=== PATIENT | female | born 1970 | race Two or more races ===

== ENCOUNTER 2020-04-11 15:16 | Outpatient (REF) | payer MEDICAID, SELFPAY | END 2020-04-11 15:17 | disposition home or self-care (01) | LOC: HO.LAB 15:16 | PROVIDERS: Visit Provider Internal Medicine | DX: Z20.822 Contact with and (suspected) exposure to COVID-19 (principal) | CPT/HCPCS: 36415; C9803; U0003 ==

== ENCOUNTER 2020-07-10 13:20 | Outpatient (REF) | payer MEDICAID, SELFPAY ==
[2020-07-10 13:38] LABS: COVID-19 Test Negative (Negative)
== END 2020-07-10 13:21 | disposition home or self-care (01) ==
LOC: HO.LAB 13:20
PROVIDERS: Visit Provider Internal Medicine
DX: Z20.822 Contact with and (suspected) exposure to COVID-19 (principal)
CPT/HCPCS: 36415; 87635; C9803

== ENCOUNTER 2020-08-14 08:37 | Outpatient (REF) | payer MEDICAID, SELFPAY ==
--- NOTE | ~2020-08-14 | MM_ITS ---
EXAMINATION: MM SCREENING DIGITAL BREAST TOMOSYNTHESIS, BILATERAL CLINICAL INFORMATION: Screening. Asymptomatic. The lifetime risk of breast cancer based on the Tyrer-Cuzick Model is 14%. COMPARISON: Mammography: 10/20/2016, 10/18/2015, 04/22/2014 TECHNIQUE: Digital breast tomosynthesis is performed in both the craniocaudal and mediolateral oblique views along with computer-aided detection (CAD). Synthesized 2D images are generated from the tomosynthesis. Additional right MLO view is provided. FINDINGS: The breasts are heterogeneously dense, which may obscure small masses (ACR BI-RADS breast composition Category c). There are no significant masses, abnormal calcifications, or other abnormalities. Parenchymal pattern is similar to prior studies. No significant changes. MM/MM tomosynthesis screening BI IMPRESSION: No mammographic evidence of malignancy. ASSESSMENT: BI-RADS 1: Negative RECOMMENDATION: Routine annual mammography screening. This patient's information was entered into a reminder system with a target due date for their next mammogram.
== END 2020-08-14 08:38 | disposition home or self-care (01) ==
LOC: HO.MAMMO 08:37
PROVIDERS: Visit Provider Family Medicine
DX: Z12.31 Encounter for screening mammogram for malignant neoplasm of breast (principal)
CPT/HCPCS: 77063; 77067

== ENCOUNTER 2020-08-24 18:54 | Emergency (ER) | payer MEDICAID, SELFPAY ==
[2020-08-24 19:16] VITALS: BP 117/87; PULSE 92; RESP 18; TEMP 36.6; O2SAT 97; BMI 36.9
[2020-08-24 20:24] LABS: Glucose Urine UA NEG (NEG); Leukocyte Esterase Urine TRACE (NEG); Nitrite Urine POS (NEG); PH 5.5 (5.0-8.0); Specific Gravity - Urine 1.025 (1.005-1.025); UACC Culture Trigger YES; Urine Blood 3+ (NEG); Urine Ketones 15 MG/DL (NEG); Urine Protein 2+ MG/DL (NEG-TRACE)
[2020-08-24 20:26] LABS: Appearance Urine TURBID; Color Urine AMBER
[2020-08-24 20:34] LABS: Bacteria Urine 1+ /LPF; Mucus Urine 2+ /LPF; Squamous Epithelial Cell Urine TRACE /LPF
[2020-08-24 20:43] LABS: Basophils Absolute Auto 0.1 X10*3/uL (0.0-0.2); Basophils Percent Auto 0.6 % (0-2); Eosinophils Absolute Auto 0.2 X10*3/uL (0.0-0.4); Eosinophils Percent Auto 2.6 % (0-4); Lymphocytes Percent Auto 24.4 % (20-40); MANUAL DIFF FLAG SCAN; PLT CLUMP 1; SCAN SMEAR FLAG 1
[2020-08-24 20:45] LABS: Hematocrit 35.5 % (37-47); Imm Gran Abs Auto 0.03 X10*3/uL (0.00-0.03); Imm Gran Pct Auto 0.4 % (0.0-0.4); Mean Corpuscular HGB Conc 33.8 g/dl (31.0-35.0); Mean Corpuscular Hemoglobin 29.5 pg (27.0-33.0); Mean Corpuscular Volume 87.2 fL (80-98); Mean Platelet Volume 10.5 fL (9.4-12.3); Monocytes Absolute Auto 0.6 X10*3/uL (0.1-1.2); Monocytes Percent Auto 6.8 % (2-11); Neutrophils Absolute Auto 5.3 X10*3/uL (2.0-8.3); Neutrophils Percent Auto 65.2 % (45-73); Red Blood Count 4.07 X10*6/uL (4.20-5.50); Red Cell Distribution Width 14.8 % (11.0-16.0); White Blood Count 8.1 X10*3/uL (4.8-10.8)
[2020-08-24 20:48] LABS: SLIDE REVIEW VERIFIED
[2020-08-24 20:50] LABS: Alanine Aminotransferase 14 U/L (0-31); Alkaline Phosphatase 111 U/L (39-117); Anion Gap 13 (12-20); Aspartate Amino Transferase 20 U/L (5-31); Bilirubin Total 0.3 mg/dL (0.0-1.0); Blood Urea Nitrogen 8 mg/dL (9-16); Calcium 8.6 mg/dL (8.4-10.2); Carbon Dioxide 22 mmol/L (22-29); Chloride 110 mmol/L (96-108); Creatinine Clr Calc Pharmacy 79.6; Estimated Glomerular Filt Rate > 60; Glucose Random 78 mg/dL (60-115); Potassium 3.9 mmol/L (3.3-5.1); Sodium 141 mmol/L (135-145); Total Protein 7.3 g/dL (6.5-8.0)
[2020-08-25 01:53] VITALS: BP 161/83; PULSE 79; RESP 18; TEMP 36.8; O2SAT 98
--- NOTE | 2020-08-25 02:06 | ED_ITS ---
HPI - Female Genitourinary General Chief complaint: Vaginal Bleeding Stated complaint: vaginal bleeding Time Seen by Provider: 08/25/20 01:44 History of Present Illness HPI Narrative: Patient is a 50-year-old female presents today with having vaginal bleeding. Patient claims of bleeding been ongoing for about 4 days. She is soaking 3 pads a day. There is no fever no chills no dizziness no nausea no vomiting. Definitely vaginal bleeding. No rectal bleeding noted. No cough no congestion or upper respiratory symptoms. No diaphoresis. Patient is from home. She had a Pap smear done few days prior. Related Data Previous Rx's Medication Instructions Recorded phenazopyridine [Pyridium] 100 mg PO TID PRN #10 tab 08/25/20 sulfamethoxazole-trimethoprim 1 tab PO BID #6 tab 08/25/20 [Bactrim DS] Allergies Allergy/AdvReac Type Severity Reaction Status Date / Time From Zantac Allergy Unknown RASH Uncoded 11/29/19 17:38 Review of Systems Review of Systems: Constitutional: No Weight loss, No Fever, No Chills, No Night Sweats, No Fatigue, No Malaise ENT/Mouth: No Hearing loss, No Ear Pain, No Nasal Congestion, No Sinus Pain, No Hoarseness, No sore throat, No Rhinorrhea, No Swallowing Difficulty Eyes: No Eye Pain, No Swelling, No Redness, No Foreign Body, No Discharge, No Vision Changes Cardiovascular: No Chest Pain, No SOB, No Dyspnea on Exertion, No Orthopnea, No Edema, No Palpitations Respiratory: No Cough, No Sputum, No Wheezing, No Smoke Exposure, No Dyspnea Gastrointestinal: No Nausea, No Vomiting, No Diarrhea, No Constipation, No abdominal Pain, No Hematochezia, No Melena Genitourinary: no irregular bleeding, No Dysuria, No Urinary Frequency, No Hematuria, No Urinary Incontinence, No Urgency, No Flank Pain, No Urinary Flow Changes, No Hesitancy Musculoskeletal: No joint pain, No Myalgias, No Joint Swelling Skin: No Skin Lesions, No rash Neuro: No Weakness, No Numbness, No Paresthesias, No Loss of Consciousness, No Dizziness, No Headache Psych: No Anxiety/Panic, No Depression, No SI/HI/AH/VH, No Social Issues, Heme/Lymph: No Bruising, No Bleeding,No Lymphadenopathy Endocrine: No Polyuria, No Polydipsia, No Temperature Intolerance Positive vaginal bleeding [facility] Past Medical History Attestation statement: The following information was validated with the patient. Medical History Carpal tunnel syndrome of left wrist delivery delivered HTN (hypertension) Social History Social History Advance Directives: No Patient : No Physical Exam Vital Signs: Vital Signs: Last Vital Signs Temp 98.2 F 08/25/20 01:53 Pulse 79 08/25/20 01:53 Resp 18 08/25/20 01:53 BP 161/83 H 08/25/20 01:53 Pulse Ox 98 08/25/20 01:53 Body Mass Index 36.9 Appearance: Alert. Oriented X3. No acute distress. Eyes: Pupils equal, round and reactive to light. ENT: Pharynx normal. Neck: Normal inspection. Neck supple. No lymph nodes noted. No crepitus CVS: Normal heart rate and rhythm. Pulses normal. Normal S1 and S2 Respiratory: No respiratory distress. Breath sounds normal. No Wheezing. No rales Abdomen: Soft and nontender. No rigidity. No distention. good BS x4 Skin: Skin warm and dry. Normal skin color. Normal skin turgor. Extremities: No lower extremity edema. Neurovascular intact to all extremities. No Lacerations. No Rash Neuro: Oriented X 3. No motor deficit. No sensory deficit. Moving all extermities. No slurred speech pelvic exam done with nurse Judy present. There is no external lesion noted. there is small amount of blood in the vaginal vault. Cervical os is closed. No adnexal tenderness elicited. MDM - Female Genitourinary MDM Narrative Medical decision making narrative: Patient's hemoglobin is baseline. She is well appearing no distress. Positive UTI. Will get ahead and give Bactrim. In stable condition with discharge home. Patient will require follow-up on an outpatient basis for her vaginal bleeding. Question uterine biopsy. Currently in stable condition. Patient told risk of cancer exists. Must follow-up. Lab Data Result diagrams: 08/24/20 20:16 08/24/20 20:16 Labs: Lab Results 08/24/20 08/24/20 08/24/20 Range/Units 20:16 20:16 20:16 WBC 8.1 (4.8-10.8) X10*3/uL RBC 4.07 L (4.20-5.50) X10*6/uL Hgb 12.0 (12.0-16.0) g/dl Hct 35.5 L (37-47) % MCV 87.2 (80-98) fL MCH 29.5 (27.0-33.0) pg MCHC 33.8 (31.0-35.0) g/dl RDW 14.8 (11.0-16.0) % Plt Count TNP MPV 10.5 (9.4-12.3) fL Immature Gran % (Auto) 0.4 (0.0-0.4) % Neut % (Auto) 65.2 (45-73) % Lymph % (Auto) 24.4 (20-40) % [place] % (Auto) 6.8 (2-11) % Eos % (Auto) 2.6 (0-4) % Baso % (Auto) 0.6 (0-2) % Lymph # (Auto) 2.0 (1.2-4.9) X10*3/uL [place] # (Auto) 0.6 (0.1-1.2) X10*3/uL Eos # (Auto) 0.2 (0.0-0.4) X10*3/uL Baso # (Auto) 0.1 (0.0-0.2) X10*3/uL Abs Immat Gran (auto) 0.03 (0.00-0.03) X10*3/uL Absolute Neuts (auto) 5.3 (2.0-8.3) X10*3/uL Absolute Nucleated RBC 0.000 (0.0-0.012) X10*3/uL Nucleated RBC % (auto) 0.0 (0.0-0.2) /100WBC Smear Tech's Comments VERIFIED Sodium 141 (135-145) mmol/L Potassium 3.9 (3.3-5.1) mmol/L Chloride 110 H (96-108) mmol/L Carbon Dioxide 22 (22-29) mmol/L Anion Gap 13 (12-20) BUN 8 L (9-16) mg/dL Creatinine 0.83 (0.5-1.4) mg/dL Estim Creat Clear Calc 79.6 Estimated GFR > 60 Random Glucose 78 (60-115) mg/dL Calcium 8.6 (8.4-10.2) mg/dL Total Bilirubin 0.3 (0.0-1.0) mg/dL AST 20 (5-31) U/L ALT 14 (0-31) U/L Alkaline Phosphatase 111 (39-117) U/L Total Protein 7.3 (6.5-8.0) g/dL Albumin 4.0 (3.5-5.0) g/dL Urine Color ROMY Urine Appearance TURBID Urine pH 5.5 (5.0-8.0) Ur Specific [place] 1.025 (1.005-1.025) Urine Protein 2+ H (NEG-TRACE) MG/DL Urine Glucose (UA) NEG (NEG) MG/DL Urine Ketones 15 (NEG) MG/DL Urine Blood 3+ H (NEG) Urine Nitrite POS H (NEG) Ur Leukocyte Esterase TRACE H (NEG) Urine RBC 76-150 H (0) /HPF Urine WBC 5-9 H (0-4) /HPF Ur Squamous Epith Cells TRACE /LPF Urine Bacteria 1+ /LPF Urine Mucus 2+ /LPF Discharge Plan Discharge Clinical Impression: Vaginal bleeding, UTI (urinary tract infection) Patient Disposition: Home, Self-Care Instructions: Dysfunctional Uterine Bleeding (ED), Urinary Tract Infection in Women (ED) Additional Instructions: Risk of uterine cancer exists. You must get a uterine biopsy done by OBGYN. Prescriptions: New sulfamethoxazole-trimethoprim [Bactrim DS] 800-160 mg tablet 1 tab PO BID Qty: 6 RF: 0 phenazopyridine [Pyridium] 100 mg tablet 100 mg PO TID PRN (Reason: pain) Qty: 10 RF: 0 Referrals: Keny Hair MD [Physician] - 2 days
== END 2020-08-25 02:39 | disposition home or self-care (01) ==
PROVIDERS: Emergency Provider Emergency Medicine Emergency Medical Services; PCP Family Medicine
DX: N93.9 Abnormal uterine and vaginal bleeding, unspecified (principal); N39.0 Urinary tract infection, site not specified; I10 Essential (primary) hypertension
CPT/HCPCS: 36415; 80053; 81001; 81003; 85025; 87086; 99283; 99284

== ENCOUNTER 2020-10-23 15:37 | Emergency (ER) | payer MEDICAID, SELFPAY ==
--- NOTE | ~2020-10-23 | XR_ITS ---
EXAMINATION: XR ELBOW, LEFT CLINICAL INFORMATION: Status post fall with swelling and pain COMPARISON: January 06, 2018 TECHNIQUE: AP, lateral, and oblique views of the left elbow. FINDINGS: There is no evidence of acute fracture or dislocation of the left elbow. No left elbow effusion. There is some mild soft tissue swelling seen just superior to the olecranon. XR/XR elbow LT 2V IMPRESSION: No bony abnormality of the left elbow identified. No left elbow effusion.
[2020-10-23 16:05] VITALS: BP 147/90; PULSE 86; RESP 16; TEMP 36.5; O2SAT 99; BMI 35.2
[2020-10-23 20:18] LABS: MANUAL DIFF FLAG NO
[2020-10-23 20:19] LABS: Basophils Percent Auto 0.4 % (0-2); Eosinophils Absolute Auto 0.2 X10*3/uL (0.0-0.4); Eosinophils Percent Auto 2.6 % (0-4); Hematocrit 38.3 % (37-47); Hemoglobin 12.6 g/dl (12.0-16.0); Imm Gran Abs Auto 0.01 X10*3/uL (0.00-0.03); Imm Gran Pct Auto 0.1 % (0.0-0.4); Lymphocytes Absolute Auto 2.5 X10*3/uL (1.2-4.9); Lymphocytes Percent Auto 27.7 % (20-40); Mean Corpuscular HGB Conc 32.9 g/dl (31.0-35.0); Mean Corpuscular Hemoglobin 28.9 pg (27.0-33.0); Mean Corpuscular Volume 87.8 fL (80-98); Mean Platelet Volume 9.5 fL (9.4-12.3); Monocytes Absolute Auto 0.6 X10*3/uL (0.1-1.2); Monocytes Percent Auto 6.9 % (2-11); Neutrophils Absolute Auto 5.7 X10*3/uL (2.0-8.3); Neutrophils Percent Auto 62.3 % (45-73); Platelet Count 312 X10*3/uL (160-400); Red Blood Count 4.36 X10*6/uL (4.20-5.50); Red Cell Distribution Width 14.2 % (11.0-16.0); White Blood Count 9.1 X10*3/uL (4.8-10.8)
[2020-10-23 20:46] LABS: Alanine Aminotransferase 18 U/L (0-31); Alkaline Phosphatase 99 U/L (39-117); Anion Gap 13 (12-20); Aspartate Amino Transferase 14 U/L (5-31); Bilirubin Total 0.2 mg/dL (0.0-1.0); Blood Urea Nitrogen 8 mg/dL (9-16); Calcium 9.1 mg/dL (8.4-10.2); Carbon Dioxide 21 mmol/L (22-29); Chloride 107 mmol/L (96-108); Estimated Glomerular Filt Rate 60; Glucose Random 109 mg/dL (60-115); Potassium 4.3 mmol/L (3.3-5.1); Sodium 137 mmol/L (135-145); Total Protein 7.2 g/dL (6.5-8.0)
--- NOTE | 2020-10-23 20:47 | PC.NURSE ---
Pts visitor at bedside asking this RN about Covid testing, states he is symptomatic. This RN advised pt to check in as a pt or go to an out patient clinic for testing. This RN discussing situation with Charge Nurse. Pt and visitor advised he is unable to remain at bedside as a visitor as he is symptomatic for Covid. Visitor agreeable to leaving bedside. Pt awaiting primary MD leal.
[2020-10-23 21:03] VITALS: BP 142/77; PULSE 72; RESP 18; TEMP 36.7; O2SAT 99
--- NOTE | 2020-10-23 21:54 | ED_ITS ---
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 She is unclear as to when she last received her tetanus vaccine. And denies any fevers, chills. Related Data Previous Rx's Medication Instructions Recorded phenazopyridine 100 mg tablet 100 mg PO TID PRN #10 tab 08/25/20 (Pyridium) sulfamethoxazole 800 1 tab PO BID #6 tab 08/25/20 mg-trimethoprim 160 mg tablet (Bactrim DS) Allergies Allergy/AdvReac Type Severity Reaction Status Date / Time From Zantac Allergy Unknown RASH Uncoded 11/29/19 17:38 Review of Systems Review of Systems: Pertinent positives and negatives as stated in HPI 10 point review of systems is otherwise negative. PMFSH Past Medical History Source: nursing notes reviewed Medical History Carpal tunnel syndrome of left wrist delivery delivered HTN (hypertension) Social History Social History Advance Directives: No Patient : No Physical Exam Vital Signs: Vital Signs: Last Vital Signs Temp 98.1 F 10/23/20 21:03 Pulse 72 10/23/20 21:03 Resp 18 10/23/20 21:03 BP 142/77 H 10/23/20 21:03 Pulse Ox 99 10/23/20 21:03 Body Mass Index 35.2 VITAL SIGNS: Reviewed. GENERAL: Well developed, well nourished, in no acute distress. HEAD: Normocephalic/atraumatic EYES: PERRLA, EOMI EARS: Ext canals without abnormality, TMs non-bulging and non-erythematous NOSE: Nares patent bilateral OROPHARYNX: no oral lesions noted, posterior pharynx clear and non-erythematous without noted tonsillar enlargement/erythema/exudates NECK: Supple, no adenopathy LUNGS: Normal breath sounds. No adventitious sounds or accessory muscle use. SpO2<99> CARDIOVASCULAR: Regular rate and rhythm without noted murmurs ABDOMEN: Soft, non-tender, non-distended with bowel sounds. LEFT ELBOW: Abrasions and mild swelling at the left elbow with mild tenderness to palpation but distally neurovascularly intact with palpable radial/ulnar pulses and capillary refill less than 3 seconds with intact sensation. SKIN: Inspection of the skin reveals no rashes NEUROLOGIC: Alert and oriented x 4. Course Course Course Narrative: 50-year-old female status post fall yesterday with unknown tetanus and review of all investigations negative for evidence of fracture, dislocation and noted abrasions to the left elbow. Patient received Tdap here in the emergency room as well as combination analgesics for her aches and pains and abrasions. MDM - Fall Lab Data Result diagrams: 10/23/20 20:14 10/23/20 20:14 Labs: Lab Results 10/23/20 10/23/20 Range/Units 20:14 20:14 WBC 9.1 (4.8-10.8) X10*3/uL RBC 4.36 (4.20-5.50) X10*6/uL Hgb 12.6 (12.0-16.0) g/dl Hct 38.3 (37-47) % MCV 87.8 (80-98) fL MCH 28.9 (27.0-33.0) pg MCHC 32.9 (31.0-35.0) g/dl RDW 14.2 (11.0-16.0) % Plt Count 312 (160-400) X10*3/uL MPV 9.5 (9.4-12.3) fL Immature Gran % (Auto) 0.1 (0.0-0.4) % Neut % (Auto) 62.3 (45-73) % Lymph % (Auto) 27.7 (20-40) % [place] % (Auto) 6.9 (2-11) % Eos % (Auto) 2.6 (0-4) % Baso % (Auto) 0.4 (0-2) % Lymph # (Auto) 2.5 (1.2-4.9) X10*3/uL [place] # (Auto) 0.6 (0.1-1.2) X10*3/uL Eos # (Auto) 0.2 (0.0-0.4) X10*3/uL Baso # (Auto) 0.0 (0.0-0.2) X10*3/uL Abs Immat Gran (auto) 0.01 (0.00-0.03) X10*3/uL Absolute Neuts (auto) 5.7 (2.0-8.3) X10*3/uL Absolute Nucleated RBC 0.000 (0.0-0.012) X10*3/uL Nucleated RBC % (auto) 0.0 (0.0-0.2) /100WBC Sodium 137 (135-145) mmol/L Potassium 4.3 (3.3-5.1) mmol/L Chloride 107 (96-108) mmol/L Carbon Dioxide 21 L (22-29) mmol/L Anion Gap 13 (12-20) BUN 8 L (9-16) mg/dL Creatinine 0.99 (0.5-1.4) mg/dL Estim Creat Clear Calc 65.0 Estimated GFR 60 Random Glucose 109 D (60-115) mg/dL Calcium 9.1 (8.4-10.2) mg/dL Total Bilirubin 0.2 (0.0-1.0) mg/dL AST 14 (5-31) U/L ALT 18 (0-31) U/L Alkaline Phosphatase 99 (39-117) U/L Total Protein 7.2 (6.5-8.0) g/dL Albumin 4.0 (3.5-5.0) g/dL Discharge Plan Discharge Clinical Impression: Abrasion, Muscle spasm of left shoulder area Patient Disposition: Home, Self-Care Instructions: Abrasion (ED), Diphtheria/Acellular Pertussis/Tetanus Booster Vaccine (Tdap) (By..., Muscle Spasm (ED) Additional Instructions: 1. Tylenol 1000 mg, por v?a oral, cada 6 horas seg?n sea necesario para controlar el dolor. No exceda los 4000 mg en 24 horas. 2. Ibuprofeno 400 mg, por v?a oral con leche o alimentos, cada 6 horas seg?n sea necesario para controlar el dolor. 3. Parche de lidoca?na, estos est?n disponibles sin receta y deben aplicarse en el ?manisha de m?xima sensibilidad en el hombro keli cassie se indica en el empaque exterior. 4. Aplique hielo en la piel no expuesta prashanth 5 a 10 minutos, de 3 a 4 veces al d?a, en el codo keli, marisa contin?e moviendo suavemente el codo. 5. Erika un seguimiento con levy proveedor de atenci?n primaria en los pr?ximos 2-3 d?as para henry reevaluaci?n y un tratamiento ambulatorio adicional. Regrese a la jorge de emergencias si jhonatan s?ntomas empeoran de manera aguda. Prescriptions: No Action sulfamethoxazole-trimethoprim [Bactrim DS] 800-160 mg tablet 1 tab PO BID Qty: 6 RF: 0 phenazopyridine [Pyridium] 100 mg tablet 100 mg PO TID PRN (Reason: pain) Qty: 10 RF: 0 Referrals: Chelle Cueto MD [Primary Care Provider] - 2 days Print Language: Greenlandic
[2020-10-23] MEDS: Diphth,Pertus(ACell),Tet Adult 0.5 ML SYRINGE IM (22:10)
[2020-10-23] MEDS: Acetaminophen 325 MG TABLET 975 MG PO (22:10)
[2020-10-23] MEDS: Ketorolac Tromethamine 15 MG/ML VIAL IM (22:11)
[2020-10-23] MEDS: Lidocaine 4 % Patch ADH..PATCH 1 PATCH TRANSDERMA (22:11)
[2020-10-23 22:17] VITALS: BP 153/100; PULSE 75; RESP 16
== END 2020-10-23 22:20 | disposition home or self-care (01) ==
PROVIDERS: Emergency Provider Student in an Organized Health Care Education/Training Program; PCP Family Medicine
DX: S50.312A Abrasion of left elbow, initial encounter (principal); W17.89XA Other fall from one level to another, initial encounter; M62.838 Other muscle spasm; Y93.89 Activity, other specified; Y92.096 Garden or yard of other non-institutional residence as the place of occurrence of the external cause; Y99.9 Unspecified external cause status
CPT/HCPCS: 36415; 73070; 80053; 85025; 90471; 90715; 96372; 99284; J1885

== ENCOUNTER 2021-03-26 20:07 | Emergency (ER) | payer MEDICAID, SELFPAY ==
--- NOTE | 2021-03-26 | ECG_ITS ---
Test Reason : cp Blood Pressure : / mmHG Vent. Rate : 074 BPM Atrial Rate : 074 BPM P-R Int : 150 ms QRS Dur : 078 ms QT Int : 390 ms P-R-T Axes : 044 016 019 degrees QTc Int : 432 ms Normal sinus rhythm Normal ECG No significant changes when compared with the previous EKG of 09 may 2014 Referred By: Generic ED Physician Electronically Signed By:MACKENZIE BURNETT
--- NOTE | ~2021-03-26 | XR_ITS ---
EXAMINATION: PORTABLE CHEST 1 VIEW CLINICAL INFORMATION: cough . COMPARISON: 05/09/2014. TECHNIQUE: Portable frontal view of the chest was obtained. FINDINGS: The lungs are well expanded. Minimal increased bibasilar markings more likely reflecting a component of atelectasis without superimposed additional focal infiltrate, effusion, edema, or pneumothorax. Cardiac and mediastinal silhouettes are within normal limits for technique. No acute bony abnormality seen. XR/XR chest 1V IMPRESSION: Minimal increased basilar markings more likely due to atelectasis when compared to the prior study.
[2021-03-26 21:38] VITALS: BP 141/59; PULSE 86; RESP 16; TEMP 37.2; O2SAT 99
[2021-03-26 21:57] LABS: MANUAL DIFF FLAG NO
[2021-03-26 21:58] LABS: Basophils Percent Auto 0.5 % (0-2); Eosinophils Absolute Auto 0.2 X10*3/uL (0.0-0.4); Eosinophils Percent Auto 2.4 % (0-4); Hematocrit 36.7 % (37.0-47.0); Hemoglobin 11.9 g/dl (12.0-16.0); Imm Gran Abs Auto 0.02 X10*3/uL (0.00-0.03); Imm Gran Pct Auto 0.3 % (0.0-0.4); Lymphocytes Absolute Auto 2.1 X10*3/uL (1.2-4.9); Lymphocytes Percent Auto 27.2 % (20-40); Mean Corpuscular HGB Conc 32.4 g/dl (31.0-35.0); Mean Corpuscular Hemoglobin 28.2 pg (27.0-33.0); Mean Platelet Volume 9.4 fL (9.4-12.3); Monocytes Absolute Auto 0.6 X10*3/uL (0.1-1.2); Neutrophils Absolute Auto 4.8 x10*3/uL (2.0-8.3); Neutrophils Percent Auto 61.6 % (45-73); Platelet Count 332 X10*3/uL (160-400); Red Blood Count 4.22 X10*6/uL (4.20-5.50); Red Cell Distribution Width 14.3 % (11.0-16.0); White Blood Count 7.8 X10*3/uL (4.8-10.8)
[2021-03-26 22:17] LABS: Alanine Aminotransferase 16 U/L (0-31); Alkaline Phosphatase 109 U/L (39-117); Anion Gap 9 (12-20); Aspartate Amino Transferase 16 U/L (5-31); Bilirubin Total 0.2 mg/dL (0.0-1.0); Blood Urea Nitrogen 11 mg/dL (9-16); Calcium 9.4 mg/dL (8.4-10.2); Carbon Dioxide 30 mmol/L (22-29); Chloride 105 mmol/L (96-108); Estimated Glomerular Filt Rate > 60; Glucose Random 110 mg/dL (60-115); Potassium 4.5 mmol/L (3.3-5.1); Sodium 139 mmol/L (135-145); Total Protein 7.6 g/dL (6.5-8.0)
[2021-03-27 04:51] VITALS: BP 138/79; PULSE 64; RESP 18; TEMP 36.8; O2SAT 98
--- NOTE | 2021-03-27 06:46 | ECG_ITS ---
Test Reason : cp Blood Pressure : / mmHG Vent. Rate : 074 BPM Atrial Rate : 074 BPM P-R Int : 150 ms QRS Dur : 078 ms QT Int : 390 ms P-R-T Axes : 044 016 019 degrees QTc Int : 432 ms Normal sinus rhythm Normal ECG Referred By: Katharine Avilez Electronically Signed By:
--- NOTE | 2021-03-27 06:46 | ED_ITS ---
HPI - Chest Pain General Chief Complaint: Chest Pain Stated Complaint: Chest pain Time Seen by Provider: 03/27/21 06:35 Source: patient Mode of arrival: ambulatory Limitations: no limitations History of Present Illness HPI narrative: Patient comes to the emergency room complaining of chest congestion. Patient states it started approximately 3 days ago. Patient states she does not have pain, no shortness of breath. Patient states that she does feel sinus pressure. Patient states that she thinks this is a cold, but because she had chest pressure and history of SD 10 years ago, she came to the hospital. Patient denies coughing, no fever chills. Related Data Previous Rx's Medication Instructions Recorded phenazopyridine 100 mg tablet 100 mg PO TID PRN #10 tab 08/25/20 (Pyridium) sulfamethoxazole 800 1 tab PO BID #6 tab 08/25/20 mg-trimethoprim 160 mg tablet (Bactrim DS) fexofenadine 180 mg tablet 180 mg PO DAILY #7 tab 03/27/21 (Fabiana Allergy) fluticasone propionate 50 1 spray INTRANASAL Q12H #16 g 03/27/21 mcg/actuation nasal spray,suspension (Flonase Allergy Relief) Allergies Allergy/AdvReac Type Severity Reaction Status Date / Time From Zantac Allergy Unknown RASH Uncoded 11/29/19 17:38 Review of Systems Review of Systems: Constitutional : No Weight loss, No Fever, No Chills, No Night Sweats, No Fatigue, No Malaise ENT/Mouth : No Hearing loss, No Ear Pain, complaining of Nasal Congestion and sinus pressure, no sore throat, mild rhinorrhea Eyes: No Eye Pain, No Swelling, No Redness, No Foreign Body, No Discharge, No Vision Changes Cardiovascular : No Chest Pain, only chest pressure/congestion. No SOB, No Dyspnea on Exertion, No Orthopnea, No Edema, No Palpitations Respiratory : No Cough, No Sputum, No Wheezing, No Smoke Exposure, No Dyspnea Gastrointestinal : No Nausea, No Vomiting, No Diarrhea, No Constipation, No abdominal Pain, No Hematochezia, No Melena Genitourinary : no irregular bleeding, No Dysuria, No Urinary Frequency, No Hematuria, No Urinary Incontinence, No Urgency, No Flank Pain, No Urinary Flow Changes, No Hesitancy Musculoskeletal : No joint pain, No Myalgias, No Joint Swelling Skin : No Skin Lesions, No rash Neuro : No Weakness, No Numbness, No Paresthesias, No Loss of Consciousness, No Dizziness, No Headache Psych : No Anxiety/Panic, No Depression, No SI/HI/AH/VH, No Social Issues, Heme/Lymph: No Bruising, No Bleeding,No Lymphadenopathy Endocrine : No Polyuria, No Polydipsia, No Temperature Intolerance PMF Past Medical History Medical History Carpal tunnel syndrome of left wrist delivery delivered HTN (hypertension) Social History Social History Alcohol intake: current Alcohol intake frequency: holidays/special occasions only Patient Tobacco Use Status: Never used Tobacco Use of substances other than those prescribed or required for medical reasons: No Advance Directives: No Advance Directives Information Provided: No Physical Exam Vital Signs: Vital Signs: Last Vital Signs Temp 98.2 F 03/27/21 04:51 Pulse 65 03/27/21 07:09 Resp 14 03/27/21 07:09 BP 125/76 03/27/21 07:09 Pulse Ox 98 03/27/21 07:09 BMI result Body Mass Index 0.7 Const: Other: Appearance: Alert. Oriented X3. No acute distress. Well- appearing Eyes: Pupils equal, round and reactive to light. ENT: Pharynx normal. Neck: Normal inspection. Neck supple. No lymph nodes noted. No crepitus CVS: Normal heart rate and rhythm. Pulses normal. Normal S1 and S2 Respiratory: No respiratory distress. Breath sounds normal. No Wheezing. No rales Abdomen: Soft and nontender. No rigidity. No distention. good BS x4 Skin: Skin warm and dry. Normal skin color. Normal skin turgor. Extremities: No lower extremity edema. No Lacerations. No Rash Neuro: Oriented X 3. No motor deficit. No sensory deficit. Moving all extermities. No slurred speech. Course Course Course Narrative: Patient likely having viral bronchitis. Patient's troponin negative despite having chest pressure/discomfort for 3 days. EKG within normal limits. Patient states it feels like there is a lot of phlegm in her lungs. No active chest pain. MDM - Chest Pain Lab Data Result diagrams: 03/26/21 21:52 03/26/21 21:52 Labs: Lab Results 03/26/21 03/26/21 03/27/21 Range/Units 21:52 21:52 07:17 WBC 7.8 (4.8-10.8) X10*3/uL RBC 4.22 (4.20-5.50) X10*6/uL Hgb 11.9 L (12.0-16.0) g/dl Hct 36.7 L (37.0-47.0) % MCV 87.0 (80.0-98.0) fL MCH 28.2 (27.0-33.0) pg MCHC 32.4 (31.0-35.0) g/dl RDW 14.3 (11.0-16.0) % Plt Count 332 (160-400) X10*3/uL MPV 9.4 (9.4-12.3) fL Immature Gran % (Auto) 0.3 (0.0-0.4) % Neut % (Auto) 61.6 (45-73) % Lymph % (Auto) 27.2 (20-40) % [place] % (Auto) 8.0 (2-11) % Eos % (Auto) 2.4 (0-4) % Baso % (Auto) 0.5 (0-2) % Lymph # (Auto) 2.1 (1.2-4.9) X10*3/uL [place] # (Auto) 0.6 (0.1-1.2) X10*3/uL Eos # (Auto) 0.2 (0.0-0.4) X10*3/uL Baso # (Auto) 0.0 (0.0-0.2) X10*3/uL Abs Immat Gran (auto) 0.02 (0.00-0.03) X10*3/uL Absolute Neuts (auto) 4.8 (2.0-8.3) x10*3/uL Absolute Nucleated RBC 0.000 (0.0-0.012) X10*3/uL Nucleated RBC % (auto) 0.0 (0.0-0.2) /100WBC Sodium 139 (135-145) mmol/L Potassium 4.5 (3.3-5.1) mmol/L Chloride 105 (96-108) mmol/L Carbon Dioxide 30 H (22-29) mmol/L Anion Gap 9 L (12-20) BUN 11 (9-16) mg/dL Creatinine 0.86 (0.5-1.4) mg/dL Estim Creat Clear Calc 210.0 Estimated GFR > 60 Random Glucose 110 (60-115) mg/dL Calcium 9.4 (8.4-10.2) mg/dL Total Bilirubin 0.2 (0.0-1.0) mg/dL AST 16 (5-31) U/L ALT 16 (0-31) U/L Alkaline Phosphatase 109 (39-117) U/L Troponin I High Sens < 3.5 (<3.5-17.0) ng/L Total Protein 7.6 (6.5-8.0) g/dL Albumin 4.0 (3.5-5.0) g/dL COVID-19 (KATRIN) (Negative) COVID-19 Clin Com 03/27/21 Range/Units 07:17 WBC (4.8-10.8) X10*3/uL RBC (4.20-5.50) X10*6/uL Hgb (12.0-16.0) g/dl Hct (37.0-47.0) % MCV (80.0-98.0) fL MCH (27.0-33.0) pg MCHC (31.0-35.0) g/dl RDW (11.0-16.0) % Plt Count (160-400) X10*3/uL MPV (9.4-12.3) fL Immature Gran % (Auto) (0.0-0.4) % Neut % (Auto) (45-73) % Lymph % (Auto) (20-40) % [place] % (Auto) (2-11) % Eos % (Auto) (0-4) % Baso % (Auto) (0-2) % Lymph # (Auto) (1.2-4.9) X10*3/uL [place] # (Auto) (0.1-1.2) X10*3/uL Eos # (Auto) (0.0-0.4) X10*3/uL Baso # (Auto) (0.0-0.2) X10*3/uL Abs Immat Gran (auto) (0.00-0.03) X10*3/uL Absolute Neuts (auto) (2.0-8.3) x10*3/uL Absolute Nucleated RBC (0.0-0.012) X10*3/uL Nucleated RBC % (auto) (0.0-0.2) /100WBC Sodium (135-145) mmol/L Potassium (3.3-5.1) mmol/L Chloride (96-108) mmol/L Carbon Dioxide (22-29) mmol/L Anion Gap (12-20) BUN (9-16) mg/dL Creatinine (0.5-1.4) mg/dL Estim Creat Clear Calc Estimated GFR Random Glucose (60-115) mg/dL Calcium (8.4-10.2) mg/dL Total Bilirubin (0.0-1.0) mg/dL AST (5-31) U/L ALT (0-31) U/L Alkaline Phosphatase (39-117) U/L Troponin I High Sens (<3.5-17.0) ng/L Total Protein (6.5-8.0) g/dL Albumin (3.5-5.0) g/dL COVID-19 (KATRIN) Negative (Negative) COVID-19 Clin Com See Note Imaging Data Chest x-ray: Radiologist's impression: The lungs are well expanded. Minimal increased bibasilar markings more likely reflecting a component of atelectasis without superimposed additional focal infiltrate, effusion, edema, or pneumothorax. Cardiac and mediastinal silhouettes are within normal limits for technique. No acute bony abnormality seen. XR/XR chest 1V IMPRESSION: Minimal increased basilar markings more likely due to atelectasis when compared to the prior study. Discharge Plan Discharge Clinical Impression: Acute bronchitis, viral Patient Disposition: Home, Self-Care Instructions: Acute Bronchitis (ED) Additional Instructions: Please follow-up with your primary care physician tomorrow. If you have any worsening or new symptoms, please return to the emergency room or call 911 Prescriptions: New fluticasone propionate [Flonase Allergy Relief] 50 mcg/actuation spray,suspension 1 spray intranasal Q12H Qty: 16 RF: 0 fexofenadine [Fabiana Allergy] 180 mg tablet 180 mg PO DAILY Qty: 7 RF: 0 No Action sulfamethoxazole-trimethoprim [Bactrim DS] 800-160 mg tablet 1 tab PO BID Qty: 6 RF: 0 phenazopyridine [Pyridium] 100 mg tablet 100 mg PO TID PRN (Reason: pain) Qty: 10 RF: 0
--- NOTE | 2021-03-27 06:46 | ECG_ITS ---
Test Reason : chest pain Blood Pressure : / mmHG Vent. Rate : 063 BPM Atrial Rate : 063 BPM P-R Int : 158 ms QRS Dur : 084 ms QT Int : 440 ms P-R-T Axes : 034 008 018 degrees QTc Int : 450 ms Normal sinus rhythm Nonspecific ST and T wave abnormality Borderline ECG When compared with ECG of 26-MAR-2021 21:46, No significant change was found Referred By: Katharine Avilez Electronically Signed By:MACKENZIE BURNETT
[2021-03-27 07:09] VITALS: BP 125/76; PULSE 65; RESP 14; O2SAT 98
[2021-03-27 07:38] LABS: COVID-19 Test Negative (Negative)
[2021-03-27 07:48] LABS: Troponin-I High Sensitivity < 3.5 ng/L (<3.5-17.0)
== END 2021-03-27 09:07 | disposition home or self-care (01) ==
PROVIDERS: Emergency Provider Emergency Medicine; PCP Family Medicine
DX: J20.8 Acute bronchitis due to other specified organisms (principal); Z20.822 Contact with and (suspected) exposure to COVID-19; I10 Essential (primary) hypertension
CPT/HCPCS: 36415; 71045; 80053; 84484; 85025; 87635; 93005; 99283; 99284

== ENCOUNTER 2021-08-17 15:27 | Outpatient (REF) | payer MEDICAID, SELFPAY ==
--- NOTE | ~2021-08-17 | MM_ITS ---
EXAMINATION: MM SCREENING DIGITAL BREAST TOMOSYNTHESIS, BILATERAL CLINICAL INFORMATION: Screening. Asymptomatic. The lifetime risk of breast cancer based on the Tyrer-Cuzick Model is 19.7%. COMPARISON: Mammography: 08/14/2020 and studies dating back to 03/12/2011. TECHNIQUE: Digital breast tomosynthesis is performed in both the craniocaudal and mediolateral oblique views along with computer-aided detection (CAD). Synthesized 2-D images are generated from the tomosynthesis. FINDINGS: The breasts are extremely dense, which lowers the sensitivity of mammography (ACR BI-RADS breast composition Category d). About the deep slightly lateral and slightly inferior aspect of the right breast, there is a density for which further evaluation with attempted spot compression views and possible ultrasound is recommended. Its margins are not all well circumscribed. It measures approximately 1.1 x 0.6 cm in size. About the deep medial aspect of the left breast, there is a well-circumscribed density not well seen on previous mediolateral oblique projections but which is noted on previous craniocaudal views and appears to represent an intramammary lymph node. MM/MM tomosynthesis screening BI IMPRESSION: Right breast density for further evaluation with spot compression views and possible ultrasound. ASSESSMENT: BI-RADS 0: Incomplete - Need Additional Imaging Evaluation. RECOMMENDATION: 1. Additional views of the right breast. 2. Targeted ultrasound if warranted after review of the additional views. 3. Radiology department staff will contact the patient for additional imaging. This patient's information was entered into a reminder system with a target due date for their next mammogram.
== END 2021-08-17 15:28 | disposition home or self-care (01) ==
LOC: HO.MAMMO 15:27
PROVIDERS: PCP Family Medicine; Visit Provider Family Medicine
DX: Z12.31 Encounter for screening mammogram for malignant neoplasm of breast (principal)
CPT/HCPCS: 77063; 77067

== ENCOUNTER 2021-08-24 09:02 | Outpatient (REF) | payer MEDICAID, SELFPAY ==
--- NOTE | ~2021-08-24 | MM_ITS ---
EXAMINATION: MM DIAGNOSTIC DIGITAL BREAST TOMOSYNTHESIS, RIGHT US DIAGNOSTIC ULTRASOUND BREAST, RIGHT CLINICAL INFORMATION: Recall from screening for nodular focal asymmetric density posterior central lower outer right breast. Family history breast cancer, mother. TC score 19.7%. COMPARISON: Mammography: 08/17/2021 and prior exams dating back to 03/01/2013. TECHNIQUE: Digital breast tomosynthesis is performed. 2D images are generated from the tomosynthesis. The following views are obtained: Spot CC with dermal marker x2, spot MLO with dermal marker, x2, standard CC and ML. Ultrasound right breast is targeted to the central lower and outer breast using grayscale imaging and color Doppler without and with harmonics. FINDINGS: The breasts are heterogeneously dense, which may obscure small masses (ACR BI-RADS breast composition Category c). There is a dermal lesion posterior 6:30 o'clock position which is separate from the finding for recall. The focal nodular asymmetric density is better appreciated on CC view. Margins are macrolobulated and smooth. There is no spiculation or associated calcification. Finding is likely beyond field of view on prior mammography, questionably present without change on remote exam 2012. Ultrasound right breast demonstrates 2 small cysts of similar size to the focal nodular asymmetric density posterior 8:00 position. The larger measures 0.5 x 0.4 cm and is anechoic, smooth, with increased through-transmission of sound. The smaller is 0.4 x 0.3 cm with similar ultrasound characteristics. There is no solid mass or architectural abnormality. Results are discussed with the patient at time of visit, using an manager inventory management. The focal nodular asymmetric density is of unknown chronicity, likely beyond field of view on prior mammography studies. Ultrasound demonstrates 2 small cysts one likely corresponding to the mammographic finding. As a precaution, patient will be reassessed again in 6 months with diagnostic right mammography, ultrasound if warranted. MM/MM tomosynthesis added views R IMPRESSION: -Oval focal nodular asymmetric density, likely beyond field of view on prior exams. -Two simple cysts in area of mammographic concern. No suspicious ultrasound finding. ASSESSMENT: BI-RADS 3: Probably Benign RECOMMENDATION: Diagnostic right mammography in 6 months. This patient's information was entered into a reminder system with a target due date for their next mammogram.
== END 2021-08-24 09:03 | disposition home or self-care (01) ==
LOC: HO.MAMMO 09:02
PROVIDERS: PCP Family Medicine; Visit Provider Family Medicine
DX: R92.2 Inconclusive mammogram (principal)
CPT/HCPCS: 76642; 77061; 77065

== ENCOUNTER 2021-08-26 13:40 | Outpatient (REF) | payer MEDICAID, SELFPAY ==
--- NOTE | ~2021-08-26 | US_ITS ---
EXAMINATION: US PELVIS CLINICAL INFORMATION: Abnormal uterine and vaginal bleeding. COMPARISON: None TECHNIQUE: Ultrasound of the pelvis was performed using both transabdominal and transvaginal transducers along with Doppler. Transvaginal imaging was performed due to inadequate visualization transabdominally. FINDINGS: Uterus: The uterus is anteverted and measures 9.8 cm in length, 5.8 cm in AP and 7.1 cm in transverse dimensions. The double wall endometrial thickness is 0.74 cm. The uterus is smooth in contour and has normal myometrial echogenicity. There are multiple hypoechoic lesions. 1. Lesion in the left lower uterine segment measures 4.2 x 3.5 x 2.7 cm. 2. Lesion in the right lower uterine segment measures 1.7 x 1.6 x 1.7 cm. 3. Lesion in the mid right uterine segment measures 2.6 x 2.2 x 2.5 cm. 4. Lesion in the left fundus measures 2.3 x 2.3 x 2.1 cm. 5. Lesion in the anterior upper body of the uterus measures 0.9 x 0.6 x 0.7 cm. Adnexa: Both ovaries are visualized. There is normal color flow to the adnexa. There is no ovarian torsion. There is no pelvic ascites or fluid collection. Right ovary measures 3.1 x 1.5 x 1.8 cm and volume 4.5 mL. Left ovary measures 3.4 x 1.6 x 1.7 cm and volume 5.0 mL. There is no free fluid in the cul-de-sac. US/US pelvic and transvaginal IMPRESSION: Multiple uterine fibroids in an anteverted uterus. The ovaries are unremarkable. There is no free fluid in the cul-de-sac.
== END 2021-08-26 13:41 | disposition home or self-care (01) ==
LOC: HO.HMGCX 13:40
PROVIDERS: Visit Provider Family Medicine
DX: N93.9 Abnormal uterine and vaginal bleeding, unspecified (principal)
CPT/HCPCS: 76830; 76856

== ENCOUNTER 2021-09-21 22:33 | Emergency (ER) | payer MEDICAID, SELFPAY ==
[2021-09-21 22:16] LABS: Strep A Nucleic Acid Negative (Negative)
[2021-09-21 22:32] LABS: COVID-19 Test Negative (Negative); IDNOW Serial# 9DB6401D
== END 2021-09-22 ==
PROVIDERS: Emergency Provider Emergency Medicine
DX: H92.03 Otalgia, bilateral (principal); R07.0 Pain in throat; Z20.822 Contact with and (suspected) exposure to COVID-19
CPT/HCPCS: 87635; 87651; 99283

== ENCOUNTER 2021-09-21 22:33 | Emergency (ER) | payer MEDICAID, SELFPAY ==
[2021-09-22 01:17] VITALS: BP 162/83; PULSE 87; RESP 18; TEMP 36.6; O2SAT 96; BMI 36.3
[2021-09-22 01:40] LABS: Strep A Nucleic Acid Negative (Negative)
[2021-09-22 01:44] LABS: COVID-19 Test Negative (Negative); IDNOW Serial# 16C4AD1C; Influenza A Negative (Negative); Influenza B2 Negative (Negative)
--- NOTE | 2021-09-22 02:01 | ED_ITS ---
HPI - URI/Sore Throat General Chief Complaint: Upper Respiratory Symptoms Stated Complaint: Throat and ear pain Time Seen by Provider: 09/22/21 02:01 History of Present Illness HPI Narrative: patient is a 51-year-old female presented with coughing upper respiratory symptoms for the last few days. Positive congestion positive generalized malaise patient is not vaccinated for COVID has a history of asthma is overweight. Related Data Previous Rx's Medication Instructions Recorded phenazopyridine 100 mg tablet 100 mg PO TID PRN pain 6 doses #10 08/25/20 (Pyridium) tabs sulfamethoxazole 800 1 tab PO BID #6 tabs 08/25/20 mg-trimethoprim 160 mg tablet (Bactrim DS) fexofenadine 180 mg tablet 180 mg PO DAILY #7 tabs 03/27/21 (Fabiana Allergy) fluticasone propionate 50 1 spray intranasal Q12H #16 grams 03/27/21 mcg/actuation nasal spray,suspension (Flonase Allergy Relief) Allergies Allergy/AdvReac Type Severity Reaction Status Date / Time From Zantac Allergy Unknown RASH Uncoded 11/29/19 17:38 Review of Systems Review of Systems: Positive coughing congestion upper respiratory symptoms Yes all other systems are reviewed and are negative PMFSH Past Medical History Attestation statement: The following information was validated with the patient. Medical History Carpal tunnel syndrome of left wrist delivery delivered HTN (hypertension) Social History Social History Alcohol intake: current Alcohol intake frequency: holidays/special occasions only Patient Tobacco Use Status: Never used Tobacco Advance Directives: No Physical Exam Vital Signs: Vital Signs: Last Vital Signs Temp 97.9 F 09/22/21 01:17 Pulse 87 09/22/21 01:17 Resp 18 09/22/21 01:17 BP 162/83 H 09/22/21 01:17 Pulse Ox 96 09/22/21 01:17 O2 Del Method 09/22/21 01:17 BMI result Body Mass Index 36.3 Appearance: Alert. Oriented X3. No acute distress. Eyes: Pupils equal, round and reactive to light. ENT: Pharynx normal. Neck: Normal inspection. Neck supple. No lymph nodes noted. No crepitus CVS: Normal heart rate and rhythm. Pulses normal. Normal S1 and S2 Respiratory: No respiratory distress. Breath sounds normal. No Wheezing. No rales Abdomen: Soft and nontender. No rigidity. No distention. good BS x4 Skin: Skin warm and dry. Normal skin color. Normal skin turgor. Extremities: No lower extremity edema. Neurovascular intact to all extremities. No Lacerations. No Rash Neuro: Oriented X 3. No motor deficit. No sensory deficit. Moving all extermities. No slurred speech MDM - URI/Sore Throat MDM Narrative Medical decision making narrative: well-appearing COVID test is negative. RSV flu negative. Patient in stable condition will discharge home. Lungs are clear. O2 sats 96% on room air. Likely viral syndrome. Lab Data Labs: Lab Results 09/22/21 09/22/21 09/22/21 Range/Units 01:23 01:23 01:23 COVID-19 (KATRIN) Negative (Negative) COVID-19 Clin Com See Note Influenza Type A (IVETT) Negative (Negative) Influenza Type B (IVETT) Negative (Negative) Influenza A & B Note See Note S. pyogenes GrpA IVETT Negative (Negative) Discharge Plan Discharge Clinical Impression: Upper respiratory infection Patient Disposition: Home, Self-Care Instructions: Upper Respiratory Infection (ED) Prescriptions: No Action sulfamethoxazole-trimethoprim [Bactrim DS] 800-160 mg tablet 1 tab PO BID Qty: 6 0RF phenazopyridine [Pyridium] 100 mg tablet 100 mg PO TID PRN (Reason: pain) Qty: 10 0RF fluticasone propionate [Flonase Allergy Relief] 50 mcg/actuation spray,suspension 1 spray intranasal Q12H Qty: 16 0RF Rx Instructions: administer into each nostril fexofenadine [Fabiana Allergy] 180 mg tablet 180 mg PO DAILY Qty: 7 0RF Referrals: Chelle Cueto MD [Primary Care Provider] - Print Language: Australian
== END 2021-09-22 02:12 | disposition home or self-care (01) ==
PROVIDERS: Emergency Provider Emergency Medicine Emergency Medical Services; PCP Family Medicine
DX: J06.9 Acute upper respiratory infection, unspecified (principal); R07.0 Pain in throat; R53.81 Other malaise; Z20.822 Contact with and (suspected) exposure to COVID-19
CPT/HCPCS: 87502; 87635; 87651; 99282; 99283

== ENCOUNTER 2022-02-26 14:50 | Outpatient (REF) | payer MEDICAID, SELFPAY ==
--- NOTE | ~2022-02-26 | MM_ITS ---
EXAMINATION: MM DIAGNOSTIC DIGITAL BREAST TOMOSYNTHESIS, RIGHT CLINICAL INFORMATION: Right breast density. COMPARISON: Mammography: 08/24/2021 and studies dating back to 03/01/2013. TECHNIQUE: Digital breast tomosynthesis is performed in both the craniocaudal and mediolateral oblique views along with computer-aided detection (CAD). Synthesized 2D images are generated from the tomosynthesis. Spot compression views of the right breast in mediolateral oblique and craniocaudal views performed. FINDINGS: The breasts are heterogeneously dense, which may obscure small masses (ACR BI-RADS breast composition Category c). There are no new significant masses, abnormal calcifications, or other abnormalities. The previously noted density about the deep inferior lateral aspect of the right breast is partially imaged but appears without significant change. Recommend 6 month follow-up bilateral mammography. Results are provided to the patient at time of visit by the technologist. MM/MM tomosynthesis diagnostic RT IMPRESSION: There are no significant changes from prior study. ASSESSMENT: BI-RADS 3: Probably Benign. RECOMMENDATION: Diagnostic mammography in 6 months. This patient's information was entered into a reminder system with a target due date for their next mammogram.
== END 2022-02-26 14:51 | disposition home or self-care (01) ==
LOC: HO.MAMMO 14:50
PROVIDERS: PCP Family Medicine; Visit Provider Family Medicine
DX: R92.2 Inconclusive mammogram (principal)
CPT/HCPCS: 77061; 77065

== ENCOUNTER 2022-03-02 12:31 | Outpatient (REF) | payer MEDICAID, SELFPAY ==
--- NOTE | ~2022-03-02 | XR_ITS ---
EXAMINATION: XR SHOULDER, LEFT CLINICAL INFORMATION: Chronic left shoulder pain COMPARISON: None TECHNIQUE: AP external rotation, Grashey, scapular Y, and axillary views of the left shoulder. FINDINGS: The bones and soft tissues are normal. No fracture. Glenohumeral and acromioclavicular alignment is anatomic with normal joint space. No abnormal soft tissue calcifications. XR/XR shoulder LT min 2V IMPRESSION: Normal left shoulder.
--- NOTE | ~2022-03-02 | XR_ITS ---
EXAMINATION: XR KNEE, LEFT CLINICAL INFORMATION: Pain in the left knee. COMPARISON: None TECHNIQUE: Four views of the left knee. FINDINGS: There are 2 adjacent foci of calcific or ossific density adjacent to the proximal medial femoral condyle measuring approximately 2 cm craniocaudal, 4 mm transverse, and 12 mm AP. The bones, joints and soft tissues are otherwise unremarkable. No effusion. XR/XR knee LT 4V IMPRESSION: 1. Calcific or ossific densities adjacent to the proximal medial femoral condyle. These are nonspecific but could reflect sequela of prior trauma/heterotopic ossification, calcific tendinitis, or calcific periarthritis. 2. No acute abnormality. No joint effusion.
== END 2022-03-02 12:32 | disposition home or self-care (01) ==
LOC: HO.XRAY 12:31
PROVIDERS: PCP Family Medicine; Visit Provider Family Medicine
DX: M25.512 Pain in left shoulder (principal); M25.562 Pain in left knee; G89.29 Other chronic pain
CPT/HCPCS: 73030; 73564

== ENCOUNTER → 2022-04-21 14:55 | Outpatient (BNVA) | payer MEDICAID, SELFPAY | PROVIDERS: PCP Family Medicine; Visit Provider Physician Assistant | DX: M25.812 Other specified joint disorders, left shoulder (principal); M17.12 Unilateral primary osteoarthritis, left knee | CPT/HCPCS: 20610; 99202; J1020 ==

== ENCOUNTER 2022-05-14 15:30 | Outpatient (REF) | payer MEDICAID, SELFPAY ==
--- NOTE | ~2022-05-14 | US_ITS ---
EXAMINATION: US VENOUS ULTRASOUND WITH DOPPLER LOWER EXTREMITY, LEFT CLINICAL INFORMATION: Painful varicosities. Rule out DVT. COMPARISON: None. TECHNIQUE: Ultrasound of the deep veins is performed from the hip to the calf with compression sonography and color and pulse Doppler assessment. Spectral analysis with color-flow imaging is performed. FINDINGS: There is normal venous compression and respiratory variation and augmented flow. The visualized common femoral vein, superficial femoral vein, profunda femoral vein, popliteal vein, and the trifurcation region shows no evidence of deep venous thrombosis. There is small anechoic fluid collection in the popliteal area measuring 1.3 x 0.7 cm suggestive of a small Martinez's cyst. If the patient's symptoms persist, followup ultrasound in 5 days 7 days might be of value to exclude proximal propagation from a non-visualized calf vein. US/US venous duplex LE IMPRESSION: 1. No DVT demonstrated in the left lower extremity. 2. Small Martinez's cyst.
== END 2022-05-14 15:31 | disposition home or self-care (01) ==
LOC: HO.US 15:30
PROVIDERS: Visit Provider Emergency Medicine
DX: I83.812 Varicose veins of left lower extremity with pain (principal)
CPT/HCPCS: 93971

== ENCOUNTER 2022-06-14 12:39 | Outpatient (REF) | payer MEDICAID, SELFPAY | END 2022-06-14 12:40 | disposition home or self-care (01) | LOC: HO.HOSX 12:39 | PROVIDERS: Visit Provider Physician Assistant | DX: Z13.89 Encounter for screening for other disorder (principal) ==

== ENCOUNTER 2022-08-02 17:25 | Emergency (ER) | payer MEDICAID, SELFPAY ==
--- NOTE | ~2022-08-02 | CT_ITS ---
EXAMINATION: CT ABDOMEN AND PELVIS WITHOUT CONTRAST CLINICAL INFORMATION: Left lower quadrant pain. COMPARISON: None available. TECHNIQUE: Multidetector volumetric imaging was performed from the superior aspect of the liver through the pubic symphysis. Sagittal and coronal reformatted images were obtained on the technologist's workstation. This CT examination was performed using dose optimization techniques as appropriate, variously including the following: *Automated exposure control *Adjustment of mA and/or kV according to patient size (this includes techniques or standardized protocols for targeted exams where dose is matched to indication/reason for exam; i.e. extremities or head) *Use of iterative reconstruction technique DLP: 666 mGy-cm FINDINGS: LUNG BASES: The visualized lung bases are unremarkable. LIVER, GALLBLADDER, AND BILIARY TREE: The liver is normal in size, shape, and attenuation. No focal hepatic lesion or biliary ductal dilatation is present. Status post cholecystectomy PANCREAS: Unremarkable. SPLEEN: Unremarkable. ADRENAL GLANDS: Unremarkable. KIDNEYS AND URETERS: The kidneys are normal in size, shape, and attenuation. No hydronephrosis, hydroureter, or calculi seen. No perinephric stranding. BLADDER: Unremarkable. GASTROINTESTINAL TRACT: The small and large bowel are unremarkable. The appendix is unremarkable. ABDOMINAL WALL: No significant hernia is appreciated. LYMPH NODES: Normal. VASCULAR: Unremarkable. PELVIC VISCERA: Unremarkable. OSSEOUS STRUCTURES: Unremarkable. CT/CT abdomen pelvis wo IV con IMPRESSION: No significant abnormality. Fleischner guidelines were followed.
--- NOTE | ~2022-08-02 | US_ITS ---
EXAMINATION: US PELVIS CLINICAL INFORMATION: Left lower quadrant pain COMPARISON: CT performed earlier same date, and pelvic ultrasound dated 08/26/2021 TECHNIQUE: Ultrasound of the pelvis is performed using both transabdominal and transvaginal transducers along with Doppler. Transvaginal imaging is performed due to inadequate visualization transabdominally. FINDINGS: Uterus: The uterus is anteverted and measures 8.2 x 5.0 x 5.8 cm. The double wall endometrial thickness is 4 mm. The uterus is smooth in contour and has normal myometrial echogenicity. Multiple (4) uterine fibroids are present, most of which demonstrate a small but definitive decrease in size from the prior examination ranging from 1.6-3.3 cm. The fibroids are intramural. No submucosal or subserosal fibroids. Adnexa: Both ovaries are visualized. There is normal color flow to the adnexa. There is no ovarian torsion. There is no pelvic ascites or fluid collection. Right ovary measures 2.1 x 1.6 x 1.5 cm. Doppler interrogation unable to be successfully performed due to the presence of adjacent blood vessel. Left ovary measures 1.8 x 1.7 x 1.6 cm. Normal arterial and venous waveforms detected within the left ovary. US/US pelvic and transvaginal IMPRESSION: * No evidence of ovarian torsion. * Multiple uterine fibroids are present, most of which demonstrate a small but definitive decrease in size from the prior examination.
--- NOTE | ~2022-08-02 | US_ITS ---
EXAMINATION: US PELVIS CLINICAL INFORMATION: Left lower quadrant pain COMPARISON: CT performed earlier same date, and pelvic ultrasound dated 08/26/2021 TECHNIQUE: Ultrasound of the pelvis is performed using both transabdominal and transvaginal transducers along with Doppler. Transvaginal imaging is performed due to inadequate visualization transabdominally. FINDINGS: Uterus: The uterus is anteverted and measures 8.2 x 5.0 x 5.8 cm. The double wall endometrial thickness is 4 mm. The uterus is smooth in contour and has normal myometrial echogenicity. Multiple (4) uterine fibroids are present, most of which demonstrate a small but definitive decrease in size from the prior examination ranging from 1.6-3.3 cm. The fibroids are intramural. No submucosal or subserosal fibroids. Adnexa: Both ovaries are visualized. There is normal color flow to the adnexa. There is no ovarian torsion. There is no pelvic ascites or fluid collection. Right ovary measures 2.1 x 1.6 x 1.5 cm. Doppler interrogation unable to be successfully performed due to the presence of adjacent blood vessel. Left ovary measures 1.8 x 1.7 x 1.6 cm. Normal arterial and venous waveforms detected within the left ovary. US/US pelvic ovarian doppler IMPRESSION: * No evidence of ovarian torsion. * Multiple uterine fibroids are present, most of which demonstrate a small but definitive decrease in size from the prior examination.
[2022-08-02 17:57] VITALS: BP 148/85; PULSE 86; RESP 18; TEMP 36.8; O2SAT 97; BMI 29.2
--- NOTE | 2022-08-02 17:57 | ED_ITS ---
HPI - Abdominal Pain General Chief Complaint: Abdominal Pain Stated Complaint: left lower quad pain Time Seen by Provider: 08/02/22 21:32 Source: patient Mode of arrival: ambulatory Limitations: no limitations History of Present Illness HPI narrative: 52-year-old female history of hypertension, arthritis presenting with complaints of nausea, left lower quadrant abdominal pain for the past 2 days worsening. Patient describes pain as constant, very uncomfortable, no history of diverticulitis. Patient unable to tell me what makes pain better or worse. Denies fevers, chills, chest pain, shortness of breath, diarrhea, headache, vision changes, hematemesis, melena, hematochezia, fevers, chills. No known sick contacts. Related Data Previous Rx's Medication Instructions Recorded phenazopyridine 100 mg tablet 100 mg PO TID PRN pain 6 doses #10 08/25/20 (Pyridium) tabs sulfamethoxazole 800 1 tab PO BID #6 tabs 08/25/20 mg-trimethoprim 160 mg tablet (Bactrim DS) fexofenadine 180 mg tablet 180 mg PO DAILY #7 tabs 03/27/21 (Fabiana Allergy) fluticasone propionate 50 1 spray intranasal Q12H #16 grams 03/27/21 mcg/actuation nasal spray,suspension (Flonase Allergy Relief) ketorolac 10 mg tablet 10 mg PO TID PRN pain 5 days #15 08/02/22 tabs ondansetron 4 mg disintegrating 4 mg PO Q6H PRN nausea and 08/02/22 tablet vomiting #14 tabs Allergies Allergy/AdvReac Type Severity Reaction Status Date / Time From Zantac Allergy Unknown RASH Uncoded 11/29/19 17:38 Review of Systems Review of Systems Constitutional : No Weight loss, No Fever, No Chills, No Fatigue, No Malaise ENT/Mouth : No sore throat, No Rhinorrhea Eyes: No Eye Pain, No Swelling, No Redness Cardiovascular : No Chest Pain, No SOB, No Dyspnea on Exertion, No Orthopnea, No Edema, No Palpitations Respiratory : No Cough, No Sputum, No Wheezing Gastrointestinal : No Nausea, No Vomiting, No Diarrhea, No Constipation, + abdominal Pain, No Hematochezia, No Melena Genitourinary : No Dysuria, No Urinary Frequency, No Hematuria, Musculoskeletal : No joint pain, No Myalgias, No Joint Swelling Skin : No Skin Lesions, No rash Neuro : No Weakness, No Numbness, No Dizziness, No Headache Psych : No Anxiety/Panic, No Depression All other systems reviewed and are negative Yes all other systems are reviewed and are negative [facility] Past Medical History Attestation statement: The following information was validated with the patient. Source: old records reviewed and nursing notes reviewed Medical History Carpal tunnel syndrome of left wrist delivery delivered HTN (hypertension) Social History Social History (Updated 04/21/22 @ 15:08 by Anant Harry) Alcohol intake: never Patient Tobacco Use Status: Never used Tobacco Smoked in Last 30 Days: No Use of substances other than those prescribed or required for medical reasons: No Advance Directives: No Advance Directives Information Provided: Yes Current occupational status: disabled Current occupation: right hand dominant Physical Exam ED Vital Signs: Vital Signs - 24 hr 08/02/22 17:57 08/02/22 21:59 Temperature 98.3 F 97.3 F Pulse Rate 86 66 Respiratory Rate 18 18 Blood Pressure 148/85 H 147/86 H Pulse Oximetry 97 98 Oxygen Delivery Method Room Air Room Air BMI result Body Mass Index 29.2 vss Appearance: Alert.? Oriented X3.? No acute distress.? Head: Normocephalic, atraumatic, no step-offs or deformities Eyes: Pupils equal, round and reactive to light.? CVS: Normal heart rate and rhythm.? Pulses normal.? Respiratory: No respiratory distress.? Breath sounds normal.? Abdomen: Soft and left lower quadrant pain on palpation.? Skin: Skin warm and dry.? Normal skin color.? Normal skin turgor.? Extremities: No lower extremity edema.? No calf ttp. 5/5 strength to bilateral upper and lower extremities Neuro: Oriented X 3.? No motor deficit.? No sensory deficit. CN 2-12 intact Course Course Course Narrative: This is a rapid medical exm. Deferred additional HPI, ROS, PE to primary provider. 52 yo female with history of depression, anxiety, dm, hypothyroidism here with complaints of left sided abdominal pain since yesterday. Will check labs, UA VSS Reevaluation(s) Reevaluation #1: CBC within normal limits. Chemistry no acute findings requiring intervention. Normal lipase. UA without infection. Pending urine and beta hCG o btain CT of the abdomen pelvis rule out intra-abdominal etiologies. Time: 21:37 Reevaluation #2: CT of the abdomen pelvis and no significant abnormalities. Ultrasound pelvic in ovarian Doppler/transvaginal with no evidence of torsion. Multiple uterine fibroids are present most of which are demonstrated a small but definitive decreased in size from prior examinations. Will have patient follow up with GI in OBGYN. Patient feeling slightly better however still reporting some discomfort. Time of discharge tolerating p.o. and fluids. Educated patient on diagnosis and treatment plan, answered all question, patient verbalizes understanding. At this time patient will be discharged home, advised to return with new or worsening symptoms. Educated on worrisome signs and symptoms and when to return. At this time I feel comfortable discharge home. Time: 00:08 Medical Decision Making Medical Decision Making [facility] Narrative: 2133 52-year-old female presents w/ LLQ pain X2 day PE- w/ LLQ TTP Concerns for viral illness versus diverticulitis versus kidney stones. Unlikely acute abdomen, acute pancreatitis, cholecystitis, appendicitis, perforated abdomen. Will rule out UTI and electrolyte abnormalities. Unlikely ectopic , ovarian torsion Plan labs, urine, imaging. Differential Diagnosis Differential Diagnoses: The differential diagnosis associated with the presentation includes Concerns for viral illness versus diverticulitis versus kidney stones. Unlikely acute abdomen, acute pancreatitis, cholecystitis, appendicitis, perforated abdomen. Will rule out UTI and electrolyte abnormalities.Unlikely ectopic , ovarian torsion Admission/Observation Consideration of admission/observation: Escalation of care including admission/observation considered Unlikely Lab Data [facility] Lab Attestation statement: I reviewed the patient's lab results. 08/02/22 18:19 08/02/22 18:19 Labs: Lab Results 08/02/22 08/02/22 08/02/22 Range/Units 18:19 18:19 18:19 WBC 7.7 (4.8-10.8) X10*3/uL RBC 4.26 (4.20-5.50) X10*6/uL Hgb 12.3 (12.0-16.0) g/dl Hct 37.5 (37.0-47.0) % MCV 88.0 (80.0-98.0) fL MCH 28.9 (27.0-33.0) pg MCHC 32.8 (31.0-35.0) g/dl RDW 14.5 (11.0-16.0) % Plt Count 310 (160-400) X10*3/uL MPV 9.8 (9.4-12.3) fL Immature Gran % (Auto) 0.1 (0.0-0.4) % Neut % (Auto) 61.7 (45-73) % Lymph % (Auto) 28.9 (20-40) % [place] % (Auto) 5.7 (2-11) % Eos % (Auto) 3.0 (0-4) % Baso % (Auto) 0.6 (0-2) % Lymph # (Auto) 2.2 (1.2-4.9) X10*3/uL [place] # (Auto) 0.4 (0.1-1.2) X10*3/uL Eos # (Auto) 0.2 (0.0-0.4) X10*3/uL Baso # (Auto) 0.1 (0.0-0.2) X10*3/uL Abs Immat Gran (auto) 0.01 (0.00-0.03) X10*3/uL Absolute Neuts (auto) 4.8 (2.0-8.3) x10*3/uL Absolute Nucleated RBC 0.000 (0.0-0.012) X10*3/uL Nucleated RBC % (auto) 0.0 (0.0-0.2) /100WBC Sodium 141 (135-145) mmol/L Potassium 3.6 (3.3-5.1) mmol/L Chloride 106 (96-108) mmol/L Carbon Dioxide 28 (22-29) mmol/L Anion Gap 11 L (12-20) BUN 8 L (9-16) mg/dL Creatinine 0.90 (0.5-1.4) mg/dL Estim Creat Clear Calc 74.3 Estimated GFR > 60 Random Glucose 125 H (60-115) mg/dL Calcium 9.2 (8.4-10.2) mg/dL Total Bilirubin 0.3 (0.0-1.0) mg/dL Direct Bilirubin 0.1 (0.0-0.5) mg/dL AST 13 (5-31) U/L ALT 17 (0-31) U/L Alkaline Phosphatase 112 (39-117) U/L Total Protein 7.3 (6.5-8.0) g/dL Albumin 4.2 (3.5-5.0) g/dL Lipase 30 (8-78) U/L Urine Color Yellow Urine Appearance Clear Urine pH 6.5 (5.0-9.0) Ur Specific [place] 1.010 (1.005-1.025) Urine Protein Negative (Neg-Trace) mg/dL Urine Glucose (UA) Negative (Negative) mg/dL Urine Ketones Negative (Negative) mg/dL Urine Blood Negative (Negative) Urine Nitrite Negative (Negative) Ur Leukocyte Esterase Trace H (Negative) Urine RBC 0-2 (0-2) /HPF Urine WBC 0-5 (0-5) /HPF Ur Squamous Epith Cells 0-2 (0-2) /HPF Urine Bacteria None Seen (None Seen) Hyaline Casts 0-2 (0-2) /LPF Urine Test (NEGATIVE) 08/02/22 Range/Units 18:19 WBC (4.8-10.8) X10*3/uL RBC (4.20-5.50) X10*6/uL Hgb (12.0-16.0) g/dl Hct (37.0-47.0) % MCV (80.0-98.0) fL MCH (27.0-33.0) pg MCHC (31.0-35.0) g/dl RDW (11.0-16.0) % Plt Count (160-400) X10*3/uL MPV (9.4-12.3) fL Immature Gran % (Auto) (0.0-0.4) % Neut % (Auto) (45-73) % Lymph % (Auto) (20-40) % [place] % (Auto) (2-11) % Eos % (Auto) (0-4) % Baso % (Auto) (0-2) % Lymph # (Auto) (1.2-4.9) X10*3/uL [place] # (Auto) (0.1-1.2) X10*3/uL Eos # (Auto) (0.0-0.4) X10*3/uL Baso # (Auto) (0.0-0.2) X10*3/uL Abs Immat Gran (auto) (0.00-0.03) X10*3/uL Absolute Neuts (auto) (2.0-8.3) x10*3/uL Absolute Nucleated RBC (0.0-0.012) X10*3/uL Nucleated RBC % (auto) (0.0-0.2) /100WBC Sodium (135-145) mmol/L Potassium (3.3-5.1) mmol/L Chloride (96-108) mmol/L Carbon Dioxide (22-29) mmol/L Anion Gap (12-20) BUN (9-16) mg/dL Creatinine (0.5-1.4) mg/dL Estim Creat Clear Calc Estimated GFR Random Glucose (60-115) mg/dL Calcium (8.4-10.2) mg/dL Total Bilirubin (0.0-1.0) mg/dL Direct Bilirubin (0.0-0.5) mg/dL AST (5-31) U/L ALT (0-31) U/L Alkaline Phosphatase (39-117) U/L Total Protein (6.5-8.0) g/dL Albumin (3.5-5.0) g/dL Lipase (8-78) U/L Urine Color Urine Appearance Urine pH (5.0-9.0) Ur Specific [place] (1.005-1.025) Urine Protein (Neg-Trace) mg/dL Urine Glucose (UA) (Negative) mg/dL Urine Ketones (Negative) mg/dL Urine Blood (Negative) Urine Nitrite (Negative) Ur Leukocyte Esterase (Negative) Urine RBC (0-2) /HPF Urine WBC (0-5) /HPF Ur Squamous Epith Cells (0-2) /HPF Urine Bacteria (None Seen) Hyaline Casts (0-2) /LPF Urine Test NEGATIVE (NEGATIVE) Independent Interpretation I performed an independent interpretation of an: CT Scan Radiology Impression Discussion of test interpretation with radiology: I have reviewed the radiologist's reading. Core Measures AMI core measures followed: Yes Measure exclusions: not indicated Medications Administered Discontinued Medications Generic Name Dose Route Start Last Admin Trade Name Freq PRN Reason Stop Dose Admin Ketorolac Tromethamine 30 mg 08/02/22 21:39 08/02/22 21:48 Ketorolac Tromethamine 15 Mg/Ml Vial IM 08/02/22 21:40 30 mg ONCE ONE Administration Critical Care Time Critical Care Time Critical Care Time: No Discharge Plan Discharge Clinical Impression: Abdominal pain, Nausea Patient Disposition: Home, Self-Care Instructions: Acute Nausea and Vomiting (ED), Abdominal Pain (ED) Additional Instructions: Take your medications as prescribed. If you were prescribed antibiotics today, it is important that you take your medication to their entirety, do not skip any doses, do not finish them early. Follow-up with your primary care provider this week. Return to the emergency department with new or worsening symptoms. Such as fevers, chills, chest pain, shortness of breath, nausea, vomiting, dizziness, headache, vision changes, lethargy In case of emergency call 911 Toradol has been sent to your pharmacy, you tolerated this well in the department. Please take this as prescribed do not take this with ibuprofen, or other NSAIDs, do not mix this with alcohol. Side effects of this medication including increased risk for bleeding and possible kidney injury. Rui has been sent to her pharmacy for nausea and vomiting. [place] jhonatan medicamentos seg?n lo prescrito. Si le recetaron antibi?ticos hoy, es importante que tome levy medicamento en levy totalidad, no se salte ninguna dosis, no los termine antes de tiempo. Seguimiento con levy proveedor de atenci?n primaria esta semana. Regrese al departamento de emergencias con s?ntomas nuevos o que empeoran. Titus fiebre, escalofr?os, dolor de pecho, dificultad para respirar, n?useas, v?mitos, mareos, dolor de zoë, cambios en la visi?n, letargo En varinder de emergencia llama al 911 Toradol garcia sido enviado a levy farmacia, lo cristobal? almaz en el departamento. T?gaitan seg?n lo recetado, no lo tome con ibuprofeno u otros IBAN, no lo mezcle con alcohol. Los efectos secundarios de richelle medicamento incluyen un mayor riesgo de sangrado y posible lesi?n renal. Zoffran garcia sido enviada a levy farmacia por n?useas y v?mitos. CT/CT abdomen pelvis wo IV con IMPRESSION: No significant abnormality.? ? Fleischner guidelines were followed. US/US pelvic ovarian doppler IMPRESSION: *? No evidence of ovarian torsion. *? Multiple uterine fibroids are present, most of which demonstrate a small but definitive decrease in size from the prior examination. Prescriptions: New ketorolac 10 mg tablet 10 mg PO TID PRN (Reason: pain) 5 Days Qty: 15 0RF ondansetron 4 mg tablet,disintegrating 4 mg PO Q6H PRN (Reason: nausea and vomiting) Qty: 14 0RF No Action sulfamethoxazole-trimethoprim [Bactrim DS] 800-160 mg tablet 1 tab PO BID Qty: 6 0RF phenazopyridine [Pyridium] 100 mg tablet 100 mg PO TID PRN (Reason: pain) Qty: 10 0RF fluticasone propionate [Flonase Allergy Relief] 50 mcg/actuation spray,suspension 1 spray intranasal Q12H Qty: 16 0RF Rx Instructions: administer into each nostril fexofenadine [Fabiana Allergy] 180 mg tablet 180 mg PO DAILY Qty: 7 0RF Referrals: [facility] [Provider Group] - 2 days Chelle Cueto MD [Primary Care Provider] - 2 days [facility] [Provider Group] - 2 weeks Stand Alone Forms: Work/School Release
[2022-08-02 18:25] LABS: MANUAL DIFF FLAG NO
[2022-08-02 18:27] LABS: Appearance Urine Clear; Color Urine Yellow; Glucose Urine UA Negative (Negative); Leukocyte Esterase Urine Trace (Negative); Nitrite Urine Negative (Negative); PH 6.5 (5.0-9.0); UMIC TRIGGER UACC YES; Urine Blood Negative (Negative); Urine Ketones Negative (Negative); Urine Protein Negative (Neg-Trace)
[2022-08-02 18:29] LABS: Bacteria Urine None Seen (None Seen); Hyaline Casts Urine 0-2 /LPF (0-2); RBC Urine 0-2 /HPF (0-2); Squamous Epithelial Cell Urine 0-2 /HPF (0-2); WBC Urine 0-5 /HPF (0-5)
[2022-08-02 18:37] LABS: Basophils Absolute Auto 0.1 X10*3/uL (0.0-0.2); Basophils Percent Auto 0.6 % (0-2); Eosinophils Absolute Auto 0.2 X10*3/uL (0.0-0.4); Hematocrit 37.5 % (37.0-47.0); Hemoglobin 12.3 g/dl (12.0-16.0); Imm Gran Abs Auto 0.01 X10*3/uL (0.00-0.03); Imm Gran Pct Auto 0.1 % (0.0-0.4); Lymphocytes Absolute Auto 2.2 X10*3/uL (1.2-4.9); Lymphocytes Percent Auto 28.9 % (20-40); Mean Corpuscular HGB Conc 32.8 g/dl (31.0-35.0); Mean Corpuscular Hemoglobin 28.9 pg (27.0-33.0); Mean Platelet Volume 9.8 fL (9.4-12.3); Monocytes Absolute Auto 0.4 X10*3/uL (0.1-1.2); Monocytes Percent Auto 5.7 % (2-11); Neutrophils Absolute Auto 4.8 x10*3/uL (2.0-8.3); Neutrophils Percent Auto 61.7 % (45-73); Platelet Count 310 X10*3/uL (160-400); Red Blood Count 4.26 X10*6/uL (4.20-5.50); Red Cell Distribution Width 14.5 % (11.0-16.0); White Blood Count 7.7 X10*3/uL (4.8-10.8)
[2022-08-02 18:40] LABS: Alanine Aminotransferase 17 U/L (0-31); Albumin Level 4.2 g/dL (3.5-5.0); Alkaline Phosphatase 112 U/L (39-117); Anion Gap 11 (12-20); Aspartate Amino Transferase 13 U/L (5-31); Bilirubin Direct 0.1 mg/dL (0.0-0.5); Bilirubin Total 0.3 mg/dL (0.0-1.0); Blood Urea Nitrogen 8 mg/dL (9-16); Calcium 9.2 mg/dL (8.4-10.2); Carbon Dioxide 28 mmol/L (22-29); Chloride 106 mmol/L (96-108); Creatinine Clr Calc Pharmacy 74.3; Estimated Glomerular Filt Rate > 60; Glucose Random 125 mg/dL (60-115); Lipase 30 U/L (8-78); Potassium 3.6 mmol/L (3.3-5.1); Sodium 141 mmol/L (135-145); Total Protein 7.3 g/dL (6.5-8.0)
[2022-08-02 21:47] LABS: UPreg QC Valid YES; Urine Pregnancy NEGATIVE (NEGATIVE)
[2022-08-02] MEDS: Ketorolac Tromethamine 15 MG/ML VIAL 30 MG IM (21:48)
[2022-08-02 21:59] VITALS: BP 147/86; PULSE 66; RESP 18; TEMP 36.3; O2SAT 98
--- NOTE | 2022-08-03 00:08 | PC.NURSE ---
Pt ca&ox3, no signs of distress. Pt requesting and given crackers and drink. Will continue to monitor.
== END 2022-08-03 00:26 | disposition home or self-care (01) ==
PROVIDERS: Nurse Practitioner Family; Physician Assistant; Emergency Provider Internal Medicine; PCP Family Medicine
DX: R10.32 Left lower quadrant pain (principal); R11.0 Nausea; I10 Essential (primary) hypertension; Z79.899 Other long term (current) drug therapy
CPT/HCPCS: 36415; 74176; 76830; 76856; 80048; 80076; 81001; 81025; 83690; 85025; 93975; 96372; 99284; J1885

== ENCOUNTER 2022-08-31 14:15 | Outpatient (REF) | payer MEDICAID, SELFPAY ==
--- NOTE | ~2022-08-31 | MM_ITS ---
EXAMINATION: MM DIAGNOSTIC DIGITAL BREAST TOMOSYNTHESIS, BILATERAL CLINICAL INFORMATION: Due for yearly. Also follow-up probable benign small parenchymal asymmetry posterior 7:30 right breast. The lifetime risk of breast cancer based on the Tyrer-Cuzick Model is 12%. COMPARISON: Multiple prior exams including most recent prior exam 02/26/2022. TECHNIQUE: Digital breast tomosynthesis is performed in both the craniocaudal and mediolateral oblique views along with computer-aided detection (CAD). Synthesized 2D images are generated from the tomosynthesis. Additional right CC view is provided. FINDINGS: The breasts are heterogeneously dense, which may obscure small masses (ACR BI-RADS breast composition Category c). The asymmetric density noted previously is not demonstrated. Right breast is imaged back to the chest wall on repeat CC view. There is no developing density or architectural abnormality. No abnormal calcifications the axilla and skin contours are unremarkable. Results are provided to the patient at time of visit by the technologist. MM/MM tomosynthesis diagnostic BI IMPRESSION: No mammographic evidence of malignancy. ASSESSMENT: BI-RADS 1: Negative RECOMMENDATION: Routine annual mammography screening. This patient's information was entered into a reminder system with a target due date for their next mammogram.
== END 2022-08-31 14:16 | disposition home or self-care (01) ==
LOC: HO.MAMMO 14:15
PROVIDERS: PCP Family Medicine; Visit Provider Family Medicine
DX: R92.2 Inconclusive mammogram (principal)
CPT/HCPCS: 77062; 77066

== ENCOUNTER 2022-09-06 15:36 | Outpatient (REF) | payer MEDICAID, SELFPAY ==
--- NOTE | ~2022-09-06 | XR_ITS ---
EXAMINATION: XR FOOT, RIGHT CLINICAL INFORMATION: Right foot pain fifth metatarsophalangeal joint COMPARISON: None available. TECHNIQUE: AP, lateral, and oblique views of the right foot. FINDINGS: The bone mineralization is normal. Minimal dorsal calcaneal spurring. Mild hypertrophic change at the lateral aspect of the first metatarsophalangeal joint. The joint spaces are preserved. XR/XR foot RT min 3V IMPRESSION: Mild degenerative changes first metatarsophalangeal joint. Recommend follow-up imaging in 10-14 days if fracture is suspected.
== END 2022-09-06 15:37 | disposition home or self-care (01) ==
LOC: HO.HHCX 15:36
PROVIDERS: Visit Provider Family Medicine
DX: M79.671 Pain in right foot (principal)
CPT/HCPCS: 73630

== ENCOUNTER 2022-10-14 11:11 | Outpatient (AMB) | payer MEDICAID, SELFPAY ==
--- NOTE | 2022-10-14 11:17 | A.OFFVIS_ITS ---
Intake Vital Signs 10/14/22 11:17 Height 5 ft 4 in Intake Visit Reasons: New Problem - Left Knee Pain Intake Note: Blessing 52 yr old mosotho speaking female presents today for her left knee pain. Pain started about 9 months ago (january 2022) no injury she can recall. Pain is all around her knee, no stability and worsens with prolong sitting, stairs and laying down. At times she feels like her knee berna lock up when walking. States she has seen her PCP who Rx'd her P.T but no one has reached out to schedule appt. Denies numbness or tingling in toes. Hx of DM, HBP and high cholesterol. Allergies From Zantac Allergy (Unknown, Uncoded 10/14/22 11:21) RASH HPI New Problem - Left Knee Pain 2 HPI Details 52-year-old Panamanian speaking female who presents to the office today for evaluation of left knee pain for about 9 months. She states she has pain located all around her left knee. Her pain is aggravated with prolonged sitting, stair use and laying down. She also c/o occasional locking of her knee with ambulation. She denies any numbness or tingling in her toes. She was seen by her PCP who prescribed her physical therapy but she has not yet started with it as no one has reached out to schedule an appointment. She has not had any injury in the past. She has a history of diabetes, hypertension and hyperlipidemia. [facility] Medical History Carpal tunnel syndrome of left wrist delivery delivered HTN (hypertension) Social History Alcohol intake: never Patient Tobacco Use Status: Never used Tobacco Current occupational status: disabled Current occupation: right hand dominant Review of Systems Const All systems reviewed & are unremarkable except as noted in HPI and below Physical Exam Const General: cooperative, healthy appearing, comfortable, no acute distress, well developed and alert Orientation/consciousness: patient oriented x3 HEENT Head: Yes normal to inspection, Yes normocephalic and Yes atraumatic Eyes General: appearance normal, both eyes and all related structures Resp Effort & Inspection: normal respiratory effort and able to speak in complete sentences Cardio Rate: regular rate Peripheral pulses: Peripheral pulses 2+ throughout GI Palpation (GI): Soft to palpation Skin Lesions: no lesions Rashes: no rashes Neuro General: patient oriented x3 Extrem Other: Left knee: Normal to inspection. Tenderness to palpation along the medial joint line and lateral retro-patella tenderness. No ligament laxity. Calf is supple and non-tender. NVI. Office Procedures Joint Injection/Drain Joint Injection/Drain Primary Site: left knee Prep: site was prepped using aseptic technique, ethochloride spray was applied and injection warnings given Injected: 40 mg of, DepoMedrol, with 8 mL of, 1% plain lidocaine and in the joint Approach Used: anterolateral Procedure: The patient tolerated the procedure well and there was some relief with the local anesthesia Coding 46016 - Glenohumeral/Tronchanteric Bursa/Intraarticular Procedure code (CPT) selection complete Results Reviewed Results Reviewed: 10/14/22 11:24 Lidocaine HCl 2 % MPF [Xylocaine 2 % MPF] 5 ml .ROUTE .STK-MED ONE methylPREDNISolone acetate [DEPO-MedroL] 40 mg .ROUTE .STK-MED ONE Assessment & Plan Assessment & Plan (1) Patellofemoral arthritis of left knee: Code(s): M17.12 - Unilateral primary osteoarthritis, left knee Plan We discussed options today which include steroid injection. They did consent to move forward with the left knee injection, which was tolerated well. I recommended rest, ice and elevation and OTC anti-inflammatories PRN for discomfort. If symptoms persist or worsens over the next 6-8 weeks, patient will contact the office, otherwise follow-up as needed. Patient Instructions: Scribed for Eva Hartmann PA-C, by George Stark medical administrative assistant, on 10/14/2022 at 10:00 AM [place]. Eva Villalpando PA-C, have personally reviewed and agree with the information entered by the scribe. Coding Level of Care Code Est Pt Level 3 (63957) Diagnoses Patellofemoral arthritis of left knee M17.12 CPT Codes Coding - Joint 7: 60671 - Glenohumeral/Tronchanteric Bursa/Intraarticular ([id number])
== END 2022-10-14 13:07 | disposition home or self-care (01) ==
LOC: HO.HOS 11:11
PROVIDERS: PCP Family Medicine; Visit Provider Physician Assistant
DX: M17.12 Unilateral primary osteoarthritis, left knee (principal)
CPT/HCPCS: 20610; 99213

== ENCOUNTER → 2022-10-14 11:11 | Outpatient (BNVA) | payer MEDICAID, SELFPAY | PROVIDERS: PCP Family Medicine; Visit Provider Physician Assistant | DX: M17.12 Unilateral primary osteoarthritis, left knee (principal) | CPT/HCPCS: 20610; 99213; J1020 ==

== ENCOUNTER 2023-03-02 13:09 | Outpatient (AMB) | payer MEDICAID, SELFPAY ==
--- NOTE | 2023-03-02 13:14 | A.OFFVIS_ITS ---
Intake Intake Visit Reasons: ov- Patellofemoral arthritis of left knee Intake Note: Blessing lopez 52 year old female presents today for a follow up of left knee, last injection 10/14/22. Patient reports last injection provided relief for about 2-3 months. Currently complains of swelling in her knee and limited ROM. She would like to discuss repeat injection vs other treatments. Allergies From Zantac Allergy (Unknown, Uncoded 03/02/23 13:22) RASH Medication List - Last Reconciled 03/02/23 by Eva Hartmann PA-C atorvastatin 10 mg PO BEDTIME cholecalciferol (vitamin D3) (Vitamin D3) 50 mcg PO QAM fexofenadine (Fabiana Allergy) 180 mg PO DAILY fluticasone propionate 50 mcg/actuation (Flonase Allergy Relief) 1 spray intranasal Q12H ketorolac 10 mg PO TID PRN 5 days levothyroxine 50 mcg PO QAM metformin ER 500 mg PO QPM omeprazole 20 mg PO DAILY ondansetron 4 mg PO Q6H PRN phenazopyridine (Pyridium) 100 mg PO TID PRN 6 doses sulfamethoxazole-trimethoprim 800-160 mg (Bactrim DS) 1 tab PO BID HPI ov- Patellofemoral arthritis of left knee HPI Details 52-year-old female who returns [facility] today with an amortization schedule clerk for a follow-up of left knee pain. She currently states she has swelling, pain and limited ROM in her knee which makes her unable to fully extend her knee. She had her last injection on 10/14/22 which provided her relief for more than 2 months. She states she was able to perform daily activities. She would like to discuss repeat injection and other treatments. [facility] Medical History Carpal tunnel syndrome of left wrist delivery delivered HTN (hypertension) Social History Alcohol intake: never Patient Tobacco Use Status: Never used Tobacco Current occupational status: disabled Current occupation: right hand dominant Review of Systems Const All systems reviewed & are unremarkable except as noted in HPI and below Physical Exam Const General: cooperative, healthy appearing, comfortable, no acute distress, well developed and alert Orientation/consciousness: patient oriented x3 HEENT Head: Yes normal to inspection, Yes normocephalic and Yes atraumatic Eyes General: appearance normal, both eyes and all related structures Resp Effort & Inspection: normal respiratory effort and able to speak in complete sentences Cardio Rate: regular rate Peripheral pulses: Peripheral pulses 2+ throughout GI Palpation (GI): Soft to palpation Skin Lesions: no lesions Rashes: no rashes Neuro General: patient oriented x3 Extrem Other: Left knee: Normal to inspection. She does have a moderate joint effusion. Tenderness to palpation along the medial joint line and lateral retro-patella tenderness. No ligament laxity. Calf is supple and non-tender. NVI. Office Procedures Joint Injection/Drain Joint Injection/Drain Details: asp 30cc yellow joint fluid Primary Site: left knee Prep: site was prepped using aseptic technique and injection warnings given Injected: 80 mg of, DepoMedrol, with 8 mL of, 1% plain lidocaine and in the joint Approach Used: lateral parapatellar Procedure: The patient tolerated the procedure well and there was some relief with the local anesthesia Coding 41140 - Glenohumeral/Tronchanteric Bursa/Intraarticular Procedure code (CPT) selection complete Assessment & Plan Assessment & Plan (1) Patellofemoral arthritis of left knee: Code(s): M17.12 - Unilateral primary osteoarthritis, left knee Plan We discussed options today which include aspiration of the knee with steroid injection. They did consent to move forward with the left knee aspiration and injection, which was tolerated well. I recommended rest, ice and elevation and OTC anti-inflammatories PRN for discomfort. If symptoms persist or worsens over the next 6-8 weeks, patient will contact the office, otherwise follow-up as needed. Patient Instructions: Scribed for Eva Hartmann PA-C, by George Stark certified medical transcriptionist, on 03/02/2023 at 1:15 PM EST. I, Eva Hartmann PA-C, have personally reviewed and agree with the information entered by the scribe. Coding Level of Care Code Est Pt Level 3 (01983) Diagnoses Patellofemoral arthritis of left knee M17.12 CPT Codes Coding - Joint 7: 40539 - Glenohumeral/Tronchanteric Bursa/Intraarticular ([id number])
== END 2023-03-02 13:53 | disposition home or self-care (01) ==
PROVIDERS: PCP Family Medicine; Visit Provider Physician Assistant
DX: M17.12 Unilateral primary osteoarthritis, left knee (principal)
CPT/HCPCS: 20610; 99213

== ENCOUNTER → 2023-03-02 13:09 | Outpatient (BNVA) | payer MEDICAID, SELFPAY | PROVIDERS: PCP Family Medicine; Visit Provider Physician Assistant | DX: M17.12 Unilateral primary osteoarthritis, left knee (principal) | CPT/HCPCS: 20610; 99212; J1040 ==

== ENCOUNTER 2023-03-09 15:39 | Emergency (ER) | payer MEDICAID, SELFPAY ==
[2023-03-09 15:45] VITALS: RESP 18; BMI 32.0
[2023-03-09 16:00] VITALS: BP 153/93; PULSE 88; RESP 18; TEMP 36.7; O2SAT 98
--- NOTE | 2023-03-09 16:02 | PC.NURSE ---
Provider and general surgery Doctor at bedside with pt.
--- NOTE | 2023-03-09 16:15 | ED.WOUNDLAC ---
HPI - Wound/Laceration General Chief Complaint: Wound/Laceration Stated Complaint: finger lac Time Seen by Provider: 03/09/23 16:10 Source: patient Mode of arrival: ambulatory Limitations: no limitations History of Present Illness HPI narrative: 53-year-old female presents with bleeding left pointer fingers, patient cut it with a knife, she was trying to cut a piece of a small [place] tree in her kitchen, accidentally cut herself large amount of bleeding, pulsing. Patient immediately brought back to Emergency minor care for treatment. No headache, vision changes, dizziness, weakness, numbness, tingling. Patient tells me she is able to move her fingers without difficulty Related Data Home Medications Medication Instructions Recorded Confirmed atorvastatin 10 mg tablet 10 mg PO BEDTIME 10/14/22 03/02/23 cholecalciferol (vitamin D3) 50 50 mcg PO QAM 10/14/22 03/02/23 mcg (2,000 unit) capsule (Vitamin D3) levothyroxine 50 mcg tablet 50 mcg PO QAM 10/14/22 03/02/23 metformin 500 mg tablet,extended 500 mg PO QPM 10/14/22 03/02/23 release 24 hr omeprazole 20 mg capsule,delayed 20 mg PO DAILY 10/14/22 03/02/23 release Previous Rx's Medication Instructions Recorded phenazopyridine 100 mg tablet 100 mg PO TID PRN pain 6 doses #10 08/25/20 (Pyridium) tabs sulfamethoxazole 800 1 tab PO BID #6 tabs 08/25/20 mg-trimethoprim 160 mg tablet (Bactrim DS) fexofenadine 180 mg tablet 180 mg PO DAILY #7 tabs 03/27/21 (Fabiana Allergy) fluticasone propionate 50 1 spray intranasal Q12H #16 grams 03/27/21 mcg/actuation nasal spray,suspension (Flonase Allergy Relief) ketorolac 10 mg tablet 10 mg PO TID PRN pain 5 days #15 08/02/22 tabs ondansetron 4 mg disintegrating 4 mg PO Q6H PRN nausea and 08/02/22 tablet vomiting #14 tabs cephalexin 500 mg tablet 500 mg PO Q6H 10 days #40 tabs 03/09/23 Allergies Allergy/AdvReac Type Severity Reaction Status Date / Time From Zantac Allergy Unknown RASH Uncoded 03/02/23 13:22 Review of Systems Review of Systems: Constitutional : No Fever, No Chills, Cardiovascular : No Chest Pain, No SOB Respiratory : No Dyspnea Gastrointestinal : No abdominal pain Musculoskeletal : No Joint Swelling Skin : No rash, positive skin laceration Neuro : No Weakness, No Numbness Psych : No SI/HI Yes all other systems are reviewed and are negative [facility] Past Medical History Attestation statement: The following information was validated with the patient. Source: old records reviewed and nursing notes reviewed Medical History Carpal tunnel syndrome of left wrist delivery delivered HTN (hypertension) Social History Social History Alcohol intake: never Patient Tobacco Use Status: Never used Tobacco Current occupational status: disabled Current occupation: right hand dominant Physical Exam Vital Signs: Vital Signs: Last Vital Signs Temp 98.0 F 03/09/23 16:00 Pulse 88 03/09/23 16:00 Resp 18 03/09/23 16:00 BP 153/93 H 03/09/23 16:00 Pulse Ox 98 03/09/23 16:00 O2 Del Method Room Air 03/09/23 16:00 BMI result Body Mass Index 32.0 Vital signs stable Appearance: Alert.? Oriented X3.? No acute distress.? Head: Normocephalic, atraumatic, no step-offs or deformities Eyes: Pupils equal, round and reactive to light.? ENT: Pharynx normal.? Neck: Normal inspection.? Neck supple.? CVS: ? Pulses normal.? Respiratory: No respiratory distress.? Skin: Skin warm and dry.? Normal skin color.? Normal skin turgor.? Extremities: No lower extremity edema.? No calf ttp. 5/5 strength to bilateral upper and lower extremities w/ active pulsing bleeding w/ 1 cm laceration no visualized fb. No visualized ligament or tendon. Full rom to all fingers b/l w/ normal cap refil b/l <2 seconds Neuro: Oriented X 3.? No motor deficit.? No sensory deficit. CN 2-12 intact Medical Decision Making Medical Decision Making [facility] Narrative: 1615 53 yo f presents w/ lac to left pointer finger [employer] PE w/ active pulsing bleeding w/ 1 cm laceration no visualized fb. No visualized ligament or tendon. Full rom to all fingers b/l w/ normal cap refil b/l <2 seconds History and physical exam consistent with laceration with arterial bleed Unlikely fracture, dislocation, neurovascular compromise. Immediately on palpation arrival pressure applied to area and area well irrigated. Attempted to suture using 2 simple interrupted sutures however unsuccessful. I tried doing running sutures again unsuccessful bleeding continued. General surgeon in the department Dr. Yao is at bedside and in addition to my simple interrupted x2 sutures he placed 3 [id number] stitches bleeding stopped. Patient able to wiggle her fingers afterwards. Capillary refill intact. He advised her to keep the dressing on for 24 hours dry dressing which was placed afterwards, advised to get sutures removed in 2 weeks. Patient feels better with sutures in place. He also advise antibiotics Plan at this time discharge patient home with prompt follow-up. Differential Diagnosis Differential Diagnoses: The differential diagnosis associated with the presentation includes History and physical exam consistent with laceration with arterial bleed Unlikely fracture, dislocation, neurovascular compromise. Admission/Observation Consideration of admission/observation: Escalation of care including admission/observation considered unlikely Consult Healthcare Provider Management of the patient was discussed with: Support Associate (general surgery ) Prescription Management I considered prescription management with: Antibiotic Critical Care Time Critical Care Time Critical Care Time: Yes Total Critical Care Time: 35 Attestation: I attest to this time spent taking care of the patient, obtaining history, physical, reviewing labs, imaging, speaking to my attending, speaking to specialist. Discharge Plan Discharge Clinical Impression: Laceration Patient Disposition: Home, Self-Care Additional Instructions: Take your medications as prescribed. If you were prescribed antibiotics today, it is important that you take your medication to their entirety, do not skip any doses, do not finish them early. Follow-up with your primary care provider this week. Return to the emergency department with new or worsening symptoms. Such as fevers, chills, chest pain, shortness of breath, nausea, vomiting, dizziness, headache, vision changes, lethargy In case of emergency call 911 Keep stitches clean dry and intact for 2 weeks. Return with any signs of infection. Please keep dressing on for 24 hours. [place] jhonatan medicamentos seg?n lo recetado. Si hoy te recetaron antibi?ticos, es importante que tomes tu medicaci?n en levy totalidad, no te saltes ninguna dosis, no las termines antes de tiempo. Erika un seguimiento con levy proveedor de atenci?n primaria esta semana. Regrese al departamento de emergencias si los s?ntomas son nuevos o empeoran. [place] fiebre, escalofr?os, dolor de pecho, dificultad para respirar, n?useas, v?mitos, mareos, dolor de zoë, cambios en la visi?n, letargo. En varinder de emergencia llame al 911. Mantenga los puntos limpios, secos e intactos prashanth 2 semanas. Regrese si presenta cualquier signo de infecci?n. Contin?e visti?ndose prashanth 24 horas. Prescriptions: New cephalexin 500 mg tablet 500 mg PO Q6H 10 Days Qty: 40 0RF No Action sulfamethoxazole-trimethoprim [Bactrim DS] 800-160 mg tablet 1 tab PO BID Qty: 6 0RF phenazopyridine [Pyridium] 100 mg tablet 100 mg PO TID PRN (Reason: pain) Qty: 10 0RF fluticasone propionate [Flonase Allergy Relief] 50 mcg/actuation spray,suspension 1 spray intranasal Q12H Qty: 16 0RF Rx Instructions: administer into each nostril fexofenadine [Fabiana Allergy] 180 mg tablet 180 mg PO DAILY Qty: 7 0RF ketorolac 10 mg tablet 10 mg PO TID PRN (Reason: pain) 5 Days Qty: 15 0RF ondansetron 4 mg tablet,disintegrating 4 mg PO Q6H PRN (Reason: nausea and vomiting) Qty: 14 0RF omeprazole 20 mg capsule,delayed release(DR/EC) 20 mg PO DAILY levothyroxine 50 mcg tablet 50 mcg PO QAM atorvastatin 10 mg tablet 10 mg PO BEDTIME cholecalciferol (vitamin D3) [Vitamin D3] 50 mcg (2,000 unit) capsule 50 mcg PO QAM metformin 500 mg tablet extended release 24 hr 500 mg PO QPM [place] [facility] [place]Provider Group] - 1 week Physician,Unknown J [Physician] - 2 days Stand Alone Forms: Work/School Release
--- NOTE | 2023-03-09 16:32 | P.CONGS_ITS ---
History of Present Illness Consult details Consult date: 03/09/23 Narrative: 53-year-old female referred for an arterial bleeder on a laceration. She had using a knife to trim a small [place] tree in her kitchen this afternoon when she cut herself on the left hand. She had a laceration at the base of the index finger on the radial side. Sutures had been placed by the emergency room staff. However, she had this arterial bleeder persisted so I was asked to evaluate her. She had good motion of her index finger. It did not appear that she had any tendon injury. Review of Systems Constitutional: Constitutional: Denies chills and Denies fever(s) Cardiovascular: Cardiovascular: Denies chest pain, Denies dyspnea and Denies dyspnea on exertion Respiratory: Respiratory: Denies cough, Denies dyspnea and Denies dyspnea on exertion Gastrointestinal: Gastrointestinal: Denies hematochezia and Denies change in bowel habits Genitourinary: Genitourinary: Denies hematuria Musculoskeletal: Musculoskeletal: Denies back pain and Denies limited range of motion Neurologic: Denies focal weakness and Denies convulsions Psychiatric: Psychiatric: Denies depression and Denies mood swings [facility] Past Medical History Medical History Carpal tunnel syndrome of left wrist delivery delivered HTN (hypertension) Social History Social History Alcohol intake: never Patient Tobacco Use Status: Never used Tobacco Smoked in Last 30 Days: No Use of substances other than those prescribed or required for medical reasons: No Advance Directives: No Advance Directives Information Provided: No Patient : No Current occupational status: disabled Current occupation: right hand dominant Meds Allergies Allergy/AdvReac Type Severity Reaction Status Date / Time From Zantac Allergy Unknown RASH Uncoded 03/02/23 13:22 Home Medications Medication Instructions Recorded Confirmed Last Taken Type atorvastatin 10 mg tablet 10 mg PO BEDTIME 10/14/22 03/02/23 Unknown History cholecalciferol (vitamin D3) 50 50 mcg PO QAM 10/14/22 03/02/23 Unknown History mcg (2,000 unit) capsule (Vitamin D3) levothyroxine 50 mcg tablet 50 mcg PO QAM 10/14/22 03/02/23 Unknown History metformin 500 mg tablet,extended 500 mg PO QPM 10/14/22 03/02/23 Unknown History release 24 hr omeprazole 20 mg capsule,delayed 20 mg PO DAILY 10/14/22 03/02/23 Unknown History release Physical Exam Vital Signs: Vital Signs: Last Vital Signs Temp 98.0 F 03/09/23 16:00 Pulse 88 03/09/23 16:00 Resp 18 03/09/23 16:00 BP 153/93 H 03/09/23 16:00 Pulse Ox 98 03/09/23 16:00 O2 Del Method Room Air 03/09/23 16:00 BMI result Body Mass Index 32.0 Const: General: comfortable and no acute distress Resp: Effort & Inspection: normal respiratory effort Cardio: Rate: regular rate GI: Palpation (GI): Soft to palpation Extrem: Other: On the radial side of the base of the index finger is note of a laceration with sutures. However, there were 2 areas with arterial bleeders. Results Labs Labs: All other labs normal. Assessment and Plan (1) Laceration: Status: Acute She had a deep laceration on the index finger at the base on the radial side as described above. Laceration repair had been done by the emergency room staff. However, she continued to have this persistent arterial bleeder on 2 areas which is they could not control I therefore evaluated and placed 3 separate rate sutures on this bleeding areas. This achieved good hemostasis. She had good vascular supply of the finger and there was no apparent tendon injury. I placed dressings and wrapped the hand with Maya roll She is to keep the area dry for at least 24 hours. She has to change her dressings daily after 24 hours. She can have her sutures removed in 2 weeks. Procedures Date of Service Date of Service: 03/09/23 Laceration Laceration 1: Additional comments: She had 2 areas of arterial bleeding on the repaired laceration. I therefore applied [id number] sutures using nylon 3-0 3 times to achieve a stasis. I then placed dressings. I gave her wound instructions. Initial repair of the laceration was done by the emergency room physician.
== END 2023-03-09 17:11 | disposition home or self-care (01) ==
PROVIDERS: Emergency Provider Emergency Medicine; PCP Family Medicine
DX: S61.211A Laceration without foreign body of left index finger without damage to nail, initial encounter (principal); I10 Essential (primary) hypertension; W26.0XXA Contact with knife, initial encounter; Y93.9 Activity, unspecified; Y92.9 Unspecified place or not applicable; Y99.9 Unspecified external cause status
CPT/HCPCS: 12001; 99283; 99284

== ENCOUNTER → 2023-03-09 16:18 | Outpatient (BNV) | payer MEDICAID, SELFPAY | PROVIDERS: Emergency Provider Emergency Medicine; PCP Family Medicine; Visit Provider Surgery | DX: S61.211A Laceration without foreign body of left index finger without damage to nail, initial encounter (principal) | CPT/HCPCS: 12001; 99283 ==

== ENCOUNTER 2023-10-24 16:03 | Outpatient (REF) | payer MEDICAID, SELFPAY ==
--- NOTE | ~2023-10-24 | MM_ITS ---
EXAMINATION: MM SCREENING DIGITAL BREAST TOMOSYNTHESIS, BILATERAL CLINICAL INFORMATION: Screening. Asymptomatic. COMPARISON: Mammography: This study is compared with prior exams dating back to 2017. TECHNIQUE: Digital breast tomosynthesis is performed in both the craniocaudal and mediolateral oblique views along with computer-aided detection (CAD). Synthesized 2D images are generated from the tomosynthesis. FINDINGS: The breasts are heterogeneously dense, which may obscure small masses (ACR BI-RADS breast composition Category c). There are no significant masses, abnormal calcifications, or other abnormalities. MM/MM tomosynthesis screening BI IMPRESSION: No mammographic evidence of malignancy. ASSESSMENT: BI-RADS BI-RADS 1 - Negative RECOMMENDATION: Routine annual mammography screening. 1 year F/U This examination should not preclude the clinical evaluation of a suspicious palpable abnormality. This patient's information was entered into a reminder system with a target due date for their next mammogram. Electronically signed by: Princess Obrien MD 11/17/2023 08:41 PM EDT
== END 2023-10-24 16:04 | disposition home or self-care (01) ==
LOC: HO.MAMMO 16:03
PROVIDERS: PCP Family Medicine; Visit Provider Family Medicine
DX: Z12.31 Encounter for screening mammogram for malignant neoplasm of breast (principal)
CPT/HCPCS: 77063; 77067

== ENCOUNTER → 2023-10-24 16:15 | Outpatient (BNV) | payer MEDICAID, SELFPAY | PROVIDERS: PCP Family Medicine; Visit Provider Radiology Diagnostic Radiology | DX: Z12.31 Encounter for screening mammogram for malignant neoplasm of breast (principal) | CPT/HCPCS: 77063; 77067 ==

== ENCOUNTER 2023-12-14 22:02 | Emergency (ER) | payer MEDICAID, SELFPAY ==
--- NOTE | 2023-12-14 | ECG_ITS ---
Test Reason : SOB Blood Pressure : / mmHG Vent. Rate : 082 BPM Atrial Rate : 082 BPM P-R Int : 136 ms QRS Dur : 076 ms QT Int : 376 ms P-R-T Axes : 028 009 048 degrees QTc Int : 439 ms Normal sinus rhythm Nonspecific T wave abnormality Abnormal ECG When compared with ECG of 27-MAR-2021 07:44, No significant change was found Referred By: Generic ED Physician Electronically Signed By:ROSELYN MCNULTY
--- NOTE | ~2023-12-14 | XR_ITS ---
EXAMINATION: XR CHEST CLINICAL INFORMATION: Cough COMPARISON: Chest x-ray March 27, 2021 TECHNIQUE: 2 views of the chest were obtained. FINDINGS: No significant abnormality is noted involving the heart, lungs, mediastinum, bony thorax or soft tissues. Surgical clip right upper quadrant of abdomen. XR/XR chest 2V IMPRESSION: Unremarkable examination. Electronically signed by: Quinton Power MD 12/14/2023 11:43 PM EDT RP
[2023-12-14 22:21] VITALS: BP 150/87; PULSE 94; RESP 20; TEMP 36.4; O2SAT 99; BMI 37.1
[2023-12-14 22:40] LABS: MANUAL DIFF FLAG NO
[2023-12-14 22:43] LABS: Basophils Absolute Auto 0.1 X10*3/uL (0.0-0.2); Basophils Percent Auto 0.6 % (0-2); Eosinophils Absolute Auto 0.3 X10*3/uL (0.0-0.4); Eosinophils Percent Auto 3.4 % (0-4); Hemoglobin 13.9 g/dl (12.0-16.0); Imm Gran Abs Auto 0.02 X10*3/uL (0.00-0.03); Imm Gran Pct Auto 0.2 % (0.0-0.4); Lymphocytes Absolute Auto 2.3 X10*3/uL (1.2-4.9); Lymphocytes Percent Auto 26.9 % (20-40); Mean Corpuscular HGB Conc 34.8 g/dl (31.0-35.0); Mean Corpuscular Volume 86.2 fL (80.0-98.0); Mean Platelet Volume 9.3 fL (9.4-12.3); Monocytes Absolute Auto 0.4 X10*3/uL (0.1-1.2); Monocytes Percent Auto 5.1 % (2-11); Neutrophils Absolute Auto 5.5 x10*3/uL (2.0-8.3); Neutrophils Percent Auto 63.8 % (45-73); Platelet Count 275 X10*3/uL (160-400); Red Blood Count 4.64 X10*6/uL (4.20-5.50); Red Cell Distribution Width 13.4 % (11.0-16.0); White Blood Count 8.6 X10*3/uL (4.8-10.8)
[2023-12-14 22:50] LABS: Prothrombin Time 11.7 SEC (10.9-12.4)
[2023-12-14 22:56] LABS: Anion Gap 14 (12-20); Blood Urea Nitrogen 10 mg/dL (9-16); Calcium 9.3 mg/dL (8.4-10.2); Carbon Dioxide 25 mmol/L (22-29); Chloride 106 mmol/L (96-108); Creatinine Clr Calc Pharmacy 61.1; Estimated Glomerular Filt Rate 55; Glucose Random 186 mg/dL (60-115); Potassium 3.5 mmol/L (3.3-5.1); Sodium 141 mmol/L (135-145)
[2023-12-14 23:04] LABS: Troponin-I High Sensitivity < 2.7 ng/L (<3.5-17.0)
--- NOTE | 2023-12-15 00:08 | ED_ITS ---
HPI - SOB/Dyspnea General Chief Complaint: Dyspnea Stated Complaint: difficulty breathing, cough Time Seen by Provider: 12/14/23 23:57 Source: patient Mode of arrival: ambulatory Limitations: no limitations History of Present Illness HPI Narrative: Patient is a 53-year-old female who presents emergency department for evaluation. She reports over the past 3 days she has been feeling unwell, endorses difficulty breathing during coughing episodes, discomfort to the diffusely across the anterior chest and lateral chest wall bilaterally with coughing. Cough has been productive with yellow phlegm. She has chronic sinusitis, she has been taking her medications as prescribed for this but has not noticed much help recently. Denies any known sick contacts. Denies fevers or chills. No associated headache, dizziness, neck stiffness vomiting, abdominal pain, numbness or tingling of the extremities, recent lower extremity redness swelling, history of VTE Related Data Home Medications ?Medication ?Instructions ?Recorded ?Confirmed atorvastatin 10 mg tablet 10 mg PO BEDTIME 10/14/22 03/02/23 cholecalciferol (vitamin D3) 50 50 mcg PO QAM 10/14/22 03/02/23 mcg (2,000 unit) capsule (Vitamin D3) levothyroxine 50 mcg tablet 50 mcg PO QAM 10/14/22 03/02/23 metformin 500 mg tablet,extended 500 mg PO QPM 10/14/22 03/02/23 release 24 hr omeprazole 20 mg capsule,delayed 20 mg PO DAILY 10/14/22 03/02/23 release Previous Rx's ?Medication ?Instructions ?Recorded phenazopyridine 100 mg tablet 100 mg PO TID PRN pain 6 doses #10 08/25/20 (Pyridium) tabs sulfamethoxazole 800 1 tab PO BID #6 tabs 08/25/20 mg-trimethoprim 160 mg tablet (Bactrim DS) fexofenadine 180 mg tablet 180 mg PO DAILY #7 tabs 03/27/21 (Fabiana Allergy) fluticasone propionate 50 1 spray intranasal Q12H #16 grams 03/27/21 mcg/actuation nasal spray,suspension (Flonase Allergy Relief) ketorolac 10 mg tablet 10 mg PO TID PRN pain 5 days #15 08/02/22 tabs ondansetron 4 mg disintegrating 4 mg PO Q6H PRN nausea and 05/22/23 tablet vomiting #14 tabs cephalexin 500 mg tablet 500 mg PO Q6H 10 days #40 tabs 03/09/23 albuterol sulfate 90 mcg/actuation 2 puff inhalation Q4-6H PRN 12/15/23 aerosol inhaler shortness of breath or wheezing #6.7 grams codeine 7.5 mg-guaifenesin 225 5 ml PO Q6H PRN cough #473 mL 12/15/23 mg/5 mL oral liquid ibuprofen 600 mg tablet 600 mg PO Q8H PRN fever or pain 12/15/23 #30 tabs prednisone 20 mg tablet 40 mg (2 x 20 mg) PO DAILY #8 tabs 12/15/23 Allergies Allergy/AdvReac Type Severity Reaction Status Date / Time From Zantac Allergy Intermediate RASH Uncoded 12/14/23 22:23 Review of Systems 2 Review of Systems: Yes all other systems are reviewed and are negative [facility] Past Medical History Attestation statement: The following information was validated with the patient. Source: old records reviewed Medical History Carpal tunnel syndrome of left wrist delivery delivered HTN (hypertension) Social History Social History Alcohol intake: never Patient Tobacco Use Status: Never used Tobacco Advance Directives: No Advance Directives Information Provided: Yes Current occupational status: disabled Current occupation: right hand dominant Physical Exam 2 Vital Signs: Vital Signs: Last Vital Signs Temp 98.5 F 12/15/23 00:18 Pulse 75 12/15/23 01:04 Resp 18 12/15/23 00:18 BP 136/76 12/15/23 00:18 Pulse Ox 97 12/15/23 00:18 O2 Del Method Room Air 12/15/23 00:18 BMI result Body Mass Index 37.1 Appearance: Alert.?Oriented to person, place and time. No acute distress.?Normal affect. Eyes: Pupils equal, round and reactive to light.? ENT: TM normal bilaterally. Pharynx normal.?? Neck: Normal inspection.? Neck supple.??No cervical adenopathy CVS: Heart sounds normal. Normal heart rate and rhythm.? Pulses normal.?? Respiratory: No respiratory distress.? Lung sounds clear to auscultation bilaterally?? Abdomen: Soft and non-tender. Normoactive bowel sounds. Skin: Skin warm and dry.? Normal skin color.? ? Extremities: No lower extremity edema.? Neuro: Moves all extremities spontaneously. Sensation intact bilaterally. No motor deficits. Ambulates with normal steady gait. Medications Administered Discontinued Medications Generic Name Dose Route Start Last Admin Trade Name Quintinq PRN Reason Stop Dose Admin Albuterol Sulfate 7.5 mg/ 10 mg 12/15/23 00:57 12/15/23 01:02 Albuterol Sulfate 2.5 mg INHALE 12/15/23 00:58 10 mg ONCE ONE Administration Prednisone 60 mg 12/15/23 00:19 12/15/23 00:45 Prednisone 20 Mg Tablet PO 12/15/23 00:20 60 mg ONCE ONE Administration Medical Decision Making Medical Decision Making [facility] Narrative: Patient is a 53-year-old female with reported past medical history of asthma, hypertension, presenting for evaluation of upper respiratory symptoms. COVID-19 testing _. Influenza testing _. Chest x-ray without evidence of pneumonia no consolidation or infiltrates, no pleural effusion or pulmonary vascular congestion. High sensitive troponin is below detectable limits, EKG nonischemic with ventricular rate of 82, normal sinus rhythm, QTC 439, no ST elevation, no ST depression, given duration of symptoms unlikely due to ACS. Perc negative unlikely pulmonary embolism. She is afebrile without tachycardia, No tachypnea or hypoxia. Patient received albuterol nebulizer addition to prednisone Discussed conservative treatment including rest, hydration, Tylenol/ibuprofen as needed for fever and body aches, saline nasal spray, humidifier, [id number] cold medication. Advised to follow-up with primary care provider as needed, discussed reasons to return back to the emergency department. All questions were answered. Patient discharged home in stable condition. Provided with a return to work/school note. Offered Tamiflu Offered monoclonal antibody Differential Diagnosis Differential Diagnoses: The differential diagnosis associated with the presentation includes ( See narrative above) Admission/Observation Consideration of admission/observation: Escalation of care including admission/observation considered ( see narrative above) Lab Data [facility] Lab Attestation statement: I reviewed the patient's lab results. ( see narrative above) CBC without leukocytosis anemia or thrombocytopenia. No electrolyte derangement. No CÉSAR. 12/14/23 22:33 12/14/23 22:33 Labs: Lab Results 12/14/23 12/14/23 12/15/23 Range/Units 22:33 23:55 00:17 WBC 8.6 (4.8-10.8) X10*3/uL RBC 4.64 (4.20-5.50) X10*6/uL Hgb 13.9 (12.0-16.0) g/dl Hct 40.0 (37.0-47.0) % MCV 86.2 (80.0-98.0) fL MCH 30.0 (27.0-33.0) pg MCHC 34.8 (31.0-35.0) g/dl RDW 13.4 (11.0-16.0) % Plt Count 275 (160-400) X10*3/uL MPV 9.3 L (9.4-12.3) fL Immature Gran % (Auto) 0.2 (0.0-0.4) % Neut % (Auto) 63.8 (45-73) % Lymph % (Auto) 26.9 (20-40) % [place] % (Auto) 5.1 (2-11) % Eos % (Auto) 3.4 (0-4) % Baso % (Auto) 0.6 (0-2) % Lymph # (Auto) 2.3 (1.2-4.9) X10*3/uL [place] # (Auto) 0.4 (0.1-1.2) X10*3/uL Eos # (Auto) 0.3 (0.0-0.4) X10*3/uL Baso # (Auto) 0.1 (0.0-0.2) X10*3/uL Abs Immat Gran (auto) 0.02 (0.00-0.03) X10*3/uL Absolute Neuts (auto) 5.5 (2.0-8.3) x10*3/uL Absolute Nucleated RBC 0.000 (0.0-0.012) X10*3/uL Nucleated RBC % (auto) 0.0 (0.0-0.2) /100WBC PT 11.7 (10.9-12.4) SEC INR 1.0 (0.9-1.1) Sodium 141 (135-145) mmol/L Potassium 3.5 (3.3-5.1) mmol/L Chloride 106 (96-108) mmol/L Carbon Dioxide 25 (22-29) mmol/L Anion Gap 14 (12-20) BUN 10 (9-16) mg/dL Creatinine 1.05 (0.5-1.4) mg/dL Estim Creat Clear Calc 61.1 Estimated GFR 55 Random Glucose 186 H (60-115) mg/dL Calcium 9.3 (8.4-10.2) mg/dL Troponin I High Sens < 2.7 (<3.5-17.0) ng/L COVID-19 (KATRIN) Negative (Negative) COVID-19 Clin Com See Note Influenza Type A (IVETT) Cancelled Negative Influenza Type B (IVETT) Cancelled Negative Influenza A & B Note Cancelled See Note Independent Interpretation I performed an independent interpretation of an: Plain X-Ray (See narrative above) Radiology Impression Discussion of test interpretation with radiology: I have reviewed the radiologist's reading. Radiologist Impression: XR/XR chest 2V IMPRESSION: Unremarkable examination. External Record Review External record reviewed: Outpatient record Prescription Management I considered prescription management with: Pain Medication ( acetaminophen/ibuprofen) Chronic Conditions Patient?s care impacted by: Other (Asthma) Discharge Plan Discharge Clinical Impression: Upper respiratory infection Patient Disposition: Home, Self-Care Instructions: Upper Respiratory Infection (ED) Additional Instructions: Medications were sent to your pharmacy including an albuterol inhaler, prednisone to take daily with food, cough medicine with codeine may make you sleepy. Be sure to rest, stay well hydrated drinking plenty of fluids, eat small frequent meals. You can take ibuprofen 200 mg, 3 tablets (600mg) every 6-8 hours as needed for pain, in addition to Tylenol 500 mg, 2 tablets (1,000mg) every 4-6 hours as needed for pain, but not to exceed 3 doses daily (3,000mg).? Duio-dqj-bttfhtl cold medications may be helpful as well for symptoms. Saline nasal spray, humidifier may be helpful for nasal congestion. You may return to the emergency department with any new or worsening symptoms or concerns. Follow-up with your primary care provider as needed. Should remain out of school/ work until symptoms have resolved and have been without a fever for 24 hours without the use of Tylenol or ibuprofen. Prescriptions: New albuterol sulfate 90 mcg/actuation HFA aerosol inhaler 2 puff inhalation Q4-6H PRN (Reason: shortness of breath or wheezing) Qty: 6.7 0RF prednisone 20 mg tablet 40 mg PO DAILY Qty: 8 0RF ibuprofen 600 mg tablet 600 mg PO Q8H PRN (Reason: fever or pain) Qty: 30 0RF codeine-guaifenesin 7.5-225 mg/5 mL liquid 5 ml PO Q6H PRN (Reason: cough) Qty: 473 0RF No Action sulfamethoxazole-trimethoprim [Bactrim DS] 800-160 mg tablet 1 tab PO BID Qty: 6 0RF phenazopyridine [Pyridium] 100 mg tablet 100 mg PO TID PRN (Reason: pain) Qty: 10 0RF fluticasone propionate [Flonase Allergy Relief] 50 mcg/actuation spray,suspension 1 spray intranasal Q12H Qty: 16 0RF Rx Instructions: administer into each nostril fexofenadine [Fabiana Allergy] 180 mg tablet 180 mg PO DAILY Qty: 7 0RF ketorolac 10 mg tablet 10 mg PO TID PRN (Reason: pain) 5 Days Qty: 15 0RF ondansetron 4 mg tablet,disintegrating 4 mg PO Q6H PRN (Reason: nausea and vomiting) Qty: 14 0RF cephalexin 500 mg tablet 500 mg PO Q6H 10 Days Qty: 40 0RF omeprazole 20 mg capsule,delayed release(DR/EC) 20 mg PO DAILY levothyroxine 50 mcg tablet 50 mcg PO QAM atorvastatin 10 mg tablet 10 mg PO BEDTIME cholecalciferol (vitamin D3) [Vitamin D3] 50 mcg (2,000 unit) capsule 50 mcg PO QAM metformin 500 mg tablet extended release 24 hr 500 mg PO QPM Referrals: Chelle Cueto MD [Primary Care Provider] - Print Language: Slovak
[2023-12-15 00:18] VITALS: BP 136/76; PULSE 84; RESP 18; TEMP 36.9; O2SAT 97
[2023-12-15 00:20] LABS: COVID-19 Test Negative (Negative); IDNOW Serial# 08D9AD1C
[2023-12-15] MEDS: predniSONE 20 MG TABLET 60 MG PO (00:45)
[2023-12-15 00:49] LABS: IDNOW Serial# 08D9AD1C; Influenza A Negative (Negative); Influenza B2 Negative (Negative)
[2023-12-15] MEDS: Albuterol Sulfate 7.5 MG, Albuterol Sulfate (0.083%) 2.5 MG 10 MG INHALE (01:02)
[2023-12-15 01:04] VITALS: PULSE 75; O2SAT 97
[2023-12-15 01:46] VITALS: BP 136/76; PULSE 75; RESP 18; TEMP 36.9; O2SAT 97
== END 2023-12-15 01:47 | disposition home or self-care (01) ==
PROVIDERS: Emergency Provider Internal Medicine; PCP Family Medicine
DX: J06.9 Acute upper respiratory infection, unspecified (principal); R06.00 Dyspnea, unspecified; R05.9 Cough, unspecified; R07.89 Other chest pain; Z11.52 Encounter for screening for COVID-19; Z79.899 Other long term (current) drug therapy
CPT/HCPCS: 36415; 71046; 80048; 84484; 85025; 85610; 87502; 87635; 93005; 94640; 99284

== ENCOUNTER 2023-12-29 12:34 | Outpatient (REF) | payer MEDICAID, SELFPAY ==
[2023-12-29 14:02] LABS: Parathyroid Hormone Intact 75.6 pg/mL (8.7-77.1)
[2023-12-29 14:05] LABS: Creatinine Urine 147.95 mg/dL; Microalbum/Creatinine Ratio Ur 20.2 ug/mg cr (<30)
[2023-12-29 14:08] LABS: Alanine Aminotransferase 22 U/L (0-31); Albumin Level 4.4 g/dL (3.5-5.0); Alkaline Phosphatase 127 U/L (39-117); Anion Gap 11 (12-20); Aspartate Amino Transferase 11 U/L (5-31); Bilirubin Total 0.3 mg/dL (0.0-1.0); Blood Urea Nitrogen 13 mg/dL (9-16); Calcium 9.8 mg/dL (8.4-10.2); Carbon Dioxide 25 mmol/L (22-29); Chloride 104 mmol/L (96-108); Cholesterol 202 mg/dL (<200); Estimated Glomerular Filt Rate 54; Glucose Random 279 mg/dL (60-115); HDL Cholesterol 40 mg/dL (>40); LDL Cholesterol Calculated 128 mg/dL (<100); Potassium 3.6 mmol/L (3.3-5.1); Sodium 136 mmol/L (135-145); Total Protein 7.7 g/dL (6.5-8.0); Triglycerides 172 mg/dL (<150)
[2023-12-29 14:17] LABS: TSH reflex Free T4 6.74 uIU/mL (0.32-4.0)
[2023-12-29 14:29] LABS: Folate > 20.0 ng/mL (> or = 4.0); Vitamin B12 373 pg/mL (200-900)
[2023-12-29 14:40] LABS: Reflex LDLD? No
[2023-12-29 15:00] LABS: Free T4 (Free Thyroxine) 0.81 ng/dL (0.71-1.85)
[2023-12-30 07:55] LABS: Hepatitis A Antibody IgG REACTIVE (Nonreactive); ~Hepatitis A Antibody IgG 11.49 S/CO (0.00-0.99)
[2023-12-30 08:02] LABS: HBsAGNum1 1.19 S/CO (0.00-0.99); HIV Num 1 1.22 S/CO (0.00-0.99); ~HepC Num1 0.12 S/CO (0.00-0.79); ~Hepatitis C Antibody Nonreactive (Nonreactive)
[2023-12-30 10:05] LABS: HIV AB/AG Nonreactive (Nonreactive); HIV Num 2 0.04 S/CO; HIV Num 3 0.05 S/CO
[2023-12-30 13:59] LABS: HBsAGNum2 Nonreactive; HBsAGNum3 Nonreactive; Hepatitis B Surface Antigen NEGATIVE (Negative)
== END 2023-12-29 12:35 | disposition home or self-care (01) ==
LOC: HO.HHCL 12:34
PROVIDERS: Visit Provider Family Medicine
DX: E11.65 Type 2 diabetes mellitus with hyperglycemia (principal); E03.9 Hypothyroidism, unspecified; Z11.3 Encounter for screening for infections with a predominantly sexual mode of transmission; Z01.84 Encounter for antibody response examination; E55.9 Vitamin D deficiency, unspecified
CPT/HCPCS: 36415; 80053; 80061; 82043; 82306; 82570; 82607; 82746; 83970; 84439; 84443; 86708; 86803; 87340; 87389

== ENCOUNTER 2024-05-22 15:22 | Outpatient (REF) | payer MEDICAID, SELFPAY ==
[2024-05-22 17:25] LABS: Anion Gap 12 (12-20); Blood Urea Nitrogen 16 mg/dL (9-16); Calcium 9.8 mg/dL (8.4-10.2); Carbon Dioxide 28 mmol/L (22-29); Chloride 105 mmol/L (96-108); Estimated Glomerular Filt Rate > 60; Glucose Random 109 mg/dL (60-115); Potassium 3.5 mmol/L (3.3-5.1); Sodium 141 mmol/L (135-145)
[2024-05-22 17:34] LABS: TSH reflex Free T4 3.95 uIU/mL (0.32-4.0)
--- OUTSIDE RECORDS SUMMARY | 2024-05-22 18:39 | XMS_ITS | Encounter Summary ---
Author Organization [employer] Address [address] [facility] [place], [place] [address] Care Team Providers Care Asphalt Mixing Machine Operator Name Role Phone Chelle Cueto MD Primary Care Provider [phone] Reason for Visit * Reason Onset Date Comments Referral 03/19/2022 Encounter Details Date Type Department Care Team ([facility] st Contact Info) Description 03/19/2022 Telephone [facility] MEDICINE [address] [place] [address] [phone] Chelle Cueto MD [address] [place], [place] [phone] Referral Social History Tobacco Use Types Packs/Day Years Used Date Smoking Tobacco: Never Assessed Depression Answer Date Recorded Patient Health Questionnaire-2 Score 1 02/24/2022 Comments Unknown Sex and Gender Information Value Date Recorded Sex Assigned at Female 01/11/2022 10:20 AM EDT Legal Sex Female 10:20 AM EDT Gender Identity Female 01/11/2022 10:20 AM EDT Sexual Orientation Straight 01/11/2022 10 :20 AM EDT COVID-19 Exposure Response Date Recorded In the last 10 days, have yo u been in contact with someone who was confirmed or suspected to have Coronavirus/COVID-19? No / Unsure 02/24/2022 9:06 AM EST documented as of this encounter Miscellaneous Notes * Telephone Encounter - Rhiannon Collins - 03/19/2022 12:58 PM EST Tc from pt requesting a referral to the eye clinic here . documented in this encounter Plan of Treatment Upcoming Encounters Date Type Department Care Team (Late st Contact Info) Description 05/25/2024 2:00 PM EDT Clinical Support [facility] MEDICINE [address] [place] [address] 06/08/2024 2:00 PM EDT Medication Management [facility] MEDICINE [address] [place] [address] Glenn Fofana, PharmD [address] [place] [address] 06/25/2024 2:30 PM EDT Office Visit [facility] OPTOMETRY [address] [place] [address] Valerie Howe, OD [address] [place] [address] 06/26/2024 2:30 PM EDT Medication Management [facility] [address] [place] [address] documented as of this encounter Visit Diagnoses Not on filedocumented in this encounter Care Teams Asphalt Mixing Machine Operator Relationship Specialty Start Date End Date Chelle Cueto MD [address] [place] [address] PCP - General Family Medicine 03/14/18 Caro Lee Loans ConsultantEngineer Sergeant 12/01/23 documented as of this encounter
--- OUTSIDE RECORDS SUMMARY | 2024-05-22 18:39 | XMS_ITS | Encounter Summary ---
Author Organization [employer] Address [address] [facility] [address], [place] [address] Care Team Providers Care Bar Catcher Name Role Phone Chelle Cueto MD Primary Care Provider [phone] Reason for Visit * Reason Onset Date Comments Results 03/19/2022 Encounter Details Date Type Department Care Team ([facility] st Contact Info) Description 03/19/2022 Telephone [facility] MEDICINE [address] [place] [phone] Chelle Cueto MD [address] [place], [place] [phone] Results Social History Tobacco Use Types Packs/Day Years [...] encounter Miscellaneous Notes * Telephone Encounter - Charisma Stevenson RN - 03/19/2022 4:23 PM EST Provider reviewing document, will call pt when pcp is done. * Telephone Encounter - Rhiannon Collins - 03/19/2022 12:55 PM EST Tc from pt requesting xray results of shoulder and knee, xrays were done on 02/24/22 at [facility] [place] documented in this encounter Plan of Treatment Upcoming Encounters Date Type Department Care Team (Late st Contact Info) Description 05/25/2024 2:00 PM EDT Clinical Support [facility] MEDICINE [address] [place] [address] 06/08/2024 2:00 PM EDT Medication Management [facility] MEDICINE [address] [place] [address] Glenn Fofana, PharmD [address] [place] [address] 06/25/2024 2:30 PM EDT Office Visit [facility] OPTOMETRY [address] [place] [address] Shyam, Valerie, OD [address] [place] [address] 06/26/2024 2:30 PM EDT Medication Management [facility] MEDICINE [address] [place] [address] documented as of this encounter Visit Diagnoses Not on filedocumented in this encounter Care Teams Bar Catcher Relationship Specialty Start Date End Date Chelle Cueto MD [address] [place] [address] PCP - General Family Medicine 03/14/18 Caro Lee Solutions ManagerAssistant Site Manager 12/01/23 documented as of this encounter
--- OUTSIDE RECORDS SUMMARY | 2024-05-22 18:39 | XMS_ITS | Encounter Summary ---
Author Organization [employer] [facility] Address [address] [facility] 7 [place] [address] Care Team Providers Care Machine Scallop Cutter Name Role Phone Chelle Cueto MD Primary Care Provider [phone] Encounter Details Date Type Department Care Team (Late Contact Info) Description 03/23/2022 Orders Only [facility] MEDICINE [address] [place] [address] [phone] Chelle Cueto MD [address] [place] [phone] Type 2 diabetes mellitus with hyperglycemia, without long-term current use of insulin ([facility]) (Primary Dx) Social History Tobacco Use Types Packs/Day Years [...] AM EST documented as of this encounter Plan of Treatment Upcoming Encounters Date Type Department Care Team (Late Contact Info) Description 05/25/2024 2:00 PM EDT Clinical Support [facility] MEDICINE [address] [place] [phone] 06/08/2024 2:00 PM EDT Medication Management [facility] MEDICINE [address] [place] [address] Glenn Fofana, PharmD [address] [place] [address] 06/25/2024 2:30 PM EDT Office Visit [facility] OPTOMETRY [address] [place] [address] Valerie Howe, OD [address] [place] [address] 06/26/2024 2:30 PM EDT Medication Management [facility] MEDICINE [address] [place] [address] documented as of this encounter Visit Diagnoses Diagnosis Type 2 diabetes mellitus with hyperglycemia, without long-term current use of insulin ([facility])- Primary documented in this encounter Care Teams Machine Scallop Cutter Relationship Specialty Start Date End Date Chelle Cueto MD [address] [place] [address] PCP - General Family Medicine 03/14/18 Caro Lee Alliance DirectorAssociate Store Leader 12/01/23 documented as of this encounter
--- OUTSIDE RECORDS SUMMARY | 2024-05-22 18:39 | XMS_ITS | Encounter Summary ---
Author Organization [employer] Address [address] [facility] 7t [place] [address] Care Team Providers Care District Wire Chief Name Role Phone Chelle Cueto MD Primary Care Provider [phone] Encounter Details Date Type Department Care Team ([facility] Contact Info) Description 05/09/2024 Telephone [facility] MEDICINE [address] [place], [place] [phone] Chelle Cueto MD [address] [place], [place] [phone] Social History Tobacco Use Types Packs/Day Years Used Date Smoking Tobacco: Never Passive Smoke Exposure: Never Smokeless Tobacco: Never Alcohol Use Standard Drinks/Week Comments Never 0 (1 standard drink = 0.6 oz pur e alcohol) Depression Answer Date Recorded Patient Health Questionnaire-9 Score 15 05/08/2024 Patient Health Questionnaire-9 Score 15 05/08/2024 Last PHQ-9: Questionnaire Data Not on file 0 05/08/2024 Housing Stability Answer Date Recorded What is your housing situation today? I have felipe camacho 05/08/[address] you li ve. Do you have problems with any of the following? None of the above 05/08/2024 Food Insecurity Answer Date Recorded Within the past 12 months, y ou worried that your food would run out before you got money to buy more: Never True 05/08/2024 Within the past 12 months,th e food you bought just didn't last and you didn't have enough money to get more: Never True Transportation Answer Date Recorded In the past 12 months, has l ack of transportation kept you from medical appts, meetings, work or from getting things needed for daily living? No 01/17/2023 Utilities Answer Date Recorded In the past 12 months, has t he electric, gas, oil or water company threatened to shut off services in your home? No 05/08/2024 Depression Answer Date Recorded Patient Health Questionnaire-2 Score 3 05/08/2024 Internet Access Answer Date Recorded Internet Access Q1 Yes 05/08/2024 Internet Access Q2 Not on file 05/08/2024 Comments Unknown Sex and Gender Information Value Date Recorded Sex Assigned at Female 01/11/2022 10:20 AM EDT Legal Sex Female 10:20 AM EDT Gender Identity Female 01/11/2022 10:20 AM EDT Sexual Orientation Straight 01/11/2022 10 :20 AM EDT documented as of this encounter Miscellaneous Notes * Telephone Encounter - Iesha Harry - 05/09/2024 11:05 AM EST A new referral is needed for this patient to enroll care in Medication Therapy Management (MTM) clinic. Please send at your earliest convenience. documented in this encounter Plan of Treatment Upcoming Encounters Date Type Department Care Team (Late st Contact Info) Description 05/25/2024 2:00 PM EDT Clinical Support [facility] MEDICINE [address] [place] [address] 06/08/2024 2:00 PM EDT Medication Management [facility] MEDICINE [address] [place] [address] Glenn Fofana, PharmD [address] [place] [address] 06/25/2024 2:30 PM EDT Office Visit [facility] OPTOMETRY [address] [place] [address] Valerie Howe, OD [address] [place] [address] 06/26/2024 2:30 PM EDT Medication Management [facility] MEDICINE [address] [place] [address] documented as of this encounter Visit Diagnoses Not on filedocumented in this encounter Additional Health Concerns Assessment Noted Time PHQ-9 Depression Total Score: 15 025 3:52 PM EST documented as of this encounter Care Teams District Wire Chief Relationship Specialty Start Date End Date Chelle Cueto MD [address] [place] [address] PCP - General Family Medicine 03/14/18 Caro Lee Restaurant CookNursery Hand 12/01/23 documented as of this encounter
--- OUTSIDE RECORDS SUMMARY | 2024-05-22 18:39 | XMS_ITS | Encounter Summary ---
Author Organization [employer] Address [address] [facility] 7t [place] [address] Care Team Providers Care Aerial Lineman Name Role Phone Chelle Cueto MD Primary Care Provider [phone] Encounter Details Date Type Department Care Team (Latest Contact Info) Description 05/08/2024 Travel Social History Tobacco Use Types Packs/Day Years [...] AM EDT documented as of this encounter Plan of Treatment Upcoming Encounters Date Type Department Care Team (Late st Contact Info) Description 05/25/2024 2:00 PM EDT Clinical Support [facility] MEDICINE [address] [place] [address] 06/08/2024 2:00 PM EDT Medication Management [facility] MEDICINE [address] [place] [address] Glenn Fofana, PharmD [address] [place] [address] 06/25/2024 2:30 PM EDT Office Visit [facility] OPTOMETRY [address] [place] [address] Valerie Howe, OD [address] [place] [address] 06/26/2024 2:30 PM EDT Medication Management [facility] MEDICINE [address] [place] [address] documented as of this encounter Visit Diagnoses Not on filedocumented in this encounter Additional Health Concerns Assessment Noted Time PHQ-9 Depression Total Score: 15 025 3:52 PM EST documented as of this encounter Care Teams Aerial Lineman Relationship Specialty Start Date End Date Chelle Cueto MD [address] [place] [address] PCP - General Family Medicine 03/14/18 aCro Lee Educational ParaprofessionalFinance Officer 12/01/23 documented as of this encounter
--- OUTSIDE RECORDS SUMMARY | 2024-05-22 18:39 | XMS_ITS | Encounter Summary ---
Author Organization [employer] [facility] Address [address] [facility] 7 [place] [address] Care Team Providers Care Pickle Pumper Name Role Phone Chelle Cueto MD Primary Care Provider [phone] Encounter Details Date Type Department Care Team (Late Contact Info) Description 09/07/2022 Orders Only [facility] MED[facility]INE [address] [place] [address] [phone] Chelle Cueto MD [address] [place] [phone] Elevated TSH (Primary Dx) Social History Tobacco Use Types Packs/Day Years Used Date Smoking Tobacco: Never Passive Smoke Exposure: Never Smokeless Tobacco: Never Depression Answer Date Recorded Patient Health Questionnaire-2 [...] suspected to have Coronavirus/COVID-19? No / Unsure 09/06/2022 12:52 PM EDT documented as of this encounter Plan of Treatment Upcoming Encounters Date Type Department Care Team (Late Contact Info) Description 05/25/2024 2:00 PM EDT Clinical Support [facility] MEDICINE [address] [place] [address] [phone] 06/08/2024 2:00 PM EDT Medication Management [facility]INE [address] [place] [address] Glenn Fofana, PharmD [address] [place] [address] 06/25/2024 2:30 PM EDT Office Visit [facility] OPTOMETRY [address] [place] [address] Shyam, Valerie, OD [address] [place] [address] 06/26/2024 2:30 PM EDT Medication Management [facility] [address] [place] [address] Scheduled Orders Name Type Priority Associated Diagnoses Orde r Schedule TSH W/Reflex to FT4 Lab Routine Elevated TSH Expected: 10/22/2022 (Approximate), Expires: 09/11/2023 documented as of this encounter Procedures Procedure Name Priority Date/Time Associated Diagnosis Comments THYROID PEROXIDASE AND THYROGLOBULIN ANTIBODIES Routine 09/07/2022 2:44 PM EDT Elevated TSH T3, FREE Routine 09/07/2022 2:44 PM EDT Elevated TSH TSH Routine 09/07/2022 2:44 PM EDT Elevated TSH T4, FREE Routine 09/07/2022 2:44 PM EDT Elevated TSH XR FOOT 3+ VIEWS RIGHT Routine 3 3:47 PM EDT documented in this encounter Results * (ABNORMAL) TSH (09/07/2022 2:44 PM EDT) [facility] Signature TSH 6.35(H) mIU/L [employer] Comment: ?Reference Range ?> or = 20 Years ??0.40-4.50 ? Ranges ?First trimester ?0.26-2.66 ?Second trimester ?? 0.55-2.73 ?Third trimester ?0.43-2.91 Blood Venous blood specimen / Unknown 09/07/2022 2:44 PM EDT 09/07/2022 2:44 PM EDT Chelle Cueto MD LAB BLOOD ORDERABLES Final Resul t Performing Organization Address [facility] de Phone Number [employer] [address] [place] [phone] [employer] [place] [employer] [address] [place] [phone] * (ABNORMAL) Thyroid Peroxidase And Thyroglobulin Antibodies (09/07/2022 2:44 PM EDT) Thyroglobulin Antibodies 24(H) < or = 1 IU/mL [facility] [place] [email or web address] [facility] Thyroid Peroxidase Antibodies 10(H) <9 IU/mL [facility] [email or web address] [facility] 09/07/2022 2:44 PM EDT 09/07/2022 2:44 PM EDT Chelle Cueto MD LAB BLOOD ORDERABLES Final Resul t Performing Organization Address [facility] de Phone Number [facility] [address] [place] [phone] [employer] [place] [facility] [address] [place] [phone] * (ABNORMAL) T4, Free (09/07/2022 2:44 PM EDT) T4, Free 0.7(L) 0.8 - 1.8 ng/dL [facility] [employer] [place] [facility] Blood Venous blood specimen / Unknown 09/07/2022 2:44 PM EDT 09/07/2022 2:44 PM EDT Chelle Cueto MD LAB BLOOD ORDERABLES Final Resul t Performing Organization Address [facility]/ZIP Co de Phone Number [facility] [address], [facility] [place] [phone] [employer] [place] [email or web address] [address] [place] [phone] * T3, Free (09/07/2022 2:44 PM EDT) T3, Free 3.1 2.3 - 4.2 pg/mL [employer] [place] [email or web address] Blood Venous blood specimen / Unknown 09/07/2022 2:44 PM EDT 09/07/2022 2:44 PM EDT Chelle Cueto MD LAB BLOOD ORDERABLES Final Resul t Performing Organization Address [facility] de Phone Number [facility] [address] [place] [address], [facility] [place] [phone] [employer] [place] [email or web address] [address] [place] [phone] * XR Foot 3+ Views Right (09/06/2022 3:47 PM EDT) Anatomical Region Laterality Modality Lower Extremities, Foot Right Radiogra phic Imaging 09/06/2022 3:47 PM EDT Narrative 09/22/2022 12:11 PM EDT ?[facility] ?[address] ?[place] [address] ?XRay Report ? Signed ? Patient: Sushant Lundy,Blessing ?MR#: M ?? [id number] ? : 1970 ?Acct:[id number] ? Age/Sex: 52 / F ?ADM Date: 06/26/23 ? Loc: HO.HHCX ? Attending : Chelle Cueto MD ? Ordering Physician: Chelle Cueto MD ?? Date of Service: 09/06/22 ?? Procedure(s): XR foot RT min 3V ?? Accession Number(s): [id number] ? cc: Chelle Cueto MD ? EXAMINATION: ?? XR FOOT, RIGHT ? CLINICAL INFORMATION: ?? Right foot pain fifth metatarsophalangeal joint ? COMPARISON: ?? None available. ? TECHNIQUE: ?? AP, lateral, and oblique views of the right foot. ? FINDINGS: ?? The bone mineralization is normal. Minimal dorsal calcaneal spurring. ?? Mild hypertrophic change at the lateral aspect of the first ?? metatarsophalangeal joint. The joint spaces are preserved. ? XR/XR foot RT min 3V ?? IMPRESSION: ? Mild degenerative changes first metatarsophalangeal joint. ? Recommend follow-up imaging in 10-14 days if fracture is suspected. ? Dictated By: ?Oly Martinez MD ? Signed By: ?<Electronically signed by Oly Martinez MD in OV> ? 09/22/22 1208 ? DD/ 1547 ? TD/TT: ? Aerologist: ? Procedure Note [facility], Image - 09/22/[address] [address] XRay Report Signed Patient: Barry CalderónnMR#: [id number] : 1970Acct:[id number] Age/Sex: 52 / FADM Date: 09/06/22 Loc: HO.HHCX Attending Dr: Chelle Cueto MD Ordering Physician: Chelle Cueto MD Date of Service: 09/06/22 Procedure(s): XR foot RT min 3V Accession Number(s): [id number] cc: Chelle Cueto MD EXAMINATION: XR FOOT, RIGHT CLINICAL INFORMATION: Right foot pain fifth metatarsophalangeal joint COMPARISON: None available. TECHNIQUE: AP, lateral, and oblique views of the right foot. FINDINGS: The bone mineralization is normal. Minimal dorsal calcaneal spurring. Mild hypertrophic change at the lateral aspect of the first metatarsophalangeal joint. The joint spaces are preserved. XR/XR foot RT min 3V IMPRESSION: Mild degenerative changes first metatarsophalangeal joint. Recommend follow-up imaging in 10-14 days if fracture is suspected. Dictated By: Manickas,Oly MD Signed By: <Electronically signed by Oly Martinez MD in OV> 09/22/22 1208 DD/ 1547 TD/TT: Aerologist: [facility] External Provider IMG XR PROCEDURES Final Result documented in this encounter Visit Diagnoses Diagnosis Elevated TSH- Primary Other abnormal blood chemistry documented in this encounter Care Teams Pickle Pumper Relationship Specialty Start Date End Date Chelle Cueto MD [address] [place] [phone] PCP - General Family Medicine 03/14/18 Caro Lee Dedicated Owner OperatorBand Maker 12/01/23 documented as of this encounter
--- OUTSIDE RECORDS SUMMARY | 2024-05-22 18:39 | XMS_ITS | Encounter Summary ---
Author Organization [employer] [facility] Address [address] [facility] 7[facility] [place] [address] Care Team Providers Care Carbon Setter Name Role Phone Chelle Cueto MD Primary Care Provider [phone] Reason for Referral * Consultation (Routine) - Authorized Specialty Diagnoses / Procedures Referred By Hayden clark Referred To Contact Pharmacy Diagnoses HTN (hypertension), benign Type 2 diabetes mellitus with hyperglycemia, without long-term current use of insulin ([facility]) Chelle Cueto MD [address] [place] [address] Phone: tel: fax: Referral ID Status Reason Start Date Expiration Date Visits Requested Visits Authorized [id number] Authorized Continuity of Care 05/14/2024 05/14/2025 6 6 * Consultation (Routine) - Authorized Specialty Diagnoses / Procedures Referred By Hayden clark Referred To Contact Pharmacy Diagnoses HTN (hypertension), benign Type 2 diabetes mellitus with hyperglycemia, without long-term current use of insulin ([facility]) Chelle Cueto MD [address] [place] [address] Phone: tel: fax: Referral ID Status Reason Start Date Expiration Date Visits Requested Visits Authorized [id number] Authorized Consult and Treat 05/14/2024 05/14/2025 6 6 Scheduling Instructions Mainly hypertension and asthma, then diabetes. Thank you Encounter Details Date Type Department Care Team (Late st Contact Info) Description 05/09/2024 Orders Only [facility] [address] [facility] [place] [address] Chelle Cueto MD [address] [facility] [place] [address] HTN (hypertension), benign (Primary Dx); Type 2 diabetes mellitus with hyperglycemia, without long-term current use of insulin ([facility]) Social History Tobacco Use Types Packs/Day Years [...] Description 05/25/2024 2:00 PM EDT Clinical Support [facility] MEDICINE [address] [place] [address] 06/08/2024 2:00 PM EDT Medication Management [facility] MEDICINE [address] [place] [address] Glenn Fofana, PharmD [address] [place] [address] 06/25/2024 2:30 PM EDT Office Visit [facility] OPTOMETRY [address] [place] [address] Shyam, Valerie, OD [address] [place] [address] 06/26/2024 2:30 PM EDT Medication Management [facility] [address] [place] [address] Scheduled Referrals Name Type Priority Associated Diagnoses Orde r Schedule Referral to Pharmacy CDTM Outpatient Referral Routine HTN (hypertension), benign Type 2 diabetes mellitus with hyperglycemia, without long-term current use of insulin (CMS/HCC) Ordered: 05/14/2024 Referral to Pharmacy [place] Outpatient Referral Routine HTN (hypertension), benign Type 2 diabetes mellitus with hyperglycemia, without long-term current use of insulin (CMS/HCC) Ordered: 05/14/2024 documented as of this encounter Visit Diagnoses Diagnosis HTN (hypertension), benign- Primary Essential hypertension, benign Type 2 diabetes mellitus with hyperglycemia, without long-term current use of insulin (CMS/HCC) documented in this encounter Additional Health Concerns Assessment Noted Time PHQ-9 Depression Total Score: 15 05/08/ 025 3:52 PM EST documented as of this encounter Care Teams Carbon Setter Relationship Specialty Start Date End Date Chelle Cueto MD [address] [place] [address] PCP - General Family Medicine 03/14/18 Caro Lee Assistant Production ManagerRecording Artist 12/01/23 documented as of this encounter
--- OUTSIDE RECORDS SUMMARY | 2024-05-22 18:39 | XMS_ITS | Encounter Summary ---
Author Organization [employer] Address [address] [facility] 7 [place] [address] Care Team Providers Care Director Operations Broadcast Name Role Phone Chelle Cueto MD Primary Care Provider [phone] Reason for Visit * Reason Onset Date Comments Appointment Request 04/26/2024 Encounter Details Date Type Department Care Team ([facility] st Contact Info) Description 04/26/2024 Telephone [facility] MEDICINE [address] [place], [place] [phone] Chelle Cueto MD [address] [place] [address] Appointment Request Social History Tobacco Use Types Packs/Day Years Used Date Smoking Tobacco: Never Passive Smoke Exposure: Never Smokeless Tobacco: Never Alcohol Use Standard Drinks/Week Comments Never 0 (1 standard drink = 0.6 oz pur e alcohol) Depression Answer Date Recorded Patient Health Questionnaire-9 Score 20 12/29/2023 Patient Health Questionnaire-9 Score 20 12/29/2023 Last PHQ-9: Questionnaire Data Not on file 1 Housing Stability Answer Date Recorded What is your housing situation today? I have felipe camacho 01/17/[address] you li ve. Do you have problems with any of the following? None of the above 01/17/2023 Food Insecurity Answer Date Recorded Within the past 12 months, y ou worried that your food would run out before you got money to buy more: Never True 01/17/2023 Within the past 12 months,th e food you bought just didn't last and you didn't have enough money to get more: Never True 08/2022 Transportation Answer Date Recorded In the past 12 months, has l ack of transportation kept you from medical appts, meetings, work or from getting things needed for daily living? No 01/17/2023 Utilities Answer Date Recorded In the past 12 months, has t he electric, gas, oil or water company threatened to shut off services in your home? No 01/17/2023 Depression Answer Date Recorded Patient Health Questionnaire-2 Score 6 12/29/2023 Comments Unknown Sex and Gender Information Value Date Recorded Sex Assigned at Female 01/11/2022 10:20 AM EDT Legal Sex Female 10:20 AM EDT Gender Identity Female 01/11/2022 10:20 AM EDT Sexual Orientation Straight 01/11/2022 10 :20 AM EDT documented as of this encounter Miscellaneous Notes * Telephone Encounter - Mai Heller RN - 04/26/2024 3:24 PM EST TC placed to pt to aid in rescheduling today's sick onsite appt with PCP Dr. Cueto. Pt agreeable to new appt date and time of 05/08/2024 at 3 PM. Pt advised that this is the third reschedule for this appt. Pt stated understanding of this and will do her best to make this appt * Telephone Encounter - Boyd Arredondo - 04/26/2024 2:15 PM EST Tc from pt requesting a callback to r/s sick on site appointment as pt inform she though it was fora later time. documented in this encounter Plan of Treatment Upcoming Encounters Date Type Department Care Team (Late st Contact Info) Description 05/25/2024 2:00 PM EDT Clinical Support [facility] MEDICINE [address] [place] [phone] 06/08/2024 2:00 PM EDT Medication Management [facility] MEDICINE [address] [place] [address] Glenn Fofana, PharmD [address] [place] [address] 06/25/2024 2:30 PM EDT Office Visit [facility] OPTOMETRY [address] [place] [address] Valerie Howe, OD [address] [place] [address] 06/26/2024 2:30 PM EDT Medication Management [facility] MEDICINE [address] [place] [address] documented as of this encounter Visit Diagnoses Not on filedocumented in this encounter Additional Health Concerns Assessment Noted Time PHQ-9 Depression Total Score: 20 024 1:45 PM EDT documented as of this encounter Care Teams Director Operations Broadcast Relationship Specialty Start Date End Date Chelle Cueto MD [address] [place], [place] [phone] PCP - General Family Medicine 03/14/18 Caro Lee Performance TesterWine Bottle Inspector 12/01/23 documented as of this encounter
--- OUTSIDE RECORDS SUMMARY | 2024-05-22 18:39 | XMS_ITS | Encounter Summary ---
Author Organization [employer] [facility] Address [address] [facility] [address] [place] [address] Care Team Providers Care Health And Safety Instructor Name Role Phone Chelle Cueto MD Primary Care Provider [phone] Reason for Referral * Consultation (Routine) - Closed Specialty Diagnoses / Procedures Referred By Contac t Referred To Contact Diagnoses HTN (hypertension), benign Type 2 diabetes mellitus with hyperglycemia, without long-term current use of insulin (CMS/HCC) Chelle Cueto MD [address] [place] [phone] Phone: tel: fax: [address] [address] Phone: tel: fax: Referral ID Status Reason Start Date Expiration Date V isits Requested Visits Authorized [id number] Closed Specialty Services Required 05/18/2024 05/18/2025 1 1 Encounter Details Date Type Department Care Team (Latest Contact Info) Description 05/08/2024 3:00 PM EST Office Visit [facility] [address] [place] [address] [phone] Chelle Cueto MD [address] [place] [address] [phone] HTN (hypertension), benign (Primary Dx); Type 2 diabetes mellitus with hyperglycemia, without long-term current use of insulin (CMS/HCC); Right foot pain; Otalgia of both ears; Dietary counseling; Exercise counseling; Class 2 severe obesity due to excess calories with serious comorbidity and body mass index (BMI) of 35.0 to 35.9 in adult (CMS/HCC); Dyslipidemia; Mixed anxiety and depressive disorder; Mood disorder (CMS/HCC); Acquired hypothyroidism Social History Tobacco Use Types Packs/Day Years [...] AM EDT documented as of this encounter Last Filed Vital Signs Vital Sign Reading Time Taken Comments Blood Pressure 146/92 05/08/2024 2:45 PM EST Pulse 88 05/08/2024 2:45 PM EST Temperature 37.5 ??C (99.5 ??F) 05/08/2024 2:45 PM ES T Respiratory Rate 18 05/08/2024 2:45 PM EST Oxygen Saturation - - Inhaled Oxygen Concentration - - Weight 81.6 kg (180 lb) 05/08/2024 2:45 PM EST Height 152.4 cm (5') 05/08/2024 2:45 PM EST Body Mass Index 35.15 05/08/2024 2:45 PM EST documented in this encounter Progress Notes * Chelle Cueto MD - 05/08/2024 3:00 PM EST Subjective Blessing Lundy is a 54 y.o. female who has diabetes mellitus type 2, hypertension, asthma, and anxiety/depression, and patient presents for follow up of chronic conditions. Background: Our last encounter was 12/29/2023. Productive cough and asthma exacerbation. Requested a nebulizer machine Advised to pharmacy picking technician fluticasone inhaler. Not adherent to diabetes mellitus management. Requested [employer] organization assistance by our pharmacy. Referred to colonoscopy. Seen by [facility] clinician for high PHQ9 and GAD7 score. Interval history: Seen in [facility] ED on 01/03/24 for abdominal pain. Seen in [facility] ED on 04/05/24 for right chest wall pain and pleurisy. CXR showed small pleural effusion. Rx diclofenac and oxycodone. Today: Pt reports she went to the ER in March because of stomach pain, and her right side back has been in pain for a few days as well. Pt explains she has not had the time to get her colonoscopy done because she had to go visit her mother in [place] in December when her aunt passed, and afterwards she dealt with the severe back & stomach pain. She notes she also has to get her pap smear done as well. Pt denies exercising because she has been experiencing severe foot pain. Pt confirms she is taking her Olmesartan for her BP, but is not taking Chlorthalidone. Pt agreed tobring in all her medication to the next visit and to do her blood work then as well. She states sheis trying to not eat salty snacks including chips. Pt reports her asthma is doing well. Pt also notes she has been experiencing right ear pain and an itch in left ear. She has agreed to stop using q tips and will use baby oil to clean her ears instead. Pt notes she has an appointment with her Compliance Tester on June 25. Pt declines the Flu vaccine but agrees to the Pneumonia vaccine. Review of Systems Constitutional: Negative for activity change, appetite change and fever. Respiratory: Negative for shortness of breath. Cardiovascular: Negative for chest pain. Objective Vitals: 05/08/24 1445 BP: (!) 146/92 Pulse: 88 Resp: 18 Temp: 99.5 ??F (37.5 ??C) TempSrc: Oral Weight: 180 lb (81.6 kg) Height: 5' (1.524 m) Physical Exam Constitutional: General: She is not in acute distress. Appearance: Normal appearance. She is not ill-appearing. HENT: Head: Normocephalic and atraumatic. Mouth/Throat: Mouth: Mucous membranes are moist. Eyes: Extraocular Movements: Extraocular movements intact. Pupils: Pupils are equal, round, and reactive to light. Cardiovascular: Rate and Rhythm: Normal rate and regular rhythm. Heart sounds: No murmur heard. Pulmonary: Effort: Pulmonary effort is normal. No respiratory distress. Breath sounds: Normal breath sounds. No wheezing or rhonchi. Feet: Comments: Pt has plantar warts on the bottom of both feet. Skin: General: Skin is warm. Neurological: Mental Status: She is alert. Mental status is at baseline. Psychiatric: Mood and Affect: Mood normal. Results: Lab Results Component Value Date NA 136 12/29/2023 K 3.6 12/29/2023 CL 104 12/29/2023 CO2 25 12/29/2023 BUN 13 12/29/2023 CREATININE 1.07 12/29/2023 CRCLCALCPH 61.1 12/14/2023 EGFR 54 12/29/2023 GLUCOSE 279 (H) 12/29/2023 TOTALBILIRUB 0.3 12/29/2023 AST 11 12/29/2023 ALT 22 12/29/2023 TOTPROTEIN 7.7 12/29/2023 ALB 4.4 12/29/2023 ALP 127 (H) 12/29/2023 Lab Results Component Value Date TRIG 172 (H) 12/29/2023 CHOL 202 (H) 12/29/2023 LDLCHOLCAL 128 (H) 12/29/2023 HDL 40 (L) 12/29/2023 Lab Results Component Value Date HGBA1C 7.4 (A) 05/08/2024 MICROALBUR 30.0 12/29/2023 CREATUR 147.95 12/29/2023 MICROALBCREU 20.2 12/29/2023 ALBCREATUR 6 09/06/2022 Lab Results Component Value Date WBC 8.6 12/14/2023 HGB 13.9 12/14/2023 HCT 40.0 12/14/2023 PLT 275 12/14/2023 MCV 86.2 12/14/2023 The 10-year ASCVD risk score (Dimas WILSON, et al., 2019) is: 7.7% Values used to calculate the score: Age: 54 years Sex: Female Is Non- : No Diabetic: Yes Tobacco smoker: No Systolic Blood Pressure: 146 mmHg Is BP treated: Yes HDL Cholesterol: 40 mg/dL Total Cholesterol: 202 mg/dL Lab Results Component Value Date TSH 6.74 (H) 12/29/2023 TSH 6.35 (H) 09/07/2022 TSH 8.11 (H) 09/06/2022 FREET4 0.81 12/29/2023 Screening and Health Care Maintenance: PHQ-2/9 Score: Patient Health Questionnaire-9 Score: 15 (05/08/2024 3:52 PM) Patient Health Questionnaire-2 Score: 3 (05/08/2024 3:52 PM) PHQ-A Score Total: 24 (12/29/2023 10:38 AM) Thoughts that you would be better off or hurting yourself in some way: Not at all (05/08/2024 3:52 PM) ISHA-7 Score: ISHA-7 Total Score: 13 (05/08/2024 3:52 PM) Health Maintenance Due Topic Date Due Colorectal Cancer Screening Never done Cervical Cancer Screening Never done Zoster Vaccines (1 of 2) Never done SDOH Screening 09/07/2023 COVID-19 Vaccine ( - 2023- season) Never done Hepatitis B Vaccines (3 of 3 - 19+ 3-dose series) 02/23/2024 Eye Exam 04/02/2024 Diabetes: Hemoglobin A1C 08/05/2024 Assessment/Plan Problem List Items Addressed This Visit Dyslipidemia - currently prescribed medication: atorvastatin 10 mg at bedtime, patient had not been adherent - lipid profile: 12/29/23 - improve adherence Mixed anxiety and depressive disorder - see mood disorder Obesity Dietary Recommendations: Fruits, vegetables, whole grains, protein foods, and fat-free or low-fat dairy products are healthychoices. Eat different types of protein foods in your diet. This can include seafood, lean meats, poultry, beans, peas, lentils, nuts, seeds, soy products, and eggs. Limit foods and beverages higher in added sugars, saturated fat, and sodium. Exercise Recommendations: At least 150 minutes of moderate-intensity physical activity per week, or an equivalent combinationof moderate- and vigorous-intensity activity HTN (hypertension), benign - Primary -Goal BP < 140/90 per JNC-8, < 130/80 per ACC/AHA (treatment threshold 140/90) -BP not at goal today -pt has BP monitor; advised to check BP at home -continue working on lifestyle modifications -continue chlorthalidone 25 mg at bedtime (patient had not been taking it lately) -continue olmesartan 5 mg daily (added in Apr 2024) -improve medication adherence -check lab -Return for BP check with our team nurse in 2-3 weeks. Advised to bring all her medications. If persistently elevated (SBT > 135) at home and in the clinic (> 145), will increase olmesartan in 10 or 20 mg daily, depending on the degree of elevated BP. -consider sleep study evaluation for high BP Relevant Orders Basic Metabolic Panel Referral to Care Management Type 2 diabetes mellitus ([facility]) - Dx 02/23/22 A1C 7.4% - A1C 7.4% on 05/08/24 - Continue working on lifestyle modifications - Continue checking BG - Continue metformin ER 500 mg twice daily - Add semaglutide 0.25 mg weekly, keep at the lowest dose until next visit - Microalbumin test: 12/29/23 - Lipid profile: 12/29/23 - Diabetic eye exam: Referred - Foot exam: 05/08/24 Relevant Orders POCT glucose manually resulted (Completed) POCT glycosylated hemoglobin (Hgb A1c) (Completed) XR Foot 1-2 Views Right Referral to Care Management Right foot pain - at 5th MTP - evaluate with X-ray - refer to bindery library technical assistant - continue wearing comfortable shoes - daily foot check and care - Ordered XR Foot 1-2 Views Right 05/08/24 Relevant Orders XR Foot 1-2 Views Right Hypothyroidism - last TSH subtherapeutic, questionable adherence - mildly elevated thyroid peroxidase antibody, likely Ezra's - current replacement 50 mcg daily - recheck TSH Relevant Orders TSH with Reflex to Free T4 Mood disorder (CMS/HCC) - current Dx: MDD; ISHA - differential Dx: bipolar ; PTSD - PHQ9 score 20; GAD7 score 19 in Dec 2023 - PHQ9 score 15; GAD7 score 3 today, 05/08/24 - previously tried SSRI (poor adherence) citalopram, fluoxetine, sertraline. Previously tried clonidine for sleep. - seen by integrated behavioral health service clinician today - patient has had a difficulty maintaining a long-term outpatient care. - patient informed integrated behavioral health service clinician that she wlwould sign up herself with outpatient behavioral health service. However, she has not done it yet. Seen by integrated behavioral health service today. Other Visit Diagnoses Otalgia of both ears Dietary counseling Exercise counseling Allergies Allergen Reactions Ranitidine Rash Current Outpatient Medications Medication Instructions acetaminophen (TYLENOL 8 HOUR) 650 mg, Oral, Every 8 hours albuterol 108 (90 Base) MCG/ACT inhaler 2 puffs, Inhalation, Every 4 hours albuterol 2.5 mg, Nebulization, Every 4 hours PRN Alcohol Swabs (Alcohol Prep) pads Check BG daily as instructed atorvastatin (LIPITOR) 10 mg, Oral, Nightly azithromycin (Zithromax) 250 MG tablet Take 2 tablets by mouth on Day 1, and 1 tablet daily from Day 2 to Day 5 Blood Glucose Monitoring Suppl (FreeStyle [place] Lite) w/Device kit TEST BLOOD SUGAR ONCE DAILY INTHE MORNING DIRECTED chlorthalidone (Hygroton) 25 MG tablet TAKE 1 TABLET BY MOUTH EVERY DAY D3 Super Strength 50 MCG (1999 UT) capsule TAKE 1 CAPSULE BY MOUTH DAILY IN THE MORNING fexofenadine (Fabiana Allergy) 180 MG tablet TAKE 1 TABLET BY MOUTH EVERY MORNING fluticasone (Flonase Allergy Relief) 50 MCG/ACT nasal spray 2 sprays, Each Nostril, Daily fluticasone furoate (Arnuity Ellipta) 100 MCG/ACT inhaler 1 puff, Inhalation, Daily, Rinse mouth with water after use to reduce aftertaste and incidence of candidiasis. Do not swallow. FREESTYLE LITE test strip TEST BLOOD SUGAR ONCE DAILY levothyroxine (SYNTHROID, LEVOXYL) 50 mcg, Oral, Daily before breakfast melatonin 3 MG tablet TAKE 1 TABLET BY MOUTH 3 HOURS BEFORE BEDTIME NEEDED metFORMIN XR (GLUCOPHAGE-XR) 500 mg, Oral, 2 times daily with meals, Do not crush, chew, or split. montelukast (Singulair) 10 MG tablet TAKE 1 TABLET BY MOUTH EVERY MORNING olmesartan (BENICAR) 5 mg, Oral, Daily omeprazole (PriLOSEC) [address] capsule TAKE 1 CAPSULE BY MOUTH EVERY DAY BEFORE A MEAL semaglutide (OZEMPIC) 0.25 mg, Subcutaneous, Weekly TRUEplus Lancets 33G misc TEST BLOOD SUGAR ONCE DAILY Follow-up: 3 months or sooner if any problem arises. Scribe Attestation: IMarsha, am serving as a scribe to document services personally performed by Chelle Cueto MD, based on the patient's response to questions by provider and provides statements to me. documented in this encounter Miscellaneous Notes * Assessment & Plan Note - Chelle Cueto MD - 05/18/2024 10:25 AM ESTAssociated Problem(s): Hypothyroidism - last TSH subtherapeutic, questionable adherence - mildly elevated thyroid peroxidase antibody, likely Ezra's - current replacement 50 mcg daily - recheck TSH * Assessment & Plan Note - Chelle Cueto MD - 05/18/2024 10:17 AM ESTAssociated Problem(s): Mood disorder (CMS/HCC) - current Dx: MDD; ISHA - differential Dx: bipolar ; PTSD - PHQ9 score 20; GAD7 score 19 in Dec 2023 - PHQ9 score 15; GAD7 score 3 today, 05/08/24 - previously tried SSRI (poor adherence) citalopram, fluoxetine, sertraline. Previously tried clonidine for sleep. - seen by integrated behavioral health service clinician today - patient has had a difficulty maintaining a long-term outpatient care. - patient informed integrated behavioral health service clinician that she wlwould sign up herself with outpatient behavioral health service. However, she has not done it yet. Seen by integrated behavioral health service today. * Assessment & Plan Note - Chelle Cueto MD - 05/18/2024 10:15 AM ESTAssociated Problem(s): Mixed anxiety and depressive disorder - see mood disorder * Assessment & Plan Note - Chelle Cueto MD - 05/18/2024 10:15 AM ESTAssociated Problem(s): Dyslipidemia - currently prescribed medication: atorvastatin 10 mg at bedtime, patient had not been adherent - lipid profile: 12/29/23 - improve adherence * Assessment & Plan Note - Chelle Cueto MD - 05/18/2024 10:10 AM ESTAssociated Problem(s): Obesity Dietary Recommendations: Fruits, vegetables, whole grains, protein foods, and fat-free or low-fat dairy products are healthychoices. Eat different types of protein foods in your diet. This can include seafood, lean meats, poultry, beans, peas, lentils, nuts, seeds, soy products, and eggs. Limit foods and beverages higher in added sugars, saturated fat, and sodium. Exercise Recommendations: At least 150 minutes of moderate-intensity physical activity per week, or an equivalent combinationof moderate- and vigorous-intensity activity * Assessment & Plan Note - Marsha Pinon MA - 05/09/2024 10:52 AM EST Associated Problem(s): Type 2 diabetes mellitus (CMS/[facility]) - Dx 02/23/22 A1C 7.4% - A1C 7.4% on 05/08/24 - Continue working on lifestyle modifications - Continue checking BG - Continue metformin ER 500 mg twice daily - Add semaglutide 0.25 mg weekly, keep at the lowest dose until next visit - Microalbumin test: 12/29/23 - Lipid profile: 12/29/23 - Diabetic eye exam: Referred - Foot exam: 05/08/24 * Assessment & Plan Note - Marsha Pinon MA - 05/09/2024 10:51 AM EST Associated Problem(s): Right foot pain - at 5th MTP - evaluate with X-ray - refer to bindery library technical assistant - continue wearing comfortable shoes - daily foot check and care - Ordered XR Foot 1-2 Views Right 05/08/24 * Assessment & Plan Note - Marsha Pinon MA - 05/09/2024 10:51 AM EST Associated Problem(s): HTN (hypertension), benign -Goal BP < 140/90 per JNC-8, < 130/80 per ACC/AHA (treatment threshold 140/90) -BP not at goal today -pt has BP monitor; advised to check BP at home -continue working on lifestyle modifications -continue chlorthalidone 25 mg at bedtime (patient had not been taking it lately) -continue olmesartan 5 mg daily (added in Apr 2024) -improve medication adherence -check lab -Return for BP check with our team nurse in 2-3 weeks. Advised to bring all her medications. If persistently elevated (SBT > 135) at home and in the clinic (> 145), will increase olmesartan in 10 or 20 mg daily, depending on the degree of elevated BP. -consider sleep study evaluation for high BP documented in this encounter Plan of Treatment Upcoming Encounters Date Type Department Care Team (Late st Contact Info) Description 05/25/2024 2:00 PM EDT Clinical Support [facility] [address] [place] [phone] 06/08/2024 2:00 PM EDT Medication Management [facility] [address] [place] [address] Glenn Fofana, PharmD [address] [place] [address] 06/25/2024 2:30 PM EDT Office Visit [facility] [address] [place] [address] Shyam, Valerie, OD [address] [place] [address] 06/26/2024 2:30 PM EDT Medication Management [facility] [address] [place] [address] Scheduled Orders Name Type Priority Associated Diagnoses Orde r Schedule XR Foot 1-2 Views Right Imaging Routine Type 2 diabetes mellitus with hyperglycemia, without long-term current use of insulin ([facility]) Right foot pain Expected: 05/08/2024, Expires: 05/08/2025 Scheduled Referrals Name Type Priority Associated Diagnoses Order Schedule Referral to Care Management Outpatient Referral Routine HTN (hypertension), benign Type 2 diabetes mellitus with hyperglycemia, without long-term current use of insulin (CMS/HCC) Expected: 05/18/2024 (Approximate), Expires: 05/18/2025 documented as of this encounter Procedures Procedure Name Priority Date/Time Associated Diagnosis Comments TSH W/REFLEX TO FT4 Routine 05/22/2024 3 :24 PM EDT Acquired hypothyroidism BASIC METABOLIC PANEL Routine 05/22/2024 3:24 PM EDT HTN (hypertension), benign POCT GLYCOSYLATED HEMOGLOBIN (HGB A1C) Routine 05/08/2024 2:47 PM EST Type 2 diabetes mellitus with hyperglycemia, without long-term current use of insulin ([facility]) POCT GLUCOSE Routine 05/08/2024 2:46 PM EST Type 2 diabetes mellitus with hyperglycemia, without long-term current use of insulin ([facility]) documented in this encounter Results * TSH with Reflex to Free T4 (05/22/2024 3:24 PM EDT) TSH reflex Free T4 3.95 0.32 - 4.0 uIU/mL [facility] Blood 05/22/2024 3:24 PM EDT 05/22/2024 4:42 PM EDT us Chelle Cueto MD LAB BLOOD ORDERABLES Final Resul t [facility] [address] [place] [address] [phone] * Basic Metabolic Panel (05/22/2024 3:24 PM EDT) Sodium 141 135 - 145 mmol/L [facility] Potassium 3.5 3.3 - 5.1 mmol/L [facility] Chloride 105 96 - 108 mmol/L [facility] Carbon Dioxide 28 22 - 29 mmol/L [facility] Anion Gap 12 12 - 20 [facility] Urea Nitrogen (BUN) 16 9 - 16 mg/dL [facility] Creatinine, Serum 0.95 0.5 - 1.4 mg/dL [facility] Estimated Glomerular Filt Rate >60 [facility] Comment:Chronic Kidney Disea se: Estimated GFR < 60 mL/min/[id number] Kidney Disease: Estimated GFR < 15 mL/min/1.73m2 Glucose 109 60 - 115 mg/dL [facility] Calcium 9.8 8.4 - 10.2 mg/dL [facility] Blood Venous blood specimen / Unknown 05/22/2024 3:24 PM EDT 05/22/2024 4:42 PM EDT Chelle Cueto MD LAB BLOOD ORDERABLES Final Resul t [facility] [address] [place] [phone] * (ABNORMAL) POCT glycosylated hemoglobin (Hgb A1c) (05/08/2024 2:47 PM EST) Hemoglobin A1C 7.4(A) 4.0 - 6.0 % QC Media Lot # [id number] Lot# Expiration Date Blood Capillary blood specimen / Unknown 05/08/2024 2:47 PM EST Chelle Cueto MD POINT OF CARE TEST ENTER/EDIT OR DERABLES Final Result * POCT glucose manually resulted (05/08/2024 2:46 PM EST) Glucose Blood, POC 164 60 - 200 mg/dL [employer] Media Lot # [id number] Lot# Expiration Date Blood Capillary blood specimen / Unknown 05/08/2024 2:46 PM EST Chelle Cueto MD POINT OF CARE TEST ENTER/EDIT OR DERABLES Final Result documented in this encounter Visit Diagnoses Diagnosis HTN (hypertension), benign- Primary Essential hypertension, benign Type 2 diabetes mellitus with hyperglycemia, without long-term current use of insulin (CMS/HCC) Right foot pain Pain in soft tissues of limb Otalgia of both ears Dietary counseling Dietary surveillance and counseling Exercise counseling Class 2 severe obesity due to excess calories with serious comorbidity and body mass index (BMI) of 35.0 to 35.9 in adult (CMS/HCC) Dyslipidemia Other and unspecified hyperlipidemia Mixed anxiety and depressive disorder Dysthymic disorder Mood disorder (CMS/HCC) Unspecified episodic mood disorder Acquired hypothyroidism Unspecified hypothyroidism documented in this encounter Additional Health Concerns Assessment Noted Time PHQ-9 Depression Total Score: 15 025 3:52 PM EST documented as of this encounter Care Teams Health And Safety Instructor Relationship Specialty Start Date End Date Chelle Cueto MD [address] [place] [address] PCP - General Family Medicine 03/14/18 Caro Lee Catering Sales ManagerChainstitch Elastic Attacher 12/01/23 documented as of this encounter
--- OUTSIDE RECORDS SUMMARY | 2024-05-22 18:39 | XMS_ITS | Encounter Summary ---
Author Organization [facility] Address [address] [facility] 7 [place] [address] Care Team Providers Care Chief Clerk Shelter Name Role Phone Chelle Cueto MD Primary Care Provider [phone] Reason for Visit * Reason Onset Date Comments Appointment Request 05/08/2024 Encounter Details Date Type Department Care Team ([facility] st Contact Info) Description 05/08/2024 Telephone [facility] [address] [place], [place] [phone] Chelle Cueto MD [address] [place] [address] Appointment Request Social History Tobacco Use Types [...] encounter Miscellaneous Notes * Telephone Encounter - Chanel Argueta - 05/08/2024 4:05 PM EST Called Patient, left vm. Advised to call back and schedule BP check with Prem QUILES in 2-3 weeks 30 min. Patient must bring BP log and all of her medication to appointment. Ok to schedule if Patient calls back. documented in this encounter Plan of Treatment Upcoming Encounters Date Type Department Care Team (Late st Contact Info) Description 05/25/2024 2:00 PM EDT Clinical Support [facility] [address] [place] [address] 06/08/2024 2:00 PM EDT Medication Management [facility] [address] [place] [address] Glenn Fofana, PharmD [address] [place] [address] 06/25/2024 2:30 PM EDT Office Visit [facility] [address] [place] [address] Valerie Howe, OD [address] [place] [address] 06/26/2024 2:30 PM EDT Medication Management [facility] [address] [place] [address] documented as of this encounter Visit Diagnoses Not on filedocumented in this encounter Additional Health Concerns Assessment Noted Time PHQ-9 Depression Total Score: 15 025 3:52 PM EST documented as of this encounter Care Teams Chief Clerk Shelter Relationship Specialty Start Date End Date Chelle Cueto MD [address] [place] [address] PCP - General Family Medicine 03/14/18 Caro Lee Sole CutterGrant Writer 12/01/23 documented as of this encounter
--- OUTSIDE RECORDS SUMMARY | 2024-05-22 18:39 | XMS_ITS | Encounter Summary ---
Author Organization [employer] Address [address] [facility] [address] [place] [address] Care Team Providers Care Writer Producer Name Role Phone Chelle Cueto MD Primary Care Provider [phone] Encounter Details Date Type Department Care Team (Latest Contact Info) Description 05/22/2024 Travel Social History Tobacco Use Types Packs/Day [...] Description 05/25/2024 2:00 PM EDT Clinical Support [facility] MED[facility] [address] [place] [id number] 06/08/2024 2:00 PM EDT Medication Management [facility] [address] [place] [address] Glenn Fofana, PharmD [address] [place] [address] 06/25/2024 2:30 PM EDT Office Visit [facility] OPT[facility] [address] [place] [address] Valerie Howe, OD [address] [place] [address] 06/26/2024 2:30 PM EDT Medication Management [facility] [address] [place] [address] documented as of this encounter Visit Diagnoses Not on filedocumented in this encounter Additional Health Concerns Assessment Noted Time PHQ-9 Depression Total Score: 15 025 3:52 PM EST documented as of this encounter Care Teams Writer Producer Relationship Specialty Start Date End Date Chelle Cueto MD [address] [place] [address] PCP - General Family Medicine 03/14/18 Caro Lee Bottom PresserImplementation Director 12/01/23 documented as of this encounter
--- OUTSIDE RECORDS SUMMARY | 2024-05-22 18:39 | XMS_ITS | Encounter Summary ---
Author Organization [employer] Address [address] [facility] [address] [place] [address] Care Team Providers Care Librarian Name Role Phone Chelle Cueto MD Primary Care Provider Reason for Visit * Reason Onset Date Comments Chart Prep 05/02/2024 Encounter Details Date Type Department Care Team ([facility] st Contact Info) Description 05/02/2024 Telephone [facility]INE [address] [place], [place] [phone] Chelle Cueto MD [address] [place] [address] Chart Prep Social History Tobacco Use Types Packs/Day Years [...] encounter Miscellaneous Notes * Telephone Encounter - Kari Peñaloza [place] - 05/02/2024 1:26 PM EST Chart Prep Labs: done Images: not done Vaccines due: Covid Due, Hep B Due, and Shingles in pharmacy Due Referrals: Gastroenterology Pending appointment on n/a ; sent a fax request in case pt has been seen. Screenings: Colonoscopy , PAP, Eye Exam, and Foot Exam Overdue care gaps: A1C, Glucose, SDOH, PHQ-9, and Oral Health documented in this encounter Plan of Treatment Upcoming Encounters Date Type Department Care Team (Late st Contact Info) Description 05/25/2024 2:00 PM EDT Clinical Support [facility] MED[facility]INE [address] [place] [address] 06/08/2024 2:00 PM EDT Medication Management [facility] [address] [place] [address] Glenn Fofana, PharmD [address] [place] [address] 06/25/2024 2:30 PM EDT Office Visit [facility] OPTOMETRY [address] [place] [address] Valerie Howe, OD [address] [place] [address] 06/26/2024 2:30 PM EDT Medication Management [facility] [address] [place] [address] documented as of this encounter Visit Diagnoses Not on filedocumented in this encounter Additional Health Concerns Assessment Noted Time PHQ-9 Depression Total Score: 20 024 1:45 PM EDT documented as of this encounter Care Teams Librarian Relationship Specialty Start Date End Date Chelle Cueto MD [address] [place] [address] PCP - General Family Medicine 03/14/18 Caro Lee Log FeederUpholstery Tech 12/01/23 documented as of this encounter
--- OUTSIDE RECORDS SUMMARY | 2024-05-22 18:39 | XMS_ITS | Clinical Summary ---
Author Organization [employer] Address [address] [place] [address] Care Team Providers Care Candy Catcher Name Role Phone Chelle Cueto MD Primary Care Provider [phone] Allergies Active Allergy Reactions Criticality Noted Date Comments Ranitidine Rash Low 01/30/2014 Medications * This document contains information received from the source organization and may not represent a complete record from that organization. Alcohol Swabs (Alcohol Prep) padsIndications:T ype 2 diabetes mellitus with hyperglycemia, without long-term current use of insulin (CMS/[facility]) Check BG daily as instructed 50 each 11 022 Active fluticasone (Flonase Allergy Relief) 50 MCG/ACT nasal spray Administer 2 sprays into each nostril in the morning. 48 g 023 Active acetaminophen (Tylenol 8 Hour) 650 MG ER tablet TAKE 1 TABLET BY MOUTH EVERY 8 HOURS 30 tablet 1 024 Active chlorthalidone (Hygroton) 25 MG tablet TAKE 1 TABLET BY MOUTH EVERY DAY 90 tablet 1 024 Active albuterol 108 (90 Base) MCG/ACT inhalerIndication s:Cough in adult Inhale 2 puffs every 4 (four) hours. 18 g 024 Active metFORMIN XR (Glucophage-XR) 500 MG 24 hr tabletIndications :Type 2 diabetes mellitus with hyperglycemia, without long-term current use of insulin (CMS/HCC) Take 1 tablet (500 mg) by mouth with breakfast and with evening meal. Do not crush, chew, or split. 180 tablet 3 024 Active fexofenadine (Fabiana Allergy) 180 MG tablet TAKE 1 TABLET BY MOUTH EVERY MORNING 90 tablet 3 Active montelukast (Singulair) 10 MG tablet TAKE 1 TABLET BY MOUTH EVERY MORNING 90 tablet 3 Active atorvastatin (Lipitor) 10 MG tablet Take 1 tablet (10 mg) by mouth at bedtime. 90 tablet 3 024 2024 Active olmesartan (Benicar) 5 MG tablet Take 1 tablet (5 mg) by mouth Once per day. 90 tablet 3 024 2024 Active fluticasone furoate (Arnuity Ellipta) 100 MCG/ACT inhaler Inhale 1 puff Once per day. Rinse mouth with water after use to reduce aftertaste and incidence of candidiasis. Do not swallow. 1 each 2024 Active albuterol 1.25 MG/3ML nebulizer solution Take 6 mL (2.5 mg) by nebulization every 4 (four) hours if needed for wheezing. 75 mL 11 2024 Active D3 Super Strength 50 MCG (2000 UT) capsule TAKE 1 CAPSULE BY MOUTH DAILY IN THE MORNING 90 capsule 3 Active melatonin 3 MG tablet TAKE 1 TABLET BY MOUTH 3 HOURS BEFORE BEDTIME NEEDED 30 tablet 11 Active levothyroxine (Synthroid, Levoxyl) 50 MCG tabletIndications :Subclinical hypothyroidism TAKE 1 TABLET BY MOUTH DAILY BEFORE BREAKFAST 90 tablet 3 Active TRUEplus Lancets 33G miscIndications:T ype 2 diabetes mellitus with hyperglycemia, without long-term current use of insulin ([facility]) TEST BLOOD SUGAR ONCE DAILY 100 each 5 Active FREESTYLE LITE test stripIndications: Type 2 diabetes mellitus with hyperglycemia, without long-term current use of insulin ([facility]) TEST BLOOD SUGAR ONCE DAILY 50 strip 5 Active Blood Glucose Monitoring Suppl (FreeStyle Katy Lite) w/Device kitIndications:Ty pe 2 diabetes mellitus with hyperglycemia, without long-term current use of insulin ([facility]) TEST BLOOD SUGAR ONCE DAILY IN THE MORNING DIRECTED 1 kit Active semaglutide (Ozempic) 2 MG/1.5ML solution pen-injector Inject 0.25 mg under the skin 1 (one) time per week. 1 each 12 025 Active omeprazole (PriLOSEC) [address] capsule TAKE 1 CAPSULE BY MOUTH EVERY DAY BEFORE A MEAL 90 capsule 1 025 Active omeprazole (PriLOSEC) [address] capsule TAKE 1 CAPSULE BY MOUTH EVERY DAY BEFORE A MEAL 90 capsule 1 023 2024 Discontinued(R eorder (will not trigger notification to Pharmacy)) azithromycin (Zithromax) 250 MG tablet Take 2 tablets by mouth on Day 1, and 1 tablet daily from Day 2 to Day 5 6 tablet 024 2024 Discontinued(M ed list cleanup (will not trigger notification to Pharmacy)) Active Problems Problem Noted Date Diagnosed Date Mood disorder 01/03/2024 Assessment & Plan (05/18/2024 10:17 AM EST): - current Dx: MDD; ISHA - differential [...] Seen by integrated behavioral health service today. Assessment & Plan (01/03/2024 12:24 PM EDT): - current Dx: MDD; ISHA - differential Dx: bipolar ; PTSD - PHQ9 score 20; GAD7 score 19 - previously tried SSRI (poor adherence) citalopram, fluoxetine, sertraline. Previously tried clonidine for sleep. - seen by integrated behavioral health service clinician today - patient has had a difficulty maintaining a long-term outpatient care. - patient informed integrated behavioral health service clinician that she will sign up herself with outpatient behavioral health service. ISHA (generalized anxiety disorder) 12/29/2023 Assessment & Plan (05/09/2024 8:56 AM EST): During IBH Consult Blessing presenting with depressed mood, Tearful, crying spells , hopelessness, irritable mood, loss of interests/pleasure , sense of isolation/loneliness , isolating, change in appetite or weight reduce appetite, changes in sleep difficulty falling asleep and difficulty staying asleep , fatigue/loss of energy, worthlessness, inappropriate/excessive guilt , indecisiveness and excessive worry/anxiety, difficulty controlling worry, anxiety/worry associated to easily fatigued , difficulty concentrating and/or mind going blank , irritability, muscle tension , and sleep disturbance difficulty falling asleep and difficulty staying asleep , and Fear ; for a period of 18+ mo, for most or all symptoms in the context of chronic mental health problems and family issues. Blessing carries a diagnosis for mood disorder per her medical chart. Pt presented today with severe sxs of depression and hopelessness. Pt reports experiencing fear to the unknown and chronic negative feelings (rumination) with feelings of worthless. Triggers are associated to family dynamics and untreated mental illness. clinician engaged patient with active/reflective listening. Reviewed and assessed for risk, current stressors and protective factors using open-ended questions. Blessing explored coping mechanisms that she can incorporate into her daily routine. Pt was self-referred to [facility] and completed the intake session after today's appt. Pt will be referred to psychiatry services for medication management. Assessment & Plan (01/03/2024 12:23 PM EDT): - ISHA 7score 19 Assessment & Plan (12/29/2023 2:23 PM EDT): During IBH Consult Blessing presenting with depressed mood, Tearful, crying spells , hopelessness, irritable mood, loss of interests/pleasure , sense of isolation/loneliness , isolating, change in appetite or weight overeating, changes in sleep difficulty falling asleep, fatigue/loss of energy, difficulty concentrating and excessive worry/anxiety, difficulty controlling worry, anxiety/worry associated to restlessness and/or feeling keyed-up/On edge , easily fatigued , difficulty concentrating and/or mind going blank , irritability, and sleep disturbance difficulty falling asleep, Fear , and sense of dread ; for a period of 18+ mo, for some symptoms in the context of family issues and housing. Blessing endorsed severe anxiety and depressed mood associated with her housing situation. Pt reports she moved to an apartment in [place] but the place is infected with rodents which creates increase of sxs. Blessing reports living with anxiety for a long time. She avoids going out to places or socialize with others to avoid feeling anxious. Connected in the past with services but lost care. clinician engaged patient with active/reflective listening. Reviewed and assessed for risk, current stressors and protective factors using open-ended questions. Blessing explored coping mechanisms that she can incorporate into her daily routine. Provided information for [facility] with [facility] for OP services and psychopharmacology. Information for [employer] provided to seek out for legal support. Severe episode of recurrent major depressive disorder, without psychotic features 12/29/2023 Assessment & Plan (05/09/2024 8:56 AM EST): During IB Consult Blessing presenting with depressed mood, Tearful, crying spells , hopelessness, irritable mood, loss of interests/pleasure , sense of isolation/loneliness , isolating, change in appetite or weight reduce appetite, changes in sleep difficulty falling asleep and difficulty staying asleep , fatigue/loss of energy, worthlessness, inappropriate/excessive guilt , indecisiveness and excessive worry/anxiety, difficulty controlling worry, anxiety/worry associated to easily fatigued , difficulty concentrating and/or mind going blank , irritability, muscle tension , and sleep disturbance difficulty falling asleep and difficulty staying asleep , and Fear ; for a period of 18+ mo, for most or all symptoms in the context of chronic mental health problems and family issues. Blessing carries a diagnosis for mood disorder per her medical chart. Pt presented today with severe sxs of depression and hopelessness. Pt reports experiencing fear to the unknown and chronic negative feelings (rumination) with feelings of worthless. Triggers are associated to family dynamics and untreated mental illness. clinician engaged patient with active/reflective listening. Reviewed and assessed for risk, current stressors and protective factors using open-ended questions. Blessing explored coping mechanisms that she can incorporate into her daily routine. Pt was self-referred to [facility] and completed the intake session after today's appt. Pt will be referred to psychiatry services for medication management. Assessment & Plan (12/29/2023 2:23 PM EDT): During IBH Consult Blessing presenting with depressed mood, Tearful, crying spells , hopelessness, irritable mood, loss of interests/pleasure , sense of isolation/loneliness , isolating, change in appetite or weight overeating, changes in sleep difficulty falling asleep, fatigue/loss of energy, difficulty concentrating and excessive worry/anxiety, difficulty controlling worry, anxiety/worry associated to restlessness and/or feeling keyed-up/On edge , easily fatigued , difficulty concentrating and/or mind going blank , irritability, and sleep disturbance difficulty falling asleep, Fear , and sense of dread ; for a period of 18+ mo, for some symptoms in the context of family issues and housing. Blessing endorsed severe anxiety and depressed mood associated with her housing situation. Pt reports she moved to an apartment in [place] but the place is infected with rodents which creates increase of sxs. Blessing reports living with anxiety for a long time. She avoids going out to places or socialize with others to avoid feeling anxious. Connected in the past with services but lost care. clinician engaged patient with active/reflective listening. Reviewed and assessed for risk, current stressors and protective factors using open-ended questions. Blessing explored coping mechanisms that she can incorporate into her daily routine. Provided information for [facility] with [facility] for OP services and psychopharmacology. Information for [employer] provided to seek out for legal support. Acute otitis media 10/20/2023 Abdominal pain 10/17/2023 Impingement of left shoulder 10/17/2023 Nausea 10/17/2023 Osteoarthritis of left knee 10/17/2023 Patellofemoral arthritis of left knee 10/17/2023 Hypothyroidism 11/29/2022 Assessment & Plan (05/18/2024 10:25 AM EST): - last TSH subtherapeutic, questionable adherence - mildly elevated thyroid peroxidase antibody, likely Ezra's - current replacement 50 mcg daily - recheck TSH Chronic pain of left knee 09/08/2022 Assessment & Plan (01/03/2024 12:29 PM EDT): - seen by orthopedist, likely PF OA - she has tried PT still having pain and instability - will evaluate with MRI Assessment & Plan (09/08/2022 9:48 AM EDT): - seen by orthopedist, likely PF OA - refer to ortho and PT Chronic left shoulder pain 09/08/2022 Assessment & Plan (09/08/2022 9:49 AM EDT): - Seen by ortho in Apr 2022, impingement - received steroid injection and referred to PT - check the status of PT Right foot pain 09/06/2022 Assessment & Plan (05/09/2024 10:54 AM EST): - at 5th MTP - evaluate with X-ray - refer to trimmer climber - continue wearing comfortable shoes - daily foot check and care - Ordered XR Foot 1-2 Views Right 05/08/24 Assessment & Plan (09/08/2022 9:41 AM EDT): - at 5th MTP - evaluate with X-ray - refer to trimmer climber - continue wearing comfortable shoes - daily foot check and care Type 2 diabetes mellitus 02/28/2022 Assessment & Plan (05/18/2024 10:13 AM EST): - Dx 02/23/22 A1C 7.4% - A1C 7.4% on 05/08/24 - Continue working on lifestyle modifications - Continue checking BG - Continue metformin ER 500 mg twice daily - Add semaglutide 0.25 mg weekly, keep at the lowest dose until next visit - Microalbumin test: 12/29/23 - Lipid profile: 12/29/23 - Diabetic eye exam: Referred - Foot exam: 05/08/24 Assessment & Plan (12/29/2023 12:57 PM EDT): - Dx 02/23/22 A1C 7.4% - A1C 8.8% today - Continue working on lifestyle modifications - Continue checking BG - Restart metformin ER 500 mg twice daily - Microalbumin test: Ordered - Lipid profile: Ordered - Diabetic eye exam: Referred - Foot exam: 09/06/22 - Immunizations: Started Hep B series and PCV - Follow up in 3 mo or sooner prn Assessment & Plan (09/08/2022 9:44 AM EDT): - Dx 02/23/22 A1C 7.4% - A1C 7.0% today, improving - Continue working on lifestyle modifications - Continue checking BG - Continue metformin ER 500 mg daily - Referred to DM education - Microalbumin test: Ordered - Lipid profile: Ordered - Diabetic eye exam: Referred - Foot exam: 09/06/22 - Immunizations: Started Hep B series and PCV - Follow up in 3 mo or sooner prn Assessment & Plan (02/28/2022 9:44 AM EST): ?? Dx 02/23/22, today ?? Hgb A1C 7.4% ?? Continue working on lifestyle modifications ?? Continue checking BG ?? Start metformin ER 500 mg daily ?? Refer to DM education ?? Microalbumin test: Ordered ?? Lipid profile: Ordered ?? Diabetic eye exam: Referred ?? Foot exam: Next visit ?? Immunizations: Pt will need Hep B series at next visit and PPSV23 HTN (hypertension), benign 02/16/2022 Assessment & Plan (05/18/2024 10:28 AM EST): -Goal BP < 140/90 per JNC-8, < [...] -consider sleep study evaluation for high BP Assessment & Plan (12/29/2023 12:56 PM EDT): -Goal BP < 140/90 per JNC-8, < 130/80 per ACC/AHA (treatment threshold 140/90) -BP not at goal today -pt has BP monitor; advised to check BP at home -continue working on lifestyle modifications -continue chlorthalidone 25 mg at bedtime, add telmesartan -improve medication adherence -check lab -Refer to [facility] -consider sleep study evaluation for high BP -Follow-up with PCP in 3 mo. Assessment & Plan (09/08/2022 9:35 AM EDT): -Goal BP < 140/90 per JNC-8, < 130/80 per ACC/AHA (treatment threshold 140/90) -pt has BP monitor; advised to check BP at home -continue working on lifestyle modifications -continue chlorthalidone 25 mg at bedtime -pt is also prescribed clonidine 0.2mg bid, questionable adherence -improve medication adherence -check lab -BP check in 1 month with our team nurse -Refer to [facility] -consider sleep study evaluation for high BP -Follow-up with PCP in 3 mo. Assessment & Plan (02/28/2022 7:09 AM EST): -Goal BP < 140/90 per JNC-8, < 130/80 per ACC/AHA (treatment threshold 140/90) -pt has BP monitor; advised to check BP at home -continue working on lifestyle modifications -continue chlorthalidone 25 mg qhs -improve medication adherence -check lab -BP check in 1 month with our team nurse -consider sleep study evaluation for high BP -Follow-up with PCP in 3 mo. Assessment & Plan (02/16/2022 3:22 PM EST): Uncontrolled today, probably as a result of sinusitis/ acute infection + using OTC decongestants (Tylenol flu/Nyquil). Continue chlorthalidone and fu w PCP at upcoming appt. Carpal tunnel syndrome 02/02/2022 Assessment & Plan (09/08/2022 9:33 AM EDT): -s/p carpal tunnel release, left, by Dr. Falcon in 2019 -wrist brace at night, activity modification -follow-up with orthopedist Assessment & Plan (02/28/2022 6:48 AM EST): -s/p carpal tunnel release, left, by Dr. Falcon in 2019 -wrist brace at night, activity modification -follow-up with orthopedist Dyslipidemia 02/02/2022 Assessment & Plan (05/18/2024 10:15 AM EST): - currently prescribed medication: atorvastatin 10 mg at bedtime, patient had not been adherent - lipid profile: 12/29/23 - improve adherence Assessment & Plan (01/03/2024 12:25 PM EDT): - currently prescribed medication: atorvastatin 10 mg at bedtime (not adherent) - lipid profile overdue ; update - improve adherence History of COVID-19 02/02/2022 Vitamin D deficiency 02/02/2022 Tenosynovitis of wrist 10/11/2016 Asthma 09/11/2015 Assessment & Plan (01/03/2024 12:27 PM EDT): Recent asthma exacerbation in December 2023, received prednisone x2; often triggered by allergy symptoms and/or URI Start arnuity Continue montelukast Continue albuterol neb and HFA prn. Patient reports her symptoms improve faster and better with nebulizer. Consider LABA/ICS prn Assessment & Plan (09/08/2022 9:35 AM EDT): ?? Asthma exacerbation, often triggered by allergy symptoms and/or URI ?? recent exacerbation due to acute bronchitis s/p azithromycin Tx ?? Add Flovent ?? Continue montelukast ?? Continue albuterol prn ?? Consider LABA/ICS prn ?? Evaluate with PFT Assessment & Plan (02/28/2022 9:46 AM EST): ?? Asthma exacerbation, often triggered by allergy symptoms and/or URI ?? recent exacerbation due to acute bronchitis s/p azithromycin Tx ?? Add Flovent ?? Continue montelukast ?? Continue albuterol prn ?? Consider LABA/ICS prn ?? Evaluate with PFT Assessment & Plan (02/16/2022 3:20 PM EST): Not an acute exacerbation at this time Patient requested refill for albuterol inh to use prn. Counseled to use it tid x first 3d then prn. Counseled to get Influenza and Covid vax after this episode is resolved. Mixed anxiety and depressive disorder 09/11/2015 Assessment & Plan (05/18/2024 10:15 AM EST): - see mood disorder Assessment & Plan (01/03/2024 12:22 PM EDT): - see mood disorder Assessment & Plan (09/08/2022 9:45 AM EDT): - continue citalopram - continue clonidine (? Prescribed by previous PCP ) Varicose veins of left lower extremity with pain 04/19/2012 Assessment & Plan (09/08/2022 9:39 AM EDT): - Continue compression stocking, leg elevation - Evaluated by vascular specialist?; will check its status - Hx evaluation by vascular specialist in 2008, dx reticular veins Allergic rhinitis 12/03/2011 Assessment & Plan (01/03/2024 12:25 PM EDT): Continue antihistamine, currently fexofenadine Continue fluticasone nasal spray Continue montelukast Consider referral to allergy / cardiac nurse specialist for allergy testing and immunotherapy Assessment & Plan (09/08/2022 9:44 AM EDT): Continue antihistamine, currently fexofenadine Continue fluticasone nasal spray Continue montelukast Consider referral to allergy / cardiac nurse specialist for allergy testing and immunotherapy Assessment & Plan (02/28/2022 9:45 AM EST): ?? Continue antihistamine, currently fexofenadine ?? Continue fluticasone nasal spray ?? Continue montelukast ?? Consider referral to allergy / cardiac nurse specialist for allergy testing and immunotherapy Gastroesophageal reflux disease 12/03/2011 Assessment & Plan (09/08/2022 9:40 AM EDT): - continue omeprazole 20 mg daily - consider EGD at the time of colonoscopy if worsening symptoms Irritable bowel syndrome 12/03/2011 Obesity 12/03/2011 Assessment & Plan (05/18/2024 10:10 AM EST): Dietary Recommendations: Fruits, vegetables, whole grains, protein foods, and fat-free or low-fat dairy products are healthy choices. Eat different types of protein foods in your diet. This can include seafood, lean meats, poultry, beans, peas, lentils, nuts, seeds, soy products, and eggs. Limit foods and beverages higher in added sugars, saturated fat, and sodium. Exercise Recommendations: At least 150 minutes of moderate-intensity physical activity per week, or an equivalent combination of moderate- and vigorous-intensity activity Resolved Problems Problem Noted Date Diagnosed Date Resolved Date Subclinical hypothyroidism 02/02/2022 0 11/29/2022 Assessment & Plan (09/08/2022 9:41 AM EDT): - check thyroid function test Impaired fasting glucose 02/02/2022 Mass of lower limb 12/03/2011 2 Encounters * This document contains information received from the source organization and may not represent a complete record from that organization. Date Type Department Care Team Description 05/22/2024 Refill [facility] [address] [place] [address] Chelle Cueto MD 05/22/2024 Travel 05/09/2024 Orders Only [facility] [address] [place] [address] Chelle Cueto MD HTN (hypertension), benign (Primary Dx); Type 2 diabetes mellitus with hyperglycemia, without long-term current use of insulin ([facility]) 05/09/2024 Telephone [facility] [address] [place] [address] Chelle Cueto MD 05/08/2024 3:00 PM EST Office Visit [facility] [address] [facility] [place] [address] Chelle Cueto MD HTN (hypertension), benign (Primary Dx); Type 2 diabetes mellitus with hyperglycemia, without long-term current use of insulin ([facility]); Right foot pain; Otalgia of both ears; Dietary counseling; Exercise counseling; Class 2 severe obesity due to excess calories with serious comorbidity and body mass index (BMI) of 35.0 to 35.9 in adult ([facility]); Dyslipidemia; Mixed anxiety and depressive disorder; Mood disorder ([facility]); Acquired hypothyroidism 05/08/[address] [facility] [address] [facility] [place] [address] Chelle Cueto MD Appointment Request 05/08/2024 Travel 05/02/2024 [address] [place] [address] Chelle Cueto MD Chart Prep 04/26/2024 [address] [place] [address] Chelle Cueto MD Appointment Request 04/19/2024 [address] [place] [address] Chelle Cueto MD Nurse Triage 04/16/2024 [address] [place] [address] Chelle Cueto MD Reflex Sympathetic Dystrophy 04/12/2024 [address] [place] [address] Roula Gannon MA chart prep 04/11/2024 [address] [place] [address] Chelle Cueto MD telephone call 03/12/[address] [facility] [address] [facility] [place] [address] Chelle Bautista MD 03/08/2024 [address] [place] [address] Roula Gannon MA christian recall 02/28/20[address] [place] [address] Deb Boswell ANP No Show from Last 3 Months Immunizations Name Administration Dates Next Due Hep A, Adult 11/28/2018,12/29/2015 Hep B, adult 12/29/2023,09/06/2022 Influenza injectable quadriv alent IIV4 with preservative 02/24/2022,11/28/2018,12/27/2017,2015 Influenza, IIV3, injectable 01/30/2014,1 ,12/30/2008,2008 Influenza, Split (incl. angie fied surface antigen) 12/31/2011 Influenza, seasonal, injecta ble, preservative free 12/29/2023 Pneumococcal Conjugate PCV 20 09/06/2022 Tdap 10/23/2020,03/03/2011 Family History Medical History Relation Name Comments Asthma Mother Breast cancer Mother Diabetes Mother Hypertension Mother Stroke Mother Thyroid disease Sister Relation Name Status Comments Mother Sister Social History Tobacco Use Types Packs/Day Years Used Date Smoking Tobacco: Never Passive Smoke Exposure: Never Smokeless Tobacco: Never Tobacco Cessation:Counseling Given: Not Answered Alcohol Use Standard Drinks/Week Comments Never 0 (1 standard drink = 0.6 oz pur e alcohol) Depression Answer Date Recorded Patient Health Questionnaire-9 Score 15 05/08/2024 Patient Health Questionnaire-9 Score 15 05/08/2024 Last PHQ-9: Questionnaire Data Not on file 0 05/08/2024 Housing Stability Answer Date Recorded What is your housing situation today? I have feliperadha camacho 05/08/[address] you [...] Orientation Straight 01/11/2022 10 :20 AM EDT Last Filed Vital Signs Vital Sign Reading Time Taken Comments Blood Pressure 130/80 05/22/2024 3:38 PM EDT Pulse 84 05/22/2024 3:38 PM EDT Temperature 37.5 ??C (99.5 ??F) 05/08/2024 2:45 PM ES T Respiratory Rate 18 05/08/2024 2:45 PM EST Oxygen Saturation 98% 12/29/2023 10:37 AM EDT Inhaled Oxygen Concentration - - Weight 81.6 kg (180 lb) 05/08/2024 2:45 PM EST Height 152.4 cm (5') 05/08/2024 2:45 PM EST Body Mass Index 35.15 05/08/2024 2:45 PM EST Plan of Treatment Upcoming Encounters Date Type Department Care Team (Late st Contact Info) Description 05/25/2024 2:00 PM EDT Clinical Support [facility] MEDICINE [address] [place] [address] 06/08/2024 2:00 PM EDT Medication Management [facility] MEDICINE [address] [place] [address] Glenn Fofana, PharmD [address] [place] [address] 06/25/2024 2:30 PM EDT Office Visit [facility] OPTOMETRY [address] [place] [address] Valerie Howe, OD [address] [place] [address] 06/26/2024 2:30 PM EDT Medication Management [facility] MEDICINE [address] [place] [address] Health Maintenance Due Date Last Done Comments CT Colonography 1971 Colonoscopy 1971 Colorectal Cancer Screening 1971 FIT DNA/Cologuard 1971 FIT 1971 FOBT 1971 Sigmoidoscopy 1971 Pap Smear 1992 Cervical Cancer Screening 2001 HPV/Cotest 2001 Zoster Vaccines (1 of 2) 2021 SDOH Screening 09/07/2023 09/06/2022 COVID-19 Vaccine ( - season) 2023 Hepatitis B Vaccines (3 of 3 - 19+ 3-dose series) 02/23/2024 12/29/2023, 09/06/2022 Eye Exam 04/02/2024 04/02/2022, 03/15, 04/02/2022, Additional history exists Diabetes: Hemoglobin A1C 08/05/2024 025, 12/29/2023, 09/06/2022, Additional history exists Mammogram 10/23/2024 10/24/2023, 08/13, 08/31/2022, Additional history exists Depression Monitoring (PHQ-9) 11/05/2024 05/08/2024, 05/08/2024 Alcohol/Substance Use Screening 12/28/2024 12/29/2023 Diabetes: Urine Protein Screening 12/28/2024 12/29/2023, 09/06/2022 Lipid Panel 12/28/2024 12/29/2023, 08/13, 08/06/2021, Additional history exists Depression Screening 05/08/2025 05/08/2024, 12/29/19 Diabetes: Foot Exam 05/08/2025 05/08/2024, 09/06/2022, 09/06/2022, Additional history exists Tobacco Screening 05/18/2025 05/18/2024 DTaP/Tdap/Td Vaccines (3 - Td or Tdap) 10/23/2030 10/23/2020, 03/03/2011 RSV Patients and Patients Aged 60 years or older (1 - 1-dose 75+ series) 2046 Hepatitis A Vaccines Aged Out 11/28/2018, 12/29/19 16 No longer eligible based on patient's age to complete this topic Pneumococcal Vaccine: 50+ Years Completed 09/06/2022 HIV Screening Completed 12/29/2023, 07/13, 03/25/2020 Hepatitis C Screening Completed 12/29/2023 , 08/06/2021, 03/25/2020 Influenza Vaccine Completed 12/29/2023, , 11/28/2018, Additional history exists HIB Vaccines Aged Out No longer eligi ble based on patient's age to complete this topic HPV Vaccines Aged Out No longer eligi ble based on patient's age to complete this topic IPV Vaccines Aged Out No longer eligi ble based on patient's age to complete this topic Meningococcal Vaccine Aged Out No danielle chauncey eligible based on patient's age to complete this topic RSV under 20 months Aged Out No longe r eligible based on patient's age to complete this topic Rotavirus Vaccines Aged Out No longer eligible based on patient's age to complete this topic Procedures Procedure Name Priority Date/Time Associated Diagnosis Comments TSH W/REFLEX TO FT4 Routine 05/22/2024 3 :24 PM EDT Acquired hypothyroidism BASIC METABOLIC PANEL Routine 05/22/2024 3:24 PM EDT HTN (hypertension), benign POCT GLYCOSYLATED HEMOGLOBIN (HGB A1C) Routine 05/08/2024 2:47 PM EST Type 2 diabetes mellitus with hyperglycemia, without long-term current use of insulin (CMS/HCC) POCT GLUCOSE Routine 05/08/2024 2:46 PM EST Type 2 diabetes mellitus with hyperglycemia, without long-term current use of insulin (CMS/HCC) HEPATITIS C AB W/REFL TO HCV RNA, QN, PCR Routine 12/29/2023 12:40 PM EDT Routine screening for STI (sexually transmitted infection) HIV 1/2 ANTIGEN/ANTIBODY, FOURTH GENERATION W/RFL Routine 12/29/2023 12:40 PM EDT Routine screening for STI (sexually transmitted infection) ALBUMIN, RANDOM URINE W/CREATININE Routine 12/29/2023 12:40 PM EDT Type 2 diabetes mellitus with hyperglycemia, without long-term current use of insulin ([facility]/HCC) LIPID PANEL WITH REFLEX TO DIRECT LDL Routine 12/29/2023 12:40 PM EDT Type 2 diabetes mellitus with hyperglycemia, without long-term current use of insulin ([facility]) BI MAMMOGRAM SCREENING TOMOSYNTHESIS BILATERAL Routine 10/24/2023 4:15 PM EDT Breast cancer screening by mammogram from Last 3 Months or Most Recently Relevant to Health Maintenance Results * TSH with Reflex to Free T4 (05/22/2024 3:24 PM EDT) TSH reflex Free T4 3.95 0.32 - 4.0 uIU/mL [facility] Blood 05/22/2024 3:24 PM EDT 05/22/2024 4:42 PM EDT us Chelle Cueto MD LAB BLOOD ORDERABLES Final Resul t [facility] [address] [place] [phone] * Basic Metabolic Panel (05/22/2024 3:24 PM EDT) Sodium 141 135 - 145 mmol/L [facility] Potassium 3.5 3.3 - 5.1 mmol/L [facility] Chloride 105 96 - 108 mmol/L [facility] Carbon Dioxide 28 22 - 29 mmol/L [facility] Anion Gap 12 12 - 20 [facility] Urea Nitrogen (BUN) 16 9 - 16 mg/dL [facility] Creatinine, Serum 0.95 0.5 - 1.4 mg/dL [facility] Estimated Glomerular Filt Rate >60 [facility] Comment:Chronic Kidney Disea se: Estimated GFR < 60 mL/min/[id number] Kidney Disease: Estimated GFR < 15 mL/min/1.73m2 Glucose 109 60 - 115 mg/dL [facility] Calcium 9.8 8.4 - 10.2 mg/dL [facility] Blood Venous blood specimen / Unknown 05/22/2024 3:24 PM EDT 05/22/2024 4:42 PM EDT Chelle Cueto MD LAB BLOOD ORDERABLES Final Resul t [facility] [address] [place] [address] [phone] * (ABNORMAL) POCT glycosylated hemoglobin (Hgb [...] TEST ENTER/EDIT OR DERABLES Final Result * (ABNORMAL) Lipid Panel with Reflex to Direct LDL (12/29/2023 12:40 PM EDT) Triglycerides 172(H) <150 mg/dL [facility] Comment:Desirable Triglyceri de: less than 150 mg/dLBorderline High Triglyceride 150-199 mg/dLHigh Triglyceride: 200-499 mg/dLVery High Triglyceride: greater than or equal to 5OO mg/dL Cholesterol 202(H) <200 mg/dL [facility] Comment:Desirable Cholestero l: less than 200 mg/dLBorderline High Cholesterol: 200-239 mg/dLHigh Cholesterol: greater than 239 mg/dL LDL Cholesterol Calculated 128(H) <100 mg/dL [facility] Comment:Desirable LDL: less than 100 mg/dLNear Optimal/Above Optimal LDL: 110- 129 mg/dLBorderline High LDL: 130-159 mg/dLHigh LDL: 160-189 mg/dLVery High LDL: greater than or equal to 190 mg/dL HDL Cholesterol 40(L) >40 mg/dL [facility] Comment:Desirable HDL: great er than 40 mg/dL Note: This HDL assay may give artificially low results in patients with liver disease. Blood 12/29/2023 12:4 0 PM EDT 12/29/2023 1:21 PM EDT us Chelle Cueto MD LAB BLOOD ORDERABLES Final Resul t Performing Organization Address City/[facility] Co de Phone Number [facility] [address] [place], [place] [phone] * Albumin, Random Urine W/Creatinine (12/29/2023 12:40 PM EDT) Creatinine, Urine 147.95 mg/dL [facility] Microalbumin Urine 30.0 mg/L [facility] Microalbum Creatinine Ratio Ur 20.2 <30 ug/mg cr [facility] Comment:Albumin/Creatinine R atio Reference Ranges: Normal: < 30 ug/mg creatinine Microalbuminuria: 30 - 300 ug/mg creatinineClinical Albuminuria: > 300 ug/mg creatinine Urine 12/29/2023 12:4 0 PM EDT 12/29/2023 1:20 PM EDT us Chelle Cueto MD LAB URINE ORDERABLES Final Resul t [facility] [address] [place] [phone] * Hepatitis C Antibody with Reflex to HCV, RNA, Quantitative, Real-Time PCR (12/29/2023 12:40 PM EDT) Hepatitis C Antibody Nonreactive Nonreactive [facility] Comment:Antibodies to HCV no t detected; does not exclude early acuteHCV infection. Blood Venous blood specimen / Unknown 12/29/2023 12:40 PM EDT 12/29/2023 1:21 PM EDT us Chelle Cueto MD LAB BLOOD ORDERABLES Final Resul t Performing Organization Address [facility] de Phone Number [facility] [address] [place] [phone] * HIV-1/2 Antigen and Antibodies, Fourth Generation, with Reflexes (12/29/2023 12:40 PM EDT) HIV AB/AG Nonreactive Nonreactive [facility] Comment:HIV-1 p24 Ag and/or HIV-1/HIV-2 Ab not detected.A test result that is nonreactive does not exclude thepossibility of exposure to or infection with HIV-1 and/orHIV-2. Nonreactive results in this assay for individualswith prior exposure to HIV-1 and/or HIV-2 may be due toantigen and antibody levels that are below the limit ofdetection of this assay.The Calos[employer] Pharmanity HIV Ag/Ab Combo assay result andsupplemental assay results should be interpreted inconjunction with the patient's clinical presentation,history and other laboratory results. If the results areinconsistent with clinical evidence, additional testing issuggested to confirm the result. Blood Venous blood specimen / Unknown 12/29/2023 12:40 PM EDT 12/29/2023 1:21 PM EDT us Chelle Cueto MD LAB BLOOD ORDERABLES Final Resul t Performing Organization Address [facility] Co de Phone Number [facility] [address] [place] [phone] * BI Mammogram Screening Tomosynthesis Bilateral (10/24/2023 4:15 PM EDT) Anatomical Region Laterality Modality Breast Bilateral Mammography 10/24/2023 4:15 PM EDT Narrative 11/17/2023 8:43 PM EDT ? [facility] [place] ? [address] ?[place] [phone] ? Mammography Report ? Signed ? Patient: Blessing Calderón ?MR#: M ?? [id number] ? : 1970 ?Acct:[id number] ? Age/Sex: 53 / F ?ADM Date: 10/24/23 ? Loc: HO.MAMMO ? Attending Dr: Chelle Cueto MD ? Ordering Physician: Chelle Cueto MD ?Results: 1Negative ? Date of Service: 10/24/23 ?Follow Up: 1 Year From Orig ?? inal Mammogram ? Procedure(s): MM tomosynthesis screening BI ?? Accession Number(s): [id number] ? cc: Chelle Cueto MD ? EXAMINATION: ?? MM SCREENING DIGITAL BREAST TOMOSYNTHESIS, BILATERAL ? CLINICAL INFORMATION: ? Screening. Asymptomatic. ? COMPARISON: ?? Mammography: This study is compared with prior exams dating back to ? 2017. ? TECHNIQUE: ?? Digital breast tomosynthesis is performed in both the craniocaudal and ?? mediolateral oblique views along with computer-aided detection (CAD). ? Synthesized 2D images are generated from the tomosynthesis. ? FINDINGS: ?? The breasts are heterogeneously dense, which may obscure small masses ?? (ACR BI-RADS breast composition Category c). ? There are no significant masses, abnormal calcifications, or other ?? abnormalities. ? MM/MM tomosynthesis screening BI ?? IMPRESSION: ?? No mammographic evidence of malignancy. ? ASSESSMENT: ? BI-RADS BI-RADS 1 - Negative ? RECOMMENDATION: ?? Routine annual mammography screening. ? 1 year F/U ? This examination should not preclude the clinical evaluation of a ?? suspicious palpable abnormality. ? This patient's information was entered into a reminder system with a ?? target due date for their next mammogram. ? Electronically signed by: ??Princess Obrien MD ??11/17/2023 08:41 PM EDT RP ? Dictated By: ?Princess Obrien MD ? Signed By: ?<Electronically signed by Princess Obrien MD in OV> ? 11/17/232040 ? DD/ 1615 ? TD/TT: 10/24/23 162 ? Toy Department Manager: ? Procedure Note Jaylyn, Gisel - 11/17/2023 [facility] [address] [place] [address] [place] [address] Mammography Report Signed Patient: Barry CalderónSDR#: [id number] : 1970Acct:[id number] Age/Sex: 53 / FADM Date: 10/24/23 Loc: TE[facility] Attending Dr: Chelle Cueto MD Ordering Physician: Chelle Cuetoesults: 1Negative Date of Service: 10/24/23Follow Up: 1 Year From Orig inal Mammogram Procedure(s): MM tomosynthesis screening BI Accession Number(s): [id number] cc: Chelle Cueto MD EXAMINATION: MM SCREENING DIGITAL BREAST TOMOSYNTHESIS, BILATERAL CLINICAL INFORMATION: Screening. Asymptomatic. COMPARISON: Mammography: This study is compared with prior exams dating back to 2017. TECHNIQUE: Digital breast tomosynthesis is performed in both the craniocaudal and mediolateral oblique views along with computer-aided detection (CAD). Synthesized 2D images are generated from the tomosynthesis. FINDINGS: The breasts are heterogeneously dense, which may obscure small masses (ACR BI-RADS breast composition Category c). There are no significant masses, abnormal calcifications, or other abnormalities. MM/MM tomosynthesis screening BI IMPRESSION: No mammographic evidence of malignancy. ASSESSMENT: BI-RADS BI-RADS 1 - Negative RECOMMENDATION: Routine annual mammography screening. 1 year F/U This examination should not preclude the clinical evaluation of a suspicious palpable abnormality. This patient's information was entered into a reminder system with a target due date for their next mammogram. Electronically signed by: Princess Obrien MD 11/17/2023 08:41 PM EDT Dictated By: Princess Obrien MD Signed By: <Electronically signed by Princess Obrien MD in OV> 11/17/232040 DD/ 1615 TD/TT: 10/24/23 1627 Toy Department Manager: Chelle Cueto MD IMG BI PROCEDURES Edited Result - Final from Last 3 Months or Most Recently Relevant to Health Maintenance [place] [address] [place] [address] C3 Care Teams Candy Catcher Relationship Specialty Start Date End Date Chelle Cueto MD [address] [place] [phone] PCP - General Family Medicine 03/14/18 Caro Lee Catalytic Converter Operator HelperFormula Bottler 12/01/23
--- OUTSIDE RECORDS SUMMARY | 2024-05-22 18:39 | XMS_ITS | Encounter Summary ---
Author Organization [employer] Address [address] [facility] 7 [place] [address] Care Team Providers Care Social Media Specialist Name Role Phone Chelle Cueto MD Primary Care Provider [phone] Reason for Visit * Reason Onset Date Comments Med Refill 05/22/2024 Encounter Details Date Type Department Care Team (Late st Contact Info) Description 05/22/2024 Refill [facility] [address] [place], [place] [phone] Chelle Cueto MD [address] [place] [address] Social History Tobacco Use Types Packs/Day Years [...] 2:00 PM EDT Clinical Support [facility] MEDICINE [address] [place] [phone] 06/08/2024 2:00 PM EDT Medication Management [facility] MEDICINE [address] [place] [address] Glenn Fofana, PharmD [address] [place] [address] 06/25/2024 2:30 PM EDT Office Visit [facility] OPTOMETRY [address] [place] [address] Valerie Howe, OD [address] [place] [address] 06/26/2024 2:30 PM EDT Medication Management [facility] MEDICINE [address] [place] [address] documented as of this encounter Visit Diagnoses Not on filedocumented in this encounter Additional Health Concerns Assessment Noted Time PHQ-9 Depression Total Score: 15 025 3:52 PM EST documented as of this encounter Care Teams Social Media Specialist Relationship Specialty Start Date End Date Chelle Cueto MD [address] [facility] [place] [address] PCP - General Family Medicine 03/14/18 Caro Lee Internet ArchitectAutomation Software Engineer 12/01/23 documented as of this encounter
--- OUTSIDE RECORDS SUMMARY | 2024-05-22 18:39 | XMS_ITS | Encounter Summary ---
Author Organization [facility] Address [address] [facility] 7 [place] [address] Care Team Providers Care Director Of Medical Services Name Role Phone Chelle Cueto MD Primary Care Provider [phone] Encounter Details Date Type Department Care Team ([facility] Contact Info) Description 09/06/[address] [phone] Chelle Cueto MD [address] [place] [phone] Social History Tobacco Use Types Packs/Day Years [...] Upcoming Encounters Date Type Department Care Team ([facility] Contact Info) Description 05/25/2024 2:00 PM EDT Clinical Support [address] [address] 06/08/2024 2:00 PM EDT Medication Management [address] [place] [address] Glenn Fofana, PharmD [address] [place] [address] 06/25/2024 2:30 PM EDT Office Visit [facility] OPTOMETRY [address] [place] [address] Shyam, Valerie, OD [address] [place] [address] 06/26/2024 2:30 PM EDT Medication Management [facility] MEDICINE [address] [place] [address] documented as of this encounter Procedures Procedure Name Priority Date/Time Associated Diagnosis Comments MAMMOGRAPHY Routine 08/31/2022 9:39 AM EDT documented in this encounter Results * Mammography (08/31/2022 9:39 AM EDT) Mammogram Bi-rads 1 Anatomical Region Laterality Modality Other us Historical Provider HEALTH MAINTENANCE Final Result documented in this encounter Visit Diagnoses Not on filedocumented in this encounter Care Teams Director Of Medical Services Relationship Specialty Start Date End Date Chelle Cueto MD [address] [place] [address] PCP - General Family Medicine 03/14/18 Caro Lee Refractory Furnace DesignerSupplier Engineer 12/01/23 documented as of this encounter
== END 2024-05-22 15:23 | disposition home or self-care (01) ==
LOC: HO.HHCL 15:22
PROVIDERS: Visit Provider Family Medicine
DX: I10 Essential (primary) hypertension (principal); E03.9 Hypothyroidism, unspecified
CPT/HCPCS: 36415; 80048; 84443

== ENCOUNTER 2024-07-17 13:36 | Outpatient (REF) | payer MEDICAID, SELFPAY ==
--- NOTE | ~2024-07-17 | XR_ITS ---
EXAMINATION: XR SHOULDER 2 OR MORE VIEWS LEFT HISTORY: acute on chronic pain of left shoulder COMPARISON: Comparison is made with the prior examination dated 03/02/2022. FINDINGS: Four views of the left shoulder are submitted. Osseous mineralization is normal. There is no fracture or dislocation. The glenohumeral and acromioclavicular joint spaces are preserved. The soft tissues are unremarkable. XR/XR shoulder LT min 2V IMPRESSION: Unremarkable examination of the left shoulder. Electronically signed by: Joseph Sheth MD 07/17/2024 02:10 PM EDT
--- OUTSIDE RECORDS SUMMARY | 2024-07-17 14:56 | XMS_ITS | Encounter Summary ---
Author Organization [employer] Address 75 [facility] 7 [place] [address] Care Team Providers Care Cafeteria Cashier Name Role Phone Chelle Cueto MD Primary Care Provider [phone] Glenn Fofana PharmD Unavailable [phone] Reason for Referral * Consultation (Routine) - Pending Review Specialty Diagnoses / Procedures Referred By Hayden clark Referred To Contact Orthopaedic Surgery Diagnoses Left shoulder pain, unspecified chronicity Yris Billings MD [address] [place] [address] Phone: tel: fax: Referral ID Status Reason Start Date Expiration Date Visits Requested Visits Authorized [id number] Pending Review Specialty Services Required 07/17/2024 07/17/2025 1 1 Reason for Visit * Reason Comments left lbo injury Encounter Details Date Type Department Care Team (Late st Contact Info) Description 07/17/2024 1:20 PM EDT Office Visit [facility] [address] [place] [address] [phone] Yris Billings MD [address] [place] [phone] Left shoulder pain, unspecified chronicity (Primary Dx) Social History Tobacco Use Types [...] Sign Reading Time Taken Comments Blood Pressure 145/86 07/17/2024 1:13 PM EDT Pulse 78 07/17/2024 1:13 PM EDT Temperature 37.2 ??C (98.9 ??F) 07/17/2024 1:13 PM ED T Respiratory Rate 16 07/17/2024 1:13 PM EDT Oxygen Saturation 98% 07/17/2024 1:13 PM EDT Inhaled Oxygen Concentration - - Weight 79.2 kg (174 lb 9.6 oz) 07/17/2024 1:13 P M EDT Height - - Body Mass Index 34.1 07/10/2024 1:42 PM EDT documented in this encounter Progress Notes * Yris Billings MD - 07/17/2024 1:40 PM EDT Subjective Patient ID: Blessing Lundy is a 54 y.o. female with past medical history of diabetes mellitus type 2, hypertension, and chronic knee pain who presents to walk in clinic for left lbo injury. Referred to physical therapy 07/15/34, referred to pain medicine 07/15/24. Pt with a history pf chronic left shoulder pain, reports on Tuesday a door fell on her left shoulder and she has had constant pain that is exacerbated by movement since then. She denies taking any medication for the pain. Review of Systems Constitutional: Negative for fever and unexpected weight change. Respiratory: Negative for shortness of breath. Cardiovascular: Negative for chest pain. Gastrointestinal: Negative for abdominal pain. Genitourinary: Negative for difficulty urinating. Musculoskeletal: Injury Objective Visit Vitals BP (!) 145/86 (BP Location: Left arm, Patient Position: Sitting, BP Cuff Size: Adult) Pulse 78 Temp 98.9 ??F (37.2 ??C) (Oral) Resp 16 Body mass index is 34.1 kg/m??. Physical Exam Constitutional: Appearance: Normal appearance. Cardiovascular: Rate and Rhythm: Normal rate and regular rhythm. Heart sounds: Normal heart sounds. Pulmonary: Effort: Pulmonary effort is normal. Breath sounds: Normal breath sounds. Musculoskeletal: Right shoulder: Normal. Left shoulder: Tenderness (upper trapezius) present. Decreased range of motion (abduction not past 90 degrees). Cervical back: Normal range of motion and neck supple. Neurological: General: No focal deficit present. Mental Status: She is alert and oriented to person, place, and time. Motor: No weakness. Psychiatric: Behavior: Behavior normal. XR 07/17/24 IMPRESSION: Unremarkable examination of the left shoulder. Problem List Items Addressed This Visit Left shoulder pain - Primary Acute on chronic left shoulder pain. -ordered Left Shoulder XR 07/17/24 -prescribed ibuprofen 600 MG -referred to orthopedics 07/17/24 Relevant Medications ibuprofen 600 MG tablet Other Relevant Orders XR Shoulder 2+ Views Left Referral to Orthopaedic Surgery -No evidence of acute disease process. Suspect acute on chronic left shoulder muscle strain. Symptoms mild. -Will treat with anti-inflammatory/analgesic, ordered XR and referred to specialist. -ER precautions discussed. -Seek medical attention for worsening symptoms. I, Kay rPice, am serving as a scribe to document services personally performed by Dr. Gallardo, based on the patient's response to questions by provider and providers statements to me. documented in this encounter Miscellaneous Notes * Assessment & Plan Note - Kay Price - 07/17/2024 1:34 PM EDTAssociated Problem(s): Left shoulder pain Acute on chronic left shoulder pain. -ordered Left Shoulder XR 07/17/24 -prescribed ibuprofen 600 MG -referred to orthopedics 07/17/24 documented in this encounter Plan of Treatment Upcoming Encounters Date Type Department Care Team (Late st Contact Info) Description 07/25/2024 3:00 PM EDT Medication Management [facility] [address] [place] [address] Glenn Fofana, PharmD [address] [place] [address] 08/07/2024 3:45 PM EDT Office Visit [facility] [address] [place] [address] Chelle Cueto MD [address] [place] [address] 08/13/2024 11:00 AM EDT Clinical Support [facility] [address] [place] [address] [place] [address] Scheduled Referrals Name Type Priority Associated Diagnoses Orde r Schedule Referral to Orthopaedic Surgery Outpatient Referral Routine Left shoulder pain, unspecified chronicity Expected: 07/17/2024 (Approximate), Expires: 07/17/2025 documented as of this encounter Procedures Procedure Name Priority Date/Time Associated Diagnosis Comments XR SHOULDER 2+ VIEWS LEFT Routine 07/17/2024 1:37 PM EDT Left shoulder pain, unspecified chronicity documented in this encounter Results * XR Shoulder 2+ Views Left (07/17/2024 1:37 PM EDT) Anatomical Region Laterality Modality Upper Extremities, Shoulder Left Radi ographic Imaging 07/17/2024 1:37 PM EDT Narrative 07/17/2024 2:13 PM EDT ?[facility] ?[address] ?[place] [address] ?XRay Report ? Signed ? Patient: Blessing Calderón ?MR#: M ?? [id number] ? : 1970 ?Acct:[id number] ? Age/Sex: 54 / F ?ADM Date: 07/17/24 ? Loc: HO.HHCX ? Attending Dr: Yris Billings MD ? Ordering Physician: Yris Billings MD ?? Date of Service: 07/17/24 ?? Procedure(s): XR shoulder LT min 2V ?? Accession Number(s): [id number] ? cc: Yris Billings MD ? EXAMINATION: ??XR SHOULDER 2 OR MORE VIEWS LEFT ? HISTORY: acute on chronic pain of left shoulder ? COMPARISON: Comparison is made with the prior examination dated ?? 03/02/2022. ? FINDINGS: ? Four views of the left shoulder are submitted. ??Osseous mineralization ?? is normal. ??There is no fracture or dislocation. ??The glenohumeral and ?? acromioclavicular joint spaces are preserved. ??The soft tissues are ?? unremarkable. ? XR/XR shoulder LT min 2V ?? IMPRESSION: ? Unremarkable examination of the left shoulder. ? Electronically signed by: ??Joseph Sheth MD ??07/17/2024 02:10 PM EDT ?? RP ? Dictated By: ?Joseph Sheth MD ? Signed By: ?<Electronically signed by Joseph Sheth MD in OV> ?07/17/24 1410 ? DD/ 1337 ? TD/TT: 07/17/24 1400 ? Datapower Developer: ? Procedure Note Gisel De La O - 07/17/[address] [address] XRay Report Signed Patient: Barry CalderónnMR#: M [id number] : 1970Acct:[id number] Age/Sex: 54 / FADM Date: 07/17/24 Loc: HO.HHCX Attending Dr: Yris Billings MD Ordering Physician: Yris Billings MD Date of Service: 07/17/24 Procedure(s): XR shoulder LT min 2V Accession Number(s): [id number] cc: Yris Billings MD EXAMINATION: XR SHOULDER 2 OR MORE VIEWS LEFT HISTORY: acute on chronic pain of left shoulder COMPARISON: Comparison is made with the prior examination dated 03/02/2022. FINDINGS: Four views of the left shoulder are submitted. Osseous mineralization is normal. There is no fracture or dislocation. The glenohumeral and acromioclavicular joint spaces are preserved. The soft tissues are unremarkable. XR/XR shoulder LT min 2V IMPRESSION: Unremarkable examination of the left shoulder. Electronically signed by: Joseph Sheth MD 07/17/2024 02:10 PM EDT Dictated By: Joseph Sheth MD Signed By: <Electronically signed by Joseph Sheth MD in OV> 07/17/24 1410 DD/ 1337 TD/TT: 07/17/24 1400 Datapower Developer: Yris Billings MD IMG XR PROCEDURES Final Re sult documented in this encounter Visit Diagnoses Diagnosis Left shoulder pain, unspecified chronicity- Primary documented in this encounter Additional Health Concerns Assessment Noted Time PHQ-9 Depression Total Score: 15 05/08/2 025 3:52 PM EST documented as of this encounter Care Teams Cafeteria Cashier Relationship Specialty Start Date End Date Chelle Cueto MD [address] [place] [address] PCP - General Family Medicine 03/14/18 Glenn Fofana, SriD [address] [place] [address] Pharmacist Internal Medicine 06/12/24 Caro Lee Master Automotive Glass TechnicianCorporate Law Assistant 12/01/23 documented as of this encounter
--- OUTSIDE RECORDS SUMMARY | 2024-07-17 14:56 | XMS_ITS | Encounter Summary ---
Author Organization [employer] Address 75 [facility] 7t [place] [address] Care Team Providers Care Elastic Yarn Twister Helper Name Role Phone Chelle Cueto MD Primary Care Provider [phone] Glenn Fofana PharmD Unavailable [phone] Reason for Visit * Reason Onset Date Comments Letter Request 07/12/2024 I called the pat ient regarding a request for a letter for housing. She stated that she is requesting a first floor apartment. She has difficulty negotiating stairs, due to having arthritis of her left knee and left hip. She stated that she also has warts on the soles of her feet, which makes walking very painful. Encounter Details Date Type Department Care Team (Late st Contact Info) Description 07/12/2024 Telephone [facility] [address] [place] [address] Chelle Cueto MD [address] [place] [address] Letter Request (I called the patient regarding a request for a letter for housing. She stated that she is requesting a first floor apartment. She has difficulty negotiating stairs, due to having arthritis of her left knee and left hip. She stated that she also has warts on the soles of her feet, which makes walking very painful.) Social History Tobacco Use Types Packs/Day Years [...] encounter Miscellaneous Notes * Telephone Encounter - Jasmin Tejada [place] - 07/12/2024 4:19 PM EDT I called the patient regarding a request for a letter for housing. She stated that she is requesting a first floor apartment. She has difficulty negotiating stairs, due to having arthritis of her left knee and left hip. She stated that she also has warts on the soles of her feet, which makes walking very painful. documented in this encounter Plan of Treatment Upcoming Encounters Date Type Department Care Team (Late st Contact Info) Description 07/25/2024 3:00 PM EDT Medication Management [facility] [address] [place] [address] Glenn Fofana, PharmD [address] [place] [address] 08/07/2024 3:45 PM EDT Office Visit [facility] [address] [place] [address] Chelle Cueto MD [address] [place], [place] 08/13/2024 11:00 AM EDT Clinical Support [facility] [address] [place] [address] [place], [place] documented as of this encounter Visit Diagnoses Not on filedocumented in this encounter Additional Health Concerns Assessment Noted Time PHQ-9 Depression Total Score: 15 05/08/2 025 3:52 PM EST documented as of this encounter Care Teams Elastic Yarn Twister Helper Relationship Specialty Start Date End Date Chelle Cueto MD [address] [place] [address] PCP - General Family Medicine 03/14/18 Glenn Fofana, PharmD [address] [place] [address] Pharmacist Internal Medicine 06/12/24 Caro Lee Regulatory Services ConsultantTechnical Support Representative 12/01/23 documented as of this encounter
--- OUTSIDE RECORDS SUMMARY | 2024-07-17 14:56 | XMS_ITS | Encounter Summary ---
Author Organization [employer] Address 75 [facility] 7t [place] [address] Care Team Providers Care Deposit Clerk Name Role Phone Chelle Cueto MD Primary Care Provider Glenn Fofana PharmD Unavailable [phone] Encounter Details Date Type Department Care Team ([facility] Contact Info) Description 09/07/2022 Orders Only [facility] [address] [place] [address] Chelle Cueto MD [address] [place] [address] Elevated TSH (Primary Dx) Social History Tobacco [...] Upcoming Encounters Date Type Department Care Team ([facility] Contact Info) Description 07/25/2024 3:00 PM EDT Medication Management [facility] [address] [place] [address] Glenn Fofana, PharmD 230 [facility] [place] [address] 08/07/2024 3:45 PM EDT Office Visit [facility] 230 [facility] [place] [address] Chelle Cueto MD [address] [place], [place] [phone] 08/13/2024 11:00 AM EDT Clinical Support [facility] [address] [place], [place] [phone] S[address]o [address] [place] [address] Scheduled Orders Name Type Priority Associated Diagnoses [...] TSH XR FOOT 3+ VIEWS RIGHT Routine 3:47 PM EDT documented in this encounter Results * (ABNORMAL) TSH (09/07/2022 2:44 PM EDT) [facility] Signature TSH 6.35(H) mIU/L [facility] Comment: ?Reference Range ?> or = 20 Years ??0.40-4.50 ? Ranges ?First trimester ?0.26-2.66 ?Second trimester ?? 0.55-2.73 ?Third trimester ?0.43-2.91 Blood Venous blood specimen / Unknown 09/07/2022 2:44 PM EDT 09/07/2022 2:44 PM EDT Chelle Cueto MD LAB BLOOD ORDERABLES Final Resul t Performing Organization Address [facility] de Phone Number [facility] [address] [place] [address], [place] [address] [facility] [place] [facility] [address] [place] [phone] * (ABNORMAL) Thyroid Peroxidase And Thyroglobulin Antibodies (09/07/2022 2:44 PM EDT) Thyroglobulin Antibodies 24(H) < or = 1 IU/mL [facility] [place] [facility] Thyroid Peroxidase Antibodies 10(H) <9 IU/mL [facility] 09/07/2022 2:44 PM EDT 09/07/2022 2:44 PM EDT Chelle Cueto MD LAB BLOOD ORDERABLES Final Resul t Performing Organization Address [facility] de Phone Number [facility] [address] [place] [address], [facility] [place] [address] [facility] [place] [facility] [address] [place] [phone] * (ABNORMAL) T4, Free (09/07/2022 2:44 PM EDT) T4, Free 0.7(L) 0.8 - 1.8 ng/dL [facility] [place] [facility] Blood Venous blood specimen / Unknown 09/07/2022 2:44 PM EDT 09/07/2022 2:44 PM EDT Chelle Cueto MD LAB BLOOD ORDERABLES Final Resul t Performing Organization Address City/[facility]/ZIP Co de Phone Number [facility] [address], [facility] [place] [address] [facility] [place] [facility] [address] [place] [address] * T3, Free (09/07/2022 2:44 PM EDT) T3, Free 3.1 2.3 - 4.2 pg/mL [facility] Blood Venous blood specimen / Unknown 09/07/2022 2:44 PM EDT 09/07/2022 2:44 PM EDT Chelle Cueto MD LAB BLOOD ORDERABLES Final Resul t Performing Organization Address [facility] Co de Phone Number [facility] [address], [facility] [place] [address] [facility] [place] [facility] [address] [place] [address] * XR Foot 3+ Views Right (09/06/2022 3:47 PM EDT) Anatomical Region Laterality Modality Lower Extremities, Foot Right Radiogra phic Imaging 09/06/2022 3:47 PM EDT Narrative 09/22/2022 12:11 PM EDT ?[facility] ?[address] ?[place] [address] ?XRay Report ? Signed ? Patient: Blessing Calderón ?MR#: M ?? [id number] ? : 1970 ?Acct:[id number] ? Age/Sex: 52 / F ?ADM Date: 06/26/23 ? Loc: HO.HHCX ? Attending Dr: Chelle Cueto MD ? Ordering Physician: Chelle Cueto MD ?? Date of Service: 09/06/22 ?? Procedure(s): XR foot RT min 3V ?? Accession Number(s): [id number] ? cc: Chelle Cueto MD ? EXAMINATION: [...] 1208 ? DD/ 1547 ? TD/TT: ? Bed Worker: ? Procedure Note Gisel De La O - 09/22/[address] [address] XRay Report Signed Patient: Barry CalderónnMR#: M [id number] : 1970Acct:[id number] Age/Sex: 52 / FADM Date: 09/06/22 Loc: HO.HHCX Attending Dr: Chelle Cueto MD Ordering Physician: Chelle Cueto MD Date of Service: 09/06/22 Procedure(s): XR foot RT min 3V Accession Number(s): [id number] cc: Chelle Cueto MD EXAMINATION: XR FOOT, [...] days if fracture is suspected. Dictated By: Oly Martinez MD Signed By: <Electronically signed by Oly Martinez MD in OV> 09/22/22 1208 DD/ 1547 TD/TT: Bed Worker: [facility] External Provider IMG XR PROCEDURES Final Result documented in this encounter Visit Diagnoses Diagnosis Elevated TSH- Primary Other abnormal blood chemistry documented in this encounter Care Teams Deposit Clerk Relationship Specialty Start Date End Date Chelle Cueto MD [address] [place] [address] PCP - General Family Medicine 03/14/18 Glenn Fofana, SriD [address] [place] [address] Pharmacist Internal Medicine 06/12/24 Caro Lee Floral DesignerApplication Manager 12/01/23 documented as of this encounter
--- OUTSIDE RECORDS SUMMARY | 2024-07-17 14:56 | XMS_ITS | Encounter Summary ---
Author Organization [employer] Address 75 [facility] 7t [place] [address] Care Team Providers Care Aluminum Hydroxide Process Operator Name Role Phone Chelle Cueto MD Primary Care Provider [phone] Glenn Fofana PharmD Unavailable [phone] Encounter Details Date Type Department Care Team (Late st Contact Info) Description 07/17/2024 Telephone [facility] [address] [place], [place] [phone] Chelle Cueto MD [address] [place], [place] [phone] Social History Tobacco Use Types Packs/Day Years [...] encounter Miscellaneous Notes * Telephone Encounter - Kiara Ballesteros - 07/17/2024 10:51 AM EDT Pt walked in stating she needs a cane due to difficulty walking . documented in this encounter Plan of Treatment Upcoming Encounters Date Type Department Care Team (Late st Contact Info) Description 07/25/2024 3:00 PM EDT Medication Management [facility] [address] [place] [address] Glenn Fofana, SriD [address] [place] [address] 08/07/2024 3:45 PM EDT Office Visit [facility] [address] [place] [address] Chelle Cueto MD [address] [place] [address] 08/13/2024 11:00 AM EDT Clinical Support [facility] [address] [place] [address] [place] [address] documented as of this encounter Visit Diagnoses Not on filedocumented in this encounter Additional Health Concerns Assessment Noted Time PHQ-9 Depression Total Score: 15 05/08/2 025 3:52 PM EST documented as of this encounter Care Teams Aluminum Hydroxide Process Operator Relationship Specialty Start Date End Date Chelle Cueto MD [address] [place], [place] [phone] PCP - General Family Medicine 03/14/18 Glenn Fofana, SriD [address] [place] [address] Pharmacist Internal Medicine 06/12/24 Caro Lee Lehr OperatorEvent Coordinator Marketing And Sales 12/01/23 documented as of this encounter
--- OUTSIDE RECORDS SUMMARY | 2024-07-17 14:56 | XMS_ITS | Encounter Summary ---
Author Organization [employer] Address 75 [facility] 7 [place] [address] Care Team Providers Care Motor Vehicle Parts Interpreter Name Role Phone Chelle Cueto MD Primary Care Provider [phone] Glenn Fofana PharmD Unavailable [phone] Reason for Visit * Reason Onset Date Comments Referral 07/12/2024 Encounter Details Date Type Department Care Team (Late st Contact Info) Description 07/12/2024 Telephone [facility] [address] [place], [place] [phone] Chelle Cueto MD [address] [place], [place] [phone] Referral Social History Tobacco Use Types Packs/Day [...] encounter Miscellaneous Notes * Telephone Encounter - Chelle Cueto MD - 07/16/2024 6:06 PM EDT Referred to pain management and PT * Telephone Encounter - Mai Heller RN - 07/12/2024 4:09 PM EDT RN called [facility] Pain management who did confirm that the earliest they are scheduling new referrals right now is July 26. Per PCP is looks as if the pt was referred back to orthopedics due to lower backpain. Pt was also prescribed meloxicam, flexeril and diclofenac gel. Will forward this message to PCP to determine if pain management referral is appropriate for the pt * Telephone Encounter - Chanel Argueta - 07/12/2024 2:00 PM EDT Patient walked in requesting change of Ortho referral. Patient was referred to [facility] Ortho and they advised wait list was pushed out until February. Patient was advised for PCP to change referral to [facility] pain clinic instead. documented in this encounter Plan of Treatment Upcoming Encounters Date Type Department Care Team (Late st Contact Info) Description 07/25/2024 3:00 PM EDT Medication Management [facility] [address] [place] [address] Glenn Fofana, PharmD [address] [place] [address] 08/07/2024 3:45 PM EDT Office Visit [facility] [address] [place] [address] Chelle Cueto MD [address] [place] [address] 08/13/2024 11:00 AM EDT Clinical Support [facility]TRITION [address] [place], [place] [phone] [address] [place] [address] documented as of this encounter Visit Diagnoses Not on filedocumented in this encounter Additional Health Concerns Assessment Noted Time PHQ-9 Depression Total Score: 15 05/08/ 025 3:52 PM EST documented as of this encounter Care Teams Motor Vehicle Parts Interpreter Relationship Specialty Start Date End Date Chelle Cueto MD [address] [place] [address] PCP - General Family Medicine 03/14/18 Glenn Fofana, PharmD [address] [place] [address] Pharmacist Internal Medicine 06/12/24 Caro Lee PediatricianStructural Architect 12/01/23 documented as of this encounter
--- OUTSIDE RECORDS SUMMARY | 2024-07-17 14:56 | XMS_ITS | Clinical Summary ---
Author Organization [employer] Address [address] [place] [address] Care Team Providers Care Field Horticultural Specialty Grower Name Role Phone Chelle Cueto MD Primary Care Provider [phone] Glenn Fofana PharmD Unavailable [phone] Allergies Active Allergy Reactions Criticality Noted Date Comments Ranitidine Rash Low 01/30/2014 Medications * This document contains information received from the source organization and may not represent a complete record from that organization. Alcohol Swabs (Alcohol Prep) padsIndications:Ty pe 2 diabetes mellitus with hyperglycemia, without long-term current use of insulin (CMS/HCC) Check BG daily as instructed 50 each 11 02/29/20 22 Active fluticasone (Flonase Allergy Relief) 50 MCG/ACT nasal spray Administer 2 sprays into each nostril in the morning. 48 g 02/12/20 23 Active acetaminophen (Tylenol 8 Hour) 650 MG ER tablet TAKE 1 TABLET BY MOUTH EVERY 8 HOURS 30 tablet 1 03/29/19 24 Active chlorthalidone (Hygroton) 25 MG tablet TAKE 1 TABLET BY MOUTH EVERY DAY 90 tablet 1 06/14/19 24 Active albuterol 108 (90 Base) MCG/ACT inhalerIndications :Cough in adult Inhale 2 puffs every 4 (four) hours. 18 g 12/24/19 24 Active metFORMIN XR (Glucophage-XR) 500 MG 24 hr tabletIndications: Type 2 diabetes mellitus with hyperglycemia, without long-term current use of insulin (CMS/HCC) Take 1 tablet (500 mg) by mouth with breakfast and with evening meal. Do not crush, chew, or split. 180 tablet 3 12/29/19 Active fexofenadine (Fabiana Allergy) 180 MG tablet TAKE 1 TABLET BY MOUTH EVERY MORNING 90 tablet 3 12/29/19 Active montelukast (Singulair) 10 MG tablet TAKE 1 TABLET BY MOUTH EVERY MORNING 90 tablet 3 12/29/19 Active atorvastatin (Lipitor) 10 MG tablet Take 1 tablet (10 mg) by mouth at bedtime. 90 tablet 3 12/29/19 24 Active olmesartan (Benicar) 5 MG tablet Take 1 tablet (5 mg) by mouth Once per day. 90 tablet 3 12/29/19 24 Active fluticasone furoate (Arnuity Ellipta) 100 MCG/ACT inhaler Inhale 1 puff Once per day. Rinse mouth with water after use to reduce aftertaste and incidence of candidiasis. Do not swallow. 1 each 12/29/19 24 Active albuterol 1.25 MG/3ML nebulizer solution Take 6 mL (2.5 mg) by nebulization every 4 (four) hours if needed for wheezing. 75 mL 11 01/13/20 24 Active D3 Super Strength 50 MCG (2000 UT) capsule TAKE 1 CAPSULE BY MOUTH DAILY IN THE MORNING 90 capsule 3 01/26/20 Active levothyroxine (Synthroid, Levoxyl) 50 MCG tabletIndications: Subclinical hypothyroidism TAKE 1 TABLET BY MOUTH DAILY BEFORE BREAKFAST 90 tablet 3 01/26/20 Active TRUEplus Lancets 33G miscIndications:Ty pe 2 diabetes mellitus with hyperglycemia, without long-term current use of insulin (CMS/[facility]) TEST BLOOD SUGAR ONCE DAILY 100 each 5 02/14/20 Active FREESTYLE LITE test stripIndications:T ype 2 diabetes mellitus with hyperglycemia, without long-term current use of insulin (CMS/HCC) TEST BLOOD SUGAR ONCE DAILY 50 strip 5 02/14/20 Active Blood Glucose Monitoring Suppl (FreeStyle [place] Lite) w/Device kitIndications:Typ e 2 diabetes mellitus with hyperglycemia, without long-term current use of insulin (CMS/HCC) TEST BLOOD SUGAR ONCE DAILY IN THE MORNING DIRECTED 1 kit 02/14/20 Active omeprazole (PriLOSEC) [address] capsule TAKE 1 CAPSULE BY MOUTH EVERY DAY BEFORE A MEAL 90 capsule 1 05/23/19 25 Active Multiple Vitamin (multivitamin) tablet Take 1 tablet by mouth Once per day. 90 tablet 3 05/25/19 25 Active docusate sodium (Colace) 100 MG capsule Take 1 capsule (100 mg) by mouth if needed in the morning and at bedtime for constipation. 60 capsule 3 05/25/19 25 Active Dulaglutide (Trulicity) 0.75 MG/0.5ML solution auto-injector Inject 0.75 mg under the skin 1 (one) time per week. 2 mL 05/31/19 25 Active melatonin 5 MG tablet take 2 tablets by mouth every day at bedtime 05/25/19 25 Active meloxicam (Mobic) 7.5 MG tablet Take 1 or 2 tablets by mouth once daily as needed for severe pain 60 tablet 2 07/11/19 25 Active Diclofenac Sodium 1 % gel Apply to affected area once or twice daily 350 g 1 07/11/19 25 Active cyclobenzaprine (Flexeril) 10 MG tablet Take 1 tablet (10 mg) by mouth if needed at bedtime for muscle spasms. 30 tablet 2 07/11/19 25 Active ibuprofen 600 MG tabletIndications: Left shoulder pain, unspecified chronicity Take 1 tablet (600 mg) by mouth every 8 (eight) hours if needed for mild pain for up to 10 days. 30 tablet 07/18/19 25 025 Active Active Problems Problem Noted Date Diagnosed Date Left shoulder pain 07/17/2024 Overview (07/17/2024): Acute on chronic left shoulder pain. -ordered Left Shoulder XR 07/17/24 -prescribed ibuprofen 600 MG -referred to orthopedics 07/17/24 Assessment & Plan (07/17/2024 1:34 PM EDT): Acute on chronic left shoulder pain. -ordered Left Shoulder XR 07/17/24 -prescribed ibuprofen 600 MG -referred to orthopedics 07/17/24 Low back pain 07/10/2024 Assessment & Plan (07/10/2024 2:29 PM EDT): - Likely muscle spasm and degenerative disc disease, associated with radiculopathy - Will refer to Physical Therapy and refer back to orthopedist and will prescribed meloxicam, cyclobenzaprine (Flexeril) 10 MG tablet, Diclofenac Sodium 1 % gel Mood disorder 01/03/2024 Assessment & Plan (05/18/2024 [...] her daily routine. Pt was self-referred to [facility] and completed the intake session after today's [...] reports she moved to an apartment in [place] but the place is infected with rodents [...] daily routine. Provided information for [facility] with [facility] for OP services and psychopharmacology. Information for Community Doping Supervisor provided to seek out for legal support. [...] her daily routine. 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 Provided information for [facility] with [facility] for OP services and psychopharmacology. Information for Community Doping Supervisor provided to seek out for legal support. [...] - evaluate with X-ray - refer to meeting planner - continue wearing comfortable shoes - daily foot check and care - Ordered XR Foot 1-2 Views Right 05/08/24 Assessment & Plan (09/08/2022 9:41 AM EDT): - at 5th MTP - evaluate with X-ray - refer to meeting planner - continue wearing comfortable shoes - daily [...] -improve medication adherence -check lab -Refer to CDMP -consider sleep study evaluation for high BP [...] month with our team nurse -Refer to CDMP -consider sleep study evaluation for high BP [...] montelukast Consider referral to allergy / cardiac specialist for allergy testing and immunotherapy Assessment & Plan (09/08/2022 9:44 AM EDT): Continue antihistamine, currently fexofenadine Continue fluticasone nasal spray Continue montelukast Consider referral to allergy / cardiac specialist for allergy testing and immunotherapy Assessment & Plan (02/28/2022 9:45 AM EST): ?? Continue antihistamine, currently fexofenadine ?? Continue fluticasone nasal spray ?? Continue montelukast ?? Consider referral to allergy / cardiac specialist for allergy testing and immunotherapy Gastroesophageal [...] glucose 02/02/2022 Mass of lower limb 12/03/2011 Encounters * This document contains information received from the source organization and may not represent a complete record from that organization. Date Type Department Care Team Description 07/17/2024 1:20 PM EDT Office Visit [facility] [address] [place] [address] Yris Billings MD Left shoulder pain, unspecified chronicity (Primary Dx) 07/17/2024 Refill [facility] [address] [place] [address] Deb Boswell ANP 07/17/[address] [address] Chelle Cueto MD 07/12/[address] [address] Chelle Cueto MD Letter Request (I called the patient regarding a request for a letter for housing. She stated that she is requesting a first floor apartment. She has difficulty negotiating stairs, due to having arthritis of her left knee and left hip. She stated that she also has warts on the soles of her feet, which makes walking very painful.) 07/12/2024 Telephone [facility] [address] [place] [address] Chelle Cueto MD Referral 07/10/2024 1:45 PM EDT Office Visit [address] [address] Chelle Cueto MD Acute low back pain, unspecified back pain laterality, unspecified whether sciatica present (Primary Dx) 07/10/2024 Travel 06/29/2024 3:00 PM EDT Nutrition [facility] [address] [place] [address] HTN (hypertension), benign; Type 2 diabetes mellitus with hyperglycemia, without long-term current use of insulin (CMS/HCC); Dyslipidemia; Class 2 severe obesity due to excess calories with serious comorbidity and body mass index (BMI) of 35.0 to 35.9 in adult (CMS/HCC) 06/29/2024 Travel 06/29/2024 Telephone [facility] [address] [place] [address] Roula Gannon MA july06/25/2024 2:30 PM EDT Office Visit [facility] [address] [place] [address] Valerie Howe, OD Type 2 diabetes mellitus without ophthalmic manifestations ([facility]/HCC) (Primary Dx); Chorioretinal scar of both eyes; 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; Dry eye syndrome of both eyes; Presbyopia of both eyes 06/25/2024 Travel 06/08/2024 Travel 05/30/2024 Orders Only [facility] [address] [place] [address] Chelle Cueto MD 05/25/2024 Telephone [facility] [address] [place] [address] Chelle Cueto MD No Show 05/25/2024 Population Health Risk Score Community [facility] ([facility] Department [address] [place] [phone] Provider, Population Health Generic 05/24/2024 Orders Only [facility] [address] [place] [address] Chelle Cueto MD HTN (hypertension), benign (Primary Dx); Type 2 diabetes mellitus with hyperglycemia, without long-term current use of insulin (CMS/HCC); Dyslipidemia; Class 2 severe obesity due to excess calories with serious comorbidity and body mass index (BMI) of 35.0 to 35.9 in adult ([facility]/HCC) 05/23/2024 Telephone [facility] [place] [address] Chelle Cueto MD Prior Authorization 05/22/2024 Refill [facility] [address] [address] Chelle Cueto MD 05/22/2024 Travel 05/09/2024 Orders Only [facility] [place] [address] Chelle Cueto MD HTN (hypertension), benign (Primary Dx); Type 2 diabetes mellitus with hyperglycemia, without long-term current use of insulin ([facility]) 05/09/2024 Telephone [facility] [place] [address] Chelle Cueto MD 05/08/2024 3:00 PM EST Office Visit [facility] [place] [address] Chelle Cueto MD HTN (hypertension), benign (Primary Dx); Type 2 diabetes mellitus with hyperglycemia, without long-term current use of insulin ([facility]); Right foot pain; Otalgia of both ears; Dietary counseling; Exercise counseling; Class 2 severe obesity due to excess calories with serious comorbidity and body mass index (BMI) of 35.0 to 35.9 in adult ([facility]); Dyslipidemia; Mixed anxiety and depressive disorder; Mood disorder ([facility]); Acquired hypothyroidism 05/08/2024 Telephone [facility] [place] [address] Chelle Cueto MD Appointment Request 05/08/2024 Travel 05/02/2024 Telephone [facility] [place] [address] Chelle Cueto MD Chart Prep 04/26/2024 Telephone [facility] [place] [address] Chelle Cueto MD Appointment Request 04/19/[address] [address] Chelle Cueto MD Nurse Triage from Last 3 Months Immunizations Name Administration [...] oz) 07/17/2024 1:13 P M EDT Height 152.4 cm (5') 07/10/2024 1:42 PM EDT Body Mass Index 34.1 07/10/2024 1:42 PM EDT Plan of Treatment Upcoming Encounters Date Type Department Care Team (Late st Contact Info) Description 07/25/2024 3:00 PM EDT Medication Management [facility] [address] [place] [address] Glenn Fofana, SriD [address] [place] [phone] 08/07/2024 3:45 PM EDT Office Visit [facility] [address] [place] [address] Chelle Cueto MD [address] [place], [place] [phone] 08/13/2024 11:00 AM EDT Clinical Support [facility] [address] [place] [address] [place] [address] Health Maintenance Due Date Last Done Comments CT Colonography 1971 Colonoscopy 1971 Colorectal Cancer Screening 1971 FIT DNA/Cologuard 1971 FIT 1971 FOBT 1971 Sigmoidoscopy 1971 Pap Smear 1992 Cervical Cancer Screening 2001 HPV/Cotest 2001 Zoster Vaccines (1 of 2) 2021 SDOH Screening 09/07/2023 09/06/2022 COVID-19 Vaccine (1 - 2023- season) 2023 Hepatitis B Vaccines (3 of 3 - 19+ 3-dose series) 02/23/2024 12/29/2023, 09/06/2022 Diabetes: Hemoglobin A1C 08/05/2024 025, 12/29/2023, 09/06/2022, Additional history exists Mammogram 10/23/2024 10/24/2023, 08/13, 08/31/2022, Additional history exists Alcohol/Substance Use Screening 12/28/2024 12/29/2023 Diabetes: Urine Protein Screening 12/28/2024 12/29/2023, 09/06/2022 Lipid Panel 12/28/2024 12/29/2023, 08/13, 08/06/2021, Additional history exists Depression Screening 05/08/2025 05/08/2024, 12/29/19 24 Diabetes: Foot Exam 05/08/2025 05/08/2024, 09/06/2022, 09/06/2022, Additional history exists Tobacco Screening 07/10/2025 07/10/2024 Eye Exam 06/25/2026 06/25/2024, 04/06/2024, 06/25/2024, Additional history exists DTaP/Tdap/Td Vaccines (3 - Td or Tdap) [...] PM EDT Left shoulder pain, unspecified chronicity TSH W/REFLEX TO FT4 Routine 05/22/2024 3 [...] without long-term current use of insulin (CMS/HCC) LIPID PANEL WITH REFLEX TO DIRECT LDL Routine 12/29/2023 12:40 PM EDT Type 2 diabetes mellitus with hyperglycemia, without long-term current use of insulin (CMS/HCC) BI MAMMOGRAM SCREENING TOMOSYNTHESIS BILATERAL Routine 10/24/2023 4:15 PM EDT Breast cancer screening by mammogram from Last 3 Months or Most Recently Relevant to Health Maintenance Results * XR Shoulder 2+ Views Left (07/17/2024 1:37 PM EDT) Anatomical Region Laterality Modality Upper Extremities, Shoulder Left Radi ographic Imaging 07/17/2024 1:37 PM EDT Narrative 07/17/2024 2:13 PM EDT ?[facility] ?[address] ?[place] [address] ?XRay Report ? Signed ? Patient: Sushant LundyBlessing ?MR#: M ?? [id number] ? : 1970 ?Acct:[id number] ? Age/Sex: 54 / F ?ADM Date: 07/17/24 ? Loc: HO.HHCX ? Attending Dr: Yris Billings MD ? Ordering Physician: Yris Billings MD ?? Date of Service: 07/17/24 ?? Procedure(s): XR shoulder LT min 2V ?? Accession Number(s): [id number] ? cc: Yris Billings MD ? EXAMINATION: [...] DD/ 1337 ? TD/TT: 07/17/24 1400 ? Parachute Taper: ? Procedure Note Donotuseinterpreter, Image - 07/17/[address] [address] XRay Report Signed Patient: Marv Calderón#: M [id number] : 1970Acct:[id number] Age/Sex: 54 / FADM Date: 07/17/24 Loc: HO.HHCX Attending Dr: Yris Billings MD Ordering Physician: Yris Billings MD Date of Service: 07/17/24 Procedure(s): XR shoulder LT min 2V Accession Number(s): [id number] cc: Yris Billings MD EXAMINATION: XR SHOULDER [...] 07/17/24 1410 DD/ 1337 TD/TT: 07/17/24 1400 Parachute Taper: us Yris Billings MD IMG XR PROCEDURES Final Re sult * TSH with Reflex to Free T4 (05/22/2024 3:24 PM EDT) TSH reflex Free T4 3.95 0.32 - 4.0 uIU/mL [facility] Blood 05/22/2024 3:24 PM EDT 05/22/2024 4:42 PM EDT Chelle Cueto MD LAB BLOOD ORDERABLES Final Resul t Performing Organization Address [facility] Co de Phone Number [facility] [address] [place] [phone] * Basic Metabolic Panel (05/22/2024 3:24 [...] Kidney Disea se: Estimated GFR < 60 mL/min/[id number] Kidney Disease: Estimated GFR < 15 mL/min/1.73m2 Glucose 109 60 - 115 mg/dL [facility] Calcium 9.8 8.4 - 10.2 mg/dL [facility] Blood Venous blood specimen / Unknown 05/22/2024 3:24 PM EDT 05/22/2024 4:42 PM EDT Chelle Cueto MD LAB BLOOD ORDERABLES Final Resul t Performing Organization Address City/[facility]/ZIP Co de Phone Number [facility] [address] [place], [place] [phone] * (ABNORMAL) POCT glycosylated hemoglobin (Hgb A1c) (05/08/2024 2:47 PM EST) Pathologist [facility] Hemoglobin A1C 7.4(A) 4.0 - 6.0 % QC Media Lot # [id number] Lot# Expiration Date Blood Capillary blood specimen / Unknown 05/08/2024 2:47 PM EST Chelle Cueto MD POINT OF CARE TEST ENTER/EDIT OR DERABLES Final Result * POCT glucose manually resulted (05/08/2024 2:46 PM EST) Pathologist [facility] Glucose Blood, POC 164 60 - 200 mg/dL QC Media Lot # [id number] Lot# Expiration Date Blood Capillary blood specimen / Unknown 05/08/2024 2:46 PM EST Chelle Cueto MD POINT OF CARE TEST ENTER/EDIT OR DERABLES Final Result * (ABNORMAL) Lipid Panel with Reflex to Direct LDL (12/29/2023 12:40 PM EDT) Pathologist [facility] Triglycerides 172(H) <150 mg/dL [facility] Comment:Desirable Triglyceri de: less than 150 mg/dLBorderline High Triglyceride 150-199 mg/dLHigh Triglyceride: 200-499 mg/dLVery High Triglyceride: greater than or equal to 5OO mg/dL Cholesterol 202(H) <200 mg/dL [facility] Comment:Desirable Cholestero l: less than 200 mg/dLBorderline High Cholesterol: 200-239 mg/dLHigh Cholesterol: greater than 239 mg/dL LDL Cholesterol Calculated 128(H) <100 mg/dL [facility] Comment:Desirable LDL: less than 100 mg/dLNear Optimal/Above Optimal LDL: 110- 129 mg/dLBorderline High LDL: 130-159 mg/dLHigh LDL: 160-189 mg/dLVery High LDL: greater than or equal to 190 mg/dL HDL Cholesterol 40(L) >40 mg/dL [facility] Comment:Desirable HDL: great er than 40 mg/dL Note: This HDL assay may give artificially low results in patients with liver disease. Blood 12/29/2023 12:4 0 PM EDT 12/29/2023 1:21 PM EDT Chelle Cueto MD LAB BLOOD ORDERABLES Final Resul t Performing Organization Address [facility] Co de Phone Number [facility] [address] [place] [phone] * Albumin, Random Urine W/Creatinine (12/29/2023 12:40 PM EDT) Creatinine, Urine 147.95 mg/dL [facility] Microalbumin Urine 30.0 mg/L [facility] Microalbum Creatinine Ratio Ur 20.2 <30 ug/mg cr [facility] Comment:Albumin/Creatinine R atio Reference Ranges: Normal: < 30 ug/mg creatinine Microalbuminuria: 30 - 300 ug/mg creatinineClinical Albuminuria: > 300 ug/mg creatinine Urine 12/29/2023 12:4 0 PM EDT 12/29/2023 1:20 PM EDT Chelle Cueto MD LAB URINE ORDERABLES Final Resul t Performing Organization Address [facility] Co de Phone Number [facility] [address] [place] [phone] * Hepatitis C Antibody with Reflex to HCV, RNA, Quantitative, Real-Time PCR (12/29/2023 12:40 PM EDT) Hepatitis C Antibody Nonreactive Nonreactive [facility] Comment:Antibodies to HCV no t detected; does not exclude early acuteHCV infection. Blood Venous blood specimen / Unknown 12/29/2023 12:40 PM EDT 12/29/2023 1:21 PM EDT Chelle Cueto MD LAB BLOOD ORDERABLES Final Resul t Performing Organization Address [facility] Co de Phone Number [facility] [address] [place] [phone] * HIV-1/2 Antigen and Antibodies, Fourth Generation, with Reflexes (12/29/2023 12:40 PM EDT) HIV AB/AG Nonreactive Nonreactive [facility] Comment:HIV-1 p24 Ag and/or HIV-1/HIV-2 Ab not detected.A test result that is nonreactive does not exclude thepossibility of exposure to or infection with HIV-1 and/orHIV-2. Nonreactive results in this assay for individualswith prior exposure to HIV-1 and/or HIV-2 may be due toantigen and antibody levels that are below the limit ofdetection of this assay.The [employer] HIV Ag/Ab Combo assay result andsupplemental assay results should be interpreted inconjunction with the patient's clinical presentation,history and other laboratory results. If the results areinconsistent with clinical evidence, additional testing issuggested to confirm the result. Blood Venous blood specimen / Unknown 12/29/2023 12:40 PM EDT 12/29/2023 1:21 PM EDT Chelle Cueto MD LAB BLOOD ORDERABLES Final Resul t Performing Organization Address [facility] Co de Phone Number [facility] [address] [place] [phone] * BI Mammogram Screening Tomosynthesis Bilateral (10/24/2023 4:15 PM EDT) Anatomical Region Laterality Modality Breast Bilateral Mammography 10/24/2023 4:15 PM EDT Narrative 11/17/2023 8:43 PM EDT ? [facility] ? [address] ?[place] [address] ? Mammography Report ? Signed ? Patient: Sushant Lundy,Blessing ?MR#: M ?? [id number] ? : 1970 ?Acct:[id number] ? Age/Sex: 53 / F ?ADM Date: 08/12/24 ? Loc: HO.MAMMO ? Attending Dr: Chelle Cueto MD ? Ordering Physician: Chelle Cueto MD ?Results: 1Negative ? Date of Service: 10/24/23 ?Follow Up: 1 Year From Orig ?? inal Mammogram ? Procedure(s): MM tomosynthesis screening BI ?? Accession Number(s): [id number] ? cc: Chelle Cueto MD ? EXAMINATION: [...] 11/17/232040 ? DD/ 1615 ? TD/TT: 10/24/23 1627 ? Parachute Taper: ? Procedure Note Jaylyn, Image - 11/17/2023 [place] [facility] [address] [place] [address] Mammography Report Signed Patient: Barry CalderónnMR#: M [id number] : 1970Acct:[id number] Age/Sex: 53 / FADM Date: 10/24/23 Loc: TELLY Attending Dr: Chelle Cueto MD Ordering Physician: Chelle Cueto MDResults: 1Negative Date of Service: 10/24/23Follow Up: 1 Year From Orig inal Mammogram Procedure(s): MM tomosynthesis screening BI Accession Number(s): [id number] cc: Chelle Cueto MD EXAMINATION: MM SCREENING [...] Princess Obrien MD 11/17/2023 08:41 PM EDT RP Dictated By: Princess Obrien MD Signed By: <Electronically signed by Princess Obrien MD in OV> 11/17/232040 DD/ 161 TD/TT: 10/24/23 1627 Parachute Taper: Chelle Cueto MD IMG BI PROCEDURES Edited Result - Final from Last 3 Months or Most Recently Relevant to Health Maintenance Insurance C3 Care Teams Field Horticultural Specialty Grower Relationship Specialty Start Date End Date Chelle Cueto MD [address] [place], [place] [phone] PCP - General Family Medicine 03/14/18 Glenn Fofana, SriD [address] [place] [address] Pharmacist Internal Medicine 06/12/24 Caro Lee Screw RemoverLegal Operations Manager 12/01/23
--- OUTSIDE RECORDS SUMMARY | 2024-07-17 14:56 | XMS_ITS | Encounter Summary ---
Author Organization [employer] Address 75 [facility] 7t [place] [address] Care Team Providers Care Sociology Instructor Name Role Phone Chelle Cueto MD Primary Care Provider [phone] Glenn Fofana PharmD Unavailable [phone] Reason for Visit * Reason Comments Med Refill Encounter Details Date Type Department Care Team (Late st Contact Info) Description 07/17/[address] [facility] [address] [place], [place] [phone] Deb Boswell, ANP [address] [place], [place] [phone] Social History Tobacco Use Types Packs/Day Years [...] Description 07/25/2024 3:00 PM EDT Medication Management [facility] [address] [place] [address] Glenn Fofana, PharmD [address] [place] [address] 08/07/2024 3:45 PM EDT Office Visit [facility] [address] [place] [address] 20[address] Chelle Cueto MD [address] [place] [address] 08/13/2024 11:00 AM EDT Clinical Support [facility] DIABETES/NUTRITION [address] [place] [address] [place] [address] documented as of this encounter Visit Diagnoses Not on filedocumented in this encounter Additional Health Concerns Assessment Noted Time PHQ-9 Depression Total Score: 15 025 3:52 PM EST documented as of this encounter Care Teams Sociology Instructor Relationship Specialty Start Date End Date Chelle Cueto MD [address] [place] [address] PCP - General Family Medicine 03/14/18 Glenn Fofana, SriD [address] [place] [address] Pharmacist Internal Medicine 06/12/24 Caro Lee Silk HangerWaiter/Waitress Cocktail Lounge 12/01/23 documented as of this encounter
--- OUTSIDE RECORDS SUMMARY | 2024-07-17 14:57 | XMS_ITS | Encounter Summary ---
Author Organization [employer] Address 75 [facility] 7 [place] [address] Care Team Providers Care Import Export Agent Name Role Phone Chelle Cueto MD Primary Care Provider [phone] Glenn Fofana PharmD Unavailable [phone] Encounter Details Date Type Department Care Team (Late Contact Info) Description 03/23/[address] [facility] [address] [place] [address] [phone] Chelle Cueto MD [address] [place] [address] [phone] Type 2 diabetes mellitus with hyperglycemia, without long-term current use of insulin ([facility]) (Primary Dx) Social History Tobacco Use [...] Department Care Team (Late Contact Info) Description 07/25/2024 3:00 PM EDT Medication Management [facility] [address] [place] [address] Glenn Fofana, PharmD [address] [place] [place] [address] 08/07/2024 3:45 PM EDT Office Visit [facility] [address] [place] [address] Chelle Cueto MD 230 [place] [address] 08/13/2024 11:00 AM EDT Clinical Support [facility] DIABETES/NUTRITION [address] [place] [phone] 230 [place] [address] documented as of this encounter Visit Diagnoses Diagnosis Type 2 diabetes mellitus with hyperglycemia, without long-term current use of insulin ([facility])- Primary documented in this encounter Care Teams Import Export Agent Relationship Specialty Start Date End Date Chelle Cueto MD [place], [place] [phone] PCP - General Family Medicine 03/14/18 Glenn Fofana, PharmD [address] [place] [address] [phone] Pharmacist Internal Medicine 06/12/24 Caro Lee Customer Service AdministratorTesting Tech 12/01/23 documented as of this encounter
--- OUTSIDE RECORDS SUMMARY | 2024-07-17 14:57 | XMS_ITS | Encounter Summary ---
Author Organization [employer] Address 75 [facility] 7 [place] [address] Care Team Providers Care Air Turning Machine Feeder Name Role Phone Chelle Cueto MD Primary Care Provider [phone] Glenn Fofana PharmD Unavailable [phone] Encounter Details Date Type Department Care Team ([facility] Contact Info) Description 09/06/[address] [address] Chelle Cueto MD [address] [place] [address] Social History Tobacco Use Types Packs/Day Years [...] Upcoming Encounters Date Type Department Care Team ([facility] Contact Info) Description 07/25/2024 3:00 PM EDT Medication Management [address] [address] Glenn Fofana, PharmD [address] [place] [address] 08/07/2024 3:45 PM EDT Office Visit [facility] [address] [place] [address] Chelle Cueto MD 230 [facility] [place] [address] 08/13/2024 11:00 AM EDT Clinical Support [facility] DIABETES/[place] [address] [place] [address] documented as of this encounter Procedures Procedure Name Priority Date/Time Associated Diagnosis Comments MAMMOGRAPHY Routine 08/31/2022 9:39 AM EDT documented in this encounter Results * Mammography (08/31/2022 9:39 AM EDT) HM Mammogram Bi-rads 1 Anatomical Region Laterality Modality Other Historical Provider HEALTH MAINTENANCE Final Result documented in this encounter Visit Diagnoses Not on filedocumented in this encounter Care Teams Air Turning Machine Feeder Relationship Specialty Start Date End Date Chelle Cueto MD [address] [facility] [place] [address] PCP - General Family Medicine 03/14/18 Glenn F[place], [place] [address] Pharmacist Internal Medicine 06/12/24 Caro Lee Gluing Machine AdjusterStrategy Manager 12/01/23 documented as of this encounter
--- OUTSIDE RECORDS SUMMARY | 2024-07-17 14:57 | XMS_ITS | Encounter Summary ---
Author Organization [employer] Address 75 [facility] 7 [place] [address] Care Team Providers Care Clothing Manager Name Role Phone Chelle Cueto MD Primary Care Provider [phone] Glenn Fofana PharmD Unavailable [phone] Reason for Visit * Reason Onset Date Comments Referral 03/19/2022 Encounter Details Date Type Department Care Team (Late st Contact Info) Description 03/19/2022 Telephone [facility] 230 [place], [place] [phone] Chelle Cueto MD 230 [place], [place] [phone] Referral Social History Tobacco Use Types Packs/Day [...] Description 07/25/2024 3:00 PM EDT Medication Management [facility] [address] [place] [address] Glenn Fofana, PharmD 230 [place] [address] 08/07/2024 3:45 PM EDT Office Visit [facility] [address] [place] [address] Chelle Cueto MD 230 [place] [address] 08/13/2024 11:00 AM EDT Clinical Support [facility] DIABETES/NUTRITION 230 [place] [address] 230 [place] [address] documented as of this encounter Visit Diagnoses Not on filedocumented in this encounter Care Teams Clothing Manager Relationship Specialty Start Date End Date Chelle Cueto MD [address] [place] [address] PCP - General Family Medicine 03/14/18 Glenn Fofana, PharmD [address] [place] [address] Pharmacist Internal Medicine 06/12/24 Caro Lee Major AssemblerGun Barrel Finisher 12/01/23 documented as of this encounter
--- OUTSIDE RECORDS SUMMARY | 2024-07-17 14:57 | XMS_ITS | Encounter Summary ---
Author Organization [employer] Address 75 [facility] 7 [place] [address] Care Team Providers Care Loan And Credit Manager Name Role Phone Chelle Cueto MD Primary Care Provider [phone] Glenn Fofana PharmD Unavailable [phone] Reason for Referral * Consultation (Routine) - Authorized Specialty Diagnoses / Procedures Referred By Contac t Referred To Contact Nutrition Diagnoses HTN (hypertension), benign Type 2 diabetes mellitus with hyperglycemia, without long-term current use of insulin (CMS/HCC) Dyslipidemia Class 2 severe obesity due to excess calories with serious comorbidity and body mass index (BMI) of 35.0 to 35.9 in adult (CMS/HCC) Chelle Cueto MD [address] [place] [address] Phone: tel: fax: Referral ID Status Reason Start Date Expiration Date Visits Requested Visits Authorized [id number] Authorized Consult and Treat 05/24/2024 05/24/2025 1 1 Encounter Details Date Type Department Care Team (Late st Contact Info) Description 05/24/2024 Orders Only [facility] [address] [place] [address] [phone] Chelle Cueto MD 230 [place], [place] [phone] HTN (hypertension), benign (Primary Dx); Type 2 diabetes mellitus with hyperglycemia, without long-term current use of insulin (CMS/HCC); Dyslipidemia; Class 2 severe obesity due to excess calories with serious comorbidity and body mass index (BMI) of 35.0 to 35.9 in adult ([facility]) Social History Tobacco Use Types Packs/Day Years [...] Description 07/25/2024 3:00 PM EDT Medication Management [facility] [address] [place] [phone] Glenn Fofana, PharmD [address] [place] [address] 08/07/2024 3:45 PM EDT Office Visit [facility] [address] [place] [address] Chelle Cueto MD [address] [place] [address] 08/13/2024 11:00 AM EDT Clinical Support [facility] DIABETES/NUTRITION [address] [place] [address] [place] [address] Scheduled Referrals Name Type Priority Associated Diagnoses Orde r Schedule Referral to Nutrition Therapy Outpatient Referral Routine HTN (hypertension), benign Type 2 diabetes mellitus with hyperglycemia, without long-term current use of insulin ([facility]) Dyslipidemia Class 2 severe obesity due to excess calories with serious comorbidity and body mass index (BMI) of 35.0 to 35.9 in adult ([facility]/HCC) Expected: 05/24/2024 (Approximate), Expires: 05/24/2025 documented as of this encounter Visit Diagnoses Diagnosis HTN (hypertension), benign- Primary Essential hypertension, benign Type 2 diabetes mellitus with hyperglycemia, without long-term current use of insulin ([facility]) Dyslipidemia Other and unspecified hyperlipidemia Class 2 severe obesity due to excess calories with serious comorbidity and body mass index (BMI) of 35.0 to 35.9 in adult ([facility]) documented in this encounter Additional Health Concerns Assessment Noted Time PHQ-9 Depression Total Score: 15 025 3:52 PM EST documented as of this encounter Care Teams Loan And Credit Manager Relationship Specialty Start Date End Date Chelle Cueto MD [address] [place] [address] PCP - General Family Medicine 03/14/18 Glenn Fofana, PharmD [address] [place] [address] Pharmacist Internal Medicine 06/12/24 Caro Lee Licensed WeigherMedical Staff Physician 12/01/23 documented as of this encounter
--- OUTSIDE RECORDS SUMMARY | 2024-07-17 14:57 | XMS_ITS | Encounter Summary ---
Author Organization [employer] Address 75 [facility] 7t [place] [address] Care Team Providers Care Lobby Concierge Name Role Phone Chelle Cueto MD Primary Care Provider [phone] Glenn Fofana PharmD Unavailable [phone] Reason for Referral * Consultation (Routine) - Closed Specialty Diagnoses / Procedures Referred By Hayden clark Referred To Contact Pharmacy Diagnoses HTN (hypertension), benign Type 2 diabetes mellitus with hyperglycemia, without long-term current use of insulin (CMS/HCC) Chelle Cueto MD 230 [place] [address] Phone: tel: fax: Referral ID Status Reason Start Date Expiration Date V isits Requested Visits Authorized [id number] Closed Continuity of Care 05/14/2024 05/14/2025 6 6 * Consultation (Routine) - Authorized Specialty Diagnoses / Procedures Referred By Hayden clark Referred To Contact Pharmacy Diagnoses HTN (hypertension), benign Type 2 diabetes mellitus with hyperglycemia, without long-term current use of insulin (CMS/HCC) Chelle Cueto MD 230 [place] [address] Phone: tel: fax: Referral ID Status Reason Start Date Expiration Date Visits Requested Visits Authorized [id number] Authorized Consult and Treat 05/14/2024 05/14/2025 6 6 Scheduling Instructions Mainly hypertension and asthma, then diabetes. Thank you Encounter Details Date Type Department Care Team (Late st Contact Info) Description 05/09/2024 Orders Only [facility] 230 [place], [place] [phone] Chelle Cueto MD 230 [place] [address] HTN (hypertension), benign (Primary Dx); Type 2 diabetes mellitus with hyperglycemia, without long-term current use of insulin ([facility]) Social History Tobacco Use Types Packs/Day Years [...] Description 07/25/2024 3:00 PM EDT Medication Management [facility] MEDICINE [address] [place] [address] Glenn Fofana, SriD 230 [place] [address] 08/07/2024 3:45 PM EDT Office Visit [facility] MEDICINE [address] [place] [address] Chelle Cueto MD 230 [place] [address] 08/13/2024 11:00 AM EDT Clinical Support [facility] DIABETES/NUTRITION 230 [place] [address] [place] [address] Scheduled Referrals Name Type Priority Associated Diagnoses Orde r Schedule Referral to Pharmacy CD Outpatient Referral Routine HTN (hypertension), benign Type [...] documented as of this encounter Care Teams Lobby Concierge Relationship Specialty Start Date End Date Chelle Cueto MD [address] [place] [address] PCP - General Family Medicine 03/14/18 Glenn Fofana, PharmD 230 [place] [address] Pharmacist Internal Medicine 06/12/24 Caro Lee Program Coordinator For Residence LifeHvac Estimator 12/01/23 documented as of this encounter
--- OUTSIDE RECORDS SUMMARY | 2024-07-17 14:57 | XMS_ITS | Encounter Summary ---
Author Organization [employer] Address 75 [facility] 7 [place] [address] Care Team Providers Care Chopper Operator Name Role Phone Chelle Cueto MD Primary Care Provider [phone] Glenn Fofana PharmD Unavailable [phone] Reason for Visit * Reason Onset Date Comments Results 03/19/2022 Encounter Details Date Type Department Care Team (Late st Contact Info) Description 03/19/2022 Telephone [facility] 230 [place], [place] [phone] Chelle Cueto MD 230 [place], [place] [phone] Results Social History Tobacco Use Types Packs/Day [...] knee, xrays were done on 02/24/22 at [facility]. documented in this encounter Plan of Treatment Upcoming Encounters Date Type Department Care Team (Late st Contact Info) Description 07/25/2024 3:00 PM EDT Medication Management [facility] [address] [place] [address] Glenn Fofana, PharmElizabeth [address] [place] [address] 08/07/2024 3:45 PM EDT Office Visit [facility] [address] [place] [address] Chelle Cueto MD 230 [place] [address] 08/13/2024 11:00 AM EDT Clinical Support [facility] DIABETES/NUTRITION [address] [place] [address] Sultana Londono, RD [address] [place] [address] documented as of this encounter Visit Diagnoses Not on filedocumented in this encounter Care Teams Chopper Operator Relationship Specialty Start Date End Date Chelle Cueto MD [address] [place] [address] PCP - General Family Medicine 03/14/18 Glenn Fofana, PharmD [address] [place] [address] Pharmacist Internal Medicine 06/12/24 Caro Lee Manager User InterfaceCartoon Animator 12/01/23 documented as of this encounter
== END 2024-07-17 13:37 | disposition home or self-care (01) ==
LOC: HO.HHCX 13:36
PROVIDERS: Visit Provider Family Medicine
DX: M25.512 Pain in left shoulder (principal)
CPT/HCPCS: 73030

== ENCOUNTER → 2024-07-17 13:37 | Outpatient (BNV) | payer MEDICAID, SELFPAY | PROVIDERS: Visit Provider Radiology Diagnostic Radiology | DX: M25.512 Pain in left shoulder (principal) | CPT/HCPCS: 73030 ==

== ENCOUNTER 2024-07-27 14:00 | Outpatient (REF) | payer MEDICAID, SELFPAY ==
--- NOTE | ~2024-07-27 | XR_ITS ---
EXAMINATION: XR LUMBOSACRAL SPINE CLINICAL INFORMATION: M47.816 - Spondylosis without myelopathy or radiculopathy, lumbar region COMPARISON: None available. TECHNIQUE: 7 views of the lumbar spine, inclusive of flexion and extension views, and bilateral oblique views, were obtained. FINDINGS: There is a mild right convex scoliosis, apex at L3. There is a normal lordosis. There are no fractures, compression deformities, or suspicious bone lesions. There is normal alignment in the sagittal plane. No subluxations. There is normal facet alignment. There are mild degenerative facet changes spanning L3-S1. There are no pars defects. There is mild multilevel disc degeneration, most notable at L1-L2. Flexion view and extension view demonstrates no pathologic motion to suggest instability. XR/XR lumbar spine 6V w bending IMPRESSION: 1. Mild to moderate spondylosis of the lumbar spine with mild right convex scoliosis. 2. No evidence of instability on flexion and extension views. Electronically signed by: Brett Spann MD 07/27/2024 03:35 PM EDT
--- OUTSIDE RECORDS SUMMARY | 2024-07-27 14:49 | XMS_ITS | Encounter Summary ---
Author Organization [employer] Address [address] [facility] 7t [place] [address] Care Team Providers Care Director Video Name Role Phone Chelle Cueto MD Primary Care Provider [phone] Glenn Fofana PharmD Unavailable [phone] Encounter Details Date Type Department Care Team ([facility] Contact Info) Description 09/07/2022 Orders Only [facility] MEDICINE [address] [place] [address] Chelle Ceuto MD [address] [place] [phone] Elevated TSH (Primary Dx) Social History Tobacco [...] Upcoming Encounters Date Type Department Care Team ([facility] Contact Info) Description 08/07/2024 3:45 PM EDT Office Visit [facility] MEDICINE [address] [place] [address] [phone] Chelle Cueto MD [address] [place] [address] 08/13/2024 11:00 AM EDT Clinical Support [facility] DIABETES/NUTRITION [address] [place] [address] [place] [address] 08/20/2024 2:30 PM EDT Medication Management [facility] MEDICINE [address] [place], [place] [phone] Glenn Fofana, SriD [address] [place], [place] [phone] Scheduled Orders Name Type Priority Associated Diagnoses [...] * (ABNORMAL) TSH (09/07/2022 2:44 PM EDT) [facility] Signature TSH 6.35(H) mIU/L [employer] [facility] Comment: ?Reference Range ?> or = 20 Years ??0.40-4.50 ? Ranges ?First trimester ?0.26-2.66 ?Second trimester ?? 0.55-2.73 ?Third trimester ?0.43-2.91 Blood Venous blood specimen / Unknown 09/07/2022 2:44 PM EDT 09/07/2022 2:44 PM EDT Chelle Cueto MD LAB BLOOD ORDERABLES Final Resul t Performing Organization Address [facility] de Phone Number [facility] [address] [place] [address], [place] [address] [employer] [place] [employer] [address] [place] [phone] * (ABNORMAL) Thyroid Peroxidase And Thyroglobulin Antibodies (09/07/2022 2:44 PM EDT) Thyroglobulin Antibodies 24(H) < or = 1 IU/mL [facility] [place] [employer] [facility] Thyroid Peroxidase Antibodies 10(H) <9 IU/mL [facility] 09/07/2022 2:44 PM EDT 09/07/2022 2:44 PM EDT Chelle Cueto MD LAB BLOOD ORDERABLES Final Resul t Performing Organization Address [facility] de Phone Number [facility] [address] [place] [address], [facility] [place] [address] [employer] [place] [employer] [address] [place] [phone] * (ABNORMAL) T4, Free (09/07/2022 2:44 PM EDT) T4, Free 0.7(L) 0.8 - 1.8 ng/dL [facility] [place] [employer] [facility] Blood Venous blood specimen / Unknown 09/07/2022 2:44 PM EDT 09/07/2022 2:44 PM EDT Chelle Cueto MD LAB BLOOD ORDERABLES Final Resul t Performing Organization Address City/[facility]/ZIP Co de Phone Number [facility] [address], [facility] [place] [address] [employer] [place] [employer] [address] [place] [address] * T3, Free (09/07/2022 2:44 PM EDT) T3, Free 3.1 2.3 - 4.2 pg/mL [facility] [place] [facility] Blood Venous blood specimen / Unknown 09/07/2022 2:44 PM EDT 09/07/2022 2:44 PM EDT Chelle Cueto MD LAB BLOOD ORDERABLES Final Resul t Performing Organization Address [facility] Co de Phone Number [facility] [address], [facility] [place] [address] [employer] [place] [facility] [address] [place] [address] * XR Foot 3+ Views Right (09/06/2022 3:47 PM EDT) Anatomical Region Laterality Modality Lower Extremities, Foot Right Radiogra phic Imaging 09/06/2022 3:47 PM EDT Narrative 09/22/2022 12:11 PM EDT ?[facility] ?[address] ?[place] [address] ?XRay Report ? Signed ? Patient: Blessing Calderón ?MR#: [id number] ?? [id number] ? : 1970 ?Acct:[id number] ? Age/Sex: 52 / F ?ADM Date: 06/26/23 ? Loc: HO.HHCX ? Attending Dr: Chelle Cueto MD ? Ordering Physician: Chelle Cueto MD ?? Date of Service: 09/06/22 ?? Procedure(s): XR foot RT min 3V ?? Accession Number(s): [id number] ? cc: Chelle Cueto MD ? EXAMINATION: [...] 1208 ? DD/ 1547 ? TD/TT: ? Education Department Registrar: ? Procedure Note Gisel De La O - 09/22/[address] [address] XRay Report Signed Patient: Barry CalderónnMR#: [id number] : 1970Acct:[id number] Age/Sex: 52 / FADM Date: 09/06/22 Loc: HO.HHCX Attending Dr: Chelle Cueto MD Ordering Physician: Chelle Cueto MD Date of Service: 09/06/22 Procedure(s): XR foot RT min 3V Accession Number(s): [id number] cc: Chelle Cueto MD EXAMINATION: XR FOOT, [...] in OV> 09/22/22 1208 DD/ 1547 TD/TT: Education Department Registrar: [facility] External Provider IMG XR PROCEDURES Final Result documented in this encounter Visit Diagnoses Diagnosis Elevated TSH- Primary Other abnormal blood chemistry documented in this encounter Care Teams Director Video Relationship Specialty Start Date End Date Chelle Cueto MD [address] [place] [address] PCP - General Family Medicine 03/14/18 Glenn Fofana, SriD [address] [place] [address] Pharmacist Internal Medicine 06/12/24 Caro Lee Wildland Fire Fighter SpecialistElectronics Repair Technician 12/01/23 documented as of this encounter
--- OUTSIDE RECORDS SUMMARY | 2024-07-27 14:49 | XMS_ITS | Encounter Summary ---
Author Organization [employer] Address 75 [facility] 7t [place] [address] Care Team Providers Care Tugger Operator Name Role Phone Chelle Cueto MD Primary Care Provider [phone] Glenn Fofana PharmD Unavailable [phone] Reason for Referral * Consultation (Routine) - Closed Specialty Diagnoses / Procedures Referred By Hayden clark Referred To Contact Pharmacy Diagnoses HTN (hypertension), benign Type 2 diabetes mellitus with hyperglycemia, without long-term current use of insulin (CMS/HCC) Chelle Cueto MD [address] [place] [address] Phone: tel: fax: Referral ID Status Reason Start Date Expiration Date V isits Requested Visits Authorized [id number] Closed Continuity of Care 05/14/2024 05/14/2025 6 6 * Consultation (Routine) - Authorized Specialty Diagnoses / Procedures Referred By Hayden clark Referred To Contact Pharmacy Diagnoses HTN (hypertension), benign Type 2 diabetes mellitus with hyperglycemia, without long-term current use of insulin (CMS/HCC) Chelle Cueto MD [address] [place] [address] Phone: tel: fax: Referral ID Status Reason Start Date Expiration Date Visits Requested Visits Authorized [id number] Authorized Consult and Treat 05/14/2024 05/14/2025 6 6 Scheduling Instructions Mainly hypertension and asthma, then diabetes. Thank you Encounter Details Date Type Department Care Team (Late st Contact Info) Description 05/09/2024 Orders Only [facility] MEDICINE [address] [place], [place] [phone] Chelle Cueto MD [address] [place] [address] HTN (hypertension), benign (Primary Dx); Type 2 diabetes mellitus with hyperglycemia, without long-term current use of insulin ([facility]) Social History Tobacco Use Types Packs/Day Years [...] Description 08/07/2024 3:45 PM EDT Office Visit [facility] MEDICINE [address] [place] [address] Chelle Cueto MD [address] [place] [address] 08/13/2024 11:00 AM EDT Clinical Support [facility] DIABETES/NUTRITION [address] [place] [address] [place] [address] 08/20/2024 2:30 PM EDT Medication Management [facility] MEDICINE [address] [place] [address] Glenn Fofana, PharmD [address] [place] [address] Scheduled Referrals Name Type Priority Associated Diagnoses [...] documented as of this encounter Care Teams Tugger Operator Relationship Specialty Start Date End Date Chelle Cueto MD [address] [place] [address] PCP - General Family Medicine 03/14/18 Glenn Fofana, PharmD [address] [place] [address] Pharmacist Internal Medicine 06/12/24 Caro Lee Manager PlacementPain Management Specialist 12/01/23 documented as of this encounter
--- OUTSIDE RECORDS SUMMARY | 2024-07-27 14:49 | XMS_ITS | Encounter Summary ---
Author Organization [employer] Address 75 [facility] 7t [place] [address] Care Team Providers Care Unit Controller Name Role Phone Chelle Cueto MD Primary Care Provider [phone] Glenn Fofana PharmD Unavailable [phone] Reason for Visit * Reason Comments Care Coordination CHW outreach for SDO H housing search-referral completed Encounter Details Date Type Department Care Team (Latest Contact Info) Description 07/27/2024 Patient Outreach [facility] MEDICINE [address] [place], [place] [phone] Chelle Cueto MD [address] [place], [place] [phone] Care Coordination (CHW outreach for SDOH housing [...] Wednesdays, and Walk-In Urgent Care Located in [facility]. Patient provided with after-hours line for [facility], , which offer night time triage service and option to transfer to subcontract manager provider if needed. documented in this encounter Plan of Treatment Upcoming Encounters Date Type Department Care Team (Late st Contact Info) Description 08/07/2024 3:45 PM EDT Office Visit [facility] MEDICINE [address] [facility] [place] [address] Chelle Cueto MD [address] [place] [address] 08/13/2024 11:00 AM EDT Clinical Support [facility] DIABETES/NUTRITION [address] [facility] [place] [address] [facility] [place] [address] 08/20/2024 2:30 PM EDT Medication Management [facility] MEDICINE [address] [facility] [place] [address] Glenn Fofana, PharmD [facility] [place] [address] documented as of this encounter Visit Diagnoses Not on filedocumented in this encounter Additional Health Concerns Assessment Noted Time PHQ-9 Depression Total Score: 15 05/08/2 025 3:52 PM EST documented as of this encounter Care Teams Unit Controller Relationship Specialty Start Date End [place] [address] PCP - General Family Medicine 03/14/18 Glenn Fofana, PharmD [facility] [place] [address] Pharmacist Internal Medicine 06/12/24 Caro Lee Senior Marketing AssociateFish Farm Manager 12/01/23 documented as of this encounter
--- OUTSIDE RECORDS SUMMARY | 2024-07-27 14:49 | XMS_ITS | Encounter Summary ---
Author Organization [employer] Address 75 [facility] 7t [place] [address] Care Team Providers Care Vulnerability Researcher Name Role Phone Chelle Cueto MD Primary Care Provider [phone] Glenn Fofana PharmD Unavailable [phone] Reason for Visit * Reason Comments Pre-visit Planning SDOH screening posit benny and Tobacco screening negative Encounter Details Date Type Department Care Team ([facility] st Contact Info) Description 07/27/2024 Patient Outreach [facility] MEDICINE [address] [place], [place] [phone] Chelle Cueto MD [address] [place], [place] [phone] Pre-visit Planning (SDOH screening positive and Tobacco [...] Description 08/07/2024 3:45 PM EDT Office Visit [facility] MEDICINE [address] [place], [place] [phone] Chelle Cuteo MD [address] [place], [place] [phone] 08/13/2024 11:00 AM EDT Clinical Support [facility] DIABETES/NUTRITION [address] [place] [address] [place] [address] 08/20/2024 2:30 PM EDT Medication Management [facility] MEDICINE [address] [place] [address] Glenn Fofana, PharmD [address] [place] [address] documented as of this encounter Visit Diagnoses Not on filedocumented in this encounter Additional Health Concerns Assessment Noted Time PHQ-9 Depression Total Score: 15 025 3:52 PM EST documented as of this encounter Care Teams Vulnerability Researcher Relationship Specialty Start Date End Date Chelle Cueto MD [address] [place] [address] PCP - General Family Medicine 03/14/18 Glenn Fofana, PharmD [address] [place] [address] [phone] Pharmacist Internal Medicine 06/12/24 Caro Lee Supervisor MicrowaveUnhairing Machine Operator 12/01/23 documented as of this encounter
--- OUTSIDE RECORDS SUMMARY | 2024-07-27 14:49 | XMS_ITS | Encounter Summary ---
Author Organization [employer] Address 75 [facility] 7 [place] [address] Care Team Providers Care Surg Physician Asst Name Role Phone Chelle Cueto MD Primary Care Provider [phone] Glenn Fofana PharmD Unavailable [phone] Encounter Details Date Type Department Care Team ([facility] Contact Info) Description 09/06/2022 Abstract [facility] MEDICINE [address] [place] [address] [phone] Chelle Cueto MD [address] [place] [address] Social History Tobacco Use Types Packs/Day Years [...] Upcoming Encounters Date Type Department Care Team ([facility] Contact Info) Description 08/07/2024 3:45 PM EDT Office Visit [facility] MEDICINE [address] [place] [address] [phone] Chelle Cueto MD 230 [facility] [place] [address] 08/13/2024 11:00 AM EDT Clinical Support [facility] DIABETES/NUTRITION [address] [place] [address] Sultana Londono, GERMAN [address] [place] [address] 08/20/2024 2:30 PM EDT Medication Management [facility] MEDICINE [address] [place] [address] Glenn Fofana, PharmD [address] [place] [address] documented as of this encounter Procedures Procedure Name Priority Date/Time Associated Diagnosis Comments MAMMOGRAPHY Routine 08/31/2022 9:39 AM EDT documented in this encounter Results * Mammography (08/31/2022 9:39 AM EDT) Mammogram Bi-rads 1 Anatomical Region Laterality Modality Other Historical Provider HEALTH MAINTENANCE Final Result documented in this encounter Visit Diagnoses Not on filedocumented in this encounter Care Teams Surg Physician Asst Relationship Specialty Start Date End Date [place] [address] PCP - General Family Medicine 03/14/18 Glenn Fofana, PharmD [address] [place] [address] [phone] Pharmacist Internal Medicine 06/12/24 Caro Lee Pediatric RadiologistMacaroni Press Operator 12/01/23 documented as of this encounter
--- OUTSIDE RECORDS SUMMARY | 2024-07-27 14:49 | XMS_ITS | Encounter Summary ---
Author Organization [employer] Address [address] [facility] 7 [place] [address] Care Team Providers Care Gum Dipper Name Role Phone Chelle Cueto MD Primary Care Provider [phone] Glenn Fofana PharmD Unavailable [phone] Reason for Visit * Reason Onset Date Comments Referral 03/19/2022 Encounter Details Date Type Department Care Team (Late st Contact Info) Description 03/19/2022 Telephone [facility] MEDICINE [address] [place], [place] [phone] Chelle Cueto MD [address] [place], [place] [phone] Referral Social History Tobacco Use Types Packs/Day [...] 3:45 PM EDT Office Visit [facility] MEDICINE [address] [place] [address] Chelle Cueto MD [address] [place] [address] 08/13/2024 11:00 AM EDT Clinical Support [facility] DIABETES/NUTRITION [address] [place] [address] [place] [address] 08/20/2024 2:30 PM EDT Medication Management [facility] MEDICINE [address] [place] [address] Glenn Fofana, PharmElizabeth [address] [place] [address] documented as of this encounter Visit Diagnoses Not on filedocumented in this encounter Care Teams Gum Dipper Relationship Specialty Start Date End Date Chelle Cueto MD [address] [place] [address] PCP - General Family Medicine 03/14/18 Glenn Fofana, PharmD [address] [place] [address] Pharmacist Internal Medicine 06/12/24 Caro Lee Instructor FlyingSenior Research Manager 12/01/23 documented as of this encounter
--- OUTSIDE RECORDS SUMMARY | 2024-07-27 14:49 | XMS_ITS | Encounter Summary ---
Author Organization [employer] Address [address] [facility] 7 [place] [address] Care Team Providers Care Head Of Marketing Adometry Name Role Phone Chelle Cueto MD Primary Care Provider [phone] Glenn Fofana PharmD Unavailable [phone] Reason for Visit * Reason Onset Date Comments Results 03/19/2022 Encounter Details Date Type Department Care Team (Late st Contact Info) Description 03/19/2022 Telephone [facility] [address] [place], [place] [phone] Chelle Cueto MD [address] [place], [place] [phone] Results Social History Tobacco Use Types Packs/Day [...] knee, xrays were done on 02/24/22 at [place], [place]. documented in this encounter Plan of Treatment Upcoming Encounters Date Type Department Care Team (Late st Contact Info) Description 08/07/2024 3:45 PM EDT Office Visit [facility] [address] [place] [phone] Chelle Cueto MD [address] [place] [phone] 08/13/2024 11:00 AM EDT Clinical Support [facility] DIABETES/NUTRITION [address] [place] [address] Sultana Londono, GERMAN [address] [place] [address] 08/20/2024 2:30 PM EDT Medication Management [facility] [address] [place] [address] Glenn Fofana, PharmElizabeth [address] [place] [address] documented as of this encounter Visit Diagnoses Not on filedocumented in this encounter Care Teams Head Of Marketing Adometry Relationship Specialty Start Date End Date Chelle Cueto MD [address] [place] [address] PCP - General Family Medicine 03/14/18 Glenn Fofana, PharmD [address] [place] [address] Pharmacist Internal Medicine 06/12/24 Caro Lee Life Skills InstructorRib Matcher And Fitter 12/01/23 documented as of this encounter
--- OUTSIDE RECORDS SUMMARY | 2024-07-27 14:49 | XMS_ITS | Encounter Summary ---
Author Organization [employer] Address 75 [facility] 7 [place] [address] Care Team Providers Care Pershing Missile Crewmember Name Role Phone Chelle Cueto MD Primary Care Provider [phone] Glenn Fofana PharmD Unavailable [phone] Reason for Referral * Consultation (Routine) - [...] 35.9 in adult (CMS/HCC) Chelle Cueto MD [address] [place] [address] Phone: tel: fax: Referral ID Status Reason Start Date Expiration Date Visits Requested Visits Authorized [id number] Authorized Consult and Treat 05/24/2024 05/24/2025 1 1 Encounter Details Date Type Department Care Team (Late st Contact Info) Description 05/24/2024 Orders Only [facility] [address] [place] [address] [phone] Chelle Cueto MD [address] [place], [place] [phone] HTN (hypertension), benign (Primary Dx); Type 2 diabetes mellitus with hyperglycemia, without long-term current use of insulin (CMS/HCC); Dyslipidemia; Class 2 severe obesity due to excess calories with serious comorbidity and body mass index (BMI) of 35.0 to 35.9 in adult ([facility]) Social History Tobacco Use Types [...] Description 08/07/2024 3:45 PM EDT Office Visit [facility] [address] [place] [phone] Chelle Cueto MD [address] [place] [phone] 08/13/2024 11:00 AM EDT Clinical Support [facility] DIABETES/NUTRITION [address] [place] [address] Sultana Londono, GERMAN [address] [place], [place] 08/20/2024 2:30 PM EDT Medication Management [facility] [address] [place] [phone] Glenn Fofana, Raven [address] [place] [address] Scheduled Referrals Name Type Priority Associated Diagnoses Orde r Schedule Referral to Nutrition Therapy Outpatient Referral Routine HTN (hypertension), benign Type 2 diabetes mellitus with hyperglycemia, without long-term current use of insulin ([facility]) Dyslipidemia Class 2 severe obesity due to excess calories with serious comorbidity and body mass index (BMI) of 35.0 to 35.9 in adult ([facility]) Expected: 05/24/2024 (Approximate), Expires: 05/24/2025 documented as of this encounter Visit Diagnoses Diagnosis HTN (hypertension), benign- Primary Essential hypertension, benign Type 2 diabetes mellitus with hyperglycemia, without long-term current use of insulin ([facility]) Dyslipidemia Other and unspecified hyperlipidemia Class 2 severe obesity due to excess calories with serious comorbidity and body mass index (BMI) of 35.0 to 35.9 in adult ([facility]) documented in this encounter Additional Health Concerns Assessment Noted Time PHQ-9 Depression Total Score: 15 025 3:52 PM EST documented as of this encounter Care Teams Pershing Missile Crewmember Relationship Specialty Start Date End Date Chelle Cueto MD [address] [place] [address] PCP - General Family Medicine 03/14/18 Glenn Ffoana, PharmD [address] [place] [address] Pharmacist Internal Medicine 06/12/24 Caro Lee Textile Machine OperatorSupervisor Acoustical Tile Carpenters 12/01/23 documented as of this encounter
--- OUTSIDE RECORDS SUMMARY | 2024-07-27 14:49 | XMS_ITS | Clinical Summary ---
Author Organization [employer] Address 75 [facility] 7t [place] [address] Care Team Providers Care Gas Plumbing Inspector Name Role Phone Chelle Cueto MD Primary Care Provider [phone] Glenn Fofana PharmD Unavailable [phone] Allergies Active Allergy Reactions Criticality Noted Date Comments Ranitidine Rash Low 01/30/2014 Medications * This document contains information received from the source organization and may not represent a complete record from that organization. Alcohol Swabs (Alcohol Prep) padsIndications:T ype 2 diabetes mellitus with hyperglycemia, without long-term current use of insulin ([facility]) Check BG daily as instructed [...] hyperglycemia, without long-term current use of insulin ([facility]) Take 1 tablet (500 mg) by [...] hyperglycemia, without long-term current use of insulin ([facility]) TEST BLOOD SUGAR ONCE DAILY 100 each 5 Active FREESTYLE LITE test stripIndications: Type 2 diabetes mellitus with hyperglycemia, without long-term current use of insulin ([facility]) TEST BLOOD SUGAR ONCE DAILY 50 strip 5 Active Blood Glucose Monitoring Suppl (FreeStyle Rea Lite) w/Device kitIndications:Ty pe 2 diabetes mellitus with hyperglycemia, without long-term current use of insulin ([facility]) TEST BLOOD SUGAR ONCE DAILY [...] her daily routine. Pt was self-referred to [facility] and completed the intake session after [...] reports she moved to an apartment in [place] but the place is infected with rodents [...] daily routine. Provided information for [facility] with [facility] for OP services and psychopharmacology. Information for Community Durability Engineer provided to seek out for legal support. [...] her daily routine. Pt was self-referred to [facility] and completed the intake session [...] reports she moved to an apartment in [place] but the place is infected with rodents [...] OP services and psychopharmacology. Information for Community Durability Engineer provided to seek out for legal support. [...] - evaluate with X-ray - refer to helper/driver - continue wearing comfortable shoes - daily foot check and care - Ordered XR Foot 1-2 Views Right 05/08/24 Assessment & Plan (09/08/2022 9:41 AM EDT): - at 5th MTP - evaluate with X-ray - refer to helper/driver - continue wearing comfortable shoes - daily [...] Continue montelukast Consider referral to allergy / simulation specialist for allergy testing and immunotherapy Assessment & Plan (09/08/2022 9:44 AM EDT): Continue antihistamine, currently fexofenadine Continue fluticasone nasal spray Continue montelukast Consider referral to allergy / simulation specialist for allergy testing and immunotherapy Assessment & Plan (02/28/2022 9:45 AM EST): ?? Continue antihistamine, currently fexofenadine ?? Continue fluticasone nasal spray ?? Continue montelukast ?? Consider referral to allergy / simulation specialist for allergy testing and immunotherapy Gastroesophageal [...] Department Care Team Description 07/27/2024 Patient Outreach [facility] [address] [place] [address] Chelle Cueto MD Care Coordination (CHW outreach for SDOH housing search-referral completed ) 07/27/2024 Patient Outreach [facility] [address] [place] [address] Chelle Cueto MD Pre-visit Planning (SDOH screening positive and Tobacco screening negative) 07/20/2024 Telephone [facility] [address] [place], [place] [phone] Chelle Cueto MD Referral 07/18/2024 Refill [facility] [address] [place], [place] [phone] Chelle Cueto MD 07/17/2024 1:20 PM EDT Office Visit [facility] [address] [place] [address] Yris Billings MD Left shoulder pain, unspecified chronicity (Primary Dx) 07/17/2024 11:00 AM EDT Clinical Support [facility] [address] [place] [address] Essential hypertension, benign (Primary Dx); Type 2 diabetes mellitus with hyperglycemia, without long-term current use of insulin ([facility]); Dyslipidemia; Class 2 severe obesity due to excess calories with serious comorbidity and body mass index (BMI) of 35.0 to 35.9 in adult ([facility]) 07/17/2024 Telephone [facility] [address] [place] [phone] Yris Billings MD 07/17/2024 Refill [facility] [address] [place] [address] Deb Boswell ANP 07/17/[address] [address] Chelle Cueto MD 07/12/[address] [address] Chelle Cueto MD Letter Request (I called the patient regarding a request for a letter for housing. She stated that she is requesting a first floor apartment. She has difficulty negotiating stairs, due to having arthritis of her left knee and left hip. She stated that she also has warts on the soles of her feet, which makes walking very painful.) 07/12/[address] [address] Chelle Cueto MD Referral 07/10/2024 1:45 PM EDT Office Visit [address] [address] Chelle Cueto MD Acute low back pain, unspecified back pain laterality, unspecified whether sciatica present (Primary Dx) 07/10/2024 Travel 06/29/2024 3:00 PM EDT Nutrition [facility] [address] [place] [address] HTN (hypertension), benign; Type 2 diabetes mellitus with hyperglycemia, without long-term current use of insulin (CMS/HCC); Dyslipidemia; Class 2 severe obesity due to excess calories with serious comorbidity and body mass index (BMI) of 35.0 to 35.9 in adult ([facility]) 06/29/2024 Travel 06/29/2024 Telephone [facility] [address] [place] [address] Jagdeep Roula, [place] may recall 06/25/2024 2:30 PM EDT Office Visit [facility] [address] [place] [address] Shyam, Valerie, OD Type 2 diabetes mellitus without ophthalmic manifestations (CMS/HCC) (Primary Dx); Chorioretinal scar of both eyes; Dry eye syndrome of both eyes; Presbyopia of both eyes 06/25/2024 Travel 06/08/2024 Travel 05/30/2024 Orders Only [facility] [address] [place] [address] Chelle Cueto MD 05/25/2024 Telephone [facility] [address] [place] [address] Chelle Cueto MD No Show 05/25/2024 Population Health Risk Score [facility] () Department [address] [place] [phone] Provider, Population Health Generic 05/24/2024 Orders Only [facility] [address] [place] [address] Chelle Cueto MD HTN (hypertension), benign (Primary Dx); Type 2 diabetes mellitus with hyperglycemia, without long-term current use of insulin (CMS/HCC); Dyslipidemia; Class 2 severe obesity due to excess calories with serious comorbidity and body mass index (BMI) of 35.0 to 35.9 in adult ([facility]) 05/23/2024 Telephone [facility] [address] [place] [address] Chelle Cueto MD Prior Authorization 05/22/2024 Refill [facility] [address], [place] [phone] Chelle Cueto MD 05/22/2024 Travel 05/09/2024 Orders Only [address] [address] Chelle Cueto MD HTN (hypertension), benign (Primary Dx); Type 2 diabetes mellitus with hyperglycemia, without long-term current use of insulin ([facility]) 05/09/[address] [address] Chelle Cueto MD 05/08/2024 3:00 PM EST Office Visit [address] [address] Chelle Cueto MD HTN (hypertension), benign (Primary Dx); Type 2 diabetes mellitus with hyperglycemia, without long-term current use of insulin ([facility]); Right foot pain; Otalgia of both ears; Dietary counseling; Exercise counseling; Class 2 severe obesity due to excess calories with serious comorbidity and body mass index (BMI) of 35.0 to 35.9 in adult ([facility]); Dyslipidemia; Mixed anxiety and depressive disorder; Mood disorder ([facility]); Acquired hypothyroidism 05/08/[address] [address] Chelle Cueto MD Appointment Request 05/08/2024 Travel 05/02/[address] [address] Chelle Cueto MD Chart Prep from Last [...] Description 08/07/2024 3:45 PM EDT Office Visit [facility] [address] [place] [address] Chelle Cueto MD 230 [place] [address] 08/13/2024 11:00 AM EDT Clinical Support [facility] [address] [place] [address] Sultana Londono, GERMAN [address] [place] [address] 08/20/2024 2:30 PM EDT Medication Management [facility] [address] [place] [address] Glenn Fofana, PharmD [address] [place] [address] Health Maintenance Due Date Last Done Comments [...] PM EDT Narrative 07/17/2024 2:13 PM EDT ?[facility] ?[address] ?[place] [address] ?XRay Report ? Signed ? Patient: Blessing Calderón ?MR#: M ?? [id number] ? : 1970 ?Acct:[id number] ? Age/Sex: 54 / F ?ADM Date: 07/17/24 ? Loc: HO.HHCX ? Attending Dr: Yris Billings MD ? Ordering Physician: Yris Billings MD ?? Date of Service: 07/17/24 ?? Procedure(s): XR shoulder LT min 2V ?? Accession Number(s): [id number] ? cc: Yris Billings MD ? EXAMINATION: [...] DD/ 1337 ? TD/TT: 07/17/24 1400 ? [employer] Access[employer] Salesperson: ? Procedure Note Jaylyn, Image - 07/17/2024 [facility] [address] [place] [address] XRay Report Signed Patient: Marv Calderón#: M [id number] : 1970Acct:[id number] Age/Sex: 54 / FADM Date: 07/17/24 Loc: HO.HHCX Attending Dr: Yris Billings MD Ordering Physician: Yris Billings MD Date of Service: 07/17/24 Procedure(s): XR shoulder LT min 2V Accession Number(s): [id number] cc: Yris Billings MD EXAMINATION: XR SHOULDER [...] 07/17/24 1410 DD/ 1337 TD/TT: 07/17/24 1400 [employer] Salesperson: Yris Billings MD IMG XR PROCEDURES Final Re sult * TSH with Reflex to Free T4 (05/22/2024 3:24 PM EDT) TSH reflex Free T4 3.95 0.32 - 4.0 uIU/mL [facility] Blood 05/22/2024 3:24 PM EDT 05/22/2024 4:42 PM EDT Chelle Cueto MD LAB BLOOD ORDERABLES Final Resul t [facility] [address] [place] [address] [phone] * Basic Metabolic Panel (05/22/2024 3:24 PM EDT) Sodium 141 135 - 145 mmol/L [facility] Potassium 3.5 3.3 - 5.1 mmol/L [facility] Chloride 105 96 - 108 mmol/L [facility] Carbon Dioxide 28 22 - 29 mmol/L [facility] Anion Gap 12 12 - 20 [facility] Urea Nitrogen (BUN) 16 9 - 16 mg/dL [facility] Creatinine, Serum 0.95 0.5 - 1.4 mg/dL [facility] Estimated Glomerular Filt Rate >60 [facility] Comment:Chronic Kidney Disea se: Estimated GFR < 60 mL/min/1.92j7Akbsrb Kidney Disease: Estimated GFR < 15 mL/min/1.73m2 Glucose 109 60 - 115 mg/dL [facility] Calcium 9.8 8.4 - 10.2 mg/dL [facility] Blood Venous blood specimen / Unknown 05/22/2024 3:24 PM EDT 05/22/2024 4:42 PM EDT Chelle Cueto MD LAB BLOOD ORDERABLES Final Resul t Performing Organization Address [facility] Co de Phone Number [facility] [address] [place] [phone] * (ABNORMAL) POCT glycosylated hemoglobin (Hgb [...] Media Lot # [id number] Lot# Expiration Date [id number] Blood Capillary blood specimen / Unknown 05/08/2024 2:46 PM EST Chelle Cueto MD POINT OF CARE TEST ENTER/EDIT OR DERABLES Final Result * (ABNORMAL) Lipid Panel with Reflex to Direct LDL (12/29/2023 12:40 PM EDT) Triglycerides 172(H) <150 mg/dL [facility] Comment:Desirable Triglyceri de: less than 150 mg/dLBorderline High Triglyceride 150-199 mg/dLHigh Triglyceride: 200-499 mg/dLVery High Triglyceride: greater than or equal to 5OO mg/dL Cholesterol 202(H) <200 mg/dL [facility] Comment:Desirable Cholestero l: less than 200 mg/dLBorderline High Cholesterol: 200-239 mg/dLHigh Cholesterol: greater than 239 mg/dL LDL Cholesterol Calculated 128(H) <100 mg/dL [facility] Comment:Desirable LDL: less than 100 mg/dLNear Optimal/Above Optimal LDL: 110- 129 mg/dLBorderline High LDL: 130-159 mg/dLHigh LDL: 160-189 mg/dLVery High LDL: greater than or equal to 190 mg/dL HDL Cholesterol 40(L) >40 mg/dL [facility] Comment:Desirable HDL: great er than 40 mg/dL Note: This HDL assay may give artificially low results in patients with liver disease. Blood 12/29/2023 12:4 0 PM EDT 12/29/2023 1:21 PM EDT Chelle Cueto MD LAB BLOOD ORDERABLES Final Resul t [facility] [address] [place] [address] [phone] * Albumin, Random Urine W/Creatinine (12/29/2023 12:40 PM EDT) Creatinine, Urine 147.95 mg/dL [facility] Microalbumin Urine 30.0 mg/L [facility] Microalbum Creatinine Ratio Ur 20.2 <30 ug/mg cr [facility] Comment:Albumin/Creatinine R atio Reference Ranges: Normal: < 30 ug/mg creatinine Microalbuminuria: 30 - 300 ug/mg creatinineClinical Albuminuria: > 300 ug/mg creatinine Urine 12/29/2023 12:4 0 PM EDT 12/29/2023 1:20 PM EDT Chelle Cueto MD LAB URINE ORDERABLES Final Resul t Performing Organization Address [facility] Co de Phone Number [facility] [address] [place] [phone] * Hepatitis C Antibody with Reflex to HCV, RNA, Quantitative, Real-Time PCR (12/29/2023 12:40 PM EDT) Hepatitis C Antibody Nonreactive Nonreactive [facility] Comment:Antibodies to HCV no t detected; does not exclude early acuteHCV infection. Blood Venous blood specimen / Unknown 12/29/2023 12:40 PM EDT 12/29/2023 1:21 PM EDT Chelle Cueto MD LAB BLOOD ORDERABLES Final Resul t Performing Organization Address [facility] Co de Phone Number [facility] [address] [place] [address] [phone] * HIV-1/2 Antigen and Antibodies, Fourth Generation, with Reflexes (12/29/2023 12:40 PM EDT) HIV AB/AG Nonreactive Nonreactive [facility] Comment:HIV-1 p24 Ag and/or HIV-1/HIV-2 Ab not detected.A test result that is nonreactive does not exclude thepossibility of exposure to or infection with HIV-1 and/orHIV-2. Nonreactive results in this assay for individualswith prior exposure to HIV-1 and/or HIV-2 may be due toantigen and antibody levels that are below the limit ofdetection of this assay.The [employer] HIV Ag/Ab Combo assay result andsupplemental assay results should be interpreted inconjunction with the patient's clinical presentation,history and other laboratory results. If the results areinconsistent with clinical evidence, additional testing issuggested to confirm the result. Blood Venous blood specimen / Unknown 12/29/2023 12:40 PM EDT 12/29/2023 1:21 PM EDT us Chelle Cueto MD LAB BLOOD ORDERABLES Final Resul t [facility] [address] [place] [address] [phone] * BI Mammogram Screening Tomosynthesis Bilateral (10/24/2023 4:15 PM EDT) Anatomical Region Laterality Modality Breast Bilateral Mammography 10/24/2023 4:15 PM EDT Narrative 11/17/2023 8:43 PM EDT ? [facility] ? [address] ?[place] [address] ? Mammography Report ? Signed ? Patient: Blessing Calderón ?MR#: M ?? [id number] ? : 1970 ?Acct:[id number] ? Age/Sex: 53 / F ?ADM Date: 08/12/24 ? Loc: HO.MAMMO ? Attending Dr: Chelle Cueto MD ? Ordering Physician: Chelle Cueto MD ?Results: 1Negative ? Date of Service: 10/24/23 ?Follow Up: 1 Year From Orig ?? inal Mammogram ? Procedure(s): MM tomosynthesis screening BI ?? Accession Number(s): [id number] ? cc: Chelle Cueto MD ? EXAMINATION: [...] DD/ 1615 ? TD/TT: 10/24/23 1627 ? [employer] Salesperson: ? Procedure Note Donotuseinterpreter, Image - 11/17/2023 [facility] [address] [place], [place] [address] Mammography Report Signed Patient: Barry CalderónnMR#: M [id number] : 1970Acct:[id number] Age/Sex: 53 / FADM Date: 10/24/23 Loc: HO.MAMMO Attending Dr: Chelle Cueto MD Ordering Physician: Chelle Cuetoults: 1Negative Date of Service: 10/24/23Follow Up: 1 Year From Orig inal Mammogram Procedure(s): MM tomosynthesis screening BI Accession Number(s): [id number] cc: Chelle Cueto MD EXAMINATION: MM SCREENING [...] 11/17/232040 DD/ 1615 TD/TT: 10/24/23 1627 [employer] Salesperson: Chelle Cueto MD IM BI PROCEDURES Edited Result - Final from Last 3 Months or Most Recently Relevant to Health Maintenance Insurance Care Teams Gas Plumbing Inspector Relationship Specialty Start Date End Date Chelle Cueto MD [address] [place] [phone] PCP - General Family Medicine 03/14/18 Glenn Fofana, PharmD [address] [place] [phone] Pharmacist Internal Medicine 06/12/24 Caro Lee Database DeveloperIntellectual Property Lawyer 12/01/23
--- OUTSIDE RECORDS SUMMARY | 2024-07-27 14:49 | XMS_ITS | Encounter Summary ---
Author Organization [employer] Address [address] [facility] 7 [place] [address] Care Team Providers Care Senior Manufacturing Test Engineer Name Role Phone Chelle Cueto MD Primary Care Provider [phone] Glenn Fofana PharmD Unavailable [phone] Encounter Details Date Type Department Care Team (Late Contact Info) Description 03/23/2022 Orders Only [facility] MEDICINE [address] [place] [address] [phone] Chelle Cueto MD [address] [place] [address] [phone] Type 2 diabetes mellitus with hyperglycemia, without long-term current use of insulin ([facility]) (Primary Dx) Social History Tobacco Use Types [...] 3:45 PM EDT Office Visit [facility] MEDICINE [address] [place] [address] Chelle Cueto MD [address] [place] [address] 08/13/2024 11:00 AM EDT Clinical Support [facility] DIABETES/NUTRITION [address] [place] [address] Sultana Londono, GERMAN [address] [place] [address] 08/20/2024 2:30 PM EDT Medication Management [facility] MEDICINE [address] [place] [address] Glenn Fofana, PharmElizabeth [address] [place] [phone] documented as of this encounter Visit Diagnoses Diagnosis Type 2 diabetes mellitus with hyperglycemia, without long-term current use of insulin ([facility])- Primary documented in this encounter Care Teams Senior Manufacturing Test Engineer Relationship Specialty Start Date End Date Chelle Cueto MD [address] [place] [address] [phone] PCP - General Family Medicine 03/14/18 Glenn Fofana, PharmD [address] [place] [address] [phone] Pharmacist Internal Medicine 06/12/24 Caro Lee [facility] SupervisorSupervisor Remelt 12/01/23 documented as of this encounter
== END 2024-07-27 14:01 | disposition home or self-care (01) ==
LOC: HO.XRAY 14:00
PROVIDERS: PCP Family Medicine; Referring Provider Family Medicine; Visit Provider Registered Nurse Emergency
DX: M47.816 Spondylosis without myelopathy or radiculopathy, lumbar region (principal); M54.50 Low back pain, unspecified
CPT/HCPCS: 72114; 99212

== ENCOUNTER 2024-07-27 14:00 | Outpatient (AMB) | payer MEDICAID, SELFPAY ==
--- OUTSIDE RECORDS SUMMARY | 2024-07-27 14:03 | XMS_ITS | Encounter Summary ---
Author Organization [employer] Address 75 [facility] 7t [place] [address] Care Team Providers Care Manager Lpn Name Role Phone Chelle Cueto MD Primary Care Provider Glenn Fofana PharmD Unavailable [phone] Encounter Details Date Type Department Care Team ([facility] Contact Info) Description 09/07/2022 Orders Only [facility] [address] [place] [address] Chelle Cueto MD [address] [place] [address] Elevated TSH (Primary Dx) Social History Tobacco [...] Upcoming Encounters Date Type Department Care Team ([facility] Contact Info) Description 08/07/2024 3:45 PM EDT Office Visit [facility] [address] [place] [address] [phone] Chelle Cueto MD 230 [place] [address] 08/13/2024 11:00 AM EDT Clinical Support [facility] DIABETES/NUTRITION 230 [place] [address] [place] [address] 08/20/2024 2:30 PM EDT Medication Management [facility] MEDIC[facility] 230 [place], [place] [phone] Glenn Fofana, SriD [address] [place], [place] [phone] Scheduled Orders Name Type Priority Associated Diagnoses [...] * (ABNORMAL) TSH (09/07/2022 2:44 PM EDT) [facility] Signature TSH 6.35(H) mIU/L [employer] [facility] Comment: ?Reference Range ?> or = 20 Years ??0.40-4.50 ? Ranges ?First trimester ?0.26-2.66 ?Second trimester ?? 0.55-2.73 ?Third trimester ?0.43-2.91 Blood Venous blood specimen / Unknown 09/07/2022 2:44 PM EDT 09/07/2022 2:44 PM EDT Chelle Cueto MD LAB BLOOD ORDERABLES Final Resul t Performing Organization Address [facility] de Phone Number [facility] [address] [place] [address], [place] [address] [employer] [place] [facility] [address] [place] [phone] * (ABNORMAL) Thyroid Peroxidase And Thyroglobulin Antibodies (09/07/2022 2:44 PM EDT) Thyroglobulin Antibodies 24(H) < or = 1 IU/mL [facility] [place] [employer] [facility] Thyroid Peroxidase Antibodies 10(H) <9 IU/mL [facility] 09/07/2022 2:44 PM EDT 09/07/2022 2:44 PM EDT Chelle Cueto MD LAB BLOOD ORDERABLES Final Resul t Performing Organization Address [facility] de Phone Number [facility] [address] [place] [address], [facility] [place] [address] [employer] [place] [facility] [address] [place] [phone] * (ABNORMAL) T4, Free (09/07/2022 2:44 PM EDT) T4, Free 0.7(L) 0.8 - 1.8 ng/dL [facility] [place] [employer] [facility] Blood Venous blood specimen / Unknown 09/07/2022 2:44 PM EDT 09/07/2022 2:44 PM EDT Chelle Cueto MD LAB BLOOD ORDERABLES Final Resul t Performing Organization Address City/[facility]/ZIP Co de Phone Number [facility] [address], [facility] [place] [facility] [place] [address] [employer] [place] [facility] [address] [place] [address] * T3, Free (09/07/2022 2:44 PM EDT) T3, Free 3.1 2.3 - 4.2 pg/mL [facility] Blood Venous blood specimen / Unknown 09/07/2022 2:44 PM EDT 09/07/2022 2:44 PM EDT Chelle Cueto MD LAB BLOOD ORDERABLES Final Resul t Performing Organization Address [facility] Co de Phone Number [facility] [address], [facility] [place] [facility] [place] [address] [facility] [place] [facility] [address] [place] [address] * XR Foot 3+ Views Right (09/06/2022 3:47 PM EDT) Anatomical Region Laterality Modality Lower Extremities, Foot Right Radiogra phic Imaging 09/06/2022 3:47 PM EDT Narrative 09/22/2022 12:11 PM EDT ?[facility] ?[address] ?[place] [address] ?XRay Report ? Signed ? Patient: Blessing Calderón ?MR#: [id number] ?? [id number] ? : 1970 ?Acct:[id number] ? Age/Sex: 52 / F ?ADM Date: 06/26/23 ? Loc: HO.HHCX ? Attending Dr: Chelle Cueto MD ? Ordering Physician: Chelle Cueto MD ?? Date of Service: 09/06/22 ?? Procedure(s): XR foot RT min 3V ?? Accession Number(s): [id number] ? cc: Chelle Cueto MD ? EXAMINATION: [...] 1208 ? DD/ 1547 ? TD/TT: ? Early [employer] Teacher: ? Procedure Note Gisel De La O - 09/22/[address] [address] XRay Report Signed Patient: Barry CalderónnMR#: [id number] : 1970Acct:[id number] Age/Sex: 52 / FADM Date: 09/06/22 Loc: HO.HHCX Attending Dr: Chelle Cueto MD Ordering Physician: Chelle Cueto MD Date of Service: 09/06/22 Procedure(s): XR foot RT min 3V Accession Number(s): [id number] cc: Chelle Cueto MD EXAMINATION: XR FOOT, [...] in OV> 09/22/22 1208 DD/ 1547 TD/TT: Early Head Start Teacher: [facility] External Provider IMG XR PROCEDURES Final Result documented in this encounter Visit Diagnoses Diagnosis Elevated TSH- Primary Other abnormal blood chemistry documented in this encounter Care Teams Manager Lpn Relationship Specialty Start Date End Date Chelle Cueto MD [address] [place] [address] PCP - General Family Medicine 03/14/18 Glenn Fofana, SriD [address] [place] [address] Pharmacist Internal Medicine 06/12/24 Caro Lee Assembler InsulatorGarage Door Service Technician 12/01/23 documented as of this encounter
--- OUTSIDE RECORDS SUMMARY | 2024-07-27 14:03 | XMS_ITS | Clinical Summary ---
Author Organization [employer] Address [address] [facility] [address] [place] [address] Care Team Providers Care Fuel [place] Attendant Name Role Phone Chelle Cueto MD Primary Care Provider [phone] Glenn Fofana PharmD Unavailable [phone] Allergies Active Allergy Reactions Criticality Noted Date Comments Ranitidine Rash Low 01/30/2014 Medications * This document contains information received from the source organization and may not represent a complete record from that organization. Alcohol Swabs (Alcohol Prep) padsIndications:T ype 2 diabetes mellitus with hyperglycemia, without long-term current use of insulin ([facility]) Check BG daily as instructed 50 each 11 022 Active acetaminophen (Tylenol 8 Hour) 650 MG [...] hyperglycemia, without long-term current use of insulin ([facility]) Take 1 tablet (500 mg) by mouth with breakfast and with evening meal. Do not crush, chew, or split. 180 tablet 3 024 Active fexofenadine (Fabiana Allergy) 180 MG tablet TAKE 1 TABLET BY MOUTH EVERY MORNING 90 tablet 3 024 Active montelukast (Singulair) 10 MG tablet TAKE [...] of candidiasis. Do not swallow. 1 each 024 2024 Active D3 Super Strength 50 MCG (1999 UT) capsule TAKE 1 CAPSULE BY MOUTH DAILY IN THE MORNING 90 capsule 3 Active levothyroxine (Synthroid, Levoxyl) 50 MCG tabletIndications :Subclinical hypothyroidism TAKE 1 TABLET BY MOUTH DAILY BEFORE BREAKFAST 90 tablet 3 Active TRUEplus Lancets 33G miscIndications:T ype 2 diabetes mellitus with hyperglycemia, without long-term current use of insulin ([facility]) TEST BLOOD SUGAR ONCE DAILY 100 each 5 Active FREESTYLE LITE test stripIndications: Type 2 diabetes mellitus with hyperglycemia, without long-term current use of insulin ([facility]) TEST BLOOD SUGAR ONCE DAILY 50 strip 5 Active Blood Glucose Monitoring Suppl (FreeStyle Havana Lite) w/Device kitIndications:Ty pe 2 diabetes mellitus with hyperglycemia, without long-term current use of insulin ([facility]) TEST BLOOD SUGAR ONCE DAILY IN THE MORNING DIRECTED 1 kit Active omeprazole (PriLOSEC) [address] capsule TAKE 1 CAPSULE BY MOUTH EVERY DAY BEFORE A MEAL 90 capsule 1 Active Multiple Vitamin (multivitamin) tablet Take 1 tablet by mouth Once per day. 90 tablet 3 Active docusate sodium (Colace) 100 MG capsule Take 1 capsule (100 mg) by mouth if needed in the morning and at bedtime for constipation. 60 capsule 3 Active Dulaglutide (Trulicity) 0.75 MG/0.5ML solution auto-injector Inject 0.75 mg under the skin 1 (one) time per week. 2 mL 11 025 Active melatonin 5 MG tablet take 2 tablets by mouth every day at bedtime 025 Active meloxicam (Mobic) 7.5 MG tablet Take 1 or 2 tablets by mouth once daily as needed for severe pain 60 tablet 2 Active Diclofenac Sodium 1 % gel Apply to affected area once or twice daily 350 g 1 025 Active cyclobenzaprine (Flexeril) 10 MG tablet Take 1 tablet (10 mg) by mouth if needed at bedtime for muscle spasms. 30 tablet 2 Active fluticasone (Flonase) 50 MCG/ACT nasal spray INSTILL 2 SPRAYS IN EACH NOSTRIL ONCE DAILY IN THE MORNING 48 g 025 Active ibuprofen 600 MG tabletIndications :Left shoulder pain, unspecified chronicity Take 1 tablet (600 mg) by mouth every 8 (eight) hours if needed for mild pain for up to 10 days. 30 tablet 025 2024 Active albuterol (2.5 MG/3ML) 0.083% nebulizer solution INHALE 1 AMPULE USING A NEBULIZER EVERY 4 HOURS NEEDED FOR WHEEZING 025 Active fluticasone (Flonase Allergy Relief) 50 MCG/ACT nasal spray Administer 2 sprays into each nostril in the morning. 48 g 023 2024 Discontinued albuterol 1.25 MG/3ML nebulizer solution Take 6 mL (2.5 mg) by nebulization every 4 (four) hours if needed for wheezing. 75 mL 11 024 2024 Discontinued(T herapy completed) Active Problems Problem Noted Date Diagnosed Date [...] her daily routine. Pt was self-referred to [facility] and completed the intake session after [...] reports she moved to an apartment in [place] but the place is infected with rodents [...] daily routine. Provided information for [facility] with [facility] for OP services and psychopharmacology. Information for Community Conveyor Belt Installer provided to seek out for legal support. [...] her daily routine. Pt was self-referred to [facility] and completed the intake session after [...] reports she moved to an apartment in [place] but the place is infected with rodents [...] OP services and psychopharmacology. Information for Community Con[employer]or Belt Installer provided to seek out for legal support. [...] - evaluate with X-ray - refer to airdox fitter - continue wearing comfortable shoes - daily foot check and care - Ordered XR Foot 1-2 Views Right 05/08/24 Assessment & Plan (09/08/2022 9:41 AM EDT): - at 5th MTP - evaluate with X-ray - refer to airdox fitter - continue wearing comfortable shoes - daily [...] Continue montelukast Consider referral to allergy / regional extension service specialist for allergy testing and immunotherapy Assessment & Plan (09/08/2022 9:44 AM EDT): Continue antihistamine, currently fexofenadine Continue fluticasone nasal spray Continue montelukast Consider referral to allergy / regional extension service specialist for allergy testing and immunotherapy Assessment & Plan (02/28/2022 9:45 AM EST): ?? Continue antihistamine, currently fexofenadine ?? Continue fluticasone nasal spray ?? Continue montelukast ?? Consider referral to allergy / regional extension service specialist for allergy testing and immunotherapy Gastroesophageal [...] organization. Date Type Department Care Team Description 07/27/2024 Patient Outreach [facility] [address] [place] [phone] Chelle Cueto MD Care Coordination (CHW outreach for SDOH housing search-referral completed ) 07/27/2024 Patient Outreach [facility] [address] [place] [address] Chelle Cueto MD Pre-visit Planning (SDOH screening positive and Tobacco screening negative) 07/20/2024 Telephone [facility] [address] [place], [place] [phone] Chelle Cueto MD Referral 07/18/2024 Refill [facility] MED & PEDS [address] [place], [place] [phone] Chelle Cueto MD 07/17/2024 1:20 PM EDT Office Visit [facility] [address] [place] [address] Yris Billings MD Left shoulder pain, unspecified chronicity (Primary Dx) 07/17/2024 11:00 AM EDT Clinical Support [facility] DIABETES/NUTRITION [address] [place] [phone] Essential hypertension, benign (Primary Dx); Type 2 diabetes mellitus with hyperglycemia, without long-term current use of insulin ([facility]); Dyslipidemia; Class 2 severe obesity due to excess calories with serious comorbidity and body mass index (BMI) of 35.0 to 35.9 in adult ([facility]) 07/17/2024 Telephone [facility] [address] [place] [phone] Yris Billings MD 07/17/2024 Refill [facility] [address] [place] [phone] Deb Boswell ANP 07/17/[address] [address] Chelle Cueto MD 07/12/[address] [address] Chelle Cueto MD Letter Request (I called the patient regarding a request for a letter for housing. She stated that she is requesting a first floor apartment. She has difficulty negotiating stairs, due to having arthritis of her left knee and left hip. She stated that she also has warts on the soles of her feet, which makes walking very painful.) 07/12/[address] [address] Chelle Cueto MD Referral 07/10/2024 1:45 PM EDT Office Visit [address] [address] Chelle Cueto MD Acute low back pain, unspecified back pain laterality, unspecified whether sciatica present (Primary Dx) 07/10/2024 Travel 06/29/2024 3:00 PM EDT Nutrition [facility] DIABETES/NUTRITION [address] [place] [phone] HTN (hypertension), benign; Type 2 diabetes mellitus with hyperglycemia, without long-term current use of insulin (CMS/HCC); Dyslipidemia; Class 2 severe obesity due to excess calories with serious comorbidity and body mass index (BMI) of 35.0 to 35.9 in adult ([facility]) 06/29/2024 Travel 06/29/2024 Telephone [facility] [address] [place] [address] Jagdeep Roula, [place] may recall 06/25/2024 2:30 PM EDT Office Visit [facility] OPTOMETRY [address] [place] [address] Shyam, Valerie, OD Type 2 diabetes mellitus without ophthalmic manifestations (CMS/HCC) (Primary Dx); Chorioretinal scar of both eyes; Dry eye syndrome of both eyes; Presbyopia of both eyes 06/25/2024 Travel 06/08/2024 Travel 05/30/2024 Orders Only [facility] [address] [place] [address] Chelle Cueto MD 05/25/2024 Telephone [facility] [address] [place] [address] Chelle Cueto MD No Show 05/25/2024 Population Health Risk Score [facility] () Department [address] [place] [phone] Provider, Population Health Generic 05/24/2024 Orders Only [facility] [address] [place] [address] Chelle Cueto MD HTN (hypertension), benign (Primary Dx); Type 2 diabetes mellitus with hyperglycemia, without long-term current use of insulin (CMS/HCC); Dyslipidemia; Class 2 severe obesity due to excess calories with serious comorbidity and body mass index (BMI) of 35.0 to 35.9 in adult ([facility]) 05/23/2024 Telephone [facility] [address] [place] [address] Chelle Cueto MD Prior Authorization 05/22/2024 Refill [facility] CH[facility] MED & PEDS [address] [place], [place] [phone] Chelle Cueto MD 05/22/2024 Travel 05/09/2024 Orders Only [address] [address] Chelle Cueto MD HTN (hypertension), benign (Primary Dx); Type 2 diabetes mellitus with hyperglycemia, without long-term current use of insulin ([facility]) 05/09/[address] [address] Chelle Cueto MD 05/08/2024 3:00 PM EST Office Visit [address] [address] Chelle Cueto MD HTN (hypertension), benign (Primary Dx); Type 2 diabetes mellitus with hyperglycemia, without long-term current use of insulin ([facility]); Right foot pain; Otalgia of both ears; Dietary counseling; Exercise counseling; Class 2 severe obesity due to excess calories with serious comorbidity and body mass index (BMI) of 35.0 to 35.9 in adult ([facility]); Dyslipidemia; Mixed anxiety and depressive disorder; Mood disorder ([facility]); Acquired hypothyroidism 05/08/[address] [address] Chelle Cueto MD Appointment Request 05/08/2024 Travel 05/02/[address] [address] Chelle Cueto MD Chart Prep from Last 3 Months Immunizations Immunization Administration Dates Next Due Hep A, Adult [...] housing situation today? I have felipe camacho 07/27/[address] you li ve. Do you have problems with any of the following? Pests such as bugs, ants, or mice 07/27/2024 Food Insecurity Answer Date Recorded Within the [...] getting things needed for daily living? No 07/27/2024 Utilities Answer Date Recorded In the past [...] Care Team (Late st Contact Info) Description 08/07/2024 3:45 PM EDT Office Visit [facility] [address] [place] [phone] Chelle Cueto MD [address] [place] [address] 08/13/2024 11:00 AM EDT Clinical Support [facility] DIABETES/NUTRITION [address] [place] [address] Sultana Londono, GERMAN [address] [place] [address] 08/20/2024 2:30 PM EDT Medication Management [facility] [address] [place] [address] Glenn Fofana, PharmD [address] [place] [address] Health Maintenance Due Date Last Done Comments CT Colonography 1971 Colonoscopy 1971 Colorectal Cancer Screening 1971 FIT DNA/Cologuard 1971 FIT 1971 FOBT 1971 Sigmoidoscopy 1971 Pap Smear 1992 Cervical Cancer Screening 2001 HPV/Cotest 2001 Zoster Vaccines (1 of 2) 2021 COVID-19 Vaccine (1 - season) 2023 Hepatitis B Vaccines (3 [...] 09/06/2022, 09/06/2022, Additional history exists Tobacco Screening 07/17/2025 07/17/2024 SDOH Screening 07/27/2025 07/27/2024 Eye Exam 06/25/2026 06/25/2024, 06/12, 06/25/2024, Additional history exists DTaP/Tdap/Td Vaccines (3 [...] patient's age to complete this topic Meningococcal B Vaccine Aged Out No l onger eligible based on patient's age to complete [...] PM EDT Narrative 07/17/2024 2:13 PM EDT ?[facility] ?[address] ?[place] [address] ?XRay Report ? Signed ? Patient: Blessing Calderón ?MR#: M ?? [id number] ? : 1970 ?Acct:[id number] ? Age/Sex: 54 / F ?ADM Date: 07/17/24 ? Loc: HO.HHCX ? Attending Dr: Yris Billings MD ? Ordering Physician: Yris Billings MD ?? Date of Service: 07/17/24 ?? Procedure(s): XR shoulder LT min 2V ?? Accession Number(s): [id number] ? cc: Yris Billings MD ? EXAMINATION: [...] DD/ 1337 ? TD/TT: 07/17/24 1400 ? Hydro Plant Operator: ? Procedure Note Jaylyn, Image - 07/17/2024 [facility] [address] [facility] [place] [address] XRay Report Signed Patient: Marv Calderón#: M [id number] : 1970Acct:[id number] Age/Sex: 54 / FADM Date: 07/17/24 Loc: HO.HHCX Attending Dr: Yris Billings MD Ordering Physician: Yris Billings MD Date of Service: 07/17/24 Procedure(s): XR shoulder LT min 2V Accession Number(s): [id number] cc: Yris Billings MD EXAMINATION: XR SHOULDER [...] 07/17/24 1410 DD/ 1337 TD/TT: 07/17/24 1400 Hydro Plant Operator: Yris Billings MD IMG XR PROCEDURES Final Re sult * TSH with Reflex to Free T4 (05/22/2024 3:24 PM EDT) TSH reflex Free T4 3.95 0.32 - 4.0 uIU/mL [facility] Blood 05/22/2024 3:24 PM EDT 05/22/2024 4:42 PM EDT Chelle Cueto MD LAB BLOOD ORDERABLES Final Resul t [facility] [address] [place] [address] [phone] * Basic Metabolic Panel (05/22/2024 3:24 PM EDT) Sodium 141 135 - 145 mmol/L [facility] Potassium 3.5 3.3 - 5.1 mmol/L [facility] Chloride 105 96 - 108 mmol/L [facility] Carbon Dioxide 28 22 - 29 mmol/L [facility] Anion Gap 12 12 - 20 [facility] Urea Nitrogen (BUN) 16 9 - 16 mg/dL [facility] Creatinine, Serum 0.95 0.5 - 1.4 mg/dL [facility] Estimated Glomerular Filt Rate >60 [facility] Comment:Chronic Kidney Disea se: Estimated GFR < 60 mL/min/1.80b4Hbabxl Kidney Disease: Estimated GFR < 15 mL/min/1.73m2 Glucose 109 60 - 115 mg/dL [facility] Calcium 9.8 8.4 - 10.2 mg/dL [facility] Blood Venous blood specimen / Unknown 05/22/2024 3:24 PM EDT 05/22/2024 4:42 PM EDT Chelle Cueto MD LAB BLOOD ORDERABLES Final Resul t Performing Organization Address [facility] Co de Phone Number [facility] [address] [place] [phone] * (ABNORMAL) POCT glycosylated hemoglobin (Hgb [...] Media Lot # [id number] Lot# Expiration Date [id number] Blood Capillary blood specimen / Unknown 05/08/2024 2:46 PM EST Chelle Cueto MD POINT OF CARE TEST ENTER/EDIT OR DERABLES Final Result * (ABNORMAL) Lipid Panel with Reflex to Direct LDL (12/29/2023 12:40 PM EDT) Triglycerides 172(H) <150 mg/dL [facility] Comment:Desirable Triglyceri de: less than 150 mg/dLBorderline High Triglyceride 150-199 mg/dLHigh Triglyceride: 200-499 mg/dLVery High Triglyceride: greater than or equal to 5OO mg/dL Cholesterol 202(H) <200 mg/dL [facility] Comment:Desirable Cholestero l: less than 200 mg/dLBorderline High Cholesterol: 200-239 mg/dLHigh Cholesterol: greater than 239 mg/dL LDL Cholesterol Calculated 128(H) <100 mg/dL [facility] Comment:Desirable LDL: less than 100 mg/dLNear Optimal/Above Optimal LDL: 110- 129 mg/dLBorderline High LDL: 130-159 mg/dLHigh LDL: 160-189 mg/dLVery High LDL: greater than or equal to 190 mg/dL HDL Cholesterol 40(L) >40 mg/dL [facility] Comment:Desirable HDL: great er than 40 mg/dL Note: This HDL assay may give artificially low results in patients with liver disease. Blood 12/29/2023 12:4 0 PM EDT 12/29/2023 1:21 PM EDT Chelle Cueto MD LAB BLOOD ORDERABLES Final Resul t [facility] [address] [place] [address] [phone] * Albumin, Random Urine W/Creatinine (12/29/2023 12:40 PM EDT) Creatinine, Urine 147.95 mg/dL [facility] Microalbumin Urine 30.0 mg/L [facility] Microalbum Creatinine Ratio Ur 20.2 <30 ug/mg cr [facility] Comment:Albumin/Creatinine R atio Reference Ranges: Normal: < 30 ug/mg creatinine Microalbuminuria: 30 - 300 ug/mg creatinineClinical Albuminuria: > 300 ug/mg creatinine Urine 12/29/2023 12:4 0 PM EDT 12/29/2023 1:20 PM EDT Chelle Cueto MD LAB URINE ORDERABLES Final Resul t Performing Organization Address [facility] Co de Phone Number [facility] [address] [place] [phone] * Hepatitis C Antibody with Reflex to HCV, RNA, Quantitative, Real-Time PCR (12/29/2023 12:40 PM EDT) Hepatitis C Antibody Nonreactive Nonreactive [facility] Comment:Antibodies to HCV no t detected; does not exclude early acuteHCV infection. Blood Venous blood specimen / Unknown 12/29/2023 12:40 PM EDT 12/29/2023 1:21 PM EDT Chelle Cueto MD LAB BLOOD ORDERABLES Final Resul t Performing Organization Address [facility] Co de Phone Number [facility] [address] [place] [phone] * HIV-1/2 Antigen and Antibodies, Fourth Generation, with Reflexes (12/29/2023 12:40 PM EDT) HIV AB/AG Nonreactive Nonreactive [facility] Comment:HIV-1 p24 Ag and/or HIV-1/HIV-2 Ab not detected.A test result that is nonreactive does not exclude thepossibility of exposure to or infection with HIV-1 and/orHIV-2. Nonreactive results in this assay for individualswith prior exposure to HIV-1 and/or HIV-2 may be due toantigen and antibody levels that are below the limit ofdetection of this assay.[employer] HIV Ag/Ab Combo assay result andsupplemental assay results should be interpreted inconjunction with the patient's clinical presentation,history and other laboratory results. If the results areinconsistent with clinical evidence, additional testing issuggested to confirm the result. Blood Venous blood specimen / Unknown 12/29/2023 12:40 PM EDT 12/29/2023 1:21 PM EDT us Chelle Cueto MD LAB BLOOD ORDERABLES Final Resul t [facility] [address] [place] [phone] * BI Mammogram Screening Tomosynthesis Bilateral (10/24/2023 4:15 PM EDT) Anatomical Region Laterality Modality Breast Bilateral Mammography 10/24/2023 4:15 PM EDT Narrative 11/17/2023 8:43 PM EDT ? [facility] ? [address] ?[place] [address] ? Mammography Report ? Signed ? Patient: Blessing Calderón ?MR#: M ?? [id number] ? : 1970 ?Acct:[id number] ? Age/Sex: 53 / F ?ADM Date: 08/12/24 ? Loc: HO.MAMMO ? Attending Dr: Chelle Cueto MD ? Ordering Physician: Chelle Cueto MD ?Results: 1Negative ? Date of Service: 10/24/23 ?Follow Up: 1 Year From Orig ?? inal Mammogram ? Procedure(s): MM tomosynthesis screening BI ?? Accession Number(s): [id number] ? cc: Chelle Cueto MD ? EXAMINATION: [...] DD/ 1615 ? TD/TT: 10/24/23 1627 ? Hydro Plant Operator: ? Procedure Note Donotuseinterpreter, Image - 11/17/2023 [facility] [address] [place], [place] [address] Mammography Report Signed Patient: Barry CalderónnMR#: M [id number] : 1970Acct:[id number] Age/Sex: 53 / FADM Date: 10/24/23 Loc: HO.MAMMO Attending Dr: Chelle Cueto MD Ordering Physician: Chelle Cuetoults: 1Negative Date of Service: 10/24/23Follow Up: 1 Year From Orig inal Mammogram Procedure(s): MM tomosynthesis screening BI Accession Number(s): [id number] cc: Chelle Cueto MD EXAMINATION: MM SCREENING [...] OV> 11/17/232040 DD/ 1615 TD/TT: 10/24/23 1627 Hydro Plant Operator: Chelle Cueto MD IM BI PROCEDURES Edited Result - Final from Last 3 Months or Most Recently Relevant to Health Maintenance Insurance Care Teams [place] Attendant Relationship Specialty Start Date End Date Chelle Cueto MD [address] [place] [phone] PCP - General Family Medicine 03/14/18 Glenn Fofana, PharmD [address] [place] [phone] Pharmacist Internal Medicine 06/12/24 Caro Lee Supervisor Forming DepartmentCashier Supervisor 12/01/23
--- OUTSIDE RECORDS SUMMARY | 2024-07-27 14:03 | XMS_ITS | Encounter Summary ---
Author Organization [employer] Address 75 [facility] 7t [place] [address] Care Team Providers Care Bonding Agent Name Role Phone Chelle Cueto MD Primary Care Provider [phone] Glenn Fofana PharmD Unavailable [phone] Reason for Visit * Reason Comments Care Coordination CHW outreach for SDO H housing search-referral completed Encounter Details Date Type Department Care Team (Latest Contact Info) Description 07/27/2024 Patient Outreach [facility] [address] [place], [place] [phone] Chelle Cueto MD 230 [place], [place] [phone] Care Coordination (CHW outreach for SDOH housing search-referral completed ) Social History Tobacco Use Types Packs/Day Years [...] AM EDT documented as of this encounter Progress Notes * Jacobo Gentile - 07/27/2024 12:02 PM EDT CHW Jacobo Gentile, placed outbound call to patient for assistance with SDOH as a referral was received by the provider. Patient's name and were confirmed. Patient screened positive for the following SDOH pet's control & food insecurities. CHW referral patient to the local list of pantriesin the area for help and advice family to connect with [employer] and pet's control offices in [place] for more resources. Patient verbalizes understanding, and able to agree with plan to follow up. Patient educated on extended clinic hours on Mondays through Wednesdays, and Walk-In Urgent Care Located in [facility]. Patient provided with after-hours line for [facility], , which offer night time triage service and option to transfer to director of flight operations provider if needed. documented in this encounter Plan of Treatment Upcoming Encounters Date Type Department Care Team (Late st Contact Info) Description 08/07/2024 3:45 PM EDT Office Visit [facility] [place] [address] Chelle Cueto MD [address] [place] [address] 08/13/2024 11:00 AM EDT Clinical Support [facility] DIABETES/NUTRITION [address] [facility] [place] [address] [facility] [place] [address] 08/20/2024 2:30 PM EDT Medication Management [facility] [address] [facility] [place] [address] Glenn Fofana, PharmD [facility] [place] [place] [address] documented as of this encounter Visit Diagnoses Not on filedocumented in this encounter Additional Health Concerns Assessment Noted Time PHQ-9 Depression Total Score: 15 05/08/2 025 3:52 PM EST documented as of this encounter Care Teams Bonding Agent Relationship Specialty Start Date End [place] [address] PCP - General Family Medicine 03/14/18 Glenn Fofana, PharmD [facility] [place] [address] Pharmacist Internal Medicine 06/12/24 Caro Lee Inter Com InstallerMold Shifter 12/01/23 documented as of this encounter
--- OUTSIDE RECORDS SUMMARY | 2024-07-27 14:03 | XMS_ITS | Encounter Summary ---
Author Organization [employer] Address 75 [facility] 7t [place] [address] Care Team Providers Care Video Game Technician Name Role Phone Chelle Cueto MD Primary Care Provider [phone] Glenn Fofana PharmD Unavailable [phone] Reason for Referral * Consultation (Routine) - Closed Specialty Diagnoses / Procedures Referred By Hayden clark Referred To Contact Pharmacy Diagnoses HTN (hypertension), benign Type 2 diabetes mellitus with hyperglycemia, without long-term current use of insulin (CMS/HCC) Chelle Cueto MD 230 [place] [address] Phone: tel: fax: Referral ID Status Reason Start Date Expiration Date V isits Requested Visits Authorized [id number] Closed Continuity of Care 05/14/2024 05/14/2025 6 6 * Consultation (Routine) - Authorized Specialty Diagnoses / Procedures Referred By Hayden clark Referred To Contact Pharmacy Diagnoses HTN (hypertension), benign Type 2 diabetes mellitus with hyperglycemia, without long-term current use of insulin (CMS/HCC) Chelle Cueto MD 230 [place] [address] Phone: tel: fax: Referral ID Status Reason Start Date Expiration Date Visits Requested Visits Authorized [id number] Authorized Consult and Treat 05/14/2024 05/14/2025 6 6 Scheduling Instructions Mainly hypertension and asthma, then diabetes. Thank you Encounter Details Date Type Department Care Team (Late st Contact Info) Description 05/09/2024 Orders Only [facility] MEDICINE [address] [place], [place] [phone] Chelle Cueto MD 230 [place] [address] HTN (hypertension), benign (Primary Dx); Type 2 diabetes mellitus with hyperglycemia, without long-term current use of insulin ([facility]) Social History Tobacco Use Types Packs/Day Years [...] Description 08/07/2024 3:45 PM EDT Office Visit [facility] MEDICINE [address] [place] [address] Chelle Cueto MD [address] [place] [address] 08/13/2024 11:00 AM EDT Clinical Support [facility] DIABETES/NUTRITION [address] [place] [address] 230 [place] [address] 08/20/2024 2:30 PM EDT Medication Management [facility] MEDICINE [address] [place] [address] Glenn Fofnaa, PharmD [address] [place] [address] Scheduled Referrals Name Type Priority Associated Diagnoses [...] documented as of this encounter Care Teams Video Game Technician Relationship Specialty Start Date End Date Chelle Cueto MD [address] [place] [address] PCP - General Family Medicine 03/14/18 Glenn Fofana, PharmD 230 [place] [address] Pharmacist Internal Medicine 06/12/24 Caro Lee Cmm InspectorGarnishment Specialist 12/01/23 documented as of this encounter
--- OUTSIDE RECORDS SUMMARY | 2024-07-27 14:03 | XMS_ITS | Encounter Summary ---
Author Organization [employer] Address 75 [facility] 7 [place] [address] Care Team Providers Care Pasting Machine Operator Name Role Phone Chelle Cueto MD Primary Care Provider [phone] Glenn Fofana PharmD Unavailable [phone] Encounter Details Date Type Department Care Team ([facility] Contact Info) Description 09/06/2022 Abstract [facility] MEDICINE [address] [place] [address] [phone] Chelle Cueto MD [address] [place] [address] Social History Tobacco Use Types Packs/Day Years [...] Upcoming Encounters Date Type Department Care Team ([facility] Contact Info) Description 08/07/2024 3:45 PM EDT Office Visit [facility]INE [address] [place] [address] [phone] Chelle Cueto MD 230 [facility] [place] [address] 08/13/2024 11:00 AM EDT Clinical Support [facility] DIABETES/NUTRITION 230 [place] [address] Sultana Londono, GERMAN 230 [place] [address] 08/20/2024 2:30 PM EDT Medication Management [facility] 230 [place] [address] Glenn Fofana, PharmD 230 [place] [address] documented as of this encounter Procedures Procedure Name Priority Date/Time Associated Diagnosis Comments MAMMOGRAPHY Routine 08/31/2022 9:39 AM EDT documented in this encounter Results * Mammography (08/31/2022 9:39 AM EDT) Mammogram Bi-rads 1 Anatomical Region Laterality Modality Other Historical Provider HEALTH MAINTENANCE Final Result documented in this encounter Visit Diagnoses Not on filedocumented in this encounter Care Teams Pasting Machine Operator Relationship Specialty Start Date End Date [place] [address] PCP - General Family Medicine 03/14/18 Glenn Fofana, PharmD [address] [place] [address] [phone] Pharmacist Internal Medicine 06/12/24 Caro Lee Aids Social WorkerBehavior Therapist 12/01/23 documented as of this encounter
--- OUTSIDE RECORDS SUMMARY | 2024-07-27 14:03 | XMS_ITS | Encounter Summary ---
Author Organization [employer] Address 75 [facility] 7 [place] [address] Care Team Providers Care Assembler Finger Buffs Name Role Phone Chelle Cueto MD Primary Care Provider [phone] Glenn Fofana PharmD Unavailable [phone] Reason for Referral * Consultation (Routine) - [...] 35.9 in adult (CMS/HCC) Chelle Cueto MD [address] [place] [address] Phone: tel: fax: Referral ID Status Reason Start Date Expiration Date Visits Requested Visits Authorized [id number] Authorized Consult and Treat 05/24/2024 05/24/2025 1 1 Encounter Details Date Type Department Care Team (Late st Contact Info) Description 05/24/2024 Orders Only [facility] MEDICINE [address] [place] [address] [phone] Chelle Cueto MD 230 [place], [place] [phone] HTN (hypertension), benign (Primary Dx); Type 2 diabetes mellitus with hyperglycemia, without long-term current use of insulin (CMS/HCC); Dyslipidemia; Class 2 severe obesity due to excess calories with serious comorbidity and body mass index (BMI) of 35.0 to 35.9 in adult ([facility]) Social History Tobacco Use Types Packs/Day Years [...] Description 08/07/2024 3:45 PM EDT Office Visit [facility] MEDICINE [address] [place] [address] Chelle Cueto MD [address] [place] [address] 08/13/2024 11:00 AM EDT Clinical Support [facility] DIABETES/NUTRITION [address] [place] [address] Sultana Londono, GERMAN 230 [place], [place] 08/20/2024 2:30 PM EDT Medication Management [facility] MEDICINE [address] [place] [address] Glenn Fofana, Raven [address] [place] [address] Scheduled Referrals Name Type Priority Associated Diagnoses Orde r Schedule Referral to Nutrition Therapy Outpatient Referral Routine HTN (hypertension), benign Type 2 diabetes mellitus with hyperglycemia, without long-term current use of insulin ([facility]) Dyslipidemia Class 2 severe obesity due to excess calories with serious comorbidity and body mass index (BMI) of 35.0 to 35.9 in adult ([facility]) Expected: 05/24/2024 (Approximate), Expires: 05/24/2025 documented as of this encounter Visit Diagnoses Diagnosis HTN (hypertension), benign- Primary Essential hypertension, benign Type 2 diabetes mellitus with hyperglycemia, without long-term current use of insulin ([facility]) Dyslipidemia Other and unspecified hyperlipidemia Class 2 severe obesity due to excess calories with serious comorbidity and body mass index (BMI) of 35.0 to 35.9 in adult ([facility]) documented in this encounter Additional Health Concerns Assessment Noted Time PHQ-9 Depression Total Score: 15 025 3:52 PM EST documented as of this encounter Care Teams Assembler Finger Buffs Relationship Specialty Start Date End Date Chelle Cueto MD [address] [place] [address] PCP - General Family Medicine 03/14/18 Glenn Fofana, PharmD [address] [place] [address] Pharmacist Internal Medicine 06/12/24 Caro Lee Training Development DirectorNanotechnology Engineering Technician 12/01/23 documented as of this encounter
--- OUTSIDE RECORDS SUMMARY | 2024-07-27 14:03 | XMS_ITS | Encounter Summary ---
Author Organization [employer] Address 75 [facility] 7 [place] [address] Care Team Providers Care Public Service Administrator Name Role Phone Chelle Cueto MD Primary Care Provider [phone] Glenn Fofana PharmD Unavailable [phone] Reason for Visit * Reason Onset Date Comments Results 03/19/2022 Encounter Details Date Type Department Care Team (Late st Contact Info) Description 03/19/2022 Telephone [facility] MEDICINE 230 [place], [place] [phone] Chelle Cueto MD 230 [place], [place] [phone] Results Social History Tobacco Use Types Packs/Day [...] knee, [place] [facility] documented in this encounter Plan of Treatment Upcoming Encounters Date Type Department Care Team (Late st Contact Info) Description 08/07/2024 3:45 PM EDT Office Visit [facility] MEDICINE [address] [place] [address] Chelle Cueto MD [address] [place] [address] 08/13/2024 11:00 AM EDT Clinical Support [facility] DIABETES/NUTRITION 230 [place] [address] Sultana Londono, GERMAN 230 [place] [address] 08/20/2024 2:30 PM EDT Medication Management [facility] MEDICINE [address] [place] [address] Glenn Fofana, PharmElizabeth 230 [place] [address] documented as of this encounter Visit Diagnoses Not on filedocumented in this encounter Care Teams Public Service Administrator Relationship Specialty Start Date End Date Chelle Cueto MD [address] [place] [address] PCP - General Family Medicine 03/14/18 Glenn Fofana, PharmD [address] [place] [address] Pharmacist Internal Medicine 06/12/24 Caro Lee Chlorine Cells OperatorParquet Floor Layer 12/01/23 documented as of this encounter
--- OUTSIDE RECORDS SUMMARY | 2024-07-27 14:03 | XMS_ITS | Encounter Summary ---
Author Organization [employer] Address 75 [facility] 7 [place] [address] Care Team Providers Care Air Turning Machine Feeder Name Role Phone Chelle Cueto MD Primary Care Provider [phone] Glenn Fofana PharmD Unavailable [phone] Reason for Visit * Reason Onset Date Comments Referral 03/19/2022 Encounter Details Date Type Department Care Team (Late st Contact Info) Description 03/19/2022 Telephone [facility] MEDICINE 230 [place], [place] [phone] Chelle Cueto MD 230 [place], [place] [phone] Referral Social History Tobacco Use Types Packs/Day [...] Description 08/07/2024 3:45 PM EDT Office Visit [facility] MEDICINE [address] [place] [address] Chelle Cueto MD [address] [place] [address] 08/13/2024 11:00 AM EDT Clinical Support [facility] DIABETES/NUTRITION [address] [place] [address] 230 [place] [address] 08/20/2024 2:30 PM EDT Medication Management [facility] MEDICINE [address] [place] [address] Glenn Fofana, PharmElizabeth [address] [place] [address] documented as of this encounter Visit Diagnoses Not on filedocumented in this encounter Care Teams Air Turning Machine Feeder Relationship Specialty Start Date End Date Chelle Cueto MD [address] [place] [address] PCP - General Family Medicine 03/14/18 Glenn Fofana, PharmD [address] [place] [address] Pharmacist Internal Medicine 06/12/24 Caro Lee Driver Service TechnicianPressure Washer 12/01/23 documented as of this encounter
--- OUTSIDE RECORDS SUMMARY | 2024-07-27 14:03 | XMS_ITS | Encounter Summary ---
Author Organization [employer] Address 75 [facility] [address] [place] [address] Care Team Providers Care Job Putter Up And Ticket Preparer Name Role Phone Chelle Cueto MD Primary Care Provider [phone] Glenn Fofana PharmD Unavailable [phone] Reason for Visit * Reason Comments Pre-visit Planning SDOH screening posit benny and Tobacco screening negative Encounter Details Date Type Department Care Team ([facility] st Contact Info) Description 07/27/2024 Patient Outreach [facility] MEDICINE 230 [place], [place] [phone] Chelle Cueto MD 230 [place], [place] [phone] Pre-visit Planning (SDOH screening positive and Tobacco screening negative) Social History Tobacco Use Types Packs/Day Years [...] as of this encounter Progress Notes * Ishmael Patel - 07/27/2024 9:40 AM EDT CC Ishmael Ramos placed successful outbound call to patient for pre-visit planning. Patient name and confirmed. Patient confirms appt date and time, and has transportation arrangements. Biggest concern for appointment at this time is patient is requesting a letter for housing. Patient advised to bring to appointment a photo id and insurance card. Appropriate screenings completed in anticipation of appointment. SDOH positive. Patient looking for assistance with PESTS; Mice and roaches, and utilities. Referral will be placed. documented in this encounter Plan of Treatment Upcoming Encounters Date Type Department Care Team (Late st Contact Info) Description 08/07/2024 3:45 PM EDT Office Visit [facility] MEDICINE 230 [place], [place] [phone] Chelle Cueto MD 230 [place], [place] [phone] 08/13/2024 11:00 AM EDT Clinical Support [facility] DIABETES/NUTRITION 230 [place] [address] 230 [place] [address] 08/20/2024 2:30 PM EDT Medication Management [facility] MEDICINE 230 [place] [address] Glenn Fofana, PharmD 230 [place] [address] documented as of this encounter Visit Diagnoses Not on filedocumented in this encounter Additional Health Concerns Assessment Noted Time PHQ-9 Depression Total Score: 15 025 3:52 PM EST documented as of this encounter Care Teams Job Putter Up And Ticket Preparer Relationship Specialty Start Date End Date Chelle Cueto MD [address] [place] [address] PCP - General Family Medicine 03/14/18 Glenn Fofana, PharmD [address] [place] [address] [phone] Pharmacist Internal Medicine 06/12/24 Caro Lee Burling And Joining SupervisorRn Allergy 12/01/23 documented as of this encounter
--- OUTSIDE RECORDS SUMMARY | 2024-07-27 14:03 | XMS_ITS | Encounter Summary ---
Author Organization [employer] Address 75 [facility] 7 [place] [address] Care Team Providers Care Performance Improvement Coordinator Name Role Phone Chelle Cueto MD Primary Care Provider [phone] Glenn Fofana PharmD Unavailable [phone] Encounter Details Date Type Department Care Team (Late Contact Info) Description 03/23/2022 Orders Only [facility] MEDICINE [address] [place] [address] [phone] Chelle Cueto MD [address] [place] [address] [phone] Type 2 diabetes mellitus with hyperglycemia, without long-term current use of insulin ([facility]) (Primary Dx) Social History Tobacco Use [...] Department Care Team (Late Contact Info) Description 08/07/2024 3:45 PM EDT Office Visit [facility] MEDICINE [address] [place] [address] Chelle Cueto MD 230 [place] [address] 08/13/2024 11:00 AM EDT Clinical Support [facility] DIABETES/NUTRITION [address] [place] [address] Sultana Londono, GERMAN [address] [place] [address] 08/20/2024 2:30 PM EDT Medication Management [facility] MEDICINE [address] [place] [address] Glenn Fofana, PharmElizabeth [address] [place] [address] documented as of this encounter Visit Diagnoses Diagnosis Type 2 diabetes mellitus with hyperglycemia, without long-term current use of insulin ([facility])- Primary documented in this encounter Care Teams Performance Improvement Coordinator Relationship Specialty Start Date End Date Chelle Cueto MD [address] [place] [address] [phone] PCP - General Family Medicine 03/14/18 Glenn Fofana, PharmD [address] [place] [address] [phone] Pharmacist Internal Medicine 06/12/24 Caro Lee Enrober TenderTilt Wall Supervisor 12/01/23 documented as of this encounter
--- NOTE | 2024-07-27 14:04 | MHC.OFFVIS ---
Vital Signs 07/27/24 14:11 Height 5 ft Weight 172 lb 4 oz BMI 33.6 BP 119/73 Blood Pressure Location Lt brachial Position Sitting Pulse 94 Pulse Source Pulse Oximeter Pulse Oximetry (%) 97 Oxygen Delivery Method Room Air Intake Visit Reasons: Acute low back pain radiating to rt groin Intake Note: Pain today 10/21 Paving Crew Foreman Required: Yes Paving Crew Foreman Language: Director Of Labor And Delivery Name: Lesli Accompanied by: Self / Same As Patient Allergies ranitidine Allergy (Unknown, Verified 07/27/24 14:13) Rash From Zantac Allergy (Intermediate, Uncoded 12/14/23 22:23) RASH HPI Comments Details: The patient is a 54-year-old female presenting with exacerbation of back pain attributed to arthritis diagnosed in the past. Her back pain affects the left lumbar area and exhibits a progressive worsening pattern despite the use of pnab-tbh-zvolnba pain medications, which have not alleviated her symptoms. She denies any recent trauma or falls that could have precipitated this exacerbation. The pain primarily impacts her ability to perform activities involving twisting motions, such as sweeping or mopping, with increased discomfort noted on the left side of the lower back. She has not yet engaged in prescribed physical therapy or undergone x-ray imaging, previously recommended by her primary care physician. The patient's living situation on the third floor raises concerns regarding fall risk as her mobility becomes increasingly limited. - Onset and Timing: years with recent progressive worsening. - Quality and Character: Affects the entire back, with primary localization in the left lumbar, indicative of possibly muscular discomfort. - Primary Location: Entire back and especially left lumbar. - Radiation: No reports of distal radiation. - Exacerbating Factors: Twisting movements, specifically during activities like sweeping or mopping. - Relieving Factors: None identified, as OTC medications have been ineffective. - Interferes with Activities: Causes difficulty with twisting movements necessary for household tasks. - Affect: The pain has a significant impact on the patient?s daily life, potentially affecting her mood and psychological well-being as she fears falling. - Analgesia: Currently using OTC medications, including ibuprofen, naproxen, Aleve, and Tylenol, without relief. - Adverse Effects: No adverse effects from medications reported. 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 - Aberrant Drug Related Behaviors: None reported. COUNTS INCLUDE 234 BEDS AT THE [facility] Medical History Mood disorder Major depressive disorder, recurrent severe without psychotic features ISHA (generalized anxiety disorder) Hypothyroidism Chronic pain in left shoulder Chronic pain of left knee Right foot pain Diabetes mellitus Vitamin D deficiency Dyslipidemia Asthma IBS (irritable bowel syndrome) GERD (gastroesophageal reflux disease) Allergic rhinitis Carpal tunnel syndrome of left wrist delivery delivered HTN (hypertension) Social History Alcohol intake: never Patient Tobacco Use Status: Never used Tobacco Current occupational status: disabled Current occupation: right hand dominant Physical Exam Vital Signs: Last Vital Signs Pulse 94 07/27/24 14:11 BP 119/73 07/27/24 14:11 Pulse Ox 97 07/27/24 14:11 Oxygen Delivery Method Room Air 07/27/24 14:11 BMI result Body Mass Index 33.6 General: awake, alert, oriented. Answers questions appropriately. Fully engaged in examination. Skin: warm, dry, intact HEENT: Normocephalic. Hearing intact. Cardiac: External chest normal in appearance. Respiratory: No cough, audible wheezing or stridor. Abdomen: without gross distension. MS: No obvious swelling or deformities. Able to stand on bilateral tiptoes and bilateral heels.? Able to transition from sit to stand unassisted. Ambulates with bilaterally normal heel strike and toe off Tenderness over left lumbar vertebrae SLR negative bilaterally Bilateral lower extremity strength 5/5 Facet loading positive Neurological: Oriented to person, place, time and situation. Thought process intact. No gait abnormalities appreciated. Psychiatric: Appropriate mood and affect. Good judgment and insight. Assessment & Plan Assessment & Plan (1) Lumbar spondylosis: Code(s): M47.816 - Spondylosis without myelopathy or radiculopathy, lumbar region Category: Medical (2) Lower back pain: Code(s): M54.50 - Low back pain, unspecified Category: Medical Plan X-ray imaging for further assessment of degenerative changes in the back and initiation of physical therapy are recommended for pain management. The patient should continue current medications, meloxicam and cyclobenzaprine, for managing inflammation and muscular spasms. The requirements for any advanced interventions, such as injections, will be determined following imaging and therapy results. Continuous evaluation of pain and mobility progress, with appropriate follow-up, is necessary for effective management. I discussed with the patient the likely exacerbation of back pain secondary to arthritis and possible distal degeneration. We reviewed the rationales for imaging and therapy, emphasizing the importance of pursuing a structured physical therapy program. I explained the benefits of adherent use of prescribed medications for inflammation and muscle relaxation. The plan for potential future interventions, such as injections, was outlined contingent on the results of initial therapies and insurance approval. We agreed on the importance of follow-up appointments to monitor progress and adjust treatment accordingly. Order placed for physical therapy. Copy of the order given to the patient so she can take to physical therapy office nearest to home. She does not remember the name of this [employer] at this time. Patient was informed and verbally consented to the use of an ambient scribe for clinic note documentation during this visit. Orders: Orders PT Evaluation and Treatment Today M47.816 - Spondylosis without myelopathy or radiculopathy, lumbar region, M54.50 - Low back pain, unspecified XR lumbar spine 6V w bending Today M47.816 - Spondylosis without myelopathy or radiculopathy, lumbar region Patient Instructions: - Take meloxicam and cyclobenzaprine as prescribed - Follow up with the prescribed physical therapy to improve mobility and function. - Complete xray imaging - Avoid activities that exacerbate pain. Use caution given current limitations and elevated fall risk. - Schedule a follow-up appointment to reassess treatment effectiveness and make adjustments after completion of PT. Coding Level of Care Code New Pt Level 4 (87623) Complex EM visit Add On G2211 Diagnoses Lumbar spondylosis M47.816 Lower back pain M54.50
[2024-07-27 14:11] VITALS: BP 119/73; PULSE 94; O2SAT 97; BMI 33.6
== END 2024-07-27 14:32 | disposition home or self-care (01) ==
LOC: HO.PMC 14:01
PROVIDERS: PCP Family Medicine; Referring Provider Family Medicine; Visit Provider Registered Nurse Emergency
DX: M47.816 Spondylosis without myelopathy or radiculopathy, lumbar region (principal); M54.50 Low back pain, unspecified
CPT/HCPCS: 99204

== ENCOUNTER → 2024-07-27 14:53 | Outpatient (BNV) | payer MEDICAID, SELFPAY | PROVIDERS: PCP Family Medicine; Referring Provider Family Medicine; Visit Provider Radiology Diagnostic Radiology | DX: M47.896 Other spondylosis, lumbar region (principal) | CPT/HCPCS: 72114 ==

== ENCOUNTER 2024-08-15 11:04 | Outpatient (REF) | payer MEDICAID, SELFPAY ==
--- NOTE | ~2024-08-15 | XR_ITS ---
EXAMINATION: XR HAND, RIGHT CLINICAL INFORMATION: right hand and thumb pain COMPARISON: None available. TECHNIQUE: PA, lateral, and oblique views of the right hand. FINDINGS: There are marginal osteophytes involving the DIP joint of the second digit and minimal osteophyte formation involving the IP joint of the thumb and base of the first metacarpal. Otherwise, joint spaces are preserved. No erosive changes are present. No fracture is seen. 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 Electronically signed by: Juan Alberto Fishman MD 08/15/2024 06:03 PM EDT
--- OUTSIDE RECORDS SUMMARY | 2024-08-15 11:59 | XMS_ITS | Encounter Summary ---
Author Organization [employer] Address [address] [facility] 7 [place] [address] Care Team Providers Care Alteration Inspector Name Role Phone Chelle Cueto MD Primary Care Provider [phone] Glenn Fofana PharmD Unavailable [phone] Reason for Visit * Reason Comments Med Refill Encounter Details Date Type Department Care Team ([facility] st Contact Info) Description 08/15/2024 Refill [facility] MEDICINE [address] [place], [place] [phone] Chelle Cueto MD [address] [place], [place] [phone] Social History Tobacco Use Types Packs/Day Years [...] Care Team (Late st Contact Info) Description 08/20/2024 2:30 PM EDT Medication Management [facility] MEDICINE [address] [place] [phone] Glenn Fofana, PharmD [address] [place] [phone] documented as of this encounter Visit Diagnoses Not on filedocumented in this encounter Additional Health Concerns Assessment Noted Time PHQ-9 Depression Total Score: 15 025 3:52 PM EST documented as of this encounter Care Teams Alteration Inspector Relationship Specialty Start Date End Date Chelle Cueto MD [address] [place] [phone] PCP - General Family Medicine 03/14/18 Glenn Fofana, PharmD [address] [place] [phone] Pharmacist Internal Medicine 06/12/24 Caro Lee Coke BurnerPulping Machine Operator 12/01/23 documented as of this encounter
== END 2024-08-15 11:05 | disposition home or self-care (01) ==
LOC: HO.XRAY 11:04
PROVIDERS: Visit Provider Family Medicine
DX: M79.641 Pain in right hand (principal)
CPT/HCPCS: 73130

== ENCOUNTER → 2024-08-15 11:08 | Outpatient (BNV) | payer MEDICAID, SELFPAY | PROVIDERS: Visit Provider Radiology Diagnostic Radiology | DX: M79.641 Pain in right hand (principal); M79.644 Pain in right finger(s) | CPT/HCPCS: 73130 ==

== ENCOUNTER 2024-10-22 08:11 | Outpatient (REF) | payer MEDICAID, SELFPAY ==
--- OUTSIDE RECORDS SUMMARY | 2024-10-22 08:26 | XMS_ITS | Encounter Summary ---
Author Organization [employer] Address [address] [place] [address] 7 [place] [address] Care Team Providers Care Critical Care Nurse Specialist Name Role Phone Chelle Cueto MD Primary Care Provider [phone] Glenn Fofana PharmD Unavailable [phone] Encounter Details Date Type Department Care Team ([facility] Contact Info) Description 09/07/2022 Orders Only [facility] MEDICINE [address] [place] [phone] Chelle Cueto MD [address] [place] [address] [phone] Elevated TSH (Primary Dx) Social History Tobacco [...] Upcoming Encounters Date Type Department Care Team ([facility] Contact Info) Description 10/30/2024 1:00 PM EDT Office Visit [facility] MEDICINE [address] [place] [phone] Chelle Cueto MD [address] [place] [address] Scheduled Orders Name Type Priority Associated Diagnoses [...] * (ABNORMAL) TSH (09/07/2022 2:44 PM EDT) TSH 6.35(H) mIU/L [facility] [place] [facility] Comment: Reference Range > or = 20 Years 0.40-4.50 Ranges First trimester 0.26-2.66 Second trimester 0.55-2.73 Third trimester 0.43-2.91 Blood Venous blood specimen / Unknown 09/07/2022 2:44 PM EDT 09/07/2022 2:44 PM EDT us Chelle Cueto MD LAB BLOOD ORDERABLES Final Resul t [facility] [address], [place] [address] [facility] [place] [facility] [address] [place] [address] * (ABNORMAL) Thyroid Peroxidase And Thyroglobulin Antibodies (09/07/2022 2:44 PM EDT) Thyroglobulin Antibodies 24(H) < or = 1 IU/mL [facility] Thyroid Peroxidase Antibodies 10(H) <9 IU/[facility] 09/07/2022 2:44 PM EDT 09/07/2022 2:44 PM EDT Chelle Cueto MD LAB BLOOD ORDERABLES Final Resul t Performing Organization Address City/[facility]/ZIP Co de Phone Number [facility] [address] [place] [address], [place] [address] [facility] [address] [place] [phone] * (ABNORMAL) T4, Free (09/07/2022 2:44 PM EDT) T4, Free 0.7(L) 0.8 - 1.8 ng/dL [facility] Blood Venous blood specimen / Unknown 09/07/2022 2:44 PM EDT 09/07/2022 2:44 PM EDT Chelle Cueto MD LAB BLOOD ORDERABLES Final Resul t Performing Organization Address City/[facility]/ZIP Co de Phone Number [facility] [address] [place] [address], [facility] [place] [address] [facility] [address] [place] [phone] * T3, Free (09/07/2022 2:44 PM EDT) T3, Free 3.1 2.3 - 4.2 pg/mL [facility] Blood Venous blood specimen / Unknown 09/07/2022 2:44 PM EDT 09/07/2022 2:44 PM EDT Chelle Cueto MD LAB BLOOD ORDERABLES Final Resul t [facility] [address] [place] [address] Fl, [place] [address] [facility] [address] [place] [address] * XR Foot 3+ Views Right (09/06/2022 3:47 PM EDT) Anatomical Region Laterality Modality Lower Extremities, Foot Right Radiogra phic Imaging 09/06/2022 3:47 PM EDT Narrative 09/22/2022 12:11 PM EDT [facility] [address] [place] [address] XRay Report Signed Patient: Blessing Calderón MR#: [id number] : 1970 Acct:[id number] Age/Sex: 52 / F ADM Date: 09/06/22 Loc: HO.HHCX Attending Dr: Chelle Cueto MD Ordering Physician: Chelle Cueto MD Date of Service: 09/06/22 Procedure(s): XR foot RT min 3V Accession Number(s): [id number] cc: Chelle Cueto MD EXAMINATION: XR FOOT, [...] in OV> 09/22/22 1208 DD/ 1547 TD/TT: Tram Inspector: Procedure Note Donotuseinterpreter, Image - 09/22/[address] [address] XRay Report Signed Patient: Barry CalderónnMR#: [id number] : 1970Acct:[id number] Age/Sex: 52 / FADM Date: 09/06/22 Loc: HO.HHCX Attending Dr: Chelle Cueto MD Ordering Physician: Chelle Cueto MD Date of Service: 09/06/22 Procedure(s): XR foot RT min 3V Accession Number(s): [id number] cc: Chelle Cueto MD EXAMINATION: XR FOOT, [...] in OV> 09/22/22 1208 DD/ 1547 TD/TT: Tram Inspector: [facility] External Provider IMG XR PROCEDURES Final Result documented in this encounter Visit Diagnoses Diagnosis Elevated TSH- Primary Other abnormal blood chemistry documented in this encounter Care Teams Critical Care Nurse Specialist Relationship Specialty Start Date End Date Chelle Cueto MD [address] [place] [address] PCP - General Family Medicine 03/14/18 Glenn Fofana, SriD [address] [place] [address] Pharmacist Internal Medicine 06/12/24 Caro Lee Decorator Lighting FixturesPlisse Machine Operator Helper 12/01/23 documented as of this encounter
== END 2024-10-22 08:12 | disposition home or self-care (01) ==
LOC: HO.HOSX 08:11
PROVIDERS: Visit Provider Physician Assistant
DX: Z13.89 Encounter for screening for other disorder (principal)

== ENCOUNTER 2024-12-11 15:57 | Outpatient (REF) | payer MEDICAID, SELFPAY ==
--- OUTSIDE RECORDS SUMMARY | 2024-12-11 15:15 | XMS_ITS | Encounter Summary ---
Author Organization [employer] Address [address] [place] [address] [address] [place] [address] Care Team Providers Care Salon Receptionist Name Role Phone Chelle Cueto MD Primary Care Provider [phone] Glenn Fofana PharmD Unavailable [phone] Reason for Referral * Consultation (Routine) - Closed Specialty Diagnoses / Procedures Referred By Contac t Referred To Contact Otolaryngology Diagnoses Right ear pain Hearing difficulty, unspecified laterality Allergic rhinitis due to other allergic trigger, unspecified seasonality Chelle Cueto MD [address] [place] [address] Phone: tel: fax: [facility] [address] Phone: tel: fax: Referral ID Status Reason Start Date Expiration Date V isits Requested Visits Authorized [id number] Closed Specialty Services Required 12/11/2024 12/11/2025 6 6 Encounter Details Date Type Department Care Team (Late st Contact Info) Description 12/11/2024 3:15 PM EDT Office Visit [facility] MEDICINE [address] [place], [place] [phone] Chelle Cueto MD [address] [place], [place] [phone] HTN (hypertension), benign (Primary Dx); Type 2 diabetes mellitus with hyperglycemia, without long-term current use of insulin ([facility]); Acquired hypothyroidism; Right ear pain; Hearing difficulty, unspecified laterality; Allergic rhinitis due to other allergic trigger, unspecified seasonality; Screening for colon cancer Social History Tobacco Use Types Packs/Day Years [...] Sign Reading Time Taken Comments Blood Pressure 122/86 12/11/2024 3:37 PM EDT Pulse 80 12/11/2024 3:37 PM EDT Temperature 36.6 C (97.9 F) 12/11/2024 3:37 PM EDT Respiratory Rate 20 12/11/2024 3:37 PM EDT Oxygen Saturation - - Inhaled Oxygen Concentration - - Weight 78.1 kg (172 lb 3.2 oz) 12/11/2024 3:37 P M EDT Height 152.4 cm (5') 12/11/2024 3:37 PM EDT Body Mass Index 33.63 12/11/2024 3:37 PM EDT documented in this encounter Miscellaneous Notes * Assessment & Plan Note - Chelle Cueto MD - 12/10/2024 4:51 PM EDTAssociated Problem(s): Hypothyroidism - last TSH subtherapeutic, questionable adherence - mildly elevated thyroid peroxidase antibody, likely Ezra's - current replacement 50 mcg daily - recheck TSH * Assessment & Plan Note - Chelle Cueto MD - 12/10/2024 4:50 PM EDTAssociated Problem(s): Type 2 diabetes mellitus (CMS/HCC) - Dx 02/23/22 A1C 7.4% - A1C 6.6% on 08/07/24, improved from 7.4% on 05/08/24 - Continue working on lifestyle modifications - Continue checking BG - Continue metformin ER 500 mg twice daily - Continue dulaglutide 0.75 mg weekly - Microalbumin test: 12/29/23 - Lipid profile: 12/29/23 - Diabetic eye exam: Referred - Foot exam: 05/08/24 * Assessment & Plan Note - Chelle Cueto MD - 12/10/2024 4:50 PM EDTAssociated Problem(s): HTN (hypertension), benign -Goal BP < [...] documented in this encounter Plan of Treatment Scheduled Orders Name Type Priority Associated Diagnoses Orde r Schedule Cologuard colon cancer screening Lab Routine Screening for colon cancer Ordered: 12/11/2024 Scheduled Referrals Name Type Priority Associated Diagnoses Orde r Schedule Referral to ENT Outpatient Referral Routine Right ear pain Hearing difficulty, unspecified laterality Allergic rhinitis due to other allergic trigger, unspecified seasonality Expected: 12/11/2024 (Approximate), Expires: 12/11/2025 documented as of this encounter Procedures Procedure Name Priority Date/Time Associated Diagnosis Comments POCT GLYCATED HEMOGLOBIN, TOTAL Routine 12/11/2024 3:43 PM EDT Type 2 diabetes mellitus with hyperglycemia, without long-term current use of insulin ([facility]) POCT GLUCOSE Routine 12/11/2024 3:43 PM EDT Type 2 diabetes mellitus with hyperglycemia, without long-term current use of insulin ([facility]) documented in this encounter Results * (ABNORMAL) POCT Hgb A1c (12/11/2024 3:43 PM EDT) Hemoglobin A1C 6.2(A) 4.0 - 5.7 % QC Media Lot # [id number] Lot# Expiration Date ,285,703 Blood 12/11/2024 3:43 PM EDT Chelle Cueto MD POINT OF CARE TEST ENTER/EDIT OR DERABLES Final Result * POCT Glucose (12/11/2024 3:43 PM EDT) Glucose Blood, POC 95 60 - 200 mg/dL [employer] Lot # [id number] Lot# Expiration Date ,703,363 Blood Capillary blood specimen / Unknown 12/11/2024 3:43 PM EDT Chelle Cueto MD POINT OF CARE TEST ENTER/EDIT OR DERABLES Final Result documented in this encounter Visit Diagnoses Diagnosis HTN (hypertension), benign- Primary Essential hypertension, benign Type 2 diabetes mellitus with hyperglycemia, without long-term current use of insulin (HCC) Acquired hypothyroidism Unspecified hypothyroidism Right ear pain Unspecified otalgia Hearing difficulty, unspecified laterality Allergic rhinitis due to other allergic trigger, unspecified seasonality Screening for colon cancer Special screening for malignant neoplasms, colon documented in this encounter Additional Health Concerns Assessment Noted Time PHQ-9 Depression Total Score: 15 05/08/ 025 3:52 PM EST documented as of this encounter Care Teams Salon Receptionist Relationship Specialty Start Date End Date Chelle Cueto MD [address] [place] [address] PCP - General Family Medicine 03/14/18 Glenn Fofana, SriD [address] [place] [address] Pharmacist Internal Medicine 06/12/24 Caro Lee [employer] CoordinatorFabric Separator Operator 12/01/23 documented as of this encounter
--- OUTSIDE RECORDS SUMMARY | 2024-12-11 17:02 | XMS_ITS | Clinical Summary ---
Author Organization [employer] Address [address] [facility] 7t [place] [address] Care Team Providers Care Transfer Car Operator Name Role Phone Chelle Cueto MD Primary Care Provider [phone] Glenn Fofana PharmD Unavailable [phone] Allergies Active Allergy Reactions Criticality Noted Date Comments Ranitidine Rash Low 01/30/2014 Medications * This document contains information received from the source organization and may not represent a complete record from that organization. Alcohol Swabs (Alcohol Prep) padsIndications:T ype 2 diabetes mellitus with hyperglycemia, without long-term current use of insulin ([facility]) Check BG daily as instructed 50 each Active acetaminophen (Tylenol 8 Hour) 650 MG ER tablet TAKE 1 TABLET BY MOUTH EVERY 8 HOURS 30 tablet 1 024 Active albuterol 108 (90 Base) MCG/ACT inhalerIndication s:Cough in adult Inhale 2 puffs every 4 (four) hours. 18 g 024 Active montelukast (Singulair) 10 MG tablet TAKE 1 TABLET BY MOUTH EVERY MORNING 90 tablet 3 Active fluticasone furoate (Arnuity Ellipta) 100 MCG/ACT [...] hyperglycemia, without long-term current use of insulin ([facility]) TEST BLOOD SUGAR ONCE DAILY 100 each 5 Active FREESTYLE LITE test stripIndications: Type 2 diabetes mellitus with hyperglycemia, without long-term current use of insulin ([facility]) TEST BLOOD SUGAR ONCE DAILY 50 strip 5 Active Blood Glucose Monitoring Suppl (FreeStyle [place] Lite) w/Device kitIndications:Ty pe 2 diabetes mellitus with hyperglycemia, without long-term current use of insulin ([facility]) TEST BLOOD SUGAR ONCE DAILY IN THE MORNING DIRECTED 1 kit Active Multiple Vitamin (multivitamin) tablet Take 1 tablet by mouth Once per day. 90 tablet 3 025 Active Dulaglutide (Trulicity) 0.75 MG/0.5ML solution auto-injector Inject 0.75 mg under the skin 1 (one) time per week. 2 mL 11 025 Active melatonin 5 MG tablet take 2 tablets by mouth every day at bedtime 025 Active Diclofenac Sodium 1 % gel Apply to affected area once or twice daily 350 g 1 025 Active cyclobenzaprine (Flexeril) 10 MG tablet Take 1 tablet (10 mg) by mouth if needed at bedtime for muscle spasms. 30 tablet 2 025 Active albuterol (2.5 MG/3ML) 0.083% nebulizer solution INHALE 1 AMPULE USING A NEBULIZER EVERY 4 HOURS NEEDED FOR WHEEZING 025 Active chlorthalidone (Hygroton) 25 MG tablet TAKE 1 TABLET BY MOUTH EVERYDAY AT NOON 90 tablet 1 025 Active chlorthalidone (Hygroton) 25 MG tablet Take 1 tablet (25 mg) by mouth Once per day. 90 tablet 1 025 Active hydrOXYzine HCl (Atarax) 25 MG tablet Take 1 or 2 tablets by mouth in the evening as needed 60 tablet 3 025 Active docusate sodium (Colace) 100 MG capsule TAKE 1 CAPSULE BY MOUTH TWICE DAILY IN THE MORNING AND AT BEDTIME NEEDED FOR CONSTIPATION 180 capsule 3 Active meloxicam (Mobic) 7.5 MG tablet TAKE 1 OR 2 TABLETS BY MOUTH ONCE DAILY NEEDED FOR SEVERE PAIN 60 tablet 2 Active fluticasone (Flonase) 50 MCG/ACT nasal spray INSTILL 2 SPRAYS IN EACH NOSTRIL ONCE DAILY IN THE MORNING 48 g 025 Active olmesartan (BENIcar) 5 MG tablet TAKE 1 TABLET BY MOUTH EVERYDAY AT NOON 90 tablet 3 Active metFORMIN XR (Glucophage-XR) 500 MG 24 hr tabletIndications :Type 2 diabetes mellitus with hyperglycemia, without long-term current use of insulin (HCC) TAKE 1 TABLET BY MOUTH TWICE DAILY AT NOON AND BEDTIME 180 tablet 3 Active fexofenadine (Fabiana) 180 MG tablet TAKE 1 TABLET BY MOUTH EVERYDAY AT NOON 90 tablet 3 Active atorvastatin (Lipitor) 10 MG tablet TAKE 1 TABLET BY MOUTH EVERYDAY AT NOON 90 tablet 3 Active omeprazole (PriLOSEC) [address] capsule TAKE 1 CAPSULE BY MOUTH EVERYDAY AT NOON 90 capsule 3 Active ciprofloxacin-dex AMETHasone (CiproDEX) otic suspension Administer 4 drops into affected ear(s) 2 times daily for 7 days. 7.5 mL 025 2024 Active metFORMIN XR (Glucophage-XR) 500 MG 24 hr tabletIndications :Type 2 diabetes mellitus with hyperglycemia, without long-term current use of insulin (HCC) Take 1 tablet (500 mg) by mouth with breakfast and with evening meal. Do not crush, chew, or split. 180 tablet 3 2024 Discontinued fexofenadine (Fabiana Allergy) 180 MG tablet TAKE 1 TABLET BY MOUTH EVERY MORNING 90 tablet 3 2024 Discontinued atorvastatin (Lipitor) 10 MG tablet Take 1 tablet (10 mg) by mouth at bedtime. 90 tablet 3 024 2024 Discontinued olmesartan (Benicar) 5 MG tablet Take 1 tablet (5 mg) by mouth Once per day. 90 tablet 3 024 2024 Discontinued omeprazole (PriLOSEC) [address] capsule TAKE 1 CAPSULE BY MOUTH EVERY DAY BEFORE A MEAL 90 capsule 1 025 2024 Discontinued Active Problems Problem Noted Date Diagnosed Date Right hand pain 08/07/2024 Assessment & Plan (08/07/2024 4:51 PM EDT): - Status Post right hand tendon surgery in 2014 - Evaluate with x-ray - Previously seen orthopedist - Referred to new orthopedist Left shoulder pain 07/17/2024 Overview (07/17/2024): Acute [...] her daily routine. Pt was self-referred to [facility] and completed the intake session [...] reports she moved to an apartment in [place] but the place is infected with rodents [...] OP services and psychopharmacology. Information for [employer] Att[employer] provided to seek out for legal support. Severe episode of recurrent major depressive disorder, without psychotic features ([facility]/HCC) 12/29/2023 Assessment & Plan (05/09/2024 8:56 AM [...] her daily routine. 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 Provided information for [facility] with [facility] for OP services and psychopharmacology. Information for [employer] Attendant provided to seek out for legal support. Acute otitis media 10/20/2023 Abdominal pain 10/17/2023 Impingement of left shoulder 10/17/2023 Nausea 10/17/2023 Osteoarthritis of left knee 10/17/2023 Patellofemoral arthritis of left knee 10/17/2023 Hypothyroidism 11/29/2022 Assessment & Plan (12/10/2024 4:51 PM EDT): - last TSH subtherapeutic, questionable adherence - mildly elevated thyroid peroxidase antibody, likely Ezra's - current replacement 50 mcg daily - recheck TSH Assessment & Plan (05/18/2024 10:25 AM EST): [...] - evaluate with X-ray - refer to repairer handtools - continue wearing comfortable shoes - daily foot check and care - Ordered XR Foot 1-2 Views Right 05/08/24 Assessment & Plan (09/08/2022 9:41 AM EDT): - at 5th MTP - evaluate with X-ray - refer to repairer handtools - continue wearing comfortable shoes - daily foot check and care Type 2 diabetes mellitus 02/28/2022 Assessment & Plan (12/10/2024 4:50 PM EDT): - Dx 02/23/22 A1C 7.4% - A1C 6.6% on 08/07/24, improved from 7.4% on 05/08/24 - Continue working on lifestyle modifications - Continue checking BG - Continue metformin ER 500 mg twice daily - Continue dulaglutide 0.75 mg weekly - Microalbumin test: 12/29/23 - Lipid profile: 12/29/23 - Diabetic eye exam: Referred - Foot exam: 05/08/24 Assessment & Plan (08/07/2024 4:49 PM EDT): - Dx 02/23/22 A1C 7.4% - A1C 6.6% on 08/07/24, improved from 7.4% on 05/08/24 - Continue working on lifestyle modifications - Continue checking BG - Continue metformin ER 500 mg twice daily - Continue dulaglutide 0.75 mg weekly - Microalbumin test: 12/29/23 - Lipid profile: 12/29/23 - Diabetic eye exam: Referred - Foot exam: 05/08/24 Assessment & Plan (05/18/2024 10:13 AM EST): [...] Assessment & Plan (02/28/2022 9:44 AM EST): Dx 02/23/22, today Hgb A1C 7.4% Continue working on lifestyle modifications Continue checking BG Start metformin ER 500 mg daily Refer to DM education Microalbumin test: Ordered Lipid profile: Ordered Diabetic eye exam: Referred Foot exam: Next visit Immunizations: Pt will need Hep B series at next visit and PPSV23 HTN (hypertension), benign 02/16/2022 Assessment & Plan (12/10/2024 4:50 PM EDT): -Goal BP < 140/90 per [...] evaluation for high BP Assessment & Plan (08/07/2024 4:48 PM EDT): -Goal BP < 140/90 per [...] evaluation for high BP Assessment & Plan (05/18/2024 10:28 AM EST): [...] Assessment & Plan (09/08/2022 9:35 AM EDT): Asthma exacerbation, often triggered by allergy symptoms and/or URI recent exacerbation due to acute bronchitis s/p azithromycin Tx Add Flovent Continue montelukast Continue albuterol prn Consider LABA/ICS prn Evaluate with PFT Assessment & Plan (02/28/2022 9:46 AM EST): Asthma exacerbation, often triggered by allergy symptoms and/or URI recent exacerbation due to acute bronchitis s/p azithromycin Tx Add Flovent Continue montelukast Continue albuterol prn Consider LABA/ICS prn Evaluate with PFT Assessment & Plan (02/16/2022 [...] Continue montelukast Consider referral to allergy / customer sales specialist for allergy testing and immunotherapy Assessment & Plan (09/08/2022 9:44 AM EDT): Continue antihistamine, currently fexofenadine Continue fluticasone nasal spray Continue montelukast Consider referral to allergy / customer sales specialist for allergy testing and immunotherapy Assessment & Plan (02/28/2022 9:45 AM EST): Continue antihistamine, currently fexofenadine Continue fluticasone nasal spray Continue montelukast Consider referral to allergy / customer sales specialist for allergy testing and immunotherapy Gastroesophageal [...] 02/02/2022 Mass of lower limb 12/03/2011 Encounters Date Type Department Care Team Description 12/11/2024 3:15 PM EDT Office Visit [facility] [address] [place] [address] Chelle Cueto MD HTN (hypertension), benign (Primary Dx); Type 2 diabetes mellitus with hyperglycemia, without long-term current use of insulin (CMS/HCC); Acquired hypothyroidism; Right ear pain; Hearing difficulty, unspecified laterality; Allergic rhinitis due to other allergic trigger, unspecified seasonality; Screening for colon cancer 12/11/2024 Travel 12/10/2024 Telephone [facility] [address] [place] [address] Chelle Cueto MD chart prep 11/25/2024 Refill [facility] [address] [place] [address] Chelle Cueto MD Type 2 diabetes mellitus with hyperglycemia, without long-term current use of insulin (CMS/HCC) 11/02/2024 Refill [facility] [address] [place] [address] Chelle Cueto MD 10/25/2024 Refill [facility] [address] [place] [address] Chelle Cueto MD 10/24/2024 Telephone [facility] [address] [place] [address] Chelle Cueto MD from Last 3 Months Immunizations Immunization Administration [...] 20 12/11/2024 3:37 PM EDT Oxygen Saturation 98% 07/17/2024 1:13 PM EDT Inhaled Oxygen Concentration - - Weight 78.1 kg (172 lb 3.2 oz) 12/11/2024 3:37 P M EDT Height 152.4 cm (5') 12/11/2024 3:37 PM EDT Body Mass Index 33.63 12/11/2024 3:37 PM EDT Plan of Treatment Health Maintenance Due Date Last Done Comments CT Colonography 1971 Colonoscopy 1971 Colorectal Cancer Screening 1971 FIT DNA/Cologuard 1971 FIT 1971 FOBT 1971 Sigmoidoscopy 1971 Disability Screening 1971 Pap Smear 1992 Cervical Cancer Screening 2001 HPV/Cotest 2001 Zoster Vaccines (1 of 2) 2021 Hepatitis B Vaccines (3 of 3 - 19+ 3-dose series) 02/23/2024 12/29/2023, 09/06/2022 Mammogram 10/23/2024 10/24/2023, 06, 08/31/2022, Additional history exists Depression Monitoring 11/05/2024 05/08/2024, 025 COVID-19 Vaccine ( - season) 2024 Influenza Vaccine (#1) 2024 , 02/24/2022, 11/28/2018, Additional history exists Alcohol/Substance Use Screening 12/28/2024 12/29/2023 Diabetes: Urine Protein Screening 12/28/2024 12/29/2023, 09/06/2022 Lipid Panel 12/28/2024 12/29/2023, 08/13, 08/06/2021, Additional history exists Diabetes: Hemoglobin A1C 03/12/2025 025, 08/07/2024, 05/08/2024, Additional history exists Diabetes: Foot Exam 05/08/2025 05/08/2024, 09/06/2022, 09/06/2022, Additional history exists SDOH Screening 07/27/2025 07/27/2024 Tobacco Screening 12/11/2025 12/11/2024 Eye Exam 06/25/2026 06/25/2024, 06/12, 06/25/2024, Additional [...] C Screening Completed 12/29/2023 , 08/06/2021, 03/25/2020 HIB Vaccines Aged Out No longer eligi [...] use of insulin (CMS/HCC) POCT GLUCOSE Routine 12/11/2024 3:43 PM EDT [...] Recently Relevant to Health Maintenance Results * (ABNORMAL) POCT Hgb A1c (12/11/2024 3:43 PM EDT) Hemoglobin A1C 6.2(A) 4.0 - 5.7 % QC Media Lot # [id number] Lot# Expiration Date [id number] Blood 12/11/2024 3:43 PM EDT Chelle Cueto MD POINT OF CARE TEST ENTER/EDIT OR DERABLES Final Result * POCT Glucose (12/11/2024 3:43 PM EDT) Glucose Blood, POC 95 60 - 200 mg/dL QC Media Lot # [id number] Lot# Expiration Date [id number] Blood Capillary blood specimen / Unknown 12/11/2024 3:43 PM EDT us Chelle Cueto MD POINT OF CARE TEST ENTER/EDIT OR DERABLES Final Result * (ABNORMAL) Lipid Panel with Reflex to Direct LDL (12/29/2023 12:40 PM EDT) Triglycerides 172(H) <150 mg/dL [facility] Comment:Desirable Triglyceri de: less than 150 mg/dLBorderline High Triglyceride 150-199 mg/dLHigh Triglyceride: 200-499 mg/dLVery High Triglyceride: greater than or equal to 5OO mg/dL Cholesterol 202(H) <200 mg/dL [facility] Comment:Desirable Cholestero l: less than 200 mg/dLBorderline High Cholesterol: 200-239 mg/dLHigh Cholesterol: greater than 239 mg/dL LDL Cholesterol Calculated 128(H) <100 mg/dL [facility] Comment:Desirable LDL: less than 100 mg/dLNear Optimal/Above Optimal LDL: 110- 129 mg/dLBorderline High LDL: 130-159 mg/dLHigh LDL: 160-189 mg/dLVery High LDL: greater than or equal to 190 mg/dL HDL Cholesterol 40(L) >40 mg/dL [facility] Comment:Desirable HDL: great er than 40 mg/dL Note: This HDL assay may give artificially low results in patients with liver disease. Blood 12/29/2023 12:4 0 PM EDT 12/29/2023 1:21 PM EDT us Chelle Cueto MD LAB BLOOD ORDERABLES Final Resul t [facility] [address] [place] [phone] * Albumin, Random Urine W/Creatinine (12/29/2023 12:40 PM EDT) Creatinine, Urine 147.95 mg/dL [facility] Microalbumin Urine 30.0 mg/L H [facility] Microalbum Creatinine Ratio Ur 20.2 <30 ug/mg cr [facility] Comment:Albumin/Creatinine R atio Reference Ranges: Normal: < 30 ug/mg creatinine Microalbuminuria: 30 - 300 ug/mg creatinineClinical Albuminuria: > 300 ug/mg creatinine Urine 12/29/2023 12:4 0 PM EDT 12/29/2023 1:20 PM EDT Chelle Cueto MD LAB URINE ORDERABLES Final Resul t Performing Organization Address [facility]/ZIP Co de Phone Number [facility] [address] [place] [phone] * Hepatitis C Antibody with Reflex to HCV, RNA, Quantitative, Real-Time PCR (12/29/2023 12:40 PM EDT) Hepatitis C Antibody Nonreactive Nonreactive [facility] Comment:Antibodies to HCV no t detected; does not exclude early acuteHCV infection. Blood Venous blood specimen / Unknown 12/29/2023 12:40 PM EDT 12/29/2023 1:21 PM EDT us Chelle Cueto MD LAB BLOOD ORDERABLES Final Resul t Performing Organization Address [facility] Co de Phone Number [facility] [address] [place] [phone] * HIV-1/2 Antigen and Antibodies, Fourth Generation, with Reflexes (12/29/2023 12:40 PM EDT) HIV AB/AG Nonreactive Nonreactive [facility] Comment:HIV-1 p24 Ag and/or HIV-1/HIV-2 Ab not detected.A test result that is nonreactive does not exclude thepossibility of exposure to or infection with HIV-1 and/orHIV-2. Nonreactive results in this assay for individualswith prior exposure to HIV-1 and/or HIV-2 may be due toantigen and antibody levels that are below the limit ofdetection of this assay.The [employer] HIV Ag/Ab Combo assay result andsupplemental assay results should be interpreted inconjunction with the patient's clinical presentation,history and other laboratory results. If the results areinconsistent with clinical evidence, additional testing issuggested to confirm the result. Blood Venous blood specimen / Unknown 12/29/2023 12:40 PM EDT 12/29/2023 1:21 PM EDT us Chelle Cueto MD LAB BLOOD ORDERABLES Final Resul t [facility] [address] [place] [address] [phone] * BI Mammogram Screening Tomosynthesis Bilateral (10/24/2023 4:15 PM EDT) Anatomical Region Laterality Modality Breast Bilateral Mammography 10/24/2023 4:15 PM EDT Narrative 11/17/2023 8:43 PM EDT [address] [place] [address] Mammography Report Signed Patient: Blessing Calderón MR#: [id number] : 1970 Acct:[id number] Age/Sex: 53 / F ADM Date: 10/24/23 Loc: .MAMMO Attending Dr: Chelle Cueto MD Ordering Physician: Chelle Cueto MD Results: 1Negative Date of Service: 10/24/23 Follow Up: 1 Year From [facility] Mammogram Procedure(s): MM tomosynthesis screening BI Accession Number(s): [id number] cc: Chelle Cueto MD EXAMINATION: MM SCREENING [...] OV> 11/17/232040 DD/ 161 TD/TT: 10/24/23 1627 Wood Mechanist: Procedure Note Donotuseinterpreter, Image - 11/17/2023 [facility] [address] [place] [address] Mammography Report Signed Patient: Barry CalderónnMDaniel#: [id number] : 1970Acct:[id number] Age/Sex: 53 / FADM Date: 10/24/23 Loc: TELLY Attending Dr: Chelle Cueto MD Ordering Physician: Chelle Cueto MDResults: 1Negative Date of Service: 10/24/23Follow Up: 1 Year From [facility] ina Mammogram Procedure(s): MM tomosynthesis screening BI Accession Number(s): [id number] cc: Chelle Cueto MD EXAMINATION: MM SCREENING [...] Princess Obrien MD in OV> 11/17/232040 DD/ 14 TD/TT: 10/24/23 1627 Wood Mechanist: Chelle Cueto MD IMG BI PROCEDURES Edited Result - Final from Last 3 Months or Most Recently Relevant to Health Maintenance Insurance [employer] C3 Care Teams Transfer Car Operator Relationship Specialty Start Date End Date Chelle Cueto MD [address] [place] [address] PCP - General Family Medicine 03/14/18 Glenn Fofana, SriD [address] [place] [address] Pharmacist Internal Medicine 06/12/24 Caro Lee Gauntlet PairerHoseman 12/01/23
--- OUTSIDE RECORDS SUMMARY | 2024-12-11 17:02 | XMS_ITS | Encounter Summary ---
Author Organization [employer] Address [address] [place] [address] 7 [place] [address] Care Team Providers Care Unit Clerk Name Role Phone Chelle Cueto MD Primary Care Provider [phone] Glenn Fofana PharmD Unavailable [phone] Reason for Visit * Reason Onset Date Comments Referral 03/19/2022 Encounter Details Date Type Department Care Team (Late st Contact Info) Description 03/19/2022 Telephone [facility] [address] [place] [address] [phone] Chelle Cueto MD [address] [place], [place] [phone] Referral Social History Tobacco Use Types Packs/Day [...] Miscellaneous Notes * Telephone Encounter - Rhiannon Karina - 03/19/2022 12:58 PM EST Tc from pt requesting a referral to the eye clinic here . documented in this encounter Plan of Treatment Not on file documented as of this encounter Visit Diagnoses Not on filedocumented in this encounter Care Teams Unit Clerk Relationship Specialty Start Date End Date Chelle Cueto MD [address] [place] [address] PCP - General Family Medicine 03/14/18 Glenn Fofana, Raven [address] [place] [address] Pharmacist Internal Medicine 06/12/24 Caro Lee Director Underwriter SalesStreet Openings Inspector 12/01/23 documented as of this encounter
--- OUTSIDE RECORDS SUMMARY | 2024-12-11 17:02 | XMS_ITS | Encounter Summary ---
Author Organization [employer] Address [address] [facility] [address] [place] [address] Care Team Providers Care Director Music Name Role Phone Chelle Cueto MD Primary Care Provider [phone] Glenn Fofana PharmD Unavailable [phone] Reason for Visit * Reason Onset Date Comments chart prep 12/10/2024 Encounter Details Date Type Department Care Team (Late st Contact Info) Description 12/10/2024 Telephone [facility] [address] [place], [place] [phone] Chelle Cueto MD [address] [place], [place] [phone] chart prep Social History Tobacco Use Types Packs/Day Years [...] encounter Miscellaneous Notes * Telephone Encounter - Joselyn Chicas [place] - 12/10/2024 2:21 PM EDT Chart Prep Labs: not done Images: done Screenings: Colonoscopy , PAP, and Mammogram Vaccines due: Flu Due Referrals: Completed Overdue care gaps: A1C, Glucose, Sbirt, PHQ9, GAD7, and Disability documented in this encounter Plan of Treatment Not on file documented as of this encounter Visit Diagnoses Not on filedocumented in this encounter Additional Health Concerns Assessment Noted Time PHQ-9 Depression Total Score: 15 025 3:52 PM EST documented as of this encounter Care Teams Director Music Relationship Specialty Start Date End Date Chelle Cueto MD [address] [place] [phone] PCP - General Family Medicine 03/14/18 Glenn Fofana, SriD [address] [place] [phone] Pharmacist Internal Medicine 06/12/24 Caro Lee Sales Performance ManagerHealthcare Corporate Account Director 12/01/23 documented as of this encounter
--- OUTSIDE RECORDS SUMMARY | 2024-12-11 17:02 | XMS_ITS | Encounter Summary ---
Author Organization [employer] Address [address] [facility] 7t [place] [address] Care Team Providers Care Conduit Cleaner Name Role Phone Chelle Cueto MD Primary Care Provider [phone] Glenn Fofana PharmD Unavailable [phone] Encounter Details Date Type Department Care Team (Latest Contact Info) Description 12/11/2024 Travel Social History Tobacco Use Types Packs/Day [...] as of this encounter Plan of Treatment Not on file documented as of this encounter Visit Diagnoses Not on filedocumented in this encounter Additional Health Concerns Assessment Noted Time PHQ-9 Depression Total Score: 15 025 3:52 PM EST documented as of this encounter Care Teams Conduit Cleaner Relationship Specialty Start Date End Date hCelle Cueto MD [address] [place] [address] PCP - General Family Medicine 03/14/18 Glenn Fofana, Raven [address] [place] [address] Pharmacist Internal Medicine 06/12/24 Caro Lee Mat Making Machine TenderReplenishment Associate 12/01/23 documented as of this encounter
--- OUTSIDE RECORDS SUMMARY | 2024-12-11 17:02 | XMS_ITS | Encounter Summary ---
Author Organization [employer] Address [address] [place] [address] 7 [place] [address] Care Team Providers Care Visual Inspector Name Role Phone Chelle Cueto MD Primary Care Provider [phone] Glenn Fofana PharmD Unavailable [phone] Reason for Referral * Consultation (Routine) - Closed Specialty Diagnoses / Procedures Referred By Hayden clark Referred To Contact Pharmacy Diagnoses HTN (hypertension), benign Type 2 diabetes mellitus with hyperglycemia, without long-term current use of insulin (HCC) Chelle Cueto MD [address] [place] [address] Phone: tel: fax: Referral ID Status Reason Start Date Expiration Date V isits Requested Visits Authorized [id number] Closed Continuity of Care 05/14/2024 05/14/2025 6 6 * Consultation (Routine) - Closed Specialty Diagnoses / Procedures Referred By Hayden clark Referred To Contact Pharmacy Diagnoses HTN (hypertension), benign Type 2 diabetes mellitus with hyperglycemia, without long-term current use of insulin (HCC) Chelle Cueto MD [address] [place] [address] Phone: tel: fax: Referral ID Status Reason Start Date Expiration Date V isits Requested Visits Authorized [id number] Closed Consult and Treat 05/14/2024 05/14/2025 6 6 Scheduling Instructions Mainly hypertension and asthma, then diabetes. Thank you Encounter Details Date Type Department Care Team (Late st Contact Info) Description 05/09/2024 Orders Only [facility] MEDICINE [address] [place], [place] [phone] Chelle Cueto MD [address] [place] [address] HTN (hypertension), benign (Primary Dx); Type 2 diabetes mellitus with hyperglycemia, without long-term current use of insulin ([facility]) Social History Tobacco Use Types Packs/Day [...] as of this encounter Plan of Treatment Scheduled Referrals Name Type Priority Associated Diagnoses [...] without long-term current use of insulin (HCC) documented in this encounter Additional Health Concerns Assessment Noted Time PHQ-9 Depression Total Score: 15 05/08/ 025 3:52 PM EST documented as of this encounter Care Teams Visual Inspector Relationship Specialty Start Date End Date Chelle Cueto MD [address] [place] [address] PCP - General Family Medicine 03/14/18 Glenn Fofana, Raven [address] [place] [address] Pharmacist Internal Medicine 06/12/24 Caro Lee Tanning Wheel FillerDirector Day Care Center 12/01/23 documented as of this encounter
--- OUTSIDE RECORDS SUMMARY | 2024-12-11 17:02 | XMS_ITS | Encounter Summary ---
Author Organization [employer] Address [address] [place] [address] 7 [place] [address] Care Team Providers Care Die Cutter Operator Name Role Phone Chelle Cueto MD Primary Care Provider [phone] Glenn Fofana PharmD Unavailable [phone] Reason for Visit * Reason Onset Date Comments Results 03/19/2022 Encounter Details Date Type Department Care Team ([facility] st Contact Info) Description 03/19/2022 Telephone [facility] MEDICINE [address] [place] [address] [phone] Chelle Cueto MD [address] [place], [place] [phone] Results Social History Tobacco Use Types Packs/Day [...] knee, xrays were done on 02/24/22 at [facility], [place]. documented in this encounter Plan of Treatment Not on file documented as of this encounter Visit Diagnoses Not on filedocumented in this encounter Care Teams Die Cutter Operator Relationship Specialty Start Date End Date Chelle Cueto MD [address] [place] [address] PCP - General Family Medicine 03/14/18 Glenn Fofana, SriD [address] [place] [address] Pharmacist Internal Medicine 06/12/24 Caro Lee Ed Special Education TeacherUrban Gardening Specialist 12/01/23 documented as of this encounter
--- OUTSIDE RECORDS SUMMARY | 2024-12-11 17:02 | XMS_ITS | Encounter Summary ---
Author Organization [employer] Address [address] [place] [address] 7 [place] [address] Care Team Providers Care Scientific Programmer Analyst Name Role Phone Chelle Cueto MD Primary Care Provider [phone] Glenn Fofana PharmD Unavailable [phone] Encounter Details Date Type Department Care Team ([facility] st Contact Info) Description 09/07/2022 Orders Only [facility] MEDICINE [address] [place], [place] [phone] Chelle Cueto MD [address] [place], [place] [phone] Elevated TSH (Primary Dx) Social History Tobacco [...] of this encounter Plan of Treatment Scheduled Orders [...] EDT) TSH 6.35(H) mIU/L [facility] [place] [facility] Comment: Reference Range > or = 20 Years 0.40-4.50 Ranges First trimester 0.26-2.66 Second trimester 0.55-2.73 Third trimester 0.43-2.91 Blood Venous blood specimen / Unknown 09/07/2022 2:44 PM EDT 09/07/2022 2:44 PM EDT us Chelle Cueto MD LAB BLOOD ORDERABLES Final Resul t [facility] [address], [place] [address] [facility] [place] [facility] [address] [place] [address] * (ABNORMAL) Thyroid Peroxidase And Thyroglobulin Antibodies (09/07/2022 2:44 PM EDT) Thyroglobulin Antibodies 24(H) < or = 1 IU/mL [facility] Thyroid Peroxidase Antibodies 10(H) <9 IU/mL [facility] 09/07/2022 2:44 PM EDT 09/07/2022 2:44 PM EDT Chelle Cueto MD LAB BLOOD ORDERABLES Final Resul t Performing Organization Address [facility]/ZIP Co de Phone Number [facility] [address] [place] [address], [place] [address] [facility] [address] [place] [address] * (ABNORMAL) T4, Free (09/07/2022 2:44 PM EDT) T4, Free 0.7(L) 0.8 - 1.8 ng/dL [facility] Blood Venous blood specimen / Unknown 09/07/2022 2:44 PM EDT 09/07/2022 2:44 PM EDT Chelle Cueto MD LAB BLOOD ORDERABLES Final Resul t Performing Organization Address [facility] Co de Phone Number [facility] [address] [place] [address], [place] [address] [facility] [address] [place] [address] * T3, Free (09/07/2022 2:44 PM EDT) Pathologist [facility] T3, Free 3.1 2.3 - 4.2 pg/mL [facility] Blood Venous blood specimen / Unknown 09/07/2022 2:44 PM EDT 09/07/2022 2:44 PM EDT Chelle Cueto MD LAB BLOOD ORDERABLES Final Resul t Performing Organization Address City/[facility]/ZIP Co de Phone Number [facility] [address] [place] [phone] [facility] [address] [place] [phone] * XR Foot 3+ Views Right (09/06/2022 3:47 PM EDT) Anatomical Region Laterality Modality Lower Extremities, Foot Right Radiogra phic Imaging 09/06/2022 3:47 PM EDT Narrative 09/22/2022 12:11 PM EDT [address] [address] XRay Report Signed Patient: Blessing Calderón MR#: [id number] : 1970 Acct:[id number] Age/Sex: 52 / F ADM Date: 09/06/22 Loc: HOADDISCX Attending Dr: Chelle Cueto MD Ordering Physician: Chelle Cueto MD Date of Service: 09/06/22 Procedure(s): XR foot RT min 3V Accession Number(s): [id number] cc: Chelle Cueto MD EXAMINATION: XR FOOT, [...] in OV> 09/22/22 1208 DD/ 1547 TD/TT: Bank Clerk: Procedure Note Donotuseinterpreter, Image - 09/22/[address] [address] XRay Report Signed Patient: Barry CalderónnMR#: [id number] : 1970Acct:[id number] Age/Sex: 52 / FADM Date: 09/06/22 Loc: LONAX Attending Dr: Chelle Cueto MD Ordering Physician: Chelle Cueto MD Date of Service: 09/06/22 Procedure(s): XR foot RT min 3V Accession Number(s): [id number] cc: Chelle Cueto MD EXAMINATION: XR FOOT, [...] in OV> 09/22/22 1208 DD/ 1547 TD/TT: Bank Clerk: [facility] External Provider IMG XR PROCEDURES Final Result documented in this encounter Visit Diagnoses Diagnosis Elevated TSH- Primary Other abnormal blood chemistry documented in this encounter Care Teams Scientific Programmer Analyst Relationship Specialty Start Date End Date Chelle Cueto MD [address] [place] [address] PCP - General Family Medicine 03/14/18 Glenn Fofana, Raven [address] [place] [address] Pharmacist Internal Medicine 06/12/24 Caro Lee Machine GrinderYard Motor Operator 12/01/23 documented as of this encounter
--- OUTSIDE RECORDS SUMMARY | 2024-12-11 17:02 | XMS_ITS | Encounter Summary ---
Author Organization [employer] Address [address] [place] [address] 7 [place] [address] Care Team Providers Care Health Plan Manager Name Role Phone Chelle Cueto MD Primary Care Provider Glenn Fofana PharmD Unavailable [phone] Reason for Referral * Consultation (Routine) - Authorized Specialty Diagnoses / Procedures Referred By Contac t Referred To Contact Nutrition Diagnoses HTN (hypertension), benign Type 2 diabetes mellitus with hyperglycemia, without long-term current use of insulin (HCC) Dyslipidemia Class 2 severe obesity due to excess calories with serious comorbidity and body mass index (BMI) of 35.0 to 35.9 in adult Chelle Cueto MD [address] [place] [address] Phone: tel: fax: Referral ID Status Reason Start Date Expiration Date Visits Requested Visits Authorized [id number] Authorized Consult and Treat 05/24/2024 05/24/2025 1 1 Encounter Details Date Type Department Care Team (Late st Contact Info) Description 05/24/2024 Orders Only [facility] MEDICINE [address] [place] [address] [phone] Chelle Cueto MD [address] [place], [place] [phone] HTN (hypertension), benign (Primary Dx); Type 2 diabetes mellitus with hyperglycemia, without long-term current use of insulin (CMS/HCC); Dyslipidemia; Class 2 severe obesity due to excess calories with serious comorbidity and body mass index (BMI) of 35.0 to 35.9 in adult ([facility]) Social History Tobacco Use Types [...] ([facility]) Dyslipidemia Class 2 severe obesity due to excess calories with serious comorbidity and body mass index (BMI) of 35.0 to 35.9 in adult ([facility]/HCC) Expected: 05/24/2024 (Approximate), Expires: 05/24/2025 documented as of this encounter Visit Diagnoses Diagnosis HTN (hypertension), benign- Primary Essential hypertension, benign Type 2 diabetes mellitus with hyperglycemia, without long-term current use of insulin (HCC) Dyslipidemia Other and unspecified hyperlipidemia Class 2 severe obesity due to excess calories with serious comorbidity and body mass index (BMI) of 35.0 to 35.9 in adult documented in this encounter Additional Health Concerns Assessment Noted Time PHQ-9 Depression Total Score: 15 05/08/ 025 3:52 PM EST documented as of this encounter Care Teams Health Plan Manager Relationship Specialty Start Date End Date Chelle Cueto MD [address] [place] [address] PCP - General Family Medicine 03/14/18 Glenn Fofana, Raven [address] [place] [address] Pharmacist Internal Medicine 06/12/24 Caro Lee Director Motion PicturePersonal Security Specialist 12/01/23 documented as of this encounter
--- OUTSIDE RECORDS SUMMARY | 2024-12-11 17:02 | XMS_ITS | Encounter Summary ---
Author Organization [employer] Address [address] [place] [address] 7 [place] [address] Care Team Providers Care Hand Drawer In Helper Name Role Phone Chelle Cueto MD Primary Care Provider [phone] Glenn Fofana PharmD Unavailable [phone] Encounter Details Date Type Department Care Team ([facility] st Contact Info) Description 03/23/2022 Orders Only [facility] MEDICINE [address] [place], [place] [phone] Chelle Cueto MD [address] [place], [place] [phone] Type 2 diabetes mellitus with hyperglycemia, without long-term current use of insulin (CMS/HCC) (Primary Dx) Social History Tobacco Use Types [...] hyperglycemia, without long-term current use of insulin (HCC)- Primary documented in this encounter Care Teams Hand Drawer In Helper Relationship Specialty Start Date End Date Chelle Cueto MD [address] [place], [place] [phone] PCP - General Family Medicine 03/14/18 Glenn Fofana, SriD [address] [place], [place] [phone] Pharmacist Internal Medicine 06/12/24 Caro Lee Multisensor Intelligence OfficerStitch Cleaner 12/01/23 documented as of this encounter
--- OUTSIDE RECORDS SUMMARY | 2024-12-11 17:02 | XMS_ITS | Encounter Summary ---
Author Organization [employer] Address [address] [place] [address] 7 [place] [address] Care Team Providers Care Crystal Mounter Name Role Phone Chelle Cueto MD Primary Care Provider [phone] Glenn Fofana PharmD Unavailable [phone] Encounter Details Date Type Department Care Team ([facility] st Contact Info) Description 09/06/[address] [facility] MEDICINE [address] [place], [place] [phone] Chelle Cueto MD [address] [place], [place] [phone] Social History Tobacco Use Types Packs/Day Years [...] on file documented as of this encounter Procedures Procedure Name Priority Date/Time Associated Diagnosis Comments HM MAMMOGRAPHY Routine 08/31/2022 9:39 AM EDT documented in this encounter Results * Mammography (08/31/2022 9:39 AM EDT) Mammogram Bi-rads 1 Anatomical Region Laterality Modality Other Historical Provider HEALTH MAINTENANCE Final Result documented in this encounter Visit Diagnoses Not on filedocumented in this encounter Care Teams Crystal Mounter Relationship Specialty Start Date End Date Chelle Cueto MD [address] [place] [address] PCP - General Family Medicine 03/14/18 Glenn Fofana, Raven [address] [place] [address] Pharmacist Internal Medicine 06/12/24 Caro Lee Third Rail InstallerChemical Engineer 12/01/23 documented as of this encounter
[2024-12-11 18:36] LABS: Alanine Aminotransferase 18 U/L (0-31); Albumin Level 4.6 g/dL (3.5-5.0); Alkaline Phosphatase 116 U/L (39-117); Anion Gap 13 (12-20); Aspartate Amino Transferase 25 U/L (5-31); Blood Urea Nitrogen 16 mg/dL (9-16); Calcium 9.5 mg/dL (8.4-10.2); Carbon Dioxide 29 mmol/L (22-29); Chloride 104 mmol/L (96-108); Cholesterol 175 mg/dL (<200); Estimated Glomerular Filt Rate 59; HDL Cholesterol 31 mg/dL (>40); Potassium 4.5 mmol/L (3.3-5.1); Sodium 141 mmol/L (135-145); Total Protein 8.0 g/dL (6.5-8.0); Triglycerides 204 mg/dL (<150)
[2024-12-11 18:50] LABS: Microalbum/Creatinine Ratio Ur 6.2 ug/mg cr (<30)
[2024-12-11 18:57] LABS: Folate 14.1 ng/mL (> or = 4.0); Vitamin B12 250 pg/mL (200-900)
[2024-12-11 19:32] LABS: Free T4 (Free Thyroxine) 0.91 ng/dL (0.71-1.85)
[2024-12-11 19:41] LABS: Reflex LDLD? No
== END 2024-12-11 15:58 | disposition home or self-care (01) ==
LOC: HO.HHCL 15:57
PROVIDERS: PCP Family Medicine; Visit Provider Family Medicine
DX: E11.65 Type 2 diabetes mellitus with hyperglycemia (principal); I10 Essential (primary) hypertension; E03.9 Hypothyroidism, unspecified
CPT/HCPCS: 36415; 80053; 80061; 82043; 82570; 82607; 82746; 84439; 84443

== ENCOUNTER 2025-01-07 14:47 | Outpatient (REF) | payer MEDICAID, SELFPAY ==
[2025-01-07 16:14] LABS: MANUAL DIFF FLAG NO
[2025-01-07 16:23] LABS: Hematocrit 41.1 % (37.0-47.0); Hemoglobin 13.5 g/dl (12.0-16.0); Imm Gran Abs Auto 0.02 X10*3/uL (0.00-0.03); Imm Gran Pct Auto 0.3 % (0.0-0.4); Lymphocytes Absolute Auto 1.9 X10*3/uL (1.2-4.9); Mean Corpuscular HGB Conc 32.8 g/dl (31.0-35.0); Mean Corpuscular Hemoglobin 29.3 pg (27.0-33.0); Mean Corpuscular Volume 89.2 fL (80.0-98.0); NRBC Abs Auto 0.000 X10*3/uL (0.0-0.012); NRBC Pct Auto 0.0 /100WBC (0.0-0.2); Platelet Count 318 X10*3/uL (160-400); Red Blood Count 4.61 X10*6/uL (4.20-5.50); White Blood Count 6.8 X10*3/uL (4.8-10.8)
[2025-01-07 16:45] LABS: Alanine Aminotransferase 26 U/L (0-31); Albumin Level 4.6 g/dL (3.5-5.0); Alkaline Phosphatase 111 U/L (39-117); Anion Gap 12 (12-20); Aspartate Amino Transferase 26 U/L (5-31); Blood Urea Nitrogen 11 mg/dL (9-16); Calcium 9.5 mg/dL (8.4-10.2); Carbon Dioxide 30 mmol/L (22-29); Chloride 104 mmol/L (96-108); Estimated Glomerular Filt Rate > 60; Potassium 4.5 mmol/L (3.3-5.1); Sodium 141 mmol/L (135-145); Total Protein 8.0 g/dL (6.5-8.0)
[2025-01-07 16:50] LABS: Thyroid Stimulating Hormone 2.71 uIU/mL (0.32-4.0)
--- OUTSIDE RECORDS SUMMARY | 2025-01-07 18:14 | XMS_ITS | Encounter Summary ---
Author Organization [employer] Address [address] [place] [address] 7 [place] [address] Care Team Providers Care Antique Refinisher Name Role Phone Chelle Cueto MD Primary Care Provider [phone] Glenn Fofana PharmD Unavailable [phone] Reason for Visit * Reason Onset Date Comments Results 03/19/2022 Encounter Details Date Type Department Care Team ([facility] st Contact Info) Description 03/19/2022 Telephone [facility] MEDICINE [address] [place] [address] [phone] Chelle Cueto MD [address] [place], [place] [phone] Results Social History Tobacco Use Types Packs/Day [...] is done. * Telephone Encounter - Rhiannon Karina - 03/19/2022 12:55 PM EST Tc from pt requesting xray results of shoulder and knee, xrays were done on 02/24/22 at [facility], [place]. documented in this encounter Plan of Treatment Upcoming Encounters Date Type Department Care Team (Late st Contact Info) Description 01/24/2025 10:30 AM EST Procedure Visit [facility] MEDICINE [address] [place], [place] [phone] Karla Dominique CNM [address] [place] [address] documented as of this encounter Visit Diagnoses Not on filedocumented in this encounter Care Teams Antique Refinisher Relationship Specialty Start Date End Date Chelle Cueto MD [address] [place], [place] [phone] PCP - General Family Medicine 03/14/18 Glenn Fofana, PharmD [address] [place], [place] [phone] Pharmacist Internal Medicine 06/12/24 Caro Lee Roofing ApprenticeCredit Card Clerk 12/01/23 documented as of this encounter
--- OUTSIDE RECORDS SUMMARY | 2025-01-07 18:14 | XMS_ITS | Encounter Summary ---
Author Organization [employer] Address [address] [place] [address] 7 [place] [address] Care Team Providers Care Baked Goods Stock Clerk Name Role Phone Chelle Cueto MD Primary Care Provider [phone] Glenn Fofana PharmD Unavailable [phone] Encounter Details Date Type Department Care Team ([facility] Contact Info) Description 09/07/2022 Orders Only [facility] MEDICINE [address] [place] [address] [phone] Chelle Cueto MD [address] [place] [address] Elevated TSH (Primary Dx) Social History Tobacco [...] Encounters Date Type Department Care Team ([facility] Contact Info) Description 01/24/2025 10:30 AM EST Procedure Visit [facility] MEDICINE [address] [place] [address] Karla Dominique, CNM [address] [place] [address] Scheduled Orders Name Type Priority Associated Diagnoses [...] EDT) TSH 6.35(H) mIU/L [facility] [place] [facility] Comment: Reference Range > or = 20 Years 0.40-4.50 Ranges First trimester 0.26-2.66 Second trimester 0.55-2.73 Third trimester 0.43-2.91 Blood Venous blood specimen / Unknown 09/07/2022 2:44 PM EDT 09/07/2022 2:44 PM EDT us Chelle Cueto MD LAB BLOOD ORDERABLES Final Resul t [facility] [address], [place] [address] [facility] [address] [place] [address] * (ABNORMAL) Thyroid Peroxidase And Thyroglobulin Antibodies (09/07/2022 2:44 PM EDT) Thyroglobulin Antibodies 24(H) < or = 1 IU/mL [facility] Thyroid Peroxidase Antibodies 10(H) <9 IU/mL [facility] 09/07/2022 2:44 PM EDT 09/07/2022 2:44 PM EDT Chelle Cueto MD LAB BLOOD ORDERABLES Final Resul t Performing Organization Address City/[facility]/ZIP Co de Phone Number [facility] [address] [place] [address], [place] [address] [facility] [address] [place] [phone] * (ABNORMAL) T4, Free (09/07/2022 2:44 PM EDT) T4, Free 0.7(L) 0.8 - 1.8 ng/dL [facility] Blood Venous blood specimen / Unknown 09/07/2022 2:44 PM EDT 09/07/2022 2:44 PM EDT Chelle Cueto MD LAB BLOOD ORDERABLES Final Resul t Performing Organization Address City/[facility]/ZIP Co de Phone Number [facility] [address] [place] [address], [facility] [place] [address] [facility] [place] [facility] [address] [place] [phone] * T3, Free (09/07/2022 2:44 PM EDT) T3, Free 3.1 2.3 - 4.2 pg/mL [facility] Blood Venous blood specimen / Unknown 09/07/2022 2:44 PM EDT 09/07/2022 2:44 PM EDT Chelle Cueto MD LAB BLOOD ORDERABLES Final Resul t [facility] [address] [place] [address] Fl, [place] [address] [facility] [address] [place] [address] * XR Foot 3+ Views Right (09/06/2022 3:47 PM EDT) Anatomical Region Laterality Modality Lower Extremities, Foot Right Radiogra phic Imaging 09/06/2022 3:47 PM EDT Narrative 09/22/2022 12:11 PM EDT [facility] [address] [place] [address] XRay Report Signed Patient: Blessing Calderón MR#: [id number] : 1970 Acct:[id number] Age/Sex: 52 / F ADM Date: 09/06/22 Loc: HO.HHCX Attending Dr: Chelle Cueto MD Ordering Physician: Chelle Cueto MD Date of Service: 09/06/22 Procedure(s): XR foot RT min 3V Accession Number(s): [id number] cc: Chelle Cueto MD EXAMINATION: XR FOOT, [...] in OV> 09/22/22 1208 DD/ 1547 TD/TT: Banking Services Clerk: Procedure Note Donotuseinterpreter, Image - 09/22/[address] [address] XRay Report Signed Patient: Barry CalderónnMR#: [id number] : 1970Acct:[id number] Age/Sex: 52 / FADM Date: 09/06/22 Loc: HO.HHCX Attending Dr: Chelle Cueto MD Ordering Physician: Chelle Cueto MD Date of Service: 09/06/22 Procedure(s): XR foot RT min 3V Accession Number(s): [id number] cc: Chelle Cueto MD EXAMINATION: XR FOOT, [...] in OV> 09/22/22 1208 DD/ 1547 TD/TT: Banking Services Clerk: [facility] External Provider IMG XR PROCEDURES Final Result documented in this encounter Visit Diagnoses Diagnosis Elevated TSH- Primary Other abnormal blood chemistry documented in this encounter Care Teams Baked Goods Stock Clerk Relationship Specialty Start Date End Date Chelle Cueto MD [address] [place] [address] PCP - General Family Medicine 03/14/18 Glenn Fofana, SriD [address] [place] [address] Pharmacist Internal Medicine 06/12/24 Caro Lee Insurance Account RepresentativeTele Marketing Executive 12/01/23 documented as of this encounter
--- OUTSIDE RECORDS SUMMARY | 2025-01-07 18:14 | XMS_ITS | Encounter Summary ---
Author Organization [employer] Address [address] [place] [address] 7 [place] [address] Care Team Providers Care Resolution Analyst Name Role Phone Chelle Cueto MD Primary Care Provider [phone] Glenn Fofana PharmD Unavailable [phone] Reason for Visit * Reason Onset Date Comments Referral 03/19/2022 Encounter Details Date Type Department Care Team (Late st Contact Info) Description 03/19/2022 Telephone [facility] MEDICINE [address] [place] [address] [phone] Chelle Cueto MD 230 [place], [place] [phone] Referral Social History Tobacco Use Types Packs/Day [...] Description 01/24/2025 10:30 AM EST Procedure Visit [facility]ICINE 230 [place], [place] [phone] Karla Dominique CNM [address] [place], [place] [phone] documented as of this encounter Visit Diagnoses Not on filedocumented in this encounter Care Teams Resolution Analyst Relationship Specialty Start Date End Date Chelle Cueto MD [address] [place] [address] [phone] PCP - General Family Medicine 03/14/18 Glenn Fofana, Raven [address] [place] [address] [phone] Pharmacist Internal Medicine 06/12/24 Caro Lee Director Of Market ResearchBudget Manager 12/01/23 documented as of this encounter
--- OUTSIDE RECORDS SUMMARY | 2025-01-07 18:14 | XMS_ITS | Encounter Summary ---
Author Organization [employer] Address [address] [place] [address] 7 [place] [address] Care Team Providers Care Auto Damage Trainee Name Role Phone Chelle Cueto MD Primary Care Provider [phone] Glenn Fofana PharmD Unavailable [phone] Reason for Referral * Consultation (Routine) - [...] 35.9 in adult Chelle Cueto MD [address] [place] [address] Phone: tel: fax: Referral ID Status Reason Start Date Expiration Date Visits Requested Visits Authorized [id number] Authorized Consult and Treat 05/24/2024 05/24/2025 1 1 Encounter Details Date Type Department Care Team (Late st Contact Info) Description 05/24/2024 Orders Only [facility] MEDICINE [address] [place] [address] [phone] Chelle Cueto MD [address] [place], [place] [phone] HTN (hypertension), benign (Primary Dx); Type 2 diabetes mellitus with hyperglycemia, without long-term current use of insulin (CMS/HCC); Dyslipidemia; Class 2 severe obesity due to excess calories with serious comorbidity and body mass index (BMI) of 35.0 to 35.9 in adult ([facility]) Social History Tobacco Use Types [...] Description 01/24/2025 10:30 AM EST Procedure Visit [facility] MEDICINE [address] [place] [phone] Karla Dominique CNM [address] [place] [address] Scheduled Referrals Name Type Priority Associated Diagnoses Orde r Schedule Referral to Nutrition Therapy Outpatient Referral Routine HTN (hypertension), benign Type 2 diabetes mellitus with hyperglycemia, without long-term current use of insulin (CMS/HCC) Dyslipidemia Class 2 severe obesity due to excess calories with serious comorbidity and body mass index (BMI) of 35.0 to 35.9 in adult (CMS/HCC) Expected: 05/24/2024 (Approximate), Expires: 05/24/2025 documented as [...] documented as of this encounter Care Teams Auto Damage Trainee Relationship Specialty Start Date End Date Chelle Cueto MD [address] [place] [address] PCP - General Family Medicine 03/14/18 Glenn Fofana, Raven [address] [place] [address] Pharmacist Internal Medicine 06/12/24 Caro Lee Drier Transfer Car OperatorFeller Seam Operator 12/01/23 documented as of this encounter
--- OUTSIDE RECORDS SUMMARY | 2025-01-07 18:14 | XMS_ITS | Encounter Summary ---
Author Organization [employer] Address [address] [place] [address] 7 [place] [address] Care Team Providers Care School Psychologist Name Role Phone Chelle Cueto MD Primary Care Provider [phone] Glenn Fofana PharmD Unavailable [phone] Encounter Details Date Type Department Care Team (Late st Contact Info) Description 03/23/2022 Orders Only [facility] [address] [place] [address] [phone] Chelle Cueto MD [address] [place] [address] [phone] Type 2 diabetes mellitus with hyperglycemia, without long-term current use of insulin ([facility]) (Primary Dx) Social History Tobacco Use [...] Department Care Team (Late Contact Info) Description 01/24/2025 10:30 AM EST Procedure Visit [facility] [address] [place], [place] [phone] Karla Dominique, ELYSSA [address] [place], [place] [phone] documented as of this encounter Visit Diagnoses Diagnosis Type 2 diabetes mellitus with hyperglycemia, without long-term current use of insulin (HCC)- Primary documented in this encounter Care Teams School Psychologist Relationship Specialty Start Date End Date Chelle Cueto MD [address] [place], [place] [phone] PCP - General Family Medicine 03/14/18 Glenn Fofana, SriD [address] [place], [place] [phone] Pharmacist Internal Medicine 06/12/24 Caro Lee Resource AgentPest Control Service Representative 12/01/23 documented as of this encounter
--- OUTSIDE RECORDS SUMMARY | 2025-01-07 18:14 | XMS_ITS | Encounter Summary ---
Author Organization [employer] Address [address] [place] [address] 7 [place] [address] Care Team Providers Care Breakfast Server Name Role Phone Chelle Cueto MD Primary Care Provider [phone] Glenn Fofana PharmD Unavailable [phone] Encounter Details Date Type Department Care Team ([facility] Contact Info) Description 09/06/2022 Abstract [facility] [address] [place] [address] [phone] Chelle Cueto MD [address] [place] [address] [phone] Social History Tobacco Use Types Packs/Day Years [...] Encounters Date Type Department Care Team ([facility] Contact Info) Description 01/24/2025 10:30 AM EST Procedure Visit [facility] [address] [place] [address] [phone] Karla Dominique CNM [address] [place] [address] documented as of this encounter Procedures Procedure Name Priority Date/Time Associated Diagnosis Comments MAMMOGRAPHY Routine 08/31/2022 9:39 AM EDT documented in this encounter Results * Mammography (08/31/2022 9:39 AM EDT) Mammogram Bi-rads 1 Anatomical Region Laterality Modality Other Historical Provider MD HEALTH MAINTENANCE Final Result documented in this encounter Visit Diagnoses Not on filedocumented in this encounter Care Teams Breakfast Server Relationship Specialty Start Date End Date Chelle Cueto MD [address] [place] [phone] PCP - General Family Medicine 03/14/18 Glenn Fofana, PharmD [address] [place] [phone] Pharmacist Internal Medicine 06/12/24 Caro Lee Sql Server ConsultantSeam Stayer 12/01/23 documented as of this encounter
--- OUTSIDE RECORDS SUMMARY | 2025-01-07 18:14 | XMS_ITS | Encounter Summary ---
Author Organization [employer] Address [address] [place] [address] 7 [place] [address] Care Team Providers Care Boiler House Operator Name Role Phone Chelle Cueto MD Primary Care Provider [phone] Glenn Fofana PharmD Unavailable [phone] Reason for Referral * Consultation (Routine) - Closed Specialty Diagnoses / Procedures Referred By Hayden clark Referred To Contact Pharmacy Diagnoses HTN (hypertension), benign Type 2 diabetes mellitus with hyperglycemia, without long-term current use of insulin (HCC) Chelle Cueto MD [address] [place] [address] Phone: tel: fax: Referral ID Status Reason Start Date Expiration Date V isits Requested Visits Authorized [id number] Closed Continuity of Care 05/14/2024 05/14/2025 6 6 * Consultation (Routine) - Closed Specialty Diagnoses / Procedures Referred By Hayden clark Referred To Contact Pharmacy Diagnoses HTN (hypertension), benign Type 2 diabetes mellitus with hyperglycemia, without long-term current use of insulin (HCC) Chelle Cueto MD [address] [place] [address] Phone: tel: fax: Referral ID Status Reason Start Date Expiration Date V isits Requested Visits Authorized [id number] Closed Consult and Treat 05/14/2024 05/14/2025 6 6 Scheduling Instructions Mainly hypertension and asthma, then diabetes. Thank you Encounter Details Date Type Department Care Team (Late st Contact Info) Description 05/09/2024 Orders Only [facility] [address] [place], [place] [phone] Chelle Cueto MD [address] [place] [address] HTN (hypertension), benign (Primary Dx); Type 2 diabetes mellitus with hyperglycemia, without long-term current use of insulin ([facility]) Social History Tobacco Use [...] Description 01/24/2025 10:30 AM EST Procedure Visit [facility] [address] [place] [address] Karla Dominique CNM [address] [place], [place] [phone] Scheduled Referrals Name Type Priority Associated Diagnoses [...] documented as of this encounter Care Teams Boiler House Operator Relationship Specialty Start Date End Date Chelle Cueto MD [address] [place] [phone] PCP - General Family Medicine 03/14/18 Glenn Fofana, SriD [address] [place] [phone] Pharmacist Internal Medicine 06/12/24 Caro Lee Growth HackerCooking Teacher 12/01/23 documented as of this encounter
--- OUTSIDE RECORDS SUMMARY | 2025-01-07 18:14 | XMS_ITS | Encounter Summary ---
Author Organization [employer] Address [address] [facility] [address] [place] [address] Care Team Providers Care Supply Planner Name Role Phone Chelle Cueto MD Primary Care Provider [phone] Glenn Fofana PharmD Unavailable [phone] Encounter Details Date Type Department Care Team ([facility] st Contact Info) Description 12/20/2024 Orders Only [facility] [address] [place], [place] [phone] Chelle Cueto MD [address] [place], [place] [phone] Social History Tobacco Use Types Packs/Day Years [...] Description 01/24/2025 10:30 AM EST Procedure Visit [facility] [address] [place] [address] Karla Dominique CNM [address] [place] [address] documented as of this encounter Visit Diagnoses Not on filedocumented in this encounter Additional Health Concerns Assessment Noted Time PHQ-9 Depression Total Score: 15 025 3:52 PM EST documented as of this encounter Care Teams Supply Planner Relationship Specialty Start Date End Date Chelle Cueto MD [address] [place] [phone] PCP - General Family Medicine 03/14/18 Glenn Fofana, Raven [address] [place] [phone] Pharmacist Internal Medicine 06/12/24 Caro Lee Instrumentation EngineerFloor Layer Apprentice 12/01/23 documented as of this encounter
--- OUTSIDE RECORDS SUMMARY | 2025-01-07 18:14 | XMS_ITS | Clinical Summary ---
Author Organization [employer] Address [address] [facility] [address] [place] [address] Care Team Providers Care Regulatory Affairs Associate Name Role Phone Chelle Cueto MD Primary Care Provider [phone] Glenn Fofana PharmD Unavailable [phone] Allergies Active Allergy Reactions Criticality Noted Date Comments Ranitidine Rash Low 01/30/2014 Medications * This document contains information received from the source organization and may not represent a complete record from that organization. Alcohol Swabs (Alcohol Prep) padsIndications:T ype 2 diabetes mellitus with hyperglycemia, without long-term current use of insulin ([facility]) Check BG daily as instructed 50 each 11 022 Active acetaminophen (Tylenol 8 Hour) 650 MG ER tablet TAKE 1 TABLET BY MOUTH EVERY 8 HOURS 30 tablet 1 024 Active albuterol 108 (90 Base) MCG/ACT inhalerIndication s:Cough in adult Inhale 2 puffs every 4 (four) hours. 18 g 024 Active fluticasone furoate (Arnuity Ellipta) 100 MCG/ACT inhaler Inhale 1 puff Once per day. Rinse mouth with water after use to reduce aftertaste and incidence of candidiasis. Do not swallow. 1 each 024 Active D3 Super Strength 50 MCG (2000 UT) capsule TAKE 1 CAPSULE BY MOUTH DAILY IN THE MORNING 90 capsule 3 024 Active levothyroxine (Synthroid, Levoxyl) 50 MCG tabletIndications :Subclinical hypothyroidism TAKE 1 TABLET BY MOUTH DAILY BEFORE BREAKFAST 90 tablet 3 024 Active TRUEplus Lancets 33G miscIndications:T ype 2 diabetes mellitus with hyperglycemia, without long-term current use of insulin ([facility]) TEST BLOOD SUGAR ONCE DAILY 100 each 5 Active FREESTYLE LITE test stripIndications: Type 2 diabetes mellitus with hyperglycemia, without long-term current use of insulin ([facility]) TEST BLOOD SUGAR ONCE DAILY 50 strip 5 Active Blood Glucose Monitoring Suppl (FreeStyle Crum Lynne Lite) w/Device kitIndications:Ty pe 2 diabetes mellitus with hyperglycemia, without long-term current use of insulin ([facility]) TEST BLOOD SUGAR ONCE DAILY IN THE MORNING DIRECTED 1 kit Active Multiple Vitamin (multivitamin) tablet Take 1 tablet by mouth Once per day. 90 tablet 3 025 Active Dulaglutide (Trulicity) 0.75 MG/0.5ML solution auto-injector Inject 0.75 mg under the skin 1 (one) time per week. 2 mL 11 025 Active Diclofenac Sodium 1 % gel [...] BEDTIME NEEDED FOR CONSTIPATION 180 capsule 3 025 Active meloxicam (Mobic) 7.5 MG tablet TAKE 1 OR 2 TABLETS BY MOUTH ONCE DAILY NEEDED FOR SEVERE PAIN 60 tablet 2 025 Active fluticasone (Flonase) 50 MCG/ACT nasal spray INSTILL 2 SPRAYS IN EACH NOSTRIL ONCE DAILY IN THE MORNING 48 g Active olmesartan (BENIcar) 5 MG tablet TAKE [...] EVERYDAY AT NOON 90 capsule 3 Active sertraline (Zoloft) 25 MG tablet Take 1 tablet by mouth Once per day. Active melatonin 3 MG tablet take 4 tablets by mouth at bedtime Active levothyroxine (Synthroid) 75 MCG tablet Take 1 tablet (75 mcg) by mouth before breakfast. 90 tablet 3 025 2025 Active atorvastatin (Lipitor) 20 MG tablet Take 1 tablet (20 mg) by mouth Once per day. 90 tablet 3 025 2025 Active montelukast (Singulair) 10 MG tablet TAKE 1 TABLET BY MOUTH EVERYDAY AT NOON 90 tablet 3 Active montelukast (Singulair) 10 MG tablet TAKE 1 TABLET BY MOUTH EVERY MORNING 90 tablet 3 024 2024 Discontinued melatonin 5 MG tablet take 2 tablets by mouth every day at bedtime 2024 Discontinued(M ed list cleanup (will not trigger notification to Pharmacy)) atorvastatin (Lipitor) 10 MG tablet TAKE 1 TABLET BY MOUTH EVERYDAY AT NOON 90 tablet 3 025 2024 Discontinued(D ose adjustment) ciprofloxacin-dex AMETHasone (CiproDEX) otic suspension Administer 4 drops into affected ear(s) 2 times daily for 7 days. 7.5 mL 2024 atorvastatin (Lipitor) 20 MG tablet Take 1 tablet (20 mg) by mouth Once per day. 30 tablet 11 025 2024 Discontinued(R eorder (will not trigger notification to Pharmacy)) Active Problems Problem Noted Date Diagnosed Date On GLP1RA for DM2 12/20/2024 Right hand pain 08/07/2024 Assessment & Plan [...] gel Mood disorder 01/03/2024 Assessment & Plan (12/20/2024 10:38 AM EDT): - current Dx: MDD; ISHA - differential Dx: bipolar ; PTSD - PHQ9 score 20; GAD7 score 19 in Dec 2023 - PHQ9 score 15; GAD7 score 3 today, 05/08/24 - previously tried SSRI (poor adherence) citalopram, fluoxetine, sertraline. Previously tried clonidine for sleep. - connected with behavioral health service - currently taking sertraline and melatonin - Assessment & Plan (05/18/2024 10:17 AM EST): [...] Pt was self-referred to [facility] and completed the intake session [...] reports she moved to an apartment in [place] but the place is infected with rodents [...] OP services and psychopharmacology. Information for [employer] provided to seek out for legal support. Severe episode of recurrent major depressive disorder, without psychotic features (CMS/HCC) 12/29/2023 Assessment & Plan (12/20/2024 10:37 AM EDT): - behavioral health service provider: patient is uncertain, but is connected - current medications: sertraline 25 mg daily and melatonin 3 mg - continue current treatment plan per behavioral health service provider - continue staying physically active Assessment & Plan (05/09/2024 8:56 AM EST): [...] Pt was self-referred to [facility] and completed the intake session [...] reports she moved to an apartment in [place] but the place is infected with rodents [...] OP services and psychopharmacology. Information for [employer] provided to seek out for legal support. Impingement of left shoulder 10/17/2023 Nausea 10/17/2023 [...] - evaluate with X-ray - refer to java development team lead - continue wearing comfortable shoes - daily foot check and care - Ordered XR Foot 1-2 Views Right 05/08/24 Assessment & Plan (09/08/2022 9:41 AM EDT): - at 5th MTP - evaluate with X-ray - refer to java development team lead - continue wearing comfortable shoes - daily foot check and care Type 2 diabetes mellitus 02/28/2022 Assessment & Plan (12/20/2024 10:31 AM EDT): - Dx 02/23/22 A1C 7.4% - A1C 6.2% on 12/11/24, improved from 6.6% on 08/07/24 - Continue working on lifestyle modifications - Continue checking BG - Continue metformin ER 500 mg twice daily - Continue dulaglutide 0.75 mg weekly - Microalbumin test: 12/29/23 - Lipid profile: 12/11/24 - Diabetic eye exam: [facility] eye care, seen on 06/25/2024, no diabetic retinopathy - Foot exam: 05/08/24 Assessment & Plan [...] HTN (hypertension), benign 02/16/2022 Assessment & Plan (12/20/2024 10:20 AM EDT): -Goal BP < 130/80 per ACC/AHA (treatment threshold 140/90) -BP within acceptable range today -pt has BP monitor; advised to check BP at home -continue working on lifestyle modifications -continue chlorthalidone 25 mg at bedtime (patient had not been taking it lately) -continue olmesartan 5 mg daily (added in Apr 2024) -improve medication adherence Assessment & Plan (08/07/2024 4:48 PM EDT): [...] with orthopedist Dyslipidemia 02/02/2022 Assessment & Plan (12/20/2024 10:22 AM EDT): - currently prescribed medication: atorvastatin 10 mg at bedtime, patient had not been adherent - lipid profile: 12/11/2024 - improve adherence - Continue working on lifestyle modification Assessment & Plan (05/18/2024 10:15 AM EST): [...] wrist 10/11/2016 Asthma 09/11/2015 Assessment & Plan (12/20/2024 10:40 AM EDT): Last asthma exacerbation in December 2023, received prednisone x2; often triggered by allergy symptoms and/or URI Currently on ICS / Arnuity Continue montelukast Continue albuterol neb and HFA prn. Patient reports her symptoms improve faster and better with nebulizer. Consider LABA/ICS prn Assessment & Plan (01/03/2024 12:27 PM EDT): [...] and depressive disorder 09/11/2015 Assessment & Plan (12/20/2024 10:39 AM EDT): - improving clinically - continue current treatment plan per current behavioral health service provider Assessment & Plan (05/18/2024 10:15 AM EST): [...] veins Allergic rhinitis 12/03/2011 Assessment & Plan (12/20/2024 10:25 AM EDT): Continue antihistamine, currently fexofenadine Continue fluticasone nasal spray Continue montelukast Consider referral to allergy / food safety specialist for allergy testing and immunotherapy Referring to ENT for ear Assessment & Plan (01/03/2024 12:25 PM EDT): Continue antihistamine, currently fexofenadine Continue fluticasone nasal spray Continue montelukast Consider referral to allergy / food safety specialist for allergy testing and immunotherapy Assessment & Plan (09/08/2022 9:44 AM EDT): Continue antihistamine, currently fexofenadine Continue fluticasone nasal spray Continue montelukast Consider referral to allergy / food safety specialist for allergy testing and immunotherapy Assessment & Plan (02/28/2022 9:45 AM EST): Continue antihistamine, currently fexofenadine Continue fluticasone nasal spray Continue montelukast Consider referral to allergy / food safety specialist for allergy testing and immunotherapy Gastroesophageal [...] Problem Noted Date Diagnosed Date Resolved Date Acute otitis media 10/20/2023 Abdominal pain 10/17/2023 12/13/2024 Subclinical hypothyroidism 02/02/2022 0 11/29/2022 Assessment & Plan (09/08/2022 9:41 AM EDT): - check thyroid function test Impaired fasting glucose 02/02/2022 Mass of lower limb 12/03/2011 Encounters Date Type Department Care Team Description 12/31/2024 Telephone [facility] [place] [phone] Chelle Cueto MD FYI 12/24/2024 Refill [facility] [place] [phone] Chelle Cueto MD 12/20/2024 Orders Only [facility] [place] [address] Chelle Cueto MD 12/20/2024 Refill [facility] [place] [address] Mai Heller RN 12/11/2024 3:15 PM EDT Office Visit [facility] [place] [address] Chelle Cueto MD HTN (hypertension), benign (Primary Dx); Type 2 diabetes mellitus with hyperglycemia, without long-term current use of insulin (CMS/HCC); Right ear pain; Hearing difficulty, unspecified laterality; Allergic rhinitis due to other allergic trigger, unspecified seasonality; Screening for colon cancer; Dyslipidemia; Diabetes mellitus treated with injections of non-insulin medication (CMS/HCC); Class 1 obesity due to excess calories with serious comorbidity and body mass index (BMI) of 33.0 to 33.9 in adult; Hypothyroidism due to Ezra thyroiditis; Mood disorder (CMS/HCC); Mixed anxiety and depressive disorder; ISHA (generalized anxiety disorder); Severe episode of recurrent major depressive disorder, without psychotic features (CMS/HCC); Moderate persistent asthma without complication 12/11/2024 Orders Only [facility] [place] [address] Chelle Cueto MD 12/11/2024 Travel 12/10/2024 Telephone [facility] [place] [address] Chelle Cueto MD chart prep 11/25/2024 Refill [facility] [place] [address] Chelle Cueto MD Type 2 diabetes mellitus with hyperglycemia, without long-term current use of insulin ([facility]) 11/02/2024 Refill [facility] [address] [place] [place] [address] Chelle Cueto MD 10/25/2024 Refill [facility] [address] [place] [address] Chelle Cueto MD 10/24/2024 Telephone [facility] [address] [facility], [place] [phone] Chelle Cueto MD from Last 3 Months [...] 12/11/2024 3:37 PM EDT Plan of Treatment Upcoming Encounters Date Type Department Care Team (Late st Contact Info) Description 01/24/2025 10:30 AM EST Procedure Visit [facility] [address] [place] [address] Karla Dominique CNM [address] [place] [address] Health Maintenance Due Date Last Done Comments CT Colonography 1970 Colonoscopy 1971 Colorectal Cancer Screening 1971 FIT DNA/Cologuard 1971 FIT 1971 FOBT 1970 Sigmoidoscopy 1971 Disability Screening 1971 Alcohol/Substance Use Screening 1983 Pap Smear 1992 Cervical Cancer Screening 2001 HPV/Cotest 2001 Zoster Vaccines (1 of 2) 2021 Hepatitis B Vaccines (3 of 3 - 19+ 3-dose series) 02/23/2024 12/29/2023, 09/06/2022 Mammogram 10/23/2024 10/24/2023, 08/13, 08/31/2022, Additional history exists Depression Monitoring 11/05/2024 05/08/2024, 025 COVID-19 Vaccine ( season) 2024 Influenza Vaccine (#1) 2024 , 02/24/2022, 11/28/2018, Additional history exists Diabetes: Hemoglobin A1C 03/12/2025 025, 08/07/2024, 05/08/2024, Additional history exists Diabetes: Foot Exam 05/08/2025 05/08/2024, 09/06/2022, 09/06/2022, Additional history exists SDOH Screening 07/27/2025 07/27/2024 Diabetes: Urine Protein Screening 12/11/2025 12/11/2024, 12/29/2023, 09/06/2022 Lipid Panel 12/11/2025 12/11/2024, 12/12, 09/06/2022, Additional history exists Tobacco Screening 12/20/2025 12/20/2024 Eye Exam 06/25/2026 06/25/2024, 06/12, 06/25/2024, Additional [...] Procedure Name Priority Date/Time Associated Diagnosis Comments T4, FREE Routine 12/11/2024 4:05 PM EDT TSH W/REFLEX TO FT4 Routine 12/11/2024 4 :05 PM EDT Acquired hypothyroidism COMPREHENSIVE METABOLIC PANEL Routine 12/11/2024 4:05 PM EDT HTN (hypertension), benign ALBUMIN, RANDOM URINE W/CREATININE Routine 12/11/2024 4:05 PM EDT Type 2 diabetes mellitus with hyperglycemia, without long-term current use of insulin (CMS/HCC) LIPID PANEL WITH REFLEX TO DIRECT LDL Routine 12/11/2024 4:05 PM EDT HTN (hypertension), benign VITAMIN B12/FOLATE, SERUM PANEL Routine 12/11/2024 4:05 PM EDT Type 2 diabetes mellitus with hyperglycemia, without long-term current use of insulin (CMS/HCC) POCT GLYCATED HEMOGLOBIN, TOTAL Routine 12/11/2024 3:43 [...] Routine screening for STI (sexually transmitted infection) BI MAMMOGRAM SCREENING TOMOSYNTHESIS BILATERAL Routine 10/24/2023 4:15 PM EDT Breast cancer screening by mammogram from Last 3 Months or Most Recently Relevant to Health Maintenance Results * Vitamin B12 (Cobalamin) and Folate Panel, Serum (12/11/2024 4:05 PM EDT) Vitamin B12 250 200 - 900 pg/mL [facility] Comment:NORMAL 200-900 PG/ML INDETERMINATE 160-199 PG/ML DEFICIENT < 160 PG/ML Folate 14.1 > or = 4.0 ng/mL [facility] Comment:Reference Values:> o r = 4.0 ng/mL< 4.0 ng/mL suggests folate deficiency Methotrexate, aminopterin and folinic acid(leucovorin) are chemotherapeutic agents whose molecularstructures are similar to folate; therefore, the Architectfolate assay cannot be used for patients using these drugs. Blood 12/11/2024 4:05 PM EDT 12/11/2024 6:05 PM EDT us Chelle Cueto MD LAB BLOOD ORDERABLES Final Resul t [facility] [address] [place] [address] [phone] * (ABNORMAL) TSH with Reflex to Free T4 (12/11/2024 4:05 PM EDT) TSH reflex Free T4 4.48(H) 0.32 - 4.0 uIU/mL [facility] Blood 12/11/2024 4:05 PM EDT 12/11/2024 6:05 PM EDT Chelle Cueto MD LAB BLOOD ORDERABLES Final Resul t [facility] [address] [place] [phone] * (ABNORMAL) Lipid Panel with Reflex to Direct LDL (12/11/2024 4:05 PM EDT) Triglycerides 204(H) <150 mg/dL [facility] Comment:Desirable Triglyceri de: less than 150 mg/dLBorderline High Triglyceride 150-199 mg/dLHigh Triglyceride: 200-499 mg/dLVery High Triglyceride: greater than or equal to 5OO mg/dL Cholesterol 175 <200 mg/dL [facility] Comment:Desirable Cholestero l: less than 200 mg/dLBorderline High Cholesterol: 200-239 mg/dLHigh Cholesterol: greater than 239 mg/dL LDL Cholesterol Calculated 104(H) <100 mg/dL [facility] Comment:Desirable LDL: less than 100 mg/dLNear Optimal/Above Optimal LDL: 110- 129 mg/dLBorderline High LDL: 130-159 mg/dLHigh LDL: 160-189 mg/dLVery High LDL: greater than or equal to 190 mg/dL HDL Cholesterol 31(L) >40 mg/dL [facility] Comment:Desirable HDL: great er than 40 mg/dL Note: This HDL assay may give artificially low results in patients with liver disease. Blood 12/11/2024 4:05 PM EDT 12/11/2024 6:05 PM EDT Chelle Cueto MD LAB BLOOD ORDERABLES Final Resul t Performing Organization Address [facility] Co de Phone Number [facility] [address] [place] [phone] * Albumin, Random Urine W/Creatinine (12/11/2024 4:05 PM EDT) Creatinine, Urine 128.80 mg/dL [facility] Microalbumin Urine 8.0 mg/L [facility] Microalbum Creatinine Ratio Ur 6.2 <30 ug/mg cr [facility] Comment:Albumin/Creatinine R atio Reference Ranges: Normal: < 30 ug/mg creatinine Microalbuminuria: 30 - 300 ug/mg creatinineClinical Albuminuria: > 300 ug/mg creatinine Urine 12/11/2024 4:05 PM EDT 12/11/2024 6:10 PM EDT us Chelle Cueto MD LAB URINE ORDERABLES Final Resul t Performing Organization Address [facility] Co de Phone Number [facility] [address] [place] [phone] * T4, Free (12/11/2024 4:05 PM EDT) Free T4 (Free Thyroxine) 0.91 0.71 - 1.85 ng/dL [facility] 12/11/2024 4:05 PM EDT 12/11/2024 6:05 PM EDT Chelle Cueto MD LAB BLOOD ORDERABLES Final Resul t Performing Organization Address [facility] Co de Phone Number [facility] [address] [place] [phone] * Comprehensive Metabolic Panel (12/11/2024 4:05 PM EDT) Sodium 141 135 - 145 mmol/L [facility] Potassium 4.5 3.3 - 5.1 mmol/L [facility] Comment:Slight Hemolysis.Int erpret result with caution. Chloride 104 96 - 108 mmol/L [facility] Carbon Dioxide 29 22 - 29 mmol/L [facility] Anion Gap 13 12 - 20 [facility] Urea Nitrogen (BUN) 16 9 - 16 mg/dL [facility] Creatinine, Serum 0.98 0.5 - 1.4 mg/dL [facility] Estimated Glomerular Filt Rate 59 [facility] Comment:Chronic Kidney Disea se: Estimated GFR < 60 mL/min/1.48m8Wxhogm Kidney Disease: Estimated GFR < 15 mL/min/1.73m2 Glucose 97 60 - 115 mg/dL [facility] Calcium 9.5 8.4 - 10.2 mg/dL [facility] Bilirubin, Total 0.2 0.0 - 1.0 mg/dL [facility] Aspartate Amino Transferase 25 5 - 31 U/L [facility] Comment:Slight Hemolysis.Int erpret result with caution. Alanine Aminotransferase 18 0 - 31 U/L [facility] Total Protein 8.0 6.5 - 8.0 g/dL [facility] Albumin Level 4.6 3.5 - 5.0 g/dL [facility] Alkaline Phosphatase 116 39 - 117 U/L [facility] Blood Venous blood specimen / Unknown 12/11/2024 4:05 PM EDT 12/11/2024 6:05 PM EDT us Chelle Cueto MD LAB BLOOD ORDERABLES Final Resul t [facility] [address] [place] [phone] * (ABNORMAL) POCT Hgb A1c (12/11/2024 3:43 PM EDT) Hemoglobin A1C 6.2(A) 4.0 - 5.7 % QC Media Lot # [id number] Lot# Expiration Date ,[id number] Blood 12/11/2024 3:43 PM EDT Chelle Cueto MD POINT OF CARE TEST ENTER/EDIT OR DERABLES Final Result * POCT Glucose (12/11/2024 3:43 PM EDT) [facility] Glucose Blood, POC 95 60 - 200 mg/dL QC Media Lot # [id number] Lot# Expiration Date [id number] Blood Capillary blood specimen / Unknown 12/11/2024 3:43 PM EDT Chelle Cueto MD POINT OF CARE TEST ENTER/EDIT OR DERABLES Final Result * Hepatitis C Antibody with Reflex to HCV, RNA, Quantitative, Real-Time PCR (12/29/2023 12:40 PM EDT) [facility] Hepatitis C Antibody Nonreactive Nonreactive [facility] Comment:Antibodies to HCV no t detected; does not exclude early acuteHCV infection. Blood Venous blood specimen / Unknown 12/29/2023 12:40 PM EDT 12/29/2023 1:21 PM EDT Chelle Cueto MD LAB BLOOD ORDERABLES Final Resul t [facility] [address] [place] [phone] * HIV-1/2 Antigen and Antibodies, Fourth Generation, with Reflexes (12/29/2023 12:40 PM EDT) [facility] HIV AB/AG Nonreactive Nonreactive [facility] Comment:HIV-1 p24 Ag and/or HIV-1/HIV-2 Ab not detected.A test result that is nonreactive does not exclude thepossibility of exposure to or infection with HIV-1 and/orHIV-2. Nonreactive results in this assay for individualswith prior exposure to HIV-1 and/or HIV-2 may be due toantigen and antibody levels that are below the limit ofdetection of this assay.[employer] HIV Ag/Ab Combo assay result andsupplemental assay results should be interpreted inconjunction with the patient's clinical presentation,history and other laboratory results. If the results areinconsistent with clinical evidence, additional testing issuggested to confirm the result. Blood Venous blood specimen / Unknown 12/29/2023 12:40 PM EDT 12/29/2023 1:21 PM EDT Chelle Cueto MD LAB BLOOD ORDERABLES Final Resul t [facility] [address] [place] [address] [phone] * BI Mammogram Screening Tomosynthesis Bilateral (10/24/2023 4:15 PM EDT) Anatomical Region Laterality Modality Breast Bilateral Mammography 10/24/2023 4:15 PM EDT Narrative 11/17/2023 8:43 PM EDT [facility] [address] [place] [address] Mammography Report Signed Patient: Blessing Calderón MR#: [id number] : 1970 Acct:[id number] Age/Sex: 53 / F ADM Date: 10/24/23 Loc: MAMMO Attending Dr: Chelle Cueto MD Ordering Physician: Chelle Cueto MD Results: 1Negative Date of Service: 10/24/23 Follow Up: 1 Year From [facility] Mammogram Procedure(s): MM tomosynthesis screening BI Accession Number(s): [id number] cc: Chelle Cueto MD EXAMINATION: MM SCREENING [...] in OV> 11/17/232040 DD/ 161 TD/TT: 10/24/23 162 Assurance Auditor: Procedure Note Donotuseinterpreter, Image - 11/17/2023 [facility] [address] [place] [address] Mammography Report Signed Patient: Marv Calderón#: M [id number] : 1970Acct:[id number] Age/Sex: 53 / FADM Date: 10/24/23 Loc: TELLY Attending Dr: Chelle Cueto MD Ordering Physician: Chelle Cueto MDResults: 1Negative Date of Service: 10/24/23Follow Up: 1 Year From Orig inal Mammogram Procedure(s): MM tomosynthesis screening BI Accession Number(s): [id number] cc: Chelle Cueto MD EXAMINATION: MM SCREENING [...] OV> 11/17/232040 DD/ 161 TD/TT: 10/24/23 1627 Assurance Auditor: Chelle Cueto MD IMG BI PROCEDURES Edited Result - Final from Last 3 Months or Most Recently Relevant to Health Maintenance Insurance [employer] C3 Care Teams Regulatory Affairs Associate Relationship Specialty Start Date End Date Chelle Cueto MD [address] [place] [address] PCP - General Family Medicine 03/14/18 Glenn Fofana, SriD [address] [place], [place] [phone] Pharmacist Internal Medicine 06/12/24 [facility] TherapistRotary Driller Helper 12/01/23
== END 2025-01-07 14:48 | disposition home or self-care (01) ==
LOC: HO.HHCL 14:47
PROVIDERS: PCP Family Medicine; Visit Provider Registered Nurse Psychiatric/Mental Health
DX: Z79.899 Other long term (current) drug therapy (principal)
CPT/HCPCS: 36415; 80053; 82248; 84443; 85025

== ENCOUNTER 2025-01-11 14:39 | Outpatient (REF) | payer MEDICAID, SELFPAY ==
--- OUTSIDE RECORDS SUMMARY | 2025-01-13 14:41 | XMS_ITS | Encounter Summary ---
Author Organization [employer] Address [address] [place] [address] 7 [place] [address] Care Team Providers Care Crew Team Member Name Role Phone Chelle Cueto MD Primary Care Provider [phone] Glenn Fofana PharmD Unavailable [phone] Encounter Details Date Type Department Care Team ([facility] Contact Info) Description 09/06/2022 Abstract [facility] [address] [place] [address] [phone] Chelle Cueto MD [address] [place] [phone] Social History Tobacco Use Types Packs/Day Years [...] Upcoming Encounters Date Type Department Care Team ([facility] Contact Info) Description 01/24/2025 10:30 AM EST Procedure Visit [facility] [address] [place] [address] [phone] Karla Dominique CNM [address] [place] [address] documented as of this encounter Procedures Procedure Name Priority Date/Time Associated Diagnosis Comments MAMMOGRAPHY Routine 08/31/2022 9:39 AM EDT documented in this encounter Results * Mammography (08/31/2022 9:39 AM EDT) Mammogram Bi-rads 1 Anatomical Region Laterality Modality Other Historical Provider MD HEALTH MAINTENANCE Final Result documented in this encounter Visit Diagnoses Not on filedocumented in this encounter Care Teams Crew Team Member Relationship Specialty Start Date End Date Chelle Cueto MD [address] [place] [phone] PCP - General Family Medicine 03/14/18 Glenn Fofana, PharmD [address] [place] [phone] Pharmacist Internal Medicine 06/12/24 Caro Lee Fight ManagerRetail Attendant 12/01/23 documented as of this encounter
--- OUTSIDE RECORDS SUMMARY | 2025-01-13 14:41 | XMS_ITS | Clinical Summary ---
Author Organization [employer] Address [address] [facility] 7t [place] [address] Care Team Providers Care Flex O Writer Operator Name Role Phone Chelle Cueto MD Primary Care Provider [phone] Glenn Fofana PharmD Unavailable [phone] Allergies Active Allergy Reactions Criticality Noted Date Comments Ranitidine Rash Low 01/30/2014 Medications * This document contains information received from the source organization and may not represent a complete record from that organization. Alcohol Swabs (Alcohol Prep) padsIndications:T ype 2 diabetes mellitus with hyperglycemia, without long-term current use of insulin ([facility]) Check BG daily as instructed 50 each [...] hyperglycemia, without long-term current use of insulin ([facility]) TEST BLOOD SUGAR ONCE DAILY 100 each 5 Active FREESTYLE LITE test stripIndications: Type 2 diabetes mellitus with hyperglycemia, without long-term current use of insulin ([facility]) TEST BLOOD SUGAR ONCE DAILY 50 strip 5 Active Blood Glucose Monitoring Suppl (FreeStyle [place] Lite) w/Device kitIndications:Ty pe 2 diabetes mellitus with hyperglycemia, without long-term current use of insulin ([facility]) TEST BLOOD SUGAR ONCE DAILY IN THE [...] daily routine. Pt was self-referred to [facility] and completed the intake session [...] reports she moved to an apartment in [place] but the place is infected with rodents [...] routine. Provided information for [facility] with [facility] for OP services and psychopharmacology. Information for [employer] provided to seek out for legal support. [...] daily routine. 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 Information for [employer] provided to seek out for legal support. [...] - evaluate with X-ray - refer to waste elimination - continue wearing comfortable shoes - daily foot check and care - Ordered XR Foot 1-2 Views Right 05/08/24 Assessment & Plan (09/08/2022 9:41 AM EDT): - at 5th MTP - evaluate with X-ray - refer to waste elimination - continue wearing comfortable shoes - daily [...] Lipid profile: 12/11/24 - Diabetic eye exam: [facility] eye care, seen on 06/25/2024, no [...] Continue montelukast Consider referral to allergy / radiation control specialist for allergy testing and immunotherapy Referring to ENT for ear Assessment & Plan (01/03/2024 12:25 PM EDT): Continue antihistamine, currently fexofenadine Continue fluticasone nasal spray Continue montelukast Consider referral to allergy / radiation control specialist for allergy testing and immunotherapy Assessment & Plan (09/08/2022 9:44 AM EDT): Continue antihistamine, currently fexofenadine Continue fluticasone nasal spray Continue montelukast Consider referral to allergy / radiation control specialist for allergy testing and immunotherapy Assessment & Plan (02/28/2022 9:45 AM EST): Continue antihistamine, currently fexofenadine Continue fluticasone nasal spray Continue montelukast Consider referral to allergy / radiation control specialist for allergy testing and immunotherapy Gastroesophageal [...] Type Department Care Team Description 12/31/2024 Telephone [facility] [place] [phone] Chelle Cueto MD FYI 12/24/2024 Refill [facility] [place] [phone] Chelle Cueto MD 12/20/2024 Orders Only [facility] [place] [address] Chelle Cueto MD 12/20/2024 Refill [facility] [place] [address] Mai Heller RN 12/11/2024 3:15 PM EDT Office Visit [facility] [place] [address] Chelle Cueto MD HTN (hypertension), benign (Primary [...] persistent asthma without complication 12/11/2024 Orders Only [facility] [place] [address] Chelle Cueto MD 12/11/2024 Travel 12/10/2024 Telephone [facility] [place] [address] Chelle Cueto MD chart prep 11/25/2024 Refill [facility] [place] [address] Chelle Cueto MD Type 2 diabetes mellitus with hyperglycemia, without long-term current use of insulin ([facility]) 11/02/2024 Refill [facility] [address] [place] [address] Chelle Cueto MD 10/25/2024 Refill [facility] [address] [place] [address] Chelle Cueto MD 10/24/2024 Telephone [facility] [address] [facility] [facility] [facility], [place] [phone] Chelle Cueto MD from Last 3 Months [...] Description 01/24/2025 10:30 AM EST Procedure Visit [facility] [address] [place] [address] Karla Dominique CNM [address] [place] [address] Health Maintenance Due Date Last Done Comments [...] Vitamin B12 250 200 - 900 pg/mL [facility] Comment:NORMAL 200-900 PG/ML INDETERMINATE 160-199 PG/ML DEFICIENT < 160 PG/ML Folate 14.1 > or = 4.0 ng/mL [facility] Comment:Reference Values:> o r = 4.0 ng/mL< 4.0 ng/mL suggests folate deficiency Methotrexate, aminopterin and folinic acid(leucovorin) are chemotherapeutic agents whose molecularstructures are similar to folate; therefore, the Architectfolate assay cannot be used for patients using these drugs. Blood 12/11/2024 4:05 PM EDT 12/11/2024 6:05 PM EDT us Chelle Cueto MD LAB BLOOD ORDERABLES Final Resul t [facility] [address] [place] [phone] [phone] * (ABNORMAL) TSH with Reflex to Free T4 (12/11/2024 4:05 PM EDT) TSH reflex Free T4 4.48(H) 0.32 - 4.0 uIU/mL [facility] Blood 12/11/2024 4:05 PM EDT 12/11/2024 6:05 PM EDT Chelle Cueto MD LAB BLOOD ORDERABLES Final Resul t [facility] [address] [place] [phone] * (ABNORMAL) Lipid Panel with Reflex to Direct LDL (12/11/2024 4:05 PM EDT) Triglycerides 204(H) <150 mg/dL [facility] Comment:Desirable Triglyceri de: less than 150 mg/dLBorderline High Triglyceride 150-199 mg/dLHigh Triglyceride: 200-499 mg/dLVery High Triglyceride: greater than or equal to 5OO mg/dL Cholesterol 175 <200 mg/dL [facility] Comment:Desirable Cholestero l: less than 200 mg/dLBorderline High Cholesterol: 200-239 mg/dLHigh Cholesterol: greater than 239 mg/dL LDL Cholesterol Calculated 104(H) <100 mg/dL [facility] Comment:Desirable LDL: less than 100 mg/dLNear Optimal/Above Optimal LDL: 110- 129 mg/dLBorderline High LDL: 130-159 mg/dLHigh LDL: 160-189 mg/dLVery High LDL: greater than or equal to 190 mg/dL HDL Cholesterol 31(L) >40 mg/dL [facility] Comment:Desirable HDL: great er than 40 mg/dL Note: This HDL assay may give artificially low results in patients with liver disease. Blood 12/11/2024 4:05 PM EDT 12/11/2024 6:05 PM EDT Chelle Cueto MD LAB BLOOD ORDERABLES Final Resul t Performing Organization Address [facility] Co de Phone Number [facility] [address] [place] [phone] * Albumin, Random Urine W/Creatinine (12/11/2024 4:05 PM EDT) Creatinine, Urine 128.80 mg/dL [facility] Microalbumin Urine 8.0 mg/L [facility] Microalbum Creatinine Ratio Ur 6.2 <30 ug/mg cr [facility] Comment:Albumin/Creatinine R atio Reference Ranges: Normal: < 30 ug/mg creatinine Microalbuminuria: 30 - 300 ug/mg creatinineClinical Albuminuria: > 300 ug/mg creatinine Urine 12/11/2024 4:05 PM EDT 12/11/2024 6:10 PM EDT us Chelle Cueto MD LAB URINE ORDERABLES Final Resul t Performing Organization Address [facility] Co de Phone Number [facility] [address] [place] [phone] * T4, Free (12/11/2024 4:05 PM EDT) Free T4 (Free Thyroxine) 0.91 0.71 - 1.85 ng/dL [facility] 12/11/2024 4:05 PM EDT 12/11/2024 6:05 PM EDT Chelle Cueto MD LAB BLOOD ORDERABLES Final Resul t Performing Organization Address [facility] Co de Phone Number [facility] [address] [place] [phone] * Comprehensive Metabolic Panel (12/11/2024 4:05 PM EDT) Sodium 141 135 - 145 mmol/L [facility] Potassium 4.5 3.3 - 5.1 mmol/L [facility] Comment:Slight Hemolysis.Int erpret result with caution. Chloride 104 96 - 108 mmol/L [facility] Carbon Dioxide 29 22 - 29 mmol/L [facility] Anion Gap 13 12 - 20 [facility] Urea Nitrogen (BUN) 16 9 - 16 mg/dL [facility] Creatinine, Serum 0.98 0.5 - 1.4 mg/dL [facility] Estimated Glomerular Filt Rate 59 [facility] Comment:Chronic Kidney Disea se: Estimated GFR < 60 mL/min/1.35d3Nninaq Kidney Disease: Estimated GFR < 15 mL/min/1.73m2 Glucose 97 60 - 115 mg/dL [facility] Calcium 9.5 8.4 - 10.2 mg/dL [facility] Bilirubin, Total 0.2 0.0 - 1.0 mg/dL [facility] Aspartate Amino Transferase 25 5 - 31 U/L [facility] Comment:Slight Hemolysis.Int erpret result with caution. Alanine Aminotransferase 18 0 - 31 U/L [facility] Total Protein 8.0 6.5 - 8.0 g/dL [facility] Albumin Level 4.6 3.5 - 5.0 g/dL [facility] Alkaline Phosphatase 116 39 - 117 U/L [facility] Blood Venous blood specimen / Unknown 12/11/2024 4:05 PM EDT 12/11/2024 6:05 PM EDT us Chelle Cueto MD LAB BLOOD ORDERABLES Final Resul t [facility] [address] [place] [phone] * (ABNORMAL) POCT Hgb A1c (12/11/2024 3:43 PM EDT) Hemoglobin A1C 6.2(A) 4.0 - 5.7 % QC Media Lot # [id number] Lot# Expiration Date ,757,586 Blood 12/11/2024 3:43 PM EDT Chelle Cueto MD POINT OF CARE TEST ENTER/EDIT OR DERABLES Final Result * POCT Glucose (12/11/2024 3:43 PM EDT) [facility] Glucose Blood, POC 95 60 - 200 mg/dL QC Media Lot # [id number] Lot# Expiration Date [id number] Blood Capillary blood specimen / Unknown 12/11/2024 3:43 PM EDT Chelle Cueto MD POINT OF CARE TEST ENTER/EDIT OR DERABLES Final Result * Hepatitis C Antibody with Reflex to HCV, RNA, Quantitative, Real-Time PCR (12/29/2023 12:40 PM EDT) [facility] Hepatitis C Antibody Nonreactive Nonreactive [facility] Comment:Antibodies to HCV no t detected; does not exclude early acuteHCV infection. Blood Venous blood specimen / Unknown 12/29/2023 12:40 PM EDT 12/29/2023 1:21 PM EDT Chelle Cueto MD LAB BLOOD ORDERABLES Final Resul t [facility] [address] [place] [phone] * HIV-1/2 Antigen and Antibodies, Fourth Generation, with Reflexes (12/29/2023 12:40 PM EDT) [facility] HIV AB/AG Nonreactive Nonreactive [facility] Comment:HIV-1 p24 Ag and/or HIV-1/HIV-2 Ab not detected.A test result that is nonreactive does not exclude thepossibility of exposure to or infection with HIV-1 and/orHIV-2. Nonreactive results in this assay for individualswith prior exposure to HIV-1 and/or HIV-2 may be due toantigen and antibody levels that are below the limit ofdetection of this assay.[facility] HIV Ag/Ab Combo assay result andsupplemental assay results should be interpreted inconjunction with the patient's clinical presentation,history and other laboratory results. If the results areinconsistent with clinical evidence, additional testing issuggested to confirm the result. Blood Venous blood specimen / Unknown 12/29/2023 12:40 PM EDT 12/29/2023 1:21 PM EDT Chelle Cueto MD LAB BLOOD ORDERABLES Final Resul t [facility] [address] [place] [phone] * BI Mammogram Screening Tomosynthesis Bilateral (10/24/2023 4:15 PM EDT) Anatomical Region Laterality Modality Breast Bilateral Mammography 10/24/2023 4:15 PM EDT Narrative 11/17/2023 8:43 PM EDT [facility] [address] [place] [address] Mammography Report Signed Patient: Blessing Calderón MR#: [id number] : 1970 Acct:[id number] Age/Sex: 53 / F ADM Date: 10/24/23 Loc: MAMMO Attending Dr: Chelle Cueto MD Ordering Physician: Chelle Cueto MD Results: 1Negative Date of Service: 10/24/23 Follow Up: 1 Year From [facility] Mammogram Procedure(s): MM tomosynthesis screening BI Accession Number(s): [id number] cc: Chelle Cueto MD EXAMINATION: MM SCREENING [...] OV> 11/17/232040 DD/ 161 TD/TT: 10/24/23 162 Recreation Assistant: Procedure Note Donotuseinterpreter, Image - 11/17/2023 [facility] [address] [place] [address] Mammography Report Signed Patient: Marv Calderón#: [id number] : 1970Acct:[id number] Age/Sex: 53 / FADM Date: 10/24/23 Loc: TELLY Attending Dr: Chelle Cueto MD Ordering Physician: Chelle Cueto MDResults: 1Negative Date of Service: 10/24/23Follow Up: 1 Year From Orig inal Mammogram Procedure(s): MM tomosynthesis screening BI Accession Number(s): [id number] cc: Chelle Cueto MD EXAMINATION: MM SCREENING [...] OV> 11/17/232040 DD/ 161 TD/TT: 10/24/23 1627 Recreation Assistant: Chelle Cueto MD IMG BI PROCEDURES Edited Result - Final from Last 3 Months or Most Recently Relevant to Health Maintenance Insurance [employer] Care Teams Flex O Writer Operator Relationship Specialty Start Date End Date Chelle Cueto MD [address] [place] [address] PCP - General Family Medicine 03/14/18 Glenn Fofana, SriD [address] [place], [place] [phone] Pharmacist Internal Medicine 06/12/24 Caro Lee Kersey Department SupervisorBindery Machine Tender 12/01/23
--- OUTSIDE RECORDS SUMMARY | 2025-01-13 14:41 | XMS_ITS | Encounter Summary ---
Author Organization [employer] Address [address] [place] [address] 7 [place] [address] Care Team Providers Care Senior Process Control Tech Name Role Phone Chelle Cueto MD Primary Care Provider [phone] Glenn Fofana PharmD Unavailable [phone] Reason for Visit * Reason Onset Date Comments Referral 03/19/2022 Encounter Details Date Type Department Care Team (Late st Contact Info) Description 03/19/2022 Telephone [facility] [address] [place] [address] [phone] Chelle Cueto MD [address] [place], [place] [phone] Referral Social History Tobacco Use Types Packs/Day [...] Description 01/24/2025 10:30 AM EST Procedure Visit [facility] [address] [place], [place] [phone] Karla Dominique CNM [address] [place], [place] [phone] documented as of this encounter Visit Diagnoses Not on filedocumented in this encounter Care Teams Senior Process Control Tech Relationship Specialty Start Date End Date Chelle Cueto MD [address] [place] [address] [phone] PCP - General Family Medicine 03/14/18 Glenn Fofana, Raven [address] [place] [address] [phone] Pharmacist Internal Medicine 06/12/24 Caro Lee Customer Operations AssociateAutomatic Door Mechanic 12/01/23 documented as of this encounter
--- OUTSIDE RECORDS SUMMARY | 2025-01-13 14:41 | XMS_ITS | Encounter Summary ---
Author Organization [employer] Address [address] [place] [address] 7 [place] [address] Care Team Providers Care Lineman A Class Name Role Phone Chelle Cueto MD Primary Care Provider [phone] Glenn Fofana PharmD Unavailable [phone] Reason for Referral * Consultation (Routine) - Closed Specialty Diagnoses / Procedures Referred By Hayden clark Referred To Contact Pharmacy Diagnoses HTN (hypertension), benign Type 2 diabetes mellitus with hyperglycemia, without long-term current use of insulin (HCC) Chelle Cueto MD [address] [place] [address] Phone: tel: fax: Referral ID Status Reason Start Date Expiration Date V isits Requested Visits Authorized [id number] Closed Continuity of Care 05/14/2024 05/14/2025 6 6 * Consultation (Routine) - Closed Specialty Diagnoses / Procedures Referred By Hayden clark Referred To Contact Pharmacy Diagnoses HTN (hypertension), benign Type 2 diabetes mellitus with hyperglycemia, without long-term current use of insulin (HCC) Chelle Cueto MD [address] [place] [address] Phone: tel: fax: Referral ID Status Reason Start Date Expiration Date V isits Requested Visits Authorized [id number] Closed Consult and Treat 05/14/2024 05/14/2025 6 6 Scheduling Instructions Mainly hypertension and asthma, then diabetes. Thank you Encounter Details Date Type Department Care Team (Late st Contact Info) Description 05/09/2024 Orders Only [facility] [address] [place], [place] [phone] Chelle Cueto MD [address] [place] [address] HTN (hypertension), benign (Primary Dx); Type 2 diabetes mellitus with hyperglycemia, without long-term current use of insulin ([facility]) Social History Tobacco Use Types Packs/Day [...] 01/24/2025 10:30 AM EST Procedure Visit [facility] [address] [place] [address] Karla Dominique CNM [address] [place], [place] [phone] Scheduled Referrals Name Type Priority Associated Diagnoses [...] documented as of this encounter Care Teams Lineman A Class Relationship Specialty Start Date End Date Chelle Cueto MD [address] [place] [phone] PCP - General Family Medicine 03/14/18 Glenn Fofana, SriD [address] [place] [phone] Pharmacist Internal Medicine 06/12/24 Caro Lee Absorber OperatorA P Supervisor 12/01/23 documented as of this encounter
--- OUTSIDE RECORDS SUMMARY | 2025-01-13 14:41 | XMS_ITS | Encounter Summary ---
Author Organization [email or web address] Address [address] [place] [address] 7 [place] [address] Care Team Providers Care Machine Inspector Name Role Phone Chelle Cueto MD Primary Care Provider [phone] Glenn Fofana PharmD Unavailable [phone] Reason for Referral * Consultation (Routine) - [...] 35.9 in adult Chelle Cueto MD [address] [place] [address] Phone: tel: fax: Referral ID Status Reason Start Date Expiration Date Visits Requested Visits Authorized [id number] Authorized Consult and Treat 05/24/2024 05/24/2025 1 1 Encounter Details Date Type Department Care Team (Late st Contact Info) Description 05/24/2024 Orders Only [facility] [address] [place] [address] [phone] Chelle Cueto MD [address] [place], [place] [phone] HTN (hypertension), benign (Primary Dx); Type 2 diabetes mellitus with hyperglycemia, without long-term current use of insulin (CMS/HCC); Dyslipidemia; Class 2 severe obesity due to excess calories with serious comorbidity and body mass index (BMI) of 35.0 to 35.9 in adult ([facility]) Social History Tobacco Use Types Packs/Day [...] Description 01/24/2025 10:30 AM EST Procedure Visit [facility] [address] [place] [phone] Karla Dominique CNM [address] [place] [address] Scheduled Referrals Name Type Priority Associated Diagnoses [...] documented as of this encounter Care Teams Machine Inspector Relationship Specialty Start Date End Date Chelle Cueto MD [address] [place] [address] PCP - General Family Medicine 03/14/18 Glenn Fofana, Raven [address] [place] [address] Pharmacist Internal Medicine 06/12/24 Caro Lee Procurement ForesterCorporate Tax Preparer 12/01/23 documented as of this encounter
--- OUTSIDE RECORDS SUMMARY | 2025-01-13 14:41 | XMS_ITS | Encounter Summary ---
Author Organization [employer] Address [address] [place] [address] 7 [place] [address] Care Team Providers Care Vest Maker Name Role Phone Chelle Cueto MD Primary Care Provider [phone] Glenn Fofana PharmD Unavailable [phone] Encounter Details Date Type Department Care Team (Late st Contact Info) Description 03/23/2022 Orders Only [facility] [address] [place] [address] [phone] Chelle Cueto MD [address] [place] [address] [phone] Type 2 diabetes mellitus with hyperglycemia, without long-term current use of insulin ([facility]) (Primary Dx) Social History Tobacco [...] Description 01/24/2025 10:30 AM EST Procedure Visit [facility] [address] [place], [place] [phone] Karla Dominique, ELYSSA [address] [place], [place] [phone] documented as of this encounter Visit Diagnoses Diagnosis Type 2 diabetes mellitus with hyperglycemia, without long-term current use of insulin (HCC)- Primary documented in this encounter Care Teams Vest Maker Relationship Specialty Start Date End Date Chelle Cueto MD [address] [place], [place] [phone] PCP - General Family Medicine 03/14/18 Glenn Fofana, SriD [address] [place], [place] [phone] Pharmacist Internal Medicine 06/12/24 Caro Lee Surveyor MineBindery Cutter Operator 12/01/23 documented as of this encounter
--- OUTSIDE RECORDS SUMMARY | 2025-01-13 14:41 | XMS_ITS | Encounter Summary ---
Author Organization [employer] Address [address] [place] [address] [address] [place] [address] Care Team Providers Care Import/Export Clerk Name Role Phone Chelle Cueto MD Primary Care Provider [phone] Glenn Fofana PharmD Unavailable [phone] Encounter Details Date Type Department Care Team ([facility] st Contact Info) Description 09/07/2022 Orders Only [facility] MEDICINE [address] [place] [address] Chelle Cueto MD [address] [place] [phone] Elevated TSH (Primary Dx) Social History Tobacco [...] Upcoming Encounters Date Type Department Care Team ([facility] Contact Info) Description 01/24/2025 10:30 AM EST Procedure Visit [facility] MEDICINE [address] [place] [address] Karla Dominique, CNM [address] [place] [address] Scheduled Orders Name Type Priority Associated Diagnoses [...] EDT) TSH 6.35(H) mIU/L [facility] [place] [facility] Comment: Reference Range > or = 20 Years 0.40-4.50 Ranges First trimester 0.26-2.66 Second trimester 0.55-2.73 Third trimester 0.43-2.91 Blood Venous blood specimen / Unknown 09/07/2022 2:44 PM EDT 09/07/2022 2:44 PM EDT us Chelle Cueto MD LAB BLOOD ORDERABLES Final Resul t [facility] [address], [place] [address] [facility] [place] [facility] [address] [place] [address] * (ABNORMAL) Thyroid Peroxidase And Thyroglobulin Antibodies (09/07/2022 2:44 PM EDT) Thyroglobulin Antibodies 24(H) < or = 1 IU/mL [facility] Thyroid Peroxidase Antibodies 10(H) <9 IU/mL [facility] 09/07/2022 2:44 PM EDT 09/07/2022 2:44 PM EDT Chelle Cueto MD LAB BLOOD ORDERABLES Final Resul t Performing Organization Address City/[facility]/ZIP Co de Phone Number [facility] [address] [place] [address], [place] [address] [facility] [address] [place] [phone] * (ABNORMAL) T4, Free (09/07/2022 2:44 PM EDT) T4, Free 0.7(L) 0.8 - 1.8 ng/dL [facility] Blood Venous blood specimen / Unknown 09/07/2022 2:44 PM EDT 09/07/2022 2:44 PM EDT Chelle Cueto MD LAB BLOOD ORDERABLES Final Resul t Performing Organization Address City/[facility]/ZIP Co de Phone Number [facility] [address] [place] [address], [facility] [place] [address] [facility] [address] [place] [phone] * T3, Free (09/07/2022 2:44 PM EDT) T3, Free 3.1 2.3 - 4.2 pg/mL [facility] Blood Venous blood specimen / Unknown 09/07/2022 2:44 PM EDT 09/07/2022 2:44 PM EDT Chelle Cueto MD LAB BLOOD ORDERABLES Final Resul t [facility] [address] [place] [address] Fl, [place] [address] [facility] [address] [place] [address] * XR Foot 3+ Views Right (09/06/2022 3:47 PM EDT) Anatomical Region Laterality Modality Lower Extremities, Foot Right Radiogra phic Imaging 09/06/2022 3:47 PM EDT Narrative 09/22/2022 12:11 PM EDT [facility] [address] [place] [address] XRay Report Signed Patient: Blessing Calderón MR#: [id number] : 1970 Acct:[id number] Age/Sex: 52 / F ADM Date: 09/06/22 Loc: HO.HHCX Attending Dr: Chelle Cueto MD Ordering Physician: Chelle Cueto MD Date of Service: 09/06/22 Procedure(s): XR foot RT min 3V Accession Number(s): [id number] cc: Chelle Cueto MD EXAMINATION: XR FOOT, [...] in OV> 09/22/22 1208 DD/ 1547 TD/TT: Intelligence Applications: Procedure Note Donotuseinterpreter, Image - 09/22/[address] [address] XRay Report Signed Patient: Barry CalderónnMR#: [id number] : 1970Acct:[id number] Age/Sex: 52 / FADM Date: 09/06/22 Loc: HO.HHCX Attending Dr: Chelle Cueto MD Ordering Physician: Chelle Cueto MD Date of Service: 09/06/22 Procedure(s): XR foot RT min 3V Accession Number(s): [id number] cc: Chelle Cueto MD EXAMINATION: XR FOOT, [...] in OV> 09/22/22 1208 DD/ 1547 TD/TT: Intelligence Applications: [facility] External Provider IMG XR PROCEDURES Final Result documented in this encounter Visit Diagnoses Diagnosis Elevated TSH- Primary Other abnormal blood chemistry documented in this encounter Care Teams Import/Export Clerk Relationship Specialty Start Date End Date Chelle Cueto MD [address] [place] [address] PCP - General Family Medicine 03/14/18 Glenn Fofana, SriD [address] [place] [address] Pharmacist Internal Medicine 06/12/24 Caro Lee Broth MixerSupervisor Ticket Sales 12/01/23 documented as of this encounter
--- OUTSIDE RECORDS SUMMARY | 2025-01-13 14:41 | XMS_ITS | Encounter Summary ---
Author Organization [employer] Address [address] [place] [address] 7 [place] [address] Care Team Providers Care Nursing Home Administrator Name Role Phone Chelle Cueto MD Primary Care Provider [phone] Glenn Fofana PharmD Unavailable [phone] Reason for Visit * Reason Onset Date Comments Results 03/19/2022 Encounter Details Date Type Department Care Team ([facility] st Contact Info) Description 03/19/2022 Telephone [facility] MEDICINE [address] [place] [address] [phone] Chelle Cueto MD [address] [place], [place] [phone] Results Social History Tobacco Use Types Packs/Day [...] knee, xrays were done on 02/24/22 at [facility], [place]. documented in this encounter Plan of Treatment Upcoming Encounters Date Type Department Care Team (Late st Contact Info) Description 01/24/2025 10:30 AM EST Procedure Visit [facility] MEDICINE [address] [place], [place] [phone] Karla Dominique CNM [address] [place] [address] documented as of this encounter Visit Diagnoses Not on filedocumented in this encounter Care Teams Nursing Home Administrator Relationship Specialty Start Date End Date Chelle Cueto MD [address] [place], [place] [phone] PCP - General Family Medicine 03/14/18 Glenn Fofana, PharmD [address] [place], [place] [phone] Pharmacist Internal Medicine 06/12/24 Caro Lee Professor Of Social WorkMolding Engineer 12/01/23 documented as of this encounter
--- OUTSIDE RECORDS SUMMARY | 2025-01-13 14:41 | XMS_ITS | Encounter Summary ---
Author Organization [employer] Address [address] [facility] 7 [place] [address] Care Team Providers Care Ekg Monitor Tech Name Role Phone Chelle Cueto MD Primary Care Provider Glenn Fofana PharmD Unavailable [phone] Encounter Details Date Type Department Care Team ([facility] st Contact Info) Description 12/20/2024 Orders Only [facility] MEDICINE [address] [place], [place] [phone] Chelle Cueto MD [address] [place], [place] [phone] Social History Tobacco Use Types Packs/Day Years [...] 10:30 AM EST Procedure Visit [facility] MED[facility]INE [address] [place] [address] Karla Dominique CNM [address] [place] [address] documented as of this encounter Visit Diagnoses Not on filedocumented in this encounter Additional Health Concerns Assessment Noted Time PHQ-9 Depression Total Score: 15 025 3:52 PM EST documented as of this encounter Care Teams Ekg Monitor Tech Relationship Specialty Start Date End Date Chelle Cueto MD [address] [place] [phone] PCP - General Family Medicine 03/14/18 Glenn Fofana, Raven [address] [place] [phone] Pharmacist Internal Medicine 06/12/24 Caro Lee Water Pumping Station EngineerVulcanizer 12/01/23 documented as of this encounter
== END 2025-01-11 14:40 | disposition home or self-care (01) ==
LOC: HO.HOSX 14:39
PROVIDERS: Visit Provider Physician Assistant
DX: Z13.89 Encounter for screening for other disorder (principal)